=== PATIENT | female | born 1950 | race Caucasian/White ===

== ENCOUNTER → 2016-12-05 | Outpatient (CLI) | payer MEDICARE ==
--- NOTE | 2016-12-05 11:21 | USB ---
Reason for exam: clinical finding. History: Patient is postmenopausal, has history of breast cancer at age 63, and has history of other cancer at age 55. US breast aspiration single LT of the left breast, January 02, 2016. Benign US breast aspiration single LT of the left breast, December 13, 2015. Benign US biopsy breast VAD LT of the left breast, December 13, 2015. Malignant MG pre op needle loc LT of the left breast, October 03, 2014. Malignant US biopsy breast VAD LT of the left breast, May 04, 2014. Indicated problem(s): pain in the right breast. Physical Findings: Nurse Summary: breast edema in October for 3 weeks-seen by Dr. Burns-see previous ultrasound-no nipple discharge (nurse dw). US Breast LT Left breast ultrasound including all four quadrants, the retroareolar region and axilla demonstrates a 2.1 x 3.4 x 2.9cm irregular, mixed, hypoechoic lesion at scar area at 10 o'clock. These results were verbally communicated with the patient and result sheet given to the patient on 12/05/16. ASSESSMENT: Benign, BI-RAD 2 RECOMMENDATION: Follow-up diagnostic mammogram of both breasts in 6 months. Manage on a clinical basis with regard to pain. Back on schedule for May 2017.
== END | disposition home or self-care (01) ==
LOC: RADUSWWP 09:39
PROVIDERS: ATTEND Surgery
DX: N64.4 Mastodynia (principal)

== ENCOUNTER → 2017-04-19 | Outpatient (CLI) | payer MEDICARE ==
--- NOTE | 2017-04-20 13:18 | MR ---
EXAMINATION TYPE: MR knee RT wo con DATE OF EXAM: 04/19/2017 COMPARISON: NONE HISTORY: Rt Knee pain, Twisted Knee injury TECHNIQUE: Multiplanar, multisequence imaging of the right knee is performed without IV contrast. Exa m somewhat limited due to patient body habitus. FINDINGS: MEDIAL MENISCUS: There is increased signal within the substance of the posterior horn medial meniscus . Communication with an articular surface is not identified. Findings can be compatible with a type I internal derangement. Anterior horn medial meniscus is normal. LATERAL MENISCUS: Mild increased signals within the substance of the posterior horn lateral meniscus. Some increased signal is also within the anterior horn lateral meniscus. An anterior horn lateral me niscus tear may be present with extension to the inferior articular surface. Internal derangement of the posterior horn is likely present lateral meniscus. CRUCIATE LIGAMENTS: The anterior and posterior cruciate ligaments are intact and unremarkable. COLLATERAL LIGAMENTS: The medial collateral ligament and lateral collateral ligament complex are inta ct and unremarkable. EXTENSOR MECHANISM: Distal quadriceps tendon appears normal. There may be some mild increased signal of the proximal patellar tendon. Correlate for strain at this location. EFFUSION: Small to moderate joint effusion is present. This is predominantly within the suprapatella r joint space. POPLITEAL CYST: A 1.2 x 3.1 cm popliteal cyst is present. TRICOMPARTMENT SPACES: Mild narrowing of the joint spaces is present compatible with osteoarthritic d egenerative change. This is greater within the patellofemoral joint space. CARTILAGE: Mild diffuse thinning of the articular cartilage. This is more focal irregular along the p osterior patella. Correlate for chondromalacia. BONE MARROW SIGNAL: No focal abnormal marrow signal is appreciated. OTHER: Superficial soft tissue edema may be present. IMPRESSION: Degenerative changes of the posterior horn medial lateral menisci. 2. An oblique tear of the anterior horn lateral meniscus versus internal derangement. 3. Moderate joint effusion. 4. Possible proximal patellar tendon strain. 5. Osteoarthritic degenerative change. Some chondromalacia of the posterior patella is not excluded. 6. Mild diffuse superficial edema
== END | disposition home or self-care (01) ==
LOC: RADMRIMAIN 13:10
PROVIDERS: ATTEND Orthopaedic Surgery
DX: M25.861 Other specified joint disorders, right knee (principal); R60.0 Localized edema

== ENCOUNTER → 2017-06-03 | Outpatient (CLI) | payer MEDICARE ==
[2017-06-03 08:53] LABS: Calcium 8.9 mg/dL (8.4-10.2); Potassium 4.4 mmol/L (3.5-5.1); Total Bilirubin 0.4 mg/dL (0.2-1.3); Total Protein 6.2 g/dL (6.3-8.2)
== END | disposition home or self-care (01) ==
LOC: LABWHC1 07:46
PROVIDERS: ATTEND Internal Medicine
DX: E78.5 Hyperlipidemia, unspecified (principal); E03.9 Hypothyroidism, unspecified; C50.912 Malignant neoplasm of unspecified site of left female breast
CPT/HCPCS: 36415; 80053; 80061; 84439; 84443

== ENCOUNTER → 2017-06-13 | Outpatient (CLI) | payer MEDICARE ==
--- NOTE | 2017-06-13 10:30 | MM ---
Reason for exam: follow-up at short interval from prior study. Last mammogram was performed 1 year ago. History: Patient is postmenopausal, has history of breast cancer at age 63, and has history of other cancer at age 55. US breast aspiration single LT of the left breast, January 02, 2016. Benign US breast aspiration single LT of the left breast, December 13, 2015. Benign US biopsy breast VAD LT of the left breast, December 13, 2015. Malignant MG pre op needle loc LT of the left breast, October 03, 2014. Malignant US biopsy breast VAD LT of the left breast, May 04, 2014. Taking other hormone beginning at age 64. Physical Findings: Nurse did not find any significant physical abnormalities on exam. MG Diagnostic Mammo w CAD MISTY Bilateral CC and MLO view(s) were taken. XCCL view(s) were taken of the right breast. XCCM view(s) were taken of the left breast. Prior study comparison: June 12, 2016, bilateral MG 3d diag mammo w/cad MISTY. December 13, 2015, left breast MG diagnostic mammo LT wo CAD. The breast tissue is heterogeneously dense. This may lower the sensitivity of mammography. No suspicious abnormality. Post therapy change central inner left breast. No significant new findings when compared with previous films. These results were verbally communicated with the patient and result sheet given to the patient on 06/13/17. ASSESSMENT: Benign, BI-RAD 2 RECOMMENDATION: Follow-up diagnostic mammogram of both breasts in 1 year.
== END | disposition home or self-care (01) ==
LOC: RADMAMWWP 08:59
PROVIDERS: ATTEND Radiology Diagnostic Radiology
DX: C50.912 Malignant neoplasm of unspecified site of left female breast (principal)

== ENCOUNTER 2017-12-05 15:27 | Emergency (ER) | payer MEDICARE ==
[2017-12-05] MEDS ORDERED: SODIUM CHLORIDE 0.9% 1,000 ML IV STA ×2 (16:06)
--- NOTE | 2017-12-05 16:11 | ED ---
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 She also states she has some left-sided scapular area pain that was somewhat dull 3-4/10 severity now and 0-1/10 she has a fall any trauma cough or phlegm production. She does state that she has some bilateral facial numbness in the area of her cheeks. This has since improved. She reports no other complaints at this time. She was exposed to a 1-year-old grandchild that had vomiting 4 days ago. Patient also states she has an ecchymosis to the lateral aspect of her left eye she's not sure how it happened no trauma is reported - Related Data Home Medications: Home Medications Medication Instructions Recorded Confirmed Atenolol [Tenormin] 25 mg PO QAM 05/26/14 12/05/17 Levothyroxine Sodium [Synthroid] 25 mcg PO QAM 05/26/14 12/05/17 Anastrozole [Arimidex] 1 mg PO HS 12/21/15 12/05/17 Aspirin 81 mg PO HS 12/21/15 12/05/17 Calcium+D3 400mg/500iu 1 tab PO BID 12/05/17 12/05/17 Furosemide [Lasix] 20 mg PO QAM 12/05/17 12/05/17 Imatinib Mesylate [Gleevec] 400 mg PO QAM 12/05/17 12/05/17 Oxybutynin ER [Ditropan Xl] 10 mg PO HS 12/05/17 12/05/17 Previous Rx's Medication Instructions Recorded Azithromycin [Zithromax] 500 mg PO DAILY #7 tab 12/05/17 Allergies/Adverse Reactions: Allergies Allergy/AdvReac Type Severity Reaction Status Date / Time adhesive Allergy Unknown Verified 12/05/17 16:23 meperidine HCl [From Demerol] Allergy Rash/Hives Verified 12/05/17 16:23 Review of Systems ROS Statement: Those systems with pertinent positive or pertinent negative responses have been documented in the HPI. ROS Other: All systems not noted in ROS Statement are negative. General Exam - General Exam Comments Initial Comments: This is a well-developed well-nourished awake alert oriented 3 female Limitations: no limitations General appearance: alert, in no apparent distress Head exam: Present: atraumatic, normocephalic, normal inspection Eye exam: Present: PERRL, EOMI, other (Ecchymosis noted to the lateral aspect of the left orbit involving the upper or lower eyelid. No step-off or crepitation.). Absent: scleral icterus, conjunctival injection, periorbital swelling ENT exam: Present: mucous membranes dry Neck exam: Present: normal inspection. Absent: tenderness, meningismus, lymphadenopathy Respiratory exam: Present: normal lung sounds bilaterally. Absent: respiratory distress, wheezes, rales, rhonchi, stridor Cardiovascular Exam: Present: normal rhythm, bradycardia, normal heart sounds. Absent: systolic murmur, diastolic murmur, rubs, gallop, clicks GI/Abdominal exam: Present: soft, normal bowel sounds. Absent: distended, tenderness, guarding, rebound, rigid Extremities exam: Present: normal inspection, full ROM, normal capillary refill. Absent: tenderness, pedal edema, joint swelling, calf tenderness Back exam: Present: normal inspection, tenderness (Tenderness palpation over the left rhomboid muscles and upper left trapezius musculature. This does reproduce the patient's tenderness.). Absent: CVA tenderness (R), CVA tenderness (L), paraspinal tenderness, vertebral tenderness, rash noted Neurological exam: Present: alert, oriented X3, CN II-XII intact Psychiatric exam: Present: normal affect, normal mood Skin exam: Present: warm, dry, intact, normal color. Absent: rash Stroke MDM - Lab Data Result diagrams: 12/05/17 16:21 12/05/17 16:21 Lab Results 12/05/17 12/05/17 12/05/17 Range/Units 16:21 16:21 16:21 WBC 4.9 (3.8-10.6) k/uL RBC 3.98 (3.80-5.40) m/uL Hgb 12.7 (11.4-16.0) gm/dL Hct 40.5 (34.0-46.0) % MCV 101.8 H (80.0-100.0) fL MCH 31.9 (25.0-35.0) pg MCHC 31.4 (31.0-37.0) g/dL RDW 13.3 (11.5-15.5) % Plt Count 172 (150-450) k/uL Neutrophils % 58 % Lymphocytes % 31 % Monocytes % 4 % Eosinophils % 6 % Basophils % 0 % Neutrophils # 2.8 (1.3-7.7) k/uL Lymphocytes # 1.5 (1.0-4.8) k/uL Monocytes # 0.2 (0-1.0) k/uL Eosinophils # 0.3 (0-0.7) k/uL Basophils # 0.0 (0-0.2) k/uL Macrocytosis Slight PT (9.0-12.0) sec INR (<1.2) APTT (22.0-30.0) sec Sodium 143 (137-145) mmol/L Potassium 3.6 (3.5-5.1) mmol/L Chloride 106 (98-107) mmol/L Carbon Dioxide 26 (22-30) mmol/L Anion Gap 11 mmol/L BUN 13 (7-17) mg/dL Creatinine 1.14 H (0.52-1.04) mg/dL Est GFR (MDRD) Af Amer 58 (>60 ml/min/1.73 sqM) Est GFR (MDRD) Non-Af 48 (>60 ml/min/1.73 sqM) Glucose 102 H (74-99) mg/dL Calcium 9.3 (8.4-10.2) mg/dL Magnesium 1.8 (1.6-2.3) mg/dL Total Bilirubin 0.4 (0.2-1.3) mg/dL AST 41 H (14-36) U/L ALT 53 H (9-52) U/L Alkaline Phosphatase 68 (38-126) U/L Total Creatine Kinase 134 (30-135) U/L CK-MB (CK-2) 2.1 (0.0-2.4) ng/mL CK-MB (CK-2) Rel Index 1.6 Troponin I 0.016 (0.000-0.034) ng/mL Total Protein 6.3 (6.3-8.2) g/dL Albumin 3.8 (3.5-5.0) g/dL 12/05/17 Range/Units 16:21 WBC (3.8-10.6) k/uL RBC (3.80-5.40) m/uL Hgb (11.4-16.0) gm/dL Hct (34.0-46.0) % MCV (80.0-100.0) fL MCH (25.0-35.0) pg MCHC (31.0-37.0) g/dL RDW (11.5-15.5) % Plt Count (150-450) k/uL Neutrophils % % Lymphocytes % % Monocytes % % Eosinophils % % Basophils % % Neutrophils # (1.3-7.7) k/uL Lymphocytes # (1.0-4.8) k/uL Monocytes # (0-1.0) k/uL Eosinophils # (0-0.7) k/uL Basophils # (0-0.2) k/uL Macrocytosis PT 9.7 (9.0-12.0) sec INR 1.0 (<1.2) APTT 23.6 (22.0-30.0) sec Sodium (137-145) mmol/L Potassium (3.5-5.1) mmol/L Chloride (98-107) mmol/L Carbon Dioxide (22-30) mmol/L Anion Gap mmol/L BUN (7-17) mg/dL Creatinine (0.52-1.04) mg/dL Est GFR (MDRD) Af Amer (>60 ml/min/1.73 sqM) Est GFR (MDRD) Non-Af (>60 ml/min/1.73 sqM) Glucose (74-99) mg/dL Calcium (8.4-10.2) mg/dL Magnesium (1.6-2.3) mg/dL Total Bilirubin (0.2-1.3) mg/dL AST (14-36) U/L ALT (9-52) U/L Alkaline Phosphatase (38-126) U/L Total Creatine Kinase (30-135) U/L CK-MB (CK-2) (0.0-2.4) ng/mL CK-MB (CK-2) Rel Index Troponin I (0.000-0.034) ng/mL Total Protein (6.3-8.2) g/dL Albumin (3.5-5.0) g/dL - NIH Stroke Scale 1a. Level of Consciousness: (0) alert 1b. LOC Questions: (0) answers correctly 1c. LOC Commands: (0) performs tasks correctly 2. Best Gaze: (0) normal 3. Visual: (0) no visual loss 4. Facial Palsy: (0) normal symmetrical movement 5a. Motor Arm Left: (0) no drift 5b. Motor Arm Right: (0) no drift 6a. Motor Leg Left: (0) no drift 6b. Motor Leg Right: (0) no drift 7. Limb Ataxia: (0) absent 8. Sensory: (0) normal 9. Best Language: (0) no aphasia 10. Dysarthria: (0) normal 11. Extinction/Inattention: (0) no abnormality - Medical Decision Making I did discuss findings with the patient and her family hours. Patient does demonstrate evidence of a lingular infiltrate on her x-ray. She has had some upper respiratory symptoms but no overt phlegm. She states when the diarrhea started she had episodes of chills but none since The findings and her history she will be placed on antibiotics. She is also to increase her oral fluids at length the patient be discharged she will follow-up with her doctor and return when necessary - EKG Data -: EKG Interpreted by Me EKG shows normal: sinus rhythm (Sinus rhythm with frequent PVCs the patient has a ventricular rate 64 NC interval 158 QRS of 92 QT since QTC of 422/435 old inferior changes) Past Medical History Past Medical History: Cancer, Chest Pain / Angina, GERD/Reflux, Thyroid Disorder Additional Past Medical History / Comment(s): DX CML-2005 ON ORAL CHEMO, breast cancer, seroma drainage in [facility] 12/17/2015 History of Any Multi-Drug Resistant Organisms: None Reported Past Surgical History: Section, Hysterectomy Additional Past Surgical History / Comment(s): BSO, COLONOSCOPY, port placement Past Anesthesia/Blood Transfusion Reactions: Motion Sickness Additional Past Anesthesia/Blood Transfusion Reaction / Comment(s): DIFFICULTY WAKING Past Psychological History: No Psychological Hx Reported Smoking Status: Never smoker Past Alcohol Use History: Occasional Past Drug Use History: None Reported - Past Family History Mother Family Medical History: Cancer Additional Family Medical History / Comment(s): PANCREATIC Course Vital Signs 12/05/17 15:41 Temperature 98.2 F Pulse Rate 56 L Respiratory 16 Rate Blood Pressure 134/70 O2 Sat by Pulse 98 Oximetry Disposition Clinical Impression: Pneumonia, Chest wall pain Disposition: HOME SELF-CARE Condition: Good Instructions: Pneumonia (ED), Chest Wall Pain (ED) Prescriptions: Azithromycin [Zithromax] 500 mg PO DAILY #7 tab Referrals: Carlitos Schmid MD [Primary Care Provider] - 1-2 days
[2017-12-05 16:31] LABS: Basophils % (A) 0 %; Eosinophils # (A) 0.3 k/uL (0-0.7); Eosinophils % (A) 6 %; HCT 40.5 % (34.0-46.0); HGB 12.7 gm/dL (11.4-16.0); Lymphocytes # (A) 1.5 k/uL (1.0-4.8); Lymphocytes % (A) 31 %; MCH 31.9 pg (25.0-35.0); MCHC 31.4 g/dL (31.0-37.0); MCV 101.8 fL (80.0-100.0); Macrocytosis Slight; Mean Platelet Volume 7.4; Monocytes # (A) 0.2 k/uL (0-1.0); Monocytes % (A) 4 %; Neutrophils # (A) 2.8 k/uL (1.3-7.7); Neutrophils % (A) 58 %; Platelet Count 172 k/uL (150-450); RBC 3.98 m/uL (3.80-5.40); RDW 13.3 % (11.5-15.5); WBC 4.9 k/uL (3.8-10.6)
[2017-12-05 16:43] LABS: Albumin 3.8 g/dL (3.5-5.0); Calcium 9.3 mg/dL (8.4-10.2); Magnesium 1.8 mg/dL (1.6-2.3); Potassium 3.6 mmol/L (3.5-5.1); Total Bilirubin 0.4 mg/dL (0.2-1.3); Total Protein 6.3 g/dL (6.3-8.2)
[2017-12-05 16:48] LABS: Partial Thromboplastin Time 23.6 sec (22.0-30.0); Prothrombin Time 9.7 sec (9.0-12.0)
[2017-12-05 17:09] LABS: Creatine Kinase MB 2.1 ng/mL (0.0-2.4); Troponin I 0.016 ng/mL (0.000-0.034)
--- NOTE | 2017-12-05 17:12 | XR ---
EXAMINATION TYPE: XR chest 2V DATE OF EXAM: 12/05/2017 COMPARISON: 03/20/2016 HISTORY: Headache TECHNIQUE: Frontal and lateral views of the chest are obtained. FINDINGS: There is no heart failure. Heart appears enlarged. Costophrenic angles are clear. Left ca rdiac border is indistinct. There is possible infiltrate in the lingula left upper lobe. Bony thorax is intact. IMPRESSION: There is probably new infiltrate in the lingula left upper lobe compared to old exam. No heart failure.
[2017-12-05 18:19] VITALS: BP 136/63; PULSE 60; RESP 18; TEMP 98
== END 2017-12-05 18:17 | disposition home or self-care (01) ==
LOC: EC 15:27
DX: J18.9 Pneumonia, unspecified organism (principal); R23.3 Spontaneous ecchymoses; R20.0 Anesthesia of skin; R19.7 Diarrhea, unspecified; E07.9 Disorder of thyroid, unspecified; Z85.3 Personal history of malignant neoplasm of breast; Z85.6 Personal history of leukemia; Z91.048 Other nonmedicinal substance allergy status; Z88.5 Allergy status to narcotic agent; Z79.82 Long term (current) use of aspirin; Z79.899 Other long term (current) drug therapy
CPT/HCPCS: 36415; 71046; 80053; 82550; 82553; 83735; 84484; 85025; 85610; 85730; 93005; 96360; 99284

== ENCOUNTER → 2018-01-15 | Outpatient (CLI) | payer MEDICARE ==
--- NOTE | 2018-01-15 15:54 | SFUN ---
SLEEP STUDY FOLLOW UP NOTE DATE OF SERVICE: 01/15/2018 67-year-old lady has been followed in the Sleep Center for discussion of results of polysomnogram and following plan. I discussed results of polysomnogram with the patient in details. Sleep study showed moderate obstructive sleep apnea-hypopnea syndrome with apnea-hypopnea index 17.3 and oxygen desaturation to 79%. Severe abnormalities of respiration in REM sleep 67.3 events per hour. EMG did not show any significant periodic limb movements. Heart rate in the range between 48 and 85. [place] Sleepiness Scale today is 6. MEDICATIONS: Atenolol, Gleevec, Arimidex, Synthroid, Ditropan, Lasix, calcium and vitamin D supplement. PHYSICAL EXAM: GENERAL Patient in no distress. VITAL SIGNS BP 138/67, HR 48, RR 16, height 5 feet 4 inches, weight 273, BMI 46.8, oxygen saturation on room air 99%. HEENT PERRLA, EOMI, evaluation of oropharynx showed extremely low position of soft palate. NECK Supple, no JVD. Thyroid is not palpable. LUNGS Clear to percussion and to auscultation. Good air exchange. No wheezing or rhonchi. HEART S1, S2 regular. No murmurs, gallops, or rubs. ABDOMEN Obese. Soft and nontender. Bowel sounds are present. No organomegaly appreciated. EXTREMITIES No clubbing or cyanosis. PROCUREMENT ASSISTANT Awake, alert, and oriented X3. Cranial nerves 2 to 7 intact. There is no fasciculation or atrophy. noted. No focal deficits observed. IMPRESSION: 1. Apnea-hypopnea syndrome. 2. Obesity. 3. History of coronary artery disease with episodes of angina. 4. Chronic myeloid leukemia. PLAN: 1. CPAP titration for correction of respiratory abnormalities during sleep. 2. Losing weight. 3. Sleep hygiene with regular time in bed for at least 8 hours. 4. No driving if feeling sleepiness. Thank you very much for allowing me to participate in management of your patient. Sincerely, Javad Joshua MD, PhD, FAASM Diplomat of [employer] [employer] [employer] Grain Wafer Machine Operator of [facility] [place] MMODL / IJN: [id number] /
== END | disposition home or self-care (01) ==
LOC: SLEEP 14:18
PROVIDERS: ATTEND Internal Medicine
DX: G47.33 Obstructive sleep apnea (adult) (pediatric) (principal); E66.9 Obesity, unspecified; C92.10 Chronic myeloid leukemia, BCR/ABL-positive, not having achieved remission; Z79.811 Long term (current) use of aromatase inhibitors; Z79.899 Other long term (current) drug therapy; Z86.79 Personal history of other diseases of the circulatory system

== ENCOUNTER → 2018-04-20 | Outpatient (CLI) | payer MEDICARE ==
[2018-04-20 08:25] LABS: HCT 38.5 % (34.0-46.0); HGB 12.5 gm/dL (11.4-16.0); MCHC 32.5 g/dL (31.0-37.0); MCV 98.7 fL (80.0-100.0); Mean Platelet Volume 7.5; Platelet Count 203 k/uL (150-450); RBC 3.91 m/uL (3.80-5.40); RDW 13.3 % (11.5-15.5); WBC 6.5 k/uL (3.8-10.6)
== END | disposition home or self-care (01) ==
LOC: LABPAT 08:03
PROVIDERS: ATTEND Anesthesiology
DX: Z01.812 Encounter for preprocedural laboratory examination (principal)
CPT/HCPCS: 36415; 80051; 85027

== ENCOUNTER → 2018-06-15 | Outpatient (CLI) | payer MEDICARE ==
--- NOTE | 2018-06-15 10:57 | MM ---
Reason for exam: additional evaluation requested from prior study. Last mammogram was performed 1 year ago. History: Patient is postmenopausal, has history of breast cancer at age 63, and has history of other cancer at age 55. Family history of breast cancer in 2 paternal cousins. US breast aspiration single LT of the left breast, January 02, 2016. Benign US breast aspiration single LT of the left breast, December 13, 2015. Benign US biopsy breast VAD LT of the left breast, December 13, 2015. Malignant MG pre op needle loc LT of the left breast, October 03, 2014. Malignant US biopsy breast VAD LT of the left breast, May 04, 2014. Chemotherapy. Radiation therapy of the left breast. Taking antineoplastic for 5 years beginning at age 63. Taking other hormone. Physical Findings: Nurse did not find any significant physical abnormalities on exam. MG 3D Diag Mammo W/Cad MISTY Bilateral CC and MLO view(s) were taken. Prior study comparison: June 13, 2017, bilateral MG diagnostic mammo w CAD MISTY. June 12, 2016, bilateral MG 3d diag mammo w/cad MISTY. The breast tissue is heterogeneously dense. This may lower the sensitivity of mammography. Stable benign calcifications. Stable post operative changes left breast. No significant new findings when compared with previous films. These results were verbally communicated with the patient and result sheet given to the patient on 06/15/18. ASSESSMENT: Benign, BI-RAD 2 RECOMMENDATION: Follow-up diagnostic mammogram of both breasts in 1 year.
== END | disposition home or self-care (01) ==
LOC: RADMAMWWP 09:38
PROVIDERS: ATTEND Radiology Diagnostic Radiology
DX: Z08 Encounter for follow-up examination after completed treatment for malignant neoplasm (principal); Z85.3 Personal history of malignant neoplasm of breast
CPT/HCPCS: 77066; G0279; 77062

== ENCOUNTER → 2018-06-15 | Outpatient (CLI) | payer MEDICARE ==
--- NOTE | 2018-06-15 15:23 | BD ---
EXAMINATION TYPE: Axial Bone Density DATE OF EXAM: 06/15/2018 COMPARISON: 2016 CLINICAL HISTORY: left breast ca Height: 5'5 Weight: 290 FRAX RISK QUESTIONS: History of Fracture in Adulthood: y Secondary Osteoporosis: 3. Menopause before 45: y RISK FACTORS HISTORY OF: Active: n Postmenopausal woman: y MEDICATIONS: Thyroid Medications: Which medication: Synthroid How Lon years Osteoporosis Medications: Which medication: Prolia How Lon years Additional Medications: leukemia, Arimidex, heart Additional History: leukemia, left breast cancer EXAM MEASUREMENTS: Bone mineral densitometry was performed using the [employer]. Bone mineral density as measured about the Lumbar spine is: ----- L1-L4(G/cm2): 1.283 T Score Values are as follows: ----- L2: -0.3 ----- L3: 1.2 ----- L4: 1.9 ----- L1-L4: 0.9 Bone mineral density has: Increased 8.9% since study of: 06/12/2016 Bone mineral density about the R hip (g/cm2): 0.861 Bone mineral density about the L hip (g/cm2): 0.953 T Score values are as follows: -----R Neck: -1.3 -----L Neck:-0.6 -----R Total: -0.6 -----L Total: 0.4 Bone mineral density has: Increased 4.1% since study of: 06/12/2016 IMPRESSION: No evidence for osteoporosis or osteopenia. NOTE: T-SCORE=SD OF THE YOUNG ADULT MEAN.
== END | disposition home or self-care (01) ==
LOC: RADBDWWP 09:42
PROVIDERS: ATTEND Internal Medicine Hematology & Oncology
DX: C50.212 Malignant neoplasm of upper-inner quadrant of left female breast (principal); Z79.890 Hormone replacement therapy
CPT/HCPCS: 77080

== ENCOUNTER → 2018-06-18 | Outpatient (CLI) | payer MEDICARE ==
--- NOTE | 2018-06-18 11:01 | SFUN ---
SLEEP CENTER FOLLOW UP NOTE DATE OF SERVICE: 06/18/2018 A 68-year-old lady who has been followed in the Sleep Center for treatment of moderate obstructive sleep apnea-hypopnea syndrome. Patient is trying to use her equipment every night, but sometimes has problem related to her sinuses and to collection of the water into tube and in the mask. If she does less amount of heat in the humidifier, then, she has more problem with the sinuses. With the present humidity, no problems with the sinuses, but there is a problem related to the extra water. Level of the machine is about the same level as her head. I checked her CPAP unit, CPAP pressure is 9 cm of water. Usage is 28/30 nights for more than 4 hours, average is 5.4 hours which is great compliance. Leak is 10 L/minute which is normal range. Apnea-hypopnea index for the last month only 1.4, which is a perfect. [place] Sleepiness Scale today is 6. MEDICATIONS: Gleevec, furosemide, thyroxine, atenolol, oxybutynin, baby aspirin, calcium supplement, anastrozole. PHYSICAL EXAM: Patient in no distress. BP 152/64, HR 48, RR 16, weight 295, temp 99.7, oxygen saturation at room air 98%. Extremely low position of soft palate. ABDOMEN: Obese. Neck Supple, no JVD. Thyroid is not palpable. LUNGS Clear to percussion and to auscultation. Good air exchange. No wheezing or rhonchi. HEART S1, S2 regular. No murmurs, gallops, or rubs. EXTREMITIES No clubbing or cyanosis. BRASSWIND INSTRUMENT REPAIRER Awake, alert, and oriented X3. Cranial nerves 2 to 7 intact. There is no fasciculation or atrophy. noted. No focal deficits observed. IMPRESSION: 1. Obstructive sleep apnea-hypopnea syndrome. Patient demonstrated great compliance with treatment benefitting from treatment. 2. Obesity. 3. History of coronary artery disease with episodes of angina. 4. Chronic myeloid leukemia. 5. Hypothyroidism. 6. History of breast cancer, status post surgical treatment. After surgical treatment, radiation treatment and chemotherapy. PLAN: 1. Patient will continue treatment with CPAP every night for the whole night. 2. I will decrease pressure in the machine to 7 cm of water. 3. Patient put machine lower than you head at about 1 to 1-1/2 feet. 4. Losing weight. 5. Sleep hygiene with regular time bed for at least 8 hours. 6. No driving if feeling sleepiness. Thank you very much for allowing me to participate in the management of your patient. Sincerely, Javad Joshua MD, PhD, FAASM Diplomat of [employer] Alignment Specialist of [facility] [place] MMJOSE RAFAELL / RICHARDN: [id number] /
== END | disposition home or self-care (01) ==
LOC: SLEEP 09:54
PROVIDERS: ATTEND Internal Medicine
DX: G47.33 Obstructive sleep apnea (adult) (pediatric) (principal); E66.9 Obesity, unspecified; C92.10 Chronic myeloid leukemia, BCR/ABL-positive, not having achieved remission; E03.9 Hypothyroidism, unspecified; Z85.3 Personal history of malignant neoplasm of breast; Z86.79 Personal history of other diseases of the circulatory system; Z99.89 Dependence on other enabling machines and devices; Z79.82 Long term (current) use of aspirin; Z79.899 Other long term (current) drug therapy; Z98.890 Other specified postprocedural states

== ENCOUNTER → 2018-06-18 | Outpatient (CLI) | payer MEDICARE ==
[2018-06-18 08:56] LABS: Potassium 4.7 mmol/L (3.5-5.1)
[2018-06-18 08:57] LABS: Albumin 3.8 g/dL (3.5-5.0); Calcium 9.1 mg/dL (8.4-10.2); Total Bilirubin 0.4 mg/dL (0.2-1.3); Total Protein 6.3 g/dL (6.3-8.2)
[2018-06-18 16:31] LABS: Parathyroid Hormone Intact 162.7 pg/mL (14.0-72.0)
== END | disposition home or self-care (01) ==
LOC: LABWHC1 08:03
PROVIDERS: ATTEND Internal Medicine
DX: E03.9 Hypothyroidism, unspecified (principal); E78.5 Hyperlipidemia, unspecified; N18.3 Chronic kidney disease, stage 3 (moderate)
CPT/HCPCS: 36415; 80053; 80061; 82306; 83970; 84443

== ENCOUNTER 2018-07-20 16:38 | Emergency (ER) | payer MEDICARE ==
[2018-07-20] MEDS ORDERED: KETOROLAC 30 MG/ML 1 ML VIAL IVP STA (17:34)
[2018-07-20] MEDS ORDERED: METOCLOPRAMIDE 5 MG/ML 2 ML VIAL IVP STA (17:34)
[2018-07-20] MEDS ORDERED: SODIUM CHLORIDE 0.9% 1,000 ML IV STA (17:34)
[2018-07-20] MEDS ORDERED: FAMOTIDINE 20 MG/2 ML VIAL IV STA (17:35)
--- NOTE | 2018-07-20 17:38 | ED ---
General Adult HPI - General Chief complaint: Abdominal Pain Stated complaint: Abdominal pain Time Seen by Provider: 07/20/18 17:20 Source: patient, family, RN notes reviewed Mode of arrival: ambulatory Limitations: no limitations - History of Present Illness Initial comments: Patient is a pleasant 68-year-old female presenting to the emergency Department with abdominal discomfort. Discomfort is mostly in the epigastric region. Discomfort first occurred 3 days ago after eating pork. Patient has had intermittent discomfort associated with eating since that time. Patient has become nervous to eat. Worst episode was Friday after eating a large meal of fried food. Discomfort does radiate somewhat towards the back. Patient has had some mild nausea. No vomiting. Patient did have one normal bowel movement recently. Otherwise no constipation or diarrhea. No fevers. No history of similar symptoms previously. Patient is concerned symptoms may be related to her gallbladder. - Related Data Home Medications Medication Instructions Recorded Confirmed Atenolol [Tenormin] 25 mg PO QAM 05/26/14 07/20/18 Levothyroxine Sodium [Synthroid] 25 mcg PO QAM 05/26/14 07/20/18 Anastrozole [Arimidex] 1 mg PO HS 12/21/15 07/20/18 Aspirin 81 mg PO HS 12/21/15 07/20/18 Calcium+D3 400mg/500iu 1 tab PO BID 12/05/17 07/20/18 Furosemide [Lasix] 20 mg PO DAILY 12/05/17 07/20/18 Imatinib Mesylate [Gleevec] 400 mg PO DAILY 12/05/17 07/20/18 Oxybutynin ER [Ditropan Xl] 10 mg PO HS 12/05/17 07/20/18 Previous Rx's Medication Instructions Recorded Omeprazole [PriLOSEC] 40 mg PO DAILY #30 capsule. 07/20/18 Allergies Allergy/AdvReac Type Severity Reaction Status Date / Time adhesive AdvReac RED SKIN Verified 07/20/18 18:34 AND TAKES SKIN OFF meperidine HCl [From Demerol] AdvReac Rash/Hives, Verified 07/20/18 18:34 rapid heart rate morphine AdvReac Itching Verified 07/20/18 18:34 naproxen [From Aleve] Nicole Phelps told Verified 07/20/18 18:34 not to take tylenol AdvReac Told Uncoded 07/20/18 18:34 not to take Review of Systems ROS Statement: Those systems with pertinent positive or pertinent negative responses have been documented in the HPI. ROS Other: All systems not noted in ROS Statement are negative. Constitutional: Denies: fever Eyes: Denies: eye pain ENT: Denies: ear pain Respiratory: Denies: cough Cardiovascular: Denies: chest pain Endocrine: Denies: fatigue Gastrointestinal: Reports: abdominal pain. Denies: vomiting Genitourinary: Denies: dysuria Musculoskeletal: Denies: arthralgia Skin: Denies: rash Past Medical History Past Medical History: Atrial Fibrillation, Cancer, Chest Pain / Angina, Deep Vein Thrombosis (DVT), GERD/Reflux, Skin Disorder, Sleep Apnea/CPAP/BIPAP, Thyroid Disorder Additional Past Medical History / Comment(s): breast cancer, A-Fib after chemo in 2013, hx blood clot left arm, varicose veins, arthritis in knee and hip, psoriasis, chronic myeloid leukemia, "low kidney function", degenerative disk disease History of Any Multi-Drug Resistant Organisms: None Reported Past Surgical History: Breast Surgery, Section, Hernia Repair, Hysterectomy Additional Past Surgical History / Comment(s): COLONOSCOPY, port placement/ later removed, left breast lumpectomy, rhoda cataracts, heel spur-not sure which foot Past Anesthesia/Blood Transfusion Reactions: Previous Problems w/ Anesthesia, Motion Sickness, Postoperative Nausea & Vomiting (PONV) Additional Past Anesthesia/Blood Transfusion Reaction / Comment(s): DIFFICULTY WAKING Past Psychological History: No Psychological Hx Reported Smoking Status: Never smoker Past Alcohol Use History: Rare Past Drug Use History: None Reported - Past Family History Mother Family Medical History: Cancer Additional Family Medical History / Comment(s): PANCREATIC General Exam Limitations: no limitations General appearance: alert, in no apparent distress Head exam: Present: atraumatic Eye exam: Present: normal appearance Respiratory exam: Present: normal lung sounds bilaterally Cardiovascular Exam: Present: regular rate, normal rhythm Expanded Peripheral pulses: 2+: Posterior Tibialis (R), Posterior Tibialis (L) GI/Abdominal exam: Present: soft, tenderness (Moderate tenderness in the right upper quadrant and epigastric region.), guarding (Mild guarding the right upper quadrant and epigastric region), normal bowel sounds. Absent: distended, rebound, rigid, pulsatile mass Extremities exam: Present: normal inspection Back exam: Present: normal inspection. Absent: tenderness Neurological exam: Present: alert Psychiatric exam: Present: normal affect, normal mood Skin exam: Present: normal color Course Vital Signs 07/20/18 07/20/18 17:05 18:44 Temperature 99.2 F Pulse Rate 56 L 60 Respiratory 18 169 H Rate Blood Pressure 150/84 145/74 O2 Sat by Pulse 95 Oximetry Medical Decision Making - Medical Decision Making Patient reevaluated and resting comfortably in bed. Patient symptom-free at this time. Patient states she used to be on Prilosec however has not taken in a couple of years. Patient is updated on results. Patient is offered computed tomography scan however refuses. Patient states she'll follow-up with her doctor. Patient states she is previously seen Dr. galo and will follow-up with him. She is advised to consider HIDA scan and possible scope. - Lab Data Result diagrams: 07/20/18 18:08 07/20/18 18:08 Lab Results 07/20/18 07/20/18 07/20/18 Range/Units 17:40 18:08 18:08 WBC 8.8 (3.8-10.6) k/uL RBC 4.02 (3.80-5.40) m/uL Hgb 12.5 (11.4-16.0) gm/dL Hct 39.7 (34.0-46.0) % MCV 98.5 (80.0-100.0) fL MCH 31.1 (25.0-35.0) pg MCHC 31.6 (31.0-37.0) g/dL RDW 13.6 (11.5-15.5) % Plt Count 206 (150-450) k/uL Neutrophils % 69 % Lymphocytes % 21 % Monocytes % 5 % Eosinophils % 4 % Basophils % 0 % Neutrophils # 6.0 (1.3-7.7) k/uL Lymphocytes # 1.9 (1.0-4.8) k/uL Monocytes # 0.5 (0-1.0) k/uL Eosinophils # 0.3 (0-0.7) k/uL Basophils # 0.0 (0-0.2) k/uL PT (9.0-12.0) sec INR (<1.2) APTT (22.0-30.0) sec Sodium 141 (137-145) mmol/L Potassium 3.6 (3.5-5.1) mmol/L Chloride 103 (98-107) mmol/L Carbon Dioxide 31 H (22-30) mmol/L Anion Gap 7 mmol/L BUN 18 H (7-17) mg/dL Creatinine 1.17 H (0.52-1.04) mg/dL Est GFR (CKD-EPI)AfAm 56 (>60 ml/min/1.73 sqM) Est GFR (CKD-EPI)NonAf 48 (>60 ml/min/1.73 sqM) Glucose 97 (74-99) mg/dL Calcium 9.0 (8.4-10.2) mg/dL Total Bilirubin 0.5 (0.2-1.3) mg/dL AST 27 (14-36) U/L ALT 42 (9-52) U/L Alkaline Phosphatase 82 (38-126) U/L Total Protein 6.4 (6.3-8.2) g/dL Albumin 3.8 (3.5-5.0) g/dL Amylase 36 (30-110) U/L Lipase 124 (23-300) U/L Urine Color Yellow Urine Appearance Clear (Clear) Urine pH 7.0 (5.0-8.0) Ur Specific [place] 1.013 (1.001-1.035) Urine Protein Trace H (Negative) Urine Glucose (UA) Negative (Negative) Urine Ketones Negative (Negative) Urine Blood Negative (Negative) Urine Nitrite Negative (Negative) Urine Bilirubin Negative (Negative) Urine Urobilinogen <2.0 (<2.0) mg/dL Ur Leukocyte Esterase Small H (Negative) Urine RBC 1 (0-5) /hpf Urine WBC 10 H (0-5) /hpf Ur Squamous Epith Cells 1 (0-4) /hpf Hyaline Casts 1 (0-2) /lpf 07/20/18 Range/Units 18:08 WBC (3.8-10.6) k/uL RBC (3.80-5.40) m/uL Hgb (11.4-16.0) gm/dL Hct (34.0-46.0) % MCV (80.0-100.0) fL MCH (25.0-35.0) pg MCHC (31.0-37.0) g/dL RDW (11.5-15.5) % Plt Count (150-450) k/uL Neutrophils % % Lymphocytes % % Monocytes % % Eosinophils % % Basophils % % Neutrophils # (1.3-7.7) k/uL Lymphocytes # (1.0-4.8) k/uL Monocytes # (0-1.0) k/uL Eosinophils # (0-0.7) k/uL Basophils # (0-0.2) k/uL PT 9.5 (9.0-12.0) sec INR 1.0 (<1.2) APTT 22.6 (22.0-30.0) sec Sodium (137-145) mmol/L Potassium (3.5-5.1) mmol/L Chloride (98-107) mmol/L Carbon Dioxide (22-30) mmol/L Anion Gap mmol/L BUN (7-17) mg/dL Creatinine (0.52-1.04) mg/dL Est GFR (CKD-EPI)AfAm (>60 ml/min/1.73 sqM) Est GFR (CKD-EPI)NonAf (>60 ml/min/1.73 sqM) Glucose (74-99) mg/dL Calcium (8.4-10.2) mg/dL Total Bilirubin (0.2-1.3) mg/dL AST (14-36) U/L ALT (9-52) U/L Alkaline Phosphatase (38-126) U/L Total Protein (6.3-8.2) g/dL Albumin (3.5-5.0) g/dL Amylase (30-110) U/L Lipase (23-300) U/L Urine Color Urine Appearance (Clear) Urine pH (5.0-8.0) Ur Specific [place] (1.001-1.035) Urine Protein (Negative) Urine Glucose (UA) (Negative) Urine Ketones (Negative) Urine Blood (Negative) Urine Nitrite (Negative) Urine Bilirubin (Negative) Urine Urobilinogen (<2.0) mg/dL Ur Leukocyte Esterase (Negative) Urine RBC (0-5) /hpf Urine WBC (0-5) /hpf Ur Squamous Epith Cells (0-4) /hpf Hyaline Casts (0-2) /lpf - Radiology Data Radiology results: image reviewed (KUB shows no acute process. Ultrasound of the gallbladder is suboptimal. No gallstones or secondary evidence of cholecystitis is present. Ultrasound of the aorta is suboptimal. Proximal and mid aorta does not reveal acute abnormality. Distal and bifurcation is limited by gas.) Disposition Clinical Impression: Epigastric abdominal pain Disposition: HOME SELF-CARE Condition: Stable Instructions: Abdominal Pain (ED) Additional Instructions: Prilosec as prescribed. Please follow-up with her surgeon and primary care physician in the next couple days for recheck. Consider scope. Consider EGD. Return for increased pain, fevers, worsening or change in symptoms or other concerns. Prescriptions: Omeprazole [PriLOSEC] 40 mg PO DAILY #30 capsule.dr Is patient prescribed a controlled substance at d/c from ED?: No Referrals: Carlitos Schmid MD [Primary Care Provider] - 1-2 days Fernandez Galo DO [Doctor of Osteopathic Medicine] - 1-2 days Time of Disposition: 20:00
[2018-07-20 18:20] LABS: Albumin 3.8 g/dL (3.5-5.0); Basophils % (A) 0 %; Eosinophils # (A) 0.3 k/uL (0-0.7); Eosinophils % (A) 4 %; HCT 39.7 % (34.0-46.0); HGB 12.5 gm/dL (11.4-16.0); Lymphocytes # (A) 1.9 k/uL (1.0-4.8); Lymphocytes % (A) 21 %; MCH 31.1 pg (25.0-35.0); MCHC 31.6 g/dL (31.0-37.0); MCV 98.5 fL (80.0-100.0); Mean Platelet Volume 7.2; Monocytes # (A) 0.5 k/uL (0-1.0); Monocytes % (A) 5 %; Neutrophils % (A) 69 %; Platelet Count 206 k/uL (150-450); Potassium 3.6 mmol/L (3.5-5.1); RBC 4.02 m/uL (3.80-5.40); RDW 13.6 % (11.5-15.5); Total Bilirubin 0.5 mg/dL (0.2-1.3); Total Protein 6.4 g/dL (6.3-8.2); WBC 8.8 k/uL (3.8-10.6)
[2018-07-20 18:27] LABS: Partial Thromboplastin Time 22.6 sec (22.0-30.0); Prothrombin Time 9.5 sec (9.0-12.0)
[2018-07-20 18:27] LABS: Appearance,Urine Clear (Clear); Bilirubin,Urine Negative (Negative); Blood,Urine Negative (Negative); Color,Urine Yellow; Glucose,Urine (UA) Negative (Negative); Hyaline Casts,Urine 1 /lpf (0-2); Ketones,Urine Negative (Negative); Leukocyte Esterase,Urine Small (Negative); Nitrite,Urine Negative (Negative); Protein,Urine Trace (Negative); RBC,Urine 1 /hpf (0-5); Specific Gravity,Urine 1.013 (1.001-1.035); Squamous Epithelial Cell,Urine 1 /hpf (0-4); Urobilinogen,Urine <2.0 mg/dL (<2.0); WBC,Urine 10 /hpf (0-5)
--- NOTE | 2018-07-20 18:38 | US ---
EXAMINATION TYPE: US gallbladder DATE OF EXAM: 07/20/2018 COMPARISON: Prior limited abdominal ultrasound March 07, 2016 CLINICAL HISTORY: Pain. EXAM MEASUREMENTS: Liver Length: 17.7 cm Gallbladder Wall: 0.3 cm CBD: 0.3 cm Right Kidney: 9.8 x 4.1 x 4.3 cm Morbidly obese patient with extensive overlying bowel gas, technically difficult and very limited jay jay dy. Pancreas: Obscured by bowel gas Liver: Increased attenuation, decreased visualization of vessels suggestive of fatty infiltrate, upp er limites of normal in size Gallbladder: wnl as visualized, limited views Evidence for sonographic Gonzalez's sign: no CBD: wnl as visualized, limited views Right Kidney: very limited visualization, no hydro Suboptimal study per technologist due to patient's large body habitus and overlying bowel gas. Visual ized liver is heterogeneously hyperechoic. Favor diffuse fatty infiltration. Gallbladder is slightly distended margins. No mobile shadowing gallstones are present. IMPRESSION: Suboptimal study but no gallstones or secondary ultrasound evidence for acute cholecystit is is present.
--- NOTE | 2018-07-20 18:39 | US ---
EXAMINATION TYPE: US duplex aorta DATE OF EXAM: 07/20/2018 COMPARISON: NONE CLINICAL HISTORY: Pain. EXAM MEASUREMENTS: Abdominal Aorta: Proximal: 2.6cm by 2.3 cm transversely Mid: 2.1cm by 1.8 cm transversely. Distal: obscured by bowel gas Bifurcation: obscured by bowel gas Morbidly obese patient with extensive overlying bowel gas. Technically difficult and very limited jay jay dy. IMPRESSION: Suboptimal study with incomplete visualization of the entire abdominal aorta.
--- NOTE | 2018-07-20 19:22 | XR ---
EXAMINATION TYPE: XR KUB DATE OF EXAM: 07/20/2018 7:16 PM CLINICAL HISTORY: Upper abdominal pain into back. TECHNIQUE: Two Upright KUB images of the abdomen are obtained. COMPARISON: None. FINDINGS: Scattered gas is seen in non-distended stomach and small bowel loops. Gas and fecal materia l is seen in non-distended colon. Scattered pelvic phleboliths are present. Levoconvex scoliosis cent ered at L3 level is seen. Surgical clips overlie the left breast. No pneumoperitoneum is present. Kellie g bases are clear. IMPRESSION: Overall nonobstructive bowel gas pattern.
[2018-07-20 19:58] VITALS: RESP 18
[2018-07-20 20:10] VITALS: BP 117/55; PULSE 59; TEMP 98.1
== END 2018-07-20 20:10 | disposition home or self-care (01) ==
LOC: EC 16:38
DX: R10.13 Epigastric pain (principal); R11.0 Nausea; E07.9 Disorder of thyroid, unspecified; M16.10 Unilateral primary osteoarthritis, unspecified hip; M17.10 Unilateral primary osteoarthritis, unspecified knee; G47.30 Sleep apnea, unspecified; Z88.5 Allergy status to narcotic agent; Z88.6 Allergy status to analgesic agent; Z91.048 Other nonmedicinal substance allergy status; Z79.82 Long term (current) use of aspirin; Z79.899 Other long term (current) drug therapy; Z85.3 Personal history of malignant neoplasm of breast; Z92.21 Personal history of antineoplastic chemotherapy; Z85.6 Personal history of leukemia; Z98.890 Other specified postprocedural states; Z86.79 Personal history of other diseases of the circulatory system; Z99.89 Dependence on other enabling machines and devices; Z80.0 Family history of malignant neoplasm of digestive organs; Z53.8 Procedure and treatment not carried out for other reasons
CPT/HCPCS: 36415; 80053; 82150; 83690; 85025; 85610; 85730; 81001; 87086; 74018; 76705; 93979; 99284; 96374; 96375; 96361; J2765

== ENCOUNTER → 2018-08-18 | Outpatient (CLI) | payer MEDICARE ==
--- NOTE | 2018-08-20 08:57 | USB ---
Reason for exam: clinical finding. History: Patient is postmenopausal, has history of breast cancer at age 63, and has history of other cancer at age 55. Family history of breast cancer in 2 paternal cousins. US breast aspiration single LT of the left breast, January 02, 2016. Benign US breast aspiration single LT of the left breast, December 13, 2015. Benign US biopsy breast VAD LT of the left breast, December 13, 2015. Malignant MG pre op needle loc LT of the left breast, October 03, 2014. Malignant US biopsy breast VAD LT of the left breast, May 04, 2014. Chemotherapy. Radiation therapy of the left breast. Taking antineoplastic for 5 years beginning at age 63. Taking other hormone. Physical Findings: Nurse did not find any significant physical abnormalities on exam. US Breast LT Left complete breast ultrasound includes all four quadrants, the retroareolar region and axilla. Finding demonstrates a 8 x 6 x 4 mm Hypoechoic lesion at 3 o"clock that corresponds to an oil cyst. And a 17 x 14 x 30 mm Hypoechoic vascular lesion at 10 o'clock which is at the scar, the posterior edge is vascular, rebiopsy post margin is recommended. ASSESSMENT: Suspicious, BI-RAD 4 RECOMMENDATION: Ultrasound core biopsy of the left breast. Called with mammographic findings and has scheduled an appointment for the patient for 09/02/18at13[address] Jeffery. Patient is scheduled for Ultrasound core of her left breast on 08/28/18 at 10:00 am. PRELIMINARY REPORT CALLED AND FAXED TO DR. JEFFERY ON 08/20/18
== END | disposition home or self-care (01) ==
LOC: RADUSWWP 14:50
PROVIDERS: ATTEND Surgery
DX: Z08 Encounter for follow-up examination after completed treatment for malignant neoplasm (principal); Z85.3 Personal history of malignant neoplasm of breast

== ENCOUNTER → 2018-08-28 | Day surgery (SDC) | payer MEDICARE ==
[2018-08-28 09:32] VITALS: RESP 16; TEMP 98.5; BMI 47.6
[2018-08-28 10:54] VITALS: BP 116/73; PULSE 54
--- NOTE | 2018-08-31 17:55 | USB ---
EXAMINATION TYPE: US biopsy breast VAD LT DATE OF EXAM: 08/28/2018 CLINICAL HISTORY: R92.8 Abnormal Mammogram. TECHNIQUE: Ultrasound guided core biopsy of left breast. COMPARISON: Ultrasound 08/18/2018. FINDINGS: The procedure of ultrasound guided core biopsy was explained to the patient. Benefits, alt ernatives, and risks were discussed. An informed consent was then obtained. Timeout was performed. The patient was placed in supine positioning for imaging and for the procedure. The overlying skin w as prepped and draped in usual sterile fashion. Lidocaine buffered with bicarbonate was used as anes thetic into the skin and subcutaneous tissue up to area of concern in the left breast. A chuck was ma de with surgical scalpel. Under ultrasound guidance, a 12-gauge vacuum assisted biopsy gun device was used to obtain 6 core ivan ples. Following this, a biopsy ribbon clip was left at the location of the biopsy. Post procedure mammogram was performed for clip documentation. The patient tolerated the procedure well without any immediate complication. The patient was kept in the radiology department for short stay after the procedure and then discharged home in stable condi tion. IMPRESSION: 1. Successful ultrasound-guided vacuum-assisted core biopsy. Recommendations: 1. Recommendations are pending pathology results.
--- NOTE | 2018-09-01 10:30 | MM ---
Reason for exam: additional evaluation requested from abnormal screening. Last mammogram was performed 2 months ago. History: Patient is postmenopausal, has history of breast cancer at age 63, and has history of other cancer at age 55. Family history of breast cancer in 2 paternal cousins. US breast aspiration single LT of the left breast, January 02, 2016. Benign US breast aspiration single LT of the left breast, December 13, 2015. Benign US biopsy breast VAD LT of the left breast, December 13, 2015. Malignant MG pre op needle loc LT of the left breast, October 03, 2014. Malignant US biopsy breast VAD LT of the left breast, May 04, 2014. Chemotherapy. Radiation therapy of the left breast. Taking antineoplastic for 5 years beginning at age 63. Taking other hormone. MG Diagnostic Mammo LT Wo CAD CC and MLO view(s) were taken of the left breast. Prior study comparison: June 15, 2018, bilateral MG 3d diag mammo w/cad MISTY. June 13, 2017, bilateral MG diagnostic mammo w CAD MISTY. ASSESSMENT: Post procedure mammogram for marker placement RECOMMENDATION: Ultrasound of the left breast in 6 months. PENDING PATHOLOGY RESULTS.
== END ==
LOC: RADUSWWP 08:47
PROVIDERS: ATTEND Surgery
DX: N64.1 Fat necrosis of breast (principal); N60.32 Fibrosclerosis of left breast; Z88.6 Allergy status to analgesic agent; Z88.5 Allergy status to narcotic agent; Z91.048 Other nonmedicinal substance allergy status
CPT/HCPCS: 88305; 77065; 19083; A4648; J2001

== ENCOUNTER → 2018-11-26 | Outpatient (CLI) | payer MEDICARE ==
--- NOTE | 2018-11-26 11:48 | SFUN ---
SLEEP CENTER FOLLOW UP NOTE DATE OF SERVICE: 11/26/2018 A 68-year-old lady who has been followed in the Sleep Center for treatment of obstructive sleep apnea-hypopnea syndrome. Patient continued to use her CPAP equipment regularly after her mask was changed to Dream Wear under the nose mask. She sleeps better with this equipment, feels better. [place] Sleepiness Scale today is 5, which is normal. I checked her CPAP unit. CPAP pressure is 7 cm of water. Usage is normal 22/30 nights more than 4 hours with average usage of 4.8 hours. Leak is only 2 L/minute which is absolutely great. Apnea-hypopnea index only 0.6, which is absolutely normal. MEDICATIONS: Gleevec, furosemide, thyroxine, atenolol, oxybutynin, baby aspirin, calcium supplement, . PHYSICAL EXAM: Patient in no distress, BP 165/69, HR 56, RR 16, height 5 feet 4 inches, weight 303, body mass index 52, temperature 98.2, oxygen saturation at room air 98%. Oropharynx extremely low position of soft palate. ABDOMEN: Obese. Neck Supple, no JVD. Thyroid is not palpable. LUNGS Clear to percussion and to auscultation. Good air exchange. No wheezing or rhonchi. HEART S1, S2 regular. No murmurs, gallops, or rubs. EXTREMITIES No clubbing or cyanosis. POT ROOM SUPERVISOR Awake, alert, and oriented X3. Cranial nerves 2 to 7 intact. There is no fasciculation or atrophy. noted. No focal deficits observed. IMPRESSION: 1. Obstructive sleep apnea-hypopnea syndrome on great control with the CPAP. Patient demonstrated good compliance with treatment, benefitting from treatment. 2. Obesity. 3. Coronary artery disease. 4. History of chronic myeloid leukemia. 5. Hypothyroidism. 6. History of breast CA, status post surgical treatment, radiation therapy and chemotherapy. 7. Problem with the right knee. Patient is preparing for possible right knee meniscus surgery. PLAN: 1. Patient should continue to use CPAP equipment every night. 2. She should take the CPAP unit with her to the hospital if she will go for the surgery. 3. Losing weight. 4. Sleep hygiene with regular time in bed for at least 7.5 - 8 hours. 5. No driving if feeling sleepiness. 6. Will maintain all necessary prescription for CPAP supplies including mask, tube, filters. Thank you very much for allowing me to participate in the management of your patient. Sincerely, Javad Joshua MD, PhD, FAASM Diplomat of [place] [employer] [place] [employer] [facility] [place] DUSTY / BK: [id number] /
== END ==
LOC: SLEEP 10:29
PROVIDERS: ATTEND Internal Medicine
DX: G47.33 Obstructive sleep apnea (adult) (pediatric) (principal); E66.9 Obesity, unspecified; I25.10 Atherosclerotic heart disease of native coronary artery without angina pectoris; E03.9 Hypothyroidism, unspecified; Z99.89 Dependence on other enabling machines and devices; Z85.3 Personal history of malignant neoplasm of breast; Z92.3 Personal history of irradiation; Z92.21 Personal history of antineoplastic chemotherapy; Z85.6 Personal history of leukemia; R29.898 Other symptoms and signs involving the musculoskeletal system; Z79.899 Other long term (current) drug therapy; Z79.82 Long term (current) use of aspirin

== ENCOUNTER 2018-12-10 09:31 | Day surgery (SDC) | payer MEDICARE ==
[2018-12-09 08:29] VITALS: BMI 50.1
--- NOTE | 2018-12-09 20:29 | HP ---
HISTORY AND PHYSICAL DATE OF SURGERY: 12/10/2018 Keily Castellon is a 68-year-old patient seen with progressive right knee pain. Treatment options were discussed. She elected to proceed with arthroscopy. Consent was obtained. Clearance was provided by Dr. Schmid. PAST MEDICAL HISTORY: Hypertension, hypothyroidism. PAST SURGICAL HISTORY: 1. section. 2. Herniorrhaphy. 3. Hysterectomy. 4. Lumpectomy. DAILY MEDICATIONS: 1. Atenolol. 2. Furosemide. 3. Levothyroxine. ALLERGIES: 1. DEMEROL. 2. MORPHINE. 3. ADHESIVES. SOCIAL HISTORY: She denies tobacco use. PHYSICAL EVALUATION OF THE RIGHT KNEE: Range of motion 0 to 120 degrees. Mild effusion. Tenderness, medial joint line. Positive medial Betsy's. Ligaments stable. Hip rotation without significant pain. Distal neurovascular exam is intact. RADIOGRAPHS: Radiographs of the right knee reveal moderate osteoarthritis. IMPRESSION: 1. Internal derangement of right knee with medial meniscal tear. 2. Hypertension. 3. Hypothyroidism. PLAN: Right knee arthroscopy with partial meniscectomy and debridement. MMODL / IJN: [id number] /
[~2018-12-10 09:31] MED LIST: DEXAMETHASONE SOD PHOSPHATE 10 MG/ML 1 ML VIAL IV ONE; LACTATED RINGERS 1,000 ML IV SCH; MIDAZOLAM 2 MG/2 ML VIAL IV PRN; ONDANSETRON 4 MG/2 ML VIAL IVP ONE; ceFAZolin 3 GM in SODIUM CHLORIDE 0.9% 100 ML IVPB ONE
[2018-12-10 09:51] VITALS: TEMP 96.9
[2018-12-10] MEDS ORDERED: LIDOCAINE 1% 20 ML VIAL (10MG/ML) FOR IV START INTRADERMA ONE (10:05)
[2018-12-10] MEDS ORDERED: fentaNYL (PF) 50 MCG/ML 2 ML AMP ONE (11:45)
[2018-12-10] MEDS ORDERED: SUCCINYLCHOLINE CHLORIDE 100 MG/5 ML SYR IV ONE (11:45)
[2018-12-10] MEDS ORDERED: MIDAZOLAM 2 MG/2 ML VIAL ONE (11:45)
[2018-12-10] MEDS ORDERED: ESMOLOL 100 MG/10 ML VIAL ONE (11:45)
[2018-12-10] MEDS ORDERED: PROPOFOL 10 MG/ML 20 ML VIAL IV ONE (11:45)
[2018-12-10] MEDS ORDERED: BUPIVACAIN-EPI 0.25%-1:200,000 30 ML VIAL INTRAARTIC ONE (12:10)
--- NOTE | 2018-12-10 12:46 | P.OP ---
Date of Procedure: 12/10/18 Preoperative Diagnosis: Internal derangement right knee Postoperative Diagnosis: 1. Tear lateral meniscus right knee 2. Grade 4 chondromalacia medial femoral condyle right knee 3. Grade 4 chondromalacia patellofemoral joint right knee 4. Reactive synovitis medial, lateral and suprapatellar compartments right knee Procedure(s) Performed: 1. Arthroscopic partial lateral meniscectomy right knee 2. Arthroscopic chondroplasty medial femoral condyle right knee 3. Arthroscopic microfracture medial femoral condyle right knee 4. Arthroscopic chondroplasty patellofemoral joint right knee 5. Arthroscopic partial synovectomy medial, lateral and suprapatellar compartments right knee Anesthesia: GETA, local Surgeon: Hipolito Butler Estimated Blood Loss (ml): 5 Pathology: none sent Condition: stable Disposition: PACU Indications for Procedure: 68-year-old patient seen with progressive right knee pain. After having treatment options discussed, she elected to proceed with arthroscopy. Operative Findings: See description of procedure Description of Procedure: Patient was taken to the operative suite. Patient underwent a general anesthetic by the department of anesthesia. Patient was given preoperative antibiotics. The right lower extremity was placed in a well-padded arthroscopic leg blankenship. The right leg was prepped and draped in the normal sterile orthopedic fashion. A lateral parapatellar and suprapatellar incision was made. Trochars were inserted. Arthroscopy was initiated. Suprapatellar pouch revealed diffuse thick reactive synovitis. The patellofemoral joint appeared to articulate congruently. There was grade 4 chondromalacia of the femoral sulcus and patella with some osteochondral tears present on the femoral sulcus side peripherally. The scope was guided into the medial gutter. No loose bodies or plica were identified The scope was then guided into the medial compartment. A medial parapatellar incision was made. Trocar inserted followed by probe. There was some fraying of the posterior horn medial meniscus. Her were grade 4 chondromalacia changes of the medial femoral condyle along the medial weightbearing surface area. There was some osteochondral tears in that area as well. There was thick reactive synovitis anteriorly. I performed a chondroplasty of the medial femoral condyle. I debrided that frayed area of the posterior medial meniscus. I performed a partial synovectomy decompressing the thick reactive synovitis. I performed a microfracture to the area medial femoral condyle of exposed bone penetrating the bone with resultant bleeding at the microfracture site. The residual osteochondral surface appears stable. There was good decompression of the synovitis. Scope and probe were then guided into the intercondylar notch. Cruciates were identified, probed and found to be stable. The scope and probe were then guided into lateral compartment. Was a radial tear involving the posterior horn of lateral meniscus. There were grade 2 chondromalacia changes lateral compartment with no osteochondral tears present. There was thick reactive synovitis anteriorly. I performed a partial lateral meniscectomy down to stable tissue. I performed a partial synovectomy decompressing that reactive synovitis. The residual meniscus was stable. There was good decompression was synovitis. The scope was in guided back into the suprapatellar compartment. I introduced a motorized shaver into the super compartment. I performed a chondroplasty of the patellofemoral joint. I performed a partial synovectomy decompressing reactive synovitis. The shaver was removed. The residual osteochondral surface was stable. There was good decompression of synovitis. I took one more look on the entire knee, no residual debris. Instruments were now removed from the joint. The joint was infiltrated with .25% Marcaine. The portal sites were repaired with nylon suture. Sterile dressings were applied. The patient was placed into a ARRON hose. No tourniquet was utilized. The patient was awakened, transferred to a bed and taken to recovery stable satisfactory condition.
[2018-12-10 13:17] VITALS: RESP 16
[2018-12-10] MEDS: fentaNYL (PF) 50 MCG/ML 2 ML AMP IV PRN ×2 (13:26→13:32)
[2018-12-10] MEDS ORDERED: traMADol 50 MG TAB PO ONE (14:51)
[2018-12-10 15:21] VITALS: BP 122/76; PULSE 69
== END 2018-12-10 15:52 | disposition home or self-care (01) ==
LOC: OR 09:31
PROVIDERS: ATTEND Orthopaedic Surgery
DX: S83.281A Other tear of lateral meniscus, current injury, right knee, initial encounter (principal); X58.XXXA Exposure to other specified factors, initial encounter; M94.261 Chondromalacia, right knee; M65.861 Other synovitis and tenosynovitis, right lower leg; C92.10 Chronic myeloid leukemia, BCR/ABL-positive, not having achieved remission; I12.9 Hypertensive chronic kidney disease with stage 1 through stage 4 chronic kidney disease, or unspecified chronic kidney disease; N18.3 Chronic kidney disease, stage 3 (moderate); E03.9 Hypothyroidism, unspecified; K21.9 Gastro-esophageal reflux disease without esophagitis; Z85.3 Personal history of malignant neoplasm of breast; G62.2 Polyneuropathy due to other toxic agents; Z92.21 Personal history of antineoplastic chemotherapy; E66.9 Obesity, unspecified; Z68.30 Body mass index [BMI] 30.0-30.9, adult; I48.91 Unspecified atrial fibrillation; Z86.718 Personal history of other venous thrombosis and embolism; G47.33 Obstructive sleep apnea (adult) (pediatric); Z99.89 Dependence on other enabling machines and devices; Z90.710 Acquired absence of both cervix and uterus; Z79.890 Hormone replacement therapy; Z79.899 Other long term (current) drug therapy; Z79.82 Long term (current) use of aspirin; Z88.5 Allergy status to narcotic agent; Z91.09 Other allergy status, other than to drugs and biological substances
CPT/HCPCS: 29881; J2250; J1100; J0690; J2405; J3010; J0330; J2704

== ENCOUNTER → 2019-01-07 | Outpatient (CLI) | payer MEDICARE ==
--- NOTE | 2019-01-07 14:05 | XR ---
EXAMINATION TYPE: XR chest 2V DATE OF EXAM: 01/07/2019 COMPARISON: 12/05/2017 HISTORY: 68 year-old female breast cancer and back pain TECHNIQUE: Frontal and lateral views FINDINGS: Hazy density along the left heart margin is redemonstrated but not as pronounced as on 12/05/2017. Rec urrent lingular atelectasis or infiltrate is difficult to exclude. No pleural effusion. IMPRESSION: Difficult to exclude recurrent lingular atelectasis or infiltrate. Follow-up recommended. If the find ing persists, CT can be considered.
--- NOTE | 2019-01-07 15:41 | NM ---
EXAMINATION TYPE: NM bone scan whole body DATE OF EXAM: 01/07/2019 COMPARISON: NONE HISTORY: 68-year-old female with left rib pain for 2 months upon certain movement. Patient with histo ry of breast cancer in 2013 and myeloid leukemia in 2004. Patient reports arthritis in the right knee and right hip. Technique: Delayed whole-body scanning was performed following the injection of 25.8 mCi Tc 99m MDP. Images acquired 3 hours post injection. FINDINGS: Scattered degenerative tracer activity is present at both shoulders, sternoclavicular joints, posteri or elements of the mid thoracic spine, left sided lower lumbar facet joints, fairly extensive within the right knee, to lesser extent within the left knee, and in the bilateral mid to hindfoot regions. No abnormal focal tracer activity identified in the ribs. IMPRESSION: 1. No scintigraphic evidence for osseous metastatic disease. 2. Scattered degenerative tracer activity throughout as mentioned above, most extensive in the right knee and in the bilateral mid to hindfoot regions.
== END ==
LOC: RADNMMAIN 10:10
PROVIDERS: ATTEND Internal Medicine Hematology & Oncology
DX: R07.81 Pleurodynia (principal); M54.9 Dorsalgia, unspecified; C50.212 Malignant neoplasm of upper-inner quadrant of left female breast; Z17.0 Estrogen receptor positive status [ER+]; C92.11 Chronic myeloid leukemia, BCR/ABL-positive, in remission; N64.52 Nipple discharge
CPT/HCPCS: 71046; 78306; A9503

== ENCOUNTER → 2019-04-02 | Day surgery (SDC) | payer MEDICARE ==
[2019-03-29 15:59] VITALS: BMI 46.7
[~2019-04-02] MED LIST changes: +ALPRAZolam 0.25 MG TAB PO PRN; +ANASTROZOLE 1 MG TAB PO SCH; +ASPIRIN 325 MG TAB PO ONE; +ATENOLOL 25 MG TAB PO SCH; +CALCIUM PO SCH; +CHOLECALCIFEROL PO SCH; -DEXAMETHASONE SOD PHOSPHATE 10 MG/ML 1 ML VIAL IV ONE; +FUROSEMIDE 20 MG TAB PO SCH; +HEPARIN SODIUM 1,000 UN/ML (10ML VL) IV ONE; +IOPAMIDOL-370 125ML BTL INJ ONE; -LACTATED RINGERS 1,000 ML IV SCH; +LEVOTHYROXINE 25 MCG TAB PO SCH; +LIDOCAINE 1% INJ 10MG/ML (20 ML MDV) ONE; +LIDOCAINE 1% INJ 10MG/ML (20 ML MDV) SQ ONE; -MIDAZOLAM 2 MG/2 ML VIAL IV PRN; +NON-FORMULARY DRUG (Imatinib Mesylate [Gleevec] 400 MG) PO SCH; -ONDANSETRON 4 MG/2 ML VIAL IVP ONE; +OXYBUTYNIN 10 MG TAB.ER.24 PO SCH; +PRIMROSE PO SCH; +RX INFO: IV CONTRAST WAS GIVEN 1 EACH MISC MISCELLANE PRN; +SODIUM CHLORIDE 0.9% 1,000 ML IV SCH; +SODIUM CHLORIDE 0.9% 1,000 ML in EMPTY BAG 1 BAG IV ONE; +VERAPAMIL 2.5 MG/ML 2 ML AMP ONE; +VERAPAMIL SYRINGE (5 MG/10 ML) INTRAARTER ONE; -ceFAZolin 3 GM in SODIUM CHLORIDE 0.9% 100 ML IVPB ONE; +fentaNYL (PF) 50 MCG/ML 2 ML AMP IVP ONE; +fentaNYL (PF) 50 MCG/ML 2 ML AMP ONE
[2019-04-02 07:11] VITALS: TEMP 98.6
--- NOTE | 2019-04-02 10:14 | CC ---
CARDIAC CATHETERIZATION REPORT CARDIAC CATHETERIZATION PROCEDURE NOTE: Mrs. Castellon is a 68-year-old female with history of paroxysmal atrial fibrillation, who recently underwent a myocardial perfusion imaging that revealed partial reversible anterior wall defect. In view of her recurrent arrhythmia and her results for the stress test, recommendation made regarding cardiac catheterization. The procedure, risks and complication were discussed with the patient who is in full understanding and agreement. PROCEDURE: Patient was brought to the chemistry laboratory technician in a fasting semi-sedated state after receiving fentanyl and Benadryl and achieving moderate conscious sedated state. Using Xylocaine anesthesia and Seldinger technique, a 6-Bahamian sheath was introduced in the right radial artery. Selective right and left coronary angiography was performed using 5- [place]amian 3.5 bend right and left Juan Jose catheter. Multiple views of the coronary artery including hemiaxial views were obtained. Following that, a 5-Bahamian tight pigtail catheter was introduced in the left ventricle and a 30 degree V[place]AS[place]Z view of the left ventricle was obtained. Following that, catheter and sheaths were removed. Hemostasis was obtained with deployment of a TR band. There was no immediate complication. The patient was returned to her room in stable condition. Of note, patient received 5000 units of intravenous heparin as well as intra-arterial verapamil. FINDINGS: LEFT MAIN: This is a large-sized vessel bifurcating into left circumflex, left anterior descending artery. Left main coronary artery has no evidence of high-grade stenosis. LEFT ANTERIOR DESCENDING ARTERY: This is a nondominant vessel, reaching toward the apex with a wraparound apex segment giving rise to a large diagonal branch. The left anterior descending artery as well as branches have no evidence of obstructive coronary artery disease. LEFT CIRCUMFLEX: This is a nondominant vessel, giving rise to a moderately sized obtuse marginal branch. The left circumflex as well as branches have no evidence of obstructive coronary artery disease. RIGHT CORONARY ARTERY: This is a large dominant vessel, bifurcating distally into PDA and posterolateral segment and branches. The right coronary artery as well as branches have no evidence of obstructive coronary artery disease. LEFT VENTRICULOGRAM: Left ventriculogram is performed in 30 degree [place]Z view and revealed normal left ventricular size and systolic function. Ejection fraction 60%. There was no significant mitral regurgitation. HEMODYNAMICS: There was no gradient across the aortic valve. The left ventricular end- diastolic pressure was 20 mmHg. CONCLUSION: 1. Normal coronary arteries. 2. Normal left ventricular size and systolic function. RECOMMENDATION: I have recommended to continue medical therapy with aggressive coronary risk modifications being initiated. Patient was being evaluated to possibility of the addition of antiarrhythmic drugs. DURATION OF PROCEDURE: 20 minutes. DUSTY / BK: [id number] /
[2019-04-02 10:35] VITALS: BP 143/66; PULSE 45; RESP 16
== END | disposition home or self-care (01) ==
LOC: CATHCVL 06:24
PROVIDERS: ATTEND Internal Medicine Interventional Cardiology
DX: R94.39 Abnormal result of other cardiovascular function study (principal); R06.09 Other forms of dyspnea; I48.0 Paroxysmal atrial fibrillation; Z82.49 Family history of ischemic heart disease and other diseases of the circulatory system; Z79.01 Long term (current) use of anticoagulants; Z79.811 Long term (current) use of aromatase inhibitors; Z79.890 Hormone replacement therapy; Z79.899 Other long term (current) drug therapy; Z88.5 Allergy status to narcotic agent
CPT/HCPCS: 93458; C1894; C1769 ×2; J2001; J3010; J1644; Q9967

== ENCOUNTER 2019-04-29 09:38 | Inpatient (IN) | payer MEDICARE ==
[2019-04-29] MEDS ORDERED: SODIUM CHLORIDE 0.9% 1,000 ML IV STA (10:29)
[2019-04-29 10:39] LABS: Basophils % (A) 0 %; Eosinophils # (A) 0.2 k/uL (0-0.7); Eosinophils % (A) 2 %; HCT 41.2 % (34.0-46.0); HGB 13.7 gm/dL (11.4-16.0); Lymphocytes # (A) 1.5 k/uL (1.0-4.8); Lymphocytes % (A) 18 %; MCH 31.7 pg (25.0-35.0); MCHC 33.2 g/dL (31.0-37.0); MCV 95.6 fL (80.0-100.0); Monocytes # (A) 0.3 k/uL (0-1.0); Monocytes % (A) 3 %; Neutrophils # (A) 6.4 k/uL (1.3-7.7); Neutrophils % (A) 76 %; Platelet Count 238 k/uL (150-450); RBC 4.31 m/uL (3.80-5.40); RDW 14.3 % (11.5-15.5); WBC 8.5 k/uL (3.8-10.6)
[2019-04-29 10:49] LABS: Albumin 4.5 g/dL (3.5-5.0); Calcium 9.9 mg/dL (8.4-10.2); Magnesium 1.9 mg/dL (1.6-2.3); Potassium 3.9 mmol/L (3.5-5.1); Total Bilirubin 0.5 mg/dL (0.2-1.3); Total Protein 7.2 g/dL (6.3-8.2)
[2019-04-29 10:51] LABS: Appearance,Urine Clear (Clear); Bilirubin,Urine Negative (Negative); Blood,Urine Negative (Negative); Color,Urine Colorless; Glucose,Urine (UA) Negative (Negative); Ketones,Urine Negative (Negative); Leukocyte Esterase,Urine Negative (Negative); Nitrite,Urine Negative (Negative); PH, Urine 6.5 (5.0-8.0); Protein,Urine Negative (Negative); Specific Gravity,Urine 1.004 (1.001-1.035); Urobilinogen,Urine <2.0 mg/dL (<2.0)
[2019-04-29 10:52] LABS: INR 0.9 (<1.2); Prothrombin Time 9.9 sec (9.0-12.0)
--- NOTE | 2019-04-29 11:22 | CT ---
EXAMINATION TYPE: CT brain wo con DATE OF EXAM: 04/29/2019 COMPARISON: None HISTORY: Dizziness for 2 days; History of Afib CT DLP: 1129.4 mGycm Automated exposure control for dose reduction was used. FINDINGS: Ventricular system is midline. Artifact within the posterior fossa limits its assessment. Grossly no acute intracranial hemorrhage or mass effect. Calvarium intact. Faint low-attenuation the white matte r is nonspecific. Hyperostosis of the frontal bone noted. Intracranial atherosclerotic changes seen. IMPRESSION: NONSPECIFIC WHITE MATTER CHANGES MOST TYPICAL REMOTE MICROVASCULAR ISCHEMIA. IF THERE IS CONCERN FOR ACUTE ISCHEMIA CORRELATE WITH MRI CLINICALLY WARRANTED.
[2019-04-29] MEDS ORDERED: NALOXONE 0.4 MG/ML 1 ML VIAL IV PRN (11:44)
--- NOTE | 2019-04-29 11:44 | ED ---
Dizziness HPI - General Chief Complaint: Dizziness Stated Complaint: DIZZY Time Seen by Provider: 04/29/19 10:08 Source: patient Mode of arrival: wheelchair Limitations: no limitations - History of Present Illness Initial Comments: This is a 68-year-old female who was sent over for evaluation after sustaining episodes of dizziness today. She's been having episodes of dizziness she does have a history of A. fib that has been intermittent over the years in having dizzy spells since she had a Holter monitor put on 2 days ago. Per reports she did have as many as 5 second pauses. She has any fevers chills sweats. She states that 2 days ago she felt weak yesterday she felt fine today again she had recurrent symptoms. She denies any chest pain she complains some headache. Patient does states she had a history of breast cancer in the past with l umpectomy. No other modifying factors MD Complaint: dizziness, lightheadedness, other - Related Data Home Medications Medication Instructions Recorded Confirmed Atenolol [Tenormin] 25 mg PO QAM 05/26/14 04/29/19 Levothyroxine Sodium [Synthroid] 25 mcg PO QAM 05/26/14 04/29/19 Anastrozole [Arimidex] 1 mg PO HS 12/21/15 04/29/19 Calcium+D3 400mg/500iu 1 tab PO BID 12/05/17 04/29/19 Furosemide [Lasix] 20 mg PO DAILY 12/05/17 04/29/19 Imatinib Mesylate [Gleevec] 400 mg PO DAILY 12/05/17 04/29/19 Oxybutynin ER [Ditropan Xl] 10 mg PO HS 12/05/17 04/29/19 [place] 1 tab PO DAILY 12/09/18 04/29/19 Apixaban [Eliquis] 5 mg PO BID 04/02/19 04/29/19 Flecainide [Tambocor] 50 mg PO Q12HR 04/29/19 04/29/19 Allergies Allergy/AdvReac Type Severity Reaction Status Date / Time adhesive AdvReac RED SKIN Verified 04/29/19 10:06 AND TAKES SKIN OFF-paper tape is ok meperidine HCl [From Demerol] AdvReac Rash/Hives, Verified 04/29/19 10:06 rapid heart rate morphine AdvReac Itching Verified 04/29/19 10:06 naproxen [From Aleve] AdvReac Dr told Verified 04/29/19 10:06 not to take Review of Systems ROS Statement: Those systems with pertinent positive or pertinent negative responses have been documented in the HPI. ROS Other: All systems not noted in ROS Statement are negative. Past Medical History Past Medical History: Atrial Fibrillation Additional Past Medical History / Comment(s): left breast cancer 2013, A-Fib after chemo in 2013, hx blood clot left arm, varicose veins, arthritis in knee and hip, psoriasis, chronic myeloid leukemia, "low kidney function", degenerative disk disease History of Any Multi-Drug Resistant Organisms: None Reported Past Surgical History: Breast Surgery, Section, Heart Catheterization, Hernia Repair, Hysterectomy Additional Past Surgical History / Comment(s): COLONOSCOPY, port placement/later removed, left breast lumpectomy, rhoda cataracts, heel spur-not sure which foot, ovaries removed Past Anesthesia/Blood Transfusion Reactions: Previous Problems w/ Anesthesia, Motion Sickness, Postoperative Nausea & Vomiting (PONV) Additional Past Anesthesia/Blood Transfusion Reaction / Comment(s): DIFFICULTY WAKING Past Psychological History: No Psychological Hx Reported Smoking Status: Never smoker Past Alcohol Use History: None Reported Past Drug Use History: None Reported - Past Family History Mother Family Medical History: Cancer Additional Family Medical History / Comment(s): PANCREATIC General Exam - General Exam Comments Initial Comments: This is a well-developed well-nourished awake alert oriented 3 female Limitations: no limitations General appearance: alert, in no apparent distress Head exam: Present: atraumatic, normocephalic, normal inspection Eye exam: Present: normal appearance, PERRL, EOMI. Absent: scleral icterus, conjunctival injection, periorbital swelling ENT exam: Present: normal exam, mucous membranes moist Neck exam: Present: normal inspection. Absent: tenderness, meningismus, lymphadenopathy Respiratory exam: Present: normal lung sounds bilaterally. Absent: respiratory distress, wheezes, rales, rhonchi, stridor Cardiovascular Exam: Present: irregular rhythm. Absent: systolic murmur, diastolic murmur, rubs, gallop, clicks GI/Abdominal exam: Present: soft, normal bowel sounds. Absent: distended, tenderness, guarding, rebound, rigid Extremities exam: Present: normal inspection, full ROM, normal capillary refill. Absent: tenderness, pedal edema, joint swelling, calf tenderness Back exam: Present: normal inspection Neurological exam: Present: alert, oriented X3, CN II-XII intact Psychiatric exam: Present: normal affect, normal mood Skin exam: Present: warm, dry, intact, normal color. Absent: rash Course Vital Signs 04/29/19 04/29/19 04/29/19 09:42 10:16 11:40 Temperature 98.1 F Pulse Rate 73 73 95 Respiratory 18 18 18 Rate Blood Pressure 120/75 146/81 133/90 O2 Sat by Pulse 98 96 100 Oximetry EKG Findings - EKG Results: EKG: interpreted by ERMD (Atrial fibrillation with a rate of 87 QRS 84 QT since QTC 374/450 nonspecific inferior changes) Medical Decision Making - Medical Decision Making I did discuss the findings with Dr. Hayes and with Dr. Todd from cardiology. Patient will be admitted - Lab Data Result diagrams: 04/29/19 10:06 04/29/19 10:06 Lab Results 04/29/19 04/29/19 04/29/19 Range/Units 10:06 10:06 10:06 WBC 8.5 (3.8-10.6) k/uL RBC 4.31 (3.80-5.40) m/uL Hgb 13.7 (11.4-16.0) gm/dL Hct 41.2 (34.0-46.0) % MCV 95.6 (80.0-100.0) fL MCH 31.7 (25.0-35.0) pg MCHC 33.2 (31.0-37.0) g/dL RDW 14.3 (11.5-15.5) % Plt Count 238 (150-450) k/uL Neutrophils % 76 % Lymphocytes % 18 % Monocytes % 3 % Eosinophils % 2 % Basophils % 0 % Neutrophils # 6.4 (1.3-7.7) k/uL Lymphocytes # 1.5 (1.0-4.8) k/uL Monocytes # 0.3 (0-1.0) k/uL Eosinophils # 0.2 (0-0.7) k/uL Basophils # 0.0 (0-0.2) k/uL PT 9.9 (9.0-12.0) sec INR 0.9 (<1.2) Sodium 143 (137-145) mmol/L Potassium 3.9 (3.5-5.1) mmol/L Chloride 102 (98-107) mmol/L Carbon Dioxide 29 (22-30) mmol/L Anion Gap 12 mmol/L BUN 25 H (7-17) mg/dL Creatinine 1.21 H (0.52-1.04) mg/dL Est GFR (CKD-EPI)AfAm 54 (>60 ml/min/1.73 sqM) Est GFR (CKD-EPI)NonAf 47 (>60 ml/min/1.73 sqM) Glucose 102 H (74-99) mg/dL Calcium 9.9 (8.4-10.2) mg/dL Magnesium 1.9 (1.6-2.3) mg/dL Total Bilirubin 0.5 (0.2-1.3) mg/dL AST 23 (14-36) U/L ALT 32 (9-52) U/L Alkaline Phosphatase 72 (38-126) U/L Troponin I (0.000-0.034) ng/mL Total Protein 7.2 (6.3-8.2) g/dL Albumin 4.5 (3.5-5.0) g/dL TSH 2.990 (0.465-4.680) mIU/L Urine Color Urine Appearance (Clear) Urine pH (5.0-8.0) Ur Specific [place] (1.001-1.035) Urine Protein (Negative) Urine Glucose (UA) (Negative) Urine Ketones (Negative) Urine Blood (Negative) Urine Nitrite (Negative) Urine Bilirubin (Negative) Urine Urobilinogen (<2.0) mg/dL Ur Leukocyte Esterase (Negative) 04/29/19 04/29/19 Range/Units 10:06 10:15 WBC (3.8-10.6) k/uL RBC (3.80-5.40) m/uL Hgb (11.4-16.0) gm/dL Hct (34.0-46.0) % MCV (80.0-100.0) fL MCH (25.0-35.0) pg MCHC (31.0-37.0) g/dL RDW (11.5-15.5) % Plt Count (150-450) k/uL Neutrophils % % Lymphocytes % % Monocytes % % Eosinophils % % Basophils % % Neutrophils # (1.3-7.7) k/uL Lymphocytes # (1.0-4.8) k/uL Monocytes # (0-1.0) k/uL Eosinophils # (0-0.7) k/uL Basophils # (0-0.2) k/uL PT (9.0-12.0) sec INR (<1.2) Sodium (137-145) mmol/L Potassium (3.5-5.1) mmol/L Chloride (98-107) mmol/L Carbon Dioxide (22-30) mmol/L Anion Gap mmol/L BUN (7-17) mg/dL Creatinine (0.52-1.04) mg/dL Est GFR (CKD-EPI)AfAm (>60 ml/min/1.73 sqM) Est GFR (CKD-EPI)NonAf (>60 ml/min/1.73 sqM) Glucose (74-99) mg/dL Calcium (8.4-10.2) mg/dL Magnesium (1.6-2.3) mg/dL Total Bilirubin (0.2-1.3) mg/dL AST (14-36) U/L ALT (9-52) U/L Alkaline Phosphatase (38-126) U/L Troponin I <0.012 (0.000-0.034) ng/mL Total Protein (6.3-8.2) g/dL Albumin (3.5-5.0) g/dL TSH (0.465-4.680) mIU/L Urine Color Colorless Urine Appearance Clear (Clear) Urine pH 6.5 (5.0-8.0) Ur Specific [place] 1.004 (1.001-1.035) Urine Protein Negative (Negative) Urine Glucose (UA) Negative (Negative) Urine Ketones Negative (Negative) Urine Blood Negative (Negative) Urine Nitrite Negative (Negative) Urine Bilirubin Negative (Negative) Urine Urobilinogen <2.0 (<2.0) mg/dL Ur Leukocyte Esterase Negative (Negative) - Radiology Data Radiology results: report reviewed (I did review the imaging and report no acute findings.), image reviewed Disposition Clinical Impression: Atrial fibrillation with slow ventricular response, Dizziness, Sinus arrhythmia, History of breast cancer Disposition: ADMITTED IP TO THIS [facility] Condition: Fair Referrals: Carlitos Schmid MD [Primary Care Provider] - 1-2 days
[2019-04-29] MEDS ORDERED: SODIUM CHLORIDE 0.9% 1,000 ML IV SCH (11:45)
--- NOTE | 2019-04-29 13:49 | P.HPIM ---
History of Present Illness H&P Date: 04/29/19 Chief Complaint: dizziness The patient is a 68-year-old obese female with a past medical history of paroxysmal A. fib on anticoagulation with Eliquis, essential hypertension, CKD stage III, CML in remission who presents to the ER via private vehicle with chief complaint of dizziness. Apparently the patient has been having episodes of lightheadedness and dizziness and feeling like her heart was "fluttering" since this past Friday. The patient denies any syncopal episode or fall or chest pain or shortness of breath. She reports that her episodes of lighthea dedness are not necessarily related to exertion. She reports some weakness and headaches recurrence of her symptoms today. She reports she was recently started on flecainide at the beginning of the month for her cardiac arrhythmia and was doing fine until this past Friday. She reports recently having a Holter monitor done 2 days ago that apparently showed prolonged to 5 second pauses. The patient reports having a recent heart catheterization 04/07 that showed normal coronary arteries and normal left ventricular size and systolic function In the ER the patient had a comprehensive workup. CT of the head showed nonspecific white matter changes indicative of microvascular ischemia, EKG showe d atrial fibrillation with a rate of 87, urinalysis was normal. Review of Systems Pertinent positives per HPI all other review of systems was negative Past Medical History Past Medical History: Atrial Fibrillation, Cancer, Deep Vein Thrombosis (DVT), Osteoarthritis (OA), Renal Disease, Skin Disorder, Thyroid Disorder, Vascular D isorder Additional Past Medical History / Comment(s): 2005 diagnosed with CML, 2013 L breast cancer with surgery/chemo/radiation, paroxysmal Afib, decreased renal function, L arm DVT, bilateral leg varicosities, arthritis in bilateral knees and hips, R hip bursitis, DDD, hypothyroid, psoriasis, cellulitis back of R leg in the past, sinus problems, hemorrhoids, urinary stress incontinence. History of Any Multi-Drug Resistant Organisms: None Reported Past Surgical History: Breast Surgery, Section, Heart Catheterization, Hernia Repair, Hysterectomy, Orthopedic Surgery Additional Past Surgical History / Comment(s): 04/02/19 normal cardiac cath, L breast lumpectomy/2 lymph node removals, multiple bone marrow biopsies, port inserted/since removed, abdominal hernia repair, total hysterectomy, R heel spur removed, L knee arthroscopic surgery, EGD, colonoscopies, bilateral cataract removals/lens implants Past Anesthesia/Blood Transfusion Reactions: Previous Problems w/ Anesthesia, Motion Sickness, Postoperative Nausea & Vomiting (PONV) Additional Past Anesthesia/Blood Transfusion Reaction / Comment(s): DIFFICULTY WAKING Smoking Status: Never smoker - Past Family History Mother Family Medical History: Cancer Additional Family Medical History / Comment(s): PANCREATIC Father Family Medical History: Coronary Artery Disease (CAD), Myocardial Infarction (AZ) Additional Family Medical History / Comment(s): Father had a [place] at the age of 50 yrs. He had CABG and mitral valve surgery. Medications and Allergies Home Medications Medication Instructions Recorded Confirmed Type Atenolol [Tenormin] 25 mg PO QAM 05/26/14 04/29/19 History Levothyroxine Sodium [Synthroid] 25 mcg PO QAM 05/26/14 04/29/19 History Anastrozole [Arimidex] 1 mg PO HS 12/21/15 04/29/19 History Calcium+D3 400mg/500iu 1 tab PO BID 12/05/17 04/29/19 History Furosemide [Lasix] 20 mg PO DAILY 12/05/17 04/29/19 History Imatinib Mesylate [Gleevec] 400 mg PO DAILY 12/05/17 04/29/19 History Oxybutynin ER [Ditropan Xl] 10 mg PO HS 12/05/17 04/29/19 History [place] 1 tab PO DAILY 12/09/18 04/29/19 History Apixaban [Eliquis] 5 mg PO BID 04/02/19 04/29/19 History Flecainide [Tambocor] 50 mg PO Q12HR 04/29/19 04/29/19 History Allergies Allergy/AdvReac Type Severity Reaction Status Date / Time adhesive AdvReac RED SKIN Verified 04/29/19 10:06 AND TAKES SKIN OFF-paper tape is ok meperidine HCl [From Demerol] AdvReac Rash/Hives, Verified 04/29/19 10:06 rapid heart rate morphine AdvReac Itching Verified 04/29/19 10:06 naproxen [From Aleve] AdvReac Dr told Verified 04/29/19 10:06 not to take Physical Exam Vitals: Vital Signs Temp Pulse Resp BP Pulse Ox 04/29/19 12:20 98 18 123/90 98 04/29/19 11:40 95 18 133/90 100 04/29/19 10:16 73 18 146/81 96 04/29/19 09:42 98.1 F 73 18 120/75 98 Intake and Output 04/28/19 04/29/19 04/29/19 22:59 06:59 14:59 Other: Weight 130.635 kg Constitutional: No acute distress, conversant, pleasant Eyes: Anicteric sclerae, moist conjunctiva, no lid-lag, PERRLA ENMT: NC/AT,Oropharynx clear, no erythema, exudates Neck:Supple, FROM, no masses, or JVD, No carotid bruits; No thyromegaly Lungs: Clear to auscultation, Clear to percussion, Normal respiratory effort, no accessory muscle use Cardiovascular: Irregularly irregular, No murmurs, gallops, or rubs no peripheral edema Abdominal: Soft Nontender, nom distended, no guarding, no rebound or rigidity, Normoactive bowel sounds No hepatomegaly, No splenomegaly, No palpable mass No abdominal wall hernia noted Skin: Normal temperature, tone, texture, turgor, No induration No subcutaneous nodules, No rash, lesions, No ulcers Extremities:No digital cyanosis No clubbing, Pedal pulses intact and symmetrical Radial pulses intact and symmetrical Normal gait and station, No calf tenderness Psychiatric: Alert and oriented to person, place and time, Appropriate affect Intact judgement Neuro: Muscles Strength 5/5 in all 4 extremities, Sensation to light touch grossly present throughout, Cranial nerves II-XII grossly intact. No focal sensory deficits Results CBC & Chem 7: 04/29/19 10:06 04/29/19 10:06 Labs: Abnormal Lab Results - Last 24 Hours (Table) 04/29/19 Range/Units 10:06 BUN 25 H (7-17) mg/dL Creatinine 1.21 H (0.52-1.04) mg/dL Glucose 102 H (74-99) mg/dL Thrombosis Risk Factor Assmnt - Choose All That Apply Any of the Below Risk Factors Present?: Yes Each Factor Represents 1 point: Obesity (BMI >25) Other Risk Factors: Yes Each Risk Factor Represents 2 Points: Age 61-74 years, Malignancy Each Risk Factor Represents 3 Points: History of DVT/PE Other congenital or acquired thrombophilia - If yes, enter type in comment: No Thrombosis Risk Factor Assessment Total Risk Factor Score: 8 Thrombosis Risk Factor Assessment Level: High Risk Assessment and Plan (1) Sick sinus syndrome Current Visit: Yes Status: Acute Code(s): I49.5 - SICK SINUS SYNDROME SNOMED Code(s): 69517984 (2) Dizziness Current Visit: Yes Status: Acute Code(s): R42 - DIZZINESS AND GIDDINESS SNOMED Code(s): 612308176 (3) Atrial fibrillation with controlled ventricular rate Current Visit: Yes Status: Acute Code(s): I48.91 - UNSPECIFIED ATRIAL FIBRILLATION SNOMED Code(s): 13765896 (4) Essential hypertension Current Visit: Yes Status: Acute Code(s): I10 - ESSENTIAL (PRIMARY) HYPERTENSION SNOMED Code(s): 08443417 (5) CML (chronic myelocytic leukemia) Current Visit: No Status: Chronic Priority: Medium Code(s): C92.10 - CHRONIC MYELOID LEUK, BCR/ABL-POSITIVE, NOT ACHIEVE REMIS SNOMED Code(s): 76241848 Plan: The patient is admitted anticipated greater than 2 midnight stay with concerns for sick sinus syndrome presenting with lightheadedness. Patient apparently had a Holter monitor that showed prolonged pauses. The patient is currently in A. fib with controlled ventricular rate, will order echocardiogram. Cardiology is been consulted likely take the patient for pacemaker placement. The patient is resumed on all of her home medications. We'll continue to follow her clinical course CODE STATUS: Full code Discussed plan of care with; patient and her Anticipated discharge: 1-2 days Prophylaxis: on DOAC
--- NOTE | 2019-04-29 14:11 | P.CRDCN ---
<Arlene Todd E - Last Filed: 04/29/19 13:49> History of Present Illness Consult date: 04/29/19 Requesting physician: Arturo Hayes Reason for Consult (text): Tachycardia bradycardia syndrome Chief complaint: Near syncope History of present illness: This is a 68-year-old female who follows regularly with Dr. Rodriguez in the office. She has a known history of paroxysmal atrial fibrillation, on Eliquis for anticoagulation. Patient also underwent a cardiac catheterization in March of this year which did not reveal any evidence of obstructive coronary artery disease. No hypertension, no diabetes, no hyperlipidemia, history of hypothyroidism, history of breast cancer. Patient was noted through the emerge ncy room, she has been experiencing symptoms of sustained episodes of dizziness with near-syncope. She did not actually pass out. Patient did have a Holter monitor placed 2 days ago, this was brought to the office and the report was reviewed in the office and by Dr. Rogel, revealed significant conversion pauses. It also showed was in atrial fibrillation her heart rate was up in the 140 range. CAT scan of the brain was performed on arrival here which showed nonspecific white matter changes. EKG on arrival here showed atrial fibrillation with a controlled ventricular response. Blood pressure 122/90 with a heart rate in the 90s, 90% on room air. Blood cell count 8.5, hemoglobin 13.7, platelet count 238. Sodium 143, potassium 3.9, BUN 25 and creatinine 1.2, magnesium 1.9. TSH 2.9. 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 History of Any Multi-Drug Resistant Organisms: None Reported Past Surgical History: Breast Surgery, Section, Heart Catheterization, Hernia Repair, Hysterectomy, Orthopedic Surgery Additional Past Surgical History / Comment(s): 04/02/19 normal cardiac cath, L breast lumpectomy/2 lymph node removals, multiple bone marrow biopsies, port inserted/since removed, abdominal hernia repair, total hysterectomy, R heel spur removed, L knee arthroscopic surgery, EGD, colonoscopies, bilateral cataract removals/lens implants Past Anesthesia/Blood Transfusion Reactions: Previous Problems w/ Anesthesia, Motion Sickness, Postoperative Nausea & Vomiting (PONV) Additional Past Anesthesia/Blood Transfusion Reaction / Comment(s): DIFFICULTY W AKING Smoking Status: Never smoker - Past Family History Mother Family Medical History: Cancer Additional Family Medical History / Comment(s): PANCREATIC Father Family Medical History: Coronary Artery Disease (CAD), Myocardial Infarction (UT) Additional Family Medical History / Comment(s): Father had a UT at the age of 50 yrs. He had CABG and mitral valve surgery. Medications and Allergies Home Medications Medication Instructions Recorded Confirmed Type Atenolol [Tenormin] 25 mg PO QAM 05/26/14 04/29/19 History Levothyroxine Sodium [Synthroid] 25 mcg PO QAM 05/26/14 04/29/19 History Anastrozole [Arimidex] 1 mg PO HS 12/21/15 04/29/19 History Calcium+D3 400mg/500iu 1 tab PO BID 12/05/17 04/29/19 History Furosemide [Lasix] 20 mg PO DAILY 12/05/17 04/29/19 History Imatinib Mesylate [Gleevec] 400 mg PO DAILY 12/05/17 04/29/19 History Oxybutynin ER [Ditropan Xl] 10 mg PO HS 12/05/17 04/29/19 History [place] 1 tab PO DAILY 12/09/18 04/29/19 History Apixaban [Eliquis] 5 mg PO BID 04/02/19 04/29/19 History Flecainide [Tambocor] 50 mg PO Q12HR 04/29/19 04/29/19 History Allergies Allergy/AdvReac Type Severity Reaction Status Date / Time adhesive AdvReac RED SKIN Verified 04/29/19 10:06 AND TAKES SKIN OFF-paper tape is ok meperidine HCl [From Demerol] AdvReac Rash/Hives, Verified 04/29/19 10:06 rapid heart rate morphine AdvReac Itching Verified 04/29/19 10:06 naproxen [From Aleve] AdvReac Dr told Verified 04/29/19 10:06 not to take Physical Exam Vitals: Vital Signs Temp Pulse Resp BP Pulse Ox 04/29/19 12:20 98 18 123/90 98 04/29/19 11:40 95 18 133/90 100 04/29/19 10:16 73 18 146/81 96 04/29/19 09:42 98.1 F 73 18 120/75 98 Intake and Output 04/28/19 04/29/19 04/29/19 22:59 06:59 14:59 Other: Weight 130.635 kg PHYSICAL EXAMINATION: GENERAL: 68-year-old female in no acute distress at the time of my examination HEENT: Head is atraumatic, normocephalic. Pupils equal, round. Sclera anicteric. Conjunctiva are clear. Mucous membranes of the mouth are moist. Neck is supple. There is no elevated jugular venous pressure No carotid bruit is heard. HEART EXAMINATION: R S1 and S2 irregularly irregular a systolic ejection murmur was heard. CHEST EXAMINATION: Lungs are clear to auscultation and precussion. No chest wall tenderness is noted on palpation or with deep breathing. ABDOMEN: Soft, nontender. Bowel sounds are heard. No organomegaly noted. EXTREMITIES: 2+ peripheral pulses with no evidence of peripheral edema and no calf tenderness noted. NEUROLOGIC patient is awake, alert and oriented X3. . Results 04/29/19 10:06 04/29/19 10:06 Cardiac Enzymes 04/29/19 04/29/19 Range/Units 10:06 10:06 AST 23 (14-36) U/L Troponin I <0.012 (0.000-0.034) ng/mL Coagulation 04/29/19 Range/Units 10:06 PT 9.9 (9.0-12.0) sec CBC 04/29/19 Range/Units 10:06 WBC 8.5 (3.8-10.6) k/uL RBC 4.31 (3.80-5.40) m/uL Hgb 13.7 (11.4-16.0) gm/dL Hct 41.2 (34.0-46.0) % Plt Count 238 (150-450) k/uL Comprehensive Metabolic Panel 04/29/19 Range/Units 10:06 Sodium 143 (137-145) mmol/L Potassium 3.9 (3.5-5.1) mmol/L Chloride 102 (98-107) mmol/L Carbon Dioxide 29 (22-30) mmol/L BUN 25 H (7-17) mg/dL Creatinine 1.21 H (0.52-1.04) mg/dL Glucose 102 H (74-99) mg/dL Calcium 9.9 (8.4-10.2) mg/dL AST 23 (14-36) U/L ALT 32 (9-52) U/L Alkaline Phosphatase 72 (38-126) U/L Total Protein 7.2 (6.3-8.2) g/dL Albumin 4.5 (3.5-5.0) g/dL Current Medications Generic Name Dose Route Start Last Admin Trade Name Freq PRN Reason Stop Dose Admin Anastrozole 1 mg 04/29/19 21:00 Arimidex PO HS ZULEIMA Apixaban 5 mg 04/29/19 21:00 Eliquis PO BID ZULEIMA Atenolol 25 mg 04/30/19 09:00 Tenormin PO QAM ZULEIMA Calcium Carbonate 1 each 04/29/19 21:00 Oscal 500+D PO BID ZULEIMA Furosemide 20 mg 04/30/19 09:00 Lasix PO DAILY ZULEIMA Sodium Chloride 1,000 mls @ 75 mls/hr 04/29/19 10:29 04/29/19 11:02 Saline 0.9% IV 04/29/19 23:48 75 mls/hr .[id number] STA Administration Sodium Chloride 1,000 mls @ 20 mls/hr 04/29/19 11:45 04/29/19 11:58 Saline 0.9% IV 20 mls/hr .Q24H ZULEIMA Administration Levothyroxine Sodium 25 mcg 04/30/19 06:30 Synthroid PO DAILY@0630 ZULEIMA Naloxone HCl 0.2 mg 04/29/19 11:44 Narcan IV Q2M PRN Opioid Reversal Imatinib Mesylate [ 400 mg 04/30/19 09:00 Gleevec] 400 Mg PO DAILY ZULEIMA Oxybutynin Chloride 10 mg 04/29/19 21:00 Ditropan Xl PO HS ZULEIMA Intake and Output 04/28/19 04/29/19 04/29/19 22:59 06:59 14:59 Other: Weight 130.635 kg Patient Weight 04/30/19 06:59 Weight 130.635 kg 04/29/19 10:06 04/29/19 10:06 EKG Interpretations (text) EKG shows atrial fibrillation with a controlled ventricular response. Assessment and Plan Plan: Assessment and plan #1 Paroxysmal atrial fibrillation with evidence of 45 seconds postconversion pauses. Evidence also of tachycardia bradycardia syndrome. #2 hypothyroidism #3 cardiac catheterization performed in March of this year negative for any obstructive coronary artery disease #4 history of breast cancer Plan We will obtain an echocardiogram with Doppler study. We will also discontinue the flecainide and continue beta heather. Obtain TSH level. Patient has been recommended to undergo implantation of permanent pacemaker which may be performed today by Dr. Rogel. The risks and the benefits were explained to the patient in detail and she is willing to proceed. Further recommendations to follow. DNP note has been reviewed, I agree with a documented findings and plan of care. Patient was seen and examined. <Abdi Rogel - Last Filed: 04/29/19 19:43> History of Present Illness History of present illness: Patient interviewed and examined in the ER Recurrent presyncopal spells and dizzy spells This morning she had a near syncopal spell and came to the ER Confirmed to monitor her showed paroxysms of atrial fibrillation with RVR with long postconversion pauses and secondary bradycardia during sinus rhythm Suggest dual-chamber pacemaker implantation for tachybradycardia syndrome followed by reinstitution of beta blockers for management of A. fib with RVR Continue anticoagulation This was discussed in detail with the patient and her Physical Exam Vitals: Vital Signs Temp Pulse Resp BP Pulse Ox 04/29/19 12:20 98 18 123/90 98 04/29/19 11:40 95 18 133/90 100 04/29/19 10:16 73 18 146/81 96 04/29/19 09:42 98.1 F 73 18 120/75 98 Intake and Output 04/29/19 04/29/19 04/29/19 06:59 14:59 22:59 Other: # Voids 1 Weight 130.635 kg Results 04/29/19 10:06 04/29/19 10:06 Cardiac Enzymes 04/29/19 04/29/19 Range/Units 10:06 10:06 AST 23 (14-36) U/L Troponin I <0.012 (0.000-0.034) ng/mL Coagulation 04/29/19 Range/Units 10:06 PT 9.9 (9.0-12.0) sec CBC 04/29/19 Range/Units 10:06 WBC 8.5 (3.8-10.6) k/uL RBC 4.31 (3.80-5.40) m/uL Hgb 13.7 (11.4-16.0) gm/dL Hct 41.2 (34.0-46.0) % Plt Count 238 (150-450) k/uL Comprehensive Metabolic Panel 04/29/19 Range/Units 10:06 Sodium 143 (137-145) mmol/L Potassium 3.9 (3.5-5.1) mmol/L Chloride 102 (98-107) mmol/L Carbon Dioxide 29 (22-30) mmol/L BUN 25 H (7-17) mg/dL Creatinine 1.21 H (0.52-1.04) mg/dL Glucose 102 H (74-99) mg/dL Calcium 9.9 (8.4-10.2) mg/dL AST 23 (14-36) U/L ALT 32 (9-52) U/L Alkaline Phosphatase 72 (38-126) U/L Total Protein 7.2 (6.3-8.2) g/dL Albumin 4.5 (3.5-5.0) g/dL Current Medications Generic Name Dose Route Start Last Admin Trade Name Freq PRN Reason Stop Dose Admin Anastrozole 1 mg 04/29/19 21:00 Arimidex PO HS ZULEIMA Apixaban 5 mg 04/29/19 21:00 Eliquis PO BID ZULEIMA Atenolol 25 mg 04/30/19 09:00 Tenormin PO QAM ZULEIMA Calcium Carbonate 1 each 04/29/19 21:00 Oscal 500+D PO BID ZULEIMA Furosemide 20 mg 04/30/19 09:00 Lasix PO DAILY ZULEIMA Sodium Chloride 1,000 mls @ 75 mls/hr 04/29/19 10:29 04/29/19 11:02 Saline 0.9% IV 04/29/19 23:48 75 mls/hr .[id number] STA Administration Sodium Chloride 1,000 mls @ 20 mls/hr 04/29/19 11:45 04/29/19 11:58 Saline 0.9% IV 20 mls/hr .Q24H ZULEIMA Administration Levothyroxine Sodium 25 mcg 04/30/19 06:30 Synthroid PO DAILY@0630 ZULEIMA Naloxone HCl 0.2 mg 04/29/19 11:44 Narcan IV Q2M PRN Opioid Reversal Imatinib Mesylate [ 400 mg 04/30/19 09:00 Gleevec] 400 Mg PO DAILY ZULEIMA Oxybutynin Chloride 10 mg 04/29/19 21:00 Ditropan Xl PO HS ZULEIMA Intake and Output 04/29/19 04/29/19 04/29/19 06:59 14:59 22:59 Other: # Voids 1 Weight 130.635 kg Patient Weight 04/30/19 06:59 Weight 130.635 kg 04/29/19 10:06 04/29/19 10:06
[2019-04-29] MEDS ORDERED: ceFAZolin 1,000 MG in SODIUM CHLORIDE 0.9% IRRIGATIO 250 ML IRRIGATION ONE (15:10)
[2019-04-29] MEDS ORDERED: ceFAZolin IN SWFI 2 GM/20 ML SYRINGE IVP ONE (15:10)
[2019-04-29] MEDS ORDERED: fentaNYL (PF) 50 MCG/ML 2 ML AMP ONE (17:07)
[2019-04-29] MEDS ORDERED: PROPOFOL 10 MG/ML 20 ML VIAL IV ONE (17:07)
[2019-04-29] MEDS ORDERED: MIDAZOLAM 2 MG/2 ML VIAL ONE (17:07)
[2019-04-29] MEDS ORDERED: ONDANSETRON 4 MG/2 ML VIAL ONE (17:07)
[2019-04-29] MEDS ORDERED: LIDOCAINE 1% INJ 10MG/ML (20 ML MDV) ONE ×2 (17:15→18:18)
[2019-04-29] MEDS ORDERED: IV FLUID CONTINUATION 1,000 ML IV ONE (17:32)
[2019-04-29] MEDS ORDERED: IOPAMIDOL-250 50ML BTL IV ONE (17:47)
[2019-04-29] MEDS: LIDOCAINE 1% INJ 10MG/ML (20 ML MDV) SQ ONE ×2 (18:16→18:23)
[2019-04-29] MEDS ORDERED: HYDROcodone/APAP 5-325MG 1 EACH TAB PO PRN (19:44)
[2019-04-29] MEDS ORDERED: ACETAMINOPHEN IV (For NPO) 1,000 MG in EMPTY BAG 1 BAG IVPB ONE (19:44)
[2019-04-29] MEDS ORDERED: ACETAMINOPHEN TAB 325 MG TAB PO PRN (19:44)
[2019-04-29] MEDS ORDERED: ATENOLOL 25 MG TAB PO STA (19:52)
[2019-04-29] MEDS: APIXABAN 5 MG TAB PO SCH (20:40)
[2019-04-29] MEDS: CALCIUM CARB-VIT D 500MG-200UN 1 EACH TAB PO SCH (20:40)
[2019-04-29] MEDS ORDERED: ANASTROZOLE 1 MG TAB PO SCH (21:00)
[2019-04-29] MEDS ORDERED: OXYBUTYNIN 10 MG TAB.ER.24 PO SCH (21:00)
[2019-04-29] MEDS ORDERED: FLECAINIDE 50 MG TAB PO SCH (21:00)
[2019-04-30] MEDS: ceFAZolin IN SWFI 2 GM/20 ML SYRINGE IVP SCH ×4 (00:48→16:57)
[2019-04-30 06:24] VITALS: PULSE 60
[2019-04-30] MEDS ORDERED: LEVOTHYROXINE 25 MCG TAB PO SCH (06:30)
--- NOTE | 2019-04-30 07:36 | XR ---
EXAMINATION TYPE: XR chest 2V DATE OF EXAM: 04/30/2019 COMPARISON: 01/07/2019 INDICATION: Lead placement check TECHNIQUE: Frontal and lateral views of the chest are obtained. FINDINGS: The heart size is enlarged. The pulmonary vasculature is normal. The lungs are clear. Pacemaker is placed over the left chest. 2 leads are present. No pneumothorax is evident. IMPRESSION: 1. No pneumothorax post pacemaker placement.
[2019-04-30] MEDS: CALCIUM CARB-VIT D 500MG-200UN 1 EACH TAB PO SCH (08:27)
[2019-04-30] MEDS: APIXABAN 5 MG TAB PO SCH (08:28)
--- NOTE | 2019-04-30 08:32 | LTR ---
April 29, 2019 Re: Keily Castellon Dear Carlitos: I had the pleasure of seeing Keily Castellon in electrophysiology consultation. She has presented with syncopal and presyncopal spells associated with long post-conversion pauses. She also has atrial fibrillation with RVR. She underwent a dual-chamber pacemaker implantation successfully and now I will assume her beta heather dose once again. I will resume her beta blockers at atenolol 50 mg p.o. daily. She will continue anticoagulation. Thank you for entrusting me in the care of your patient. With warm regards. Sincerely, MD DUSTY Velazquez / BK: [id number] /
--- NOTE | 2019-04-30 08:32 | CE ---
CARDIAC ELECTROPHYSIOLOGY REPORT Keily Castellon is a 68-year-old female who has tachy-paulino syndrome with long post- conversion pauses associated with presyncope and syncope. She has A. fib with RVR also. She was brought in for dual-chamber pacemaker implantation. The procedure was performed with RHIT assistance. The patient was brought to the EP lab in a fasting state. Written informed consent was obtained prior to the procedure. The left shoulder area was prepped and draped as per protocol and 1% lidocaine was used for local anesthesia. A 4 cm incision was made parallel to deltopectoral groove about 1.5 cm medial to the incision was carried down to the level of the pectoralis muscle. A subfascial pocket was made. Hemostasis was assured. The left axillary vein was accessed at 2 separate points under fluoroscopy and via appropriately-sized introducer sheaths 2 leads were positioned in the right heart. The atrial lead was a Medtronic lead, Medtronic model #4574, 53 cm in length and serial number [id number]. The P waves 4.2 mV, pacing impedance 648 ohms, pacing threshold 0.5 V at 0.5 milliseconds. Ten volt test negative. This was a screw-in lead. The RV lead was a tined lead, model #4074, 58 cm in length and serial number [id number]. This was positioned in the RV apical area. R wave 7.9 mV, pacing impedance 1288 ohms and pacing threshold 0.6 V at 0.5 milliseconds. Ten volt test was negative. Both leads were secured to the underlying pectoralis fascia using 2 nonabsorbable sutures. Pocket was irrigated with antibiotic solution. Leads were connected to the generator (Medtronic model number dual-chamber pacemaker Bhargavi S DR MRI model number W3DR01, serial number [id number]). The leads and the generator were then placed in the subfacial pocket and the wound was closed in 3 layers and dressed per protocol. Hemostasis was assured using the Aquamantys system. The patient tolerated the procedure well without any complications. RESULT: Successful dual chamber pacemaker implantation for management of tachy-paulino syndrome with presyncope and syncope associated with post-conversion pauses. The patient has atrial fibrillation with rapid ventricular response. SUGGEST: Resume beta blockers now. Dual-chamber pacing at 60 to 130 ppm at DDDR to avoid RV pacing. MMODL / IJN: [id number] /
[2019-04-30] MEDS ORDERED: ATENOLOL 25 MG TAB PO SCH (09:00)
[2019-04-30] MEDS ORDERED: FUROSEMIDE 20 MG TAB PO SCH (09:00)
[2019-04-30] MEDS ORDERED: Imatinib Mesylate [Gleevec] 400 MG PO SCH (09:00)
[2019-04-30] MEDS ORDERED: ATENOLOL 50 MG TAB PO SCH (09:00)
[2019-04-30 09:21] VITALS: RESP 20
--- NOTE | 2019-04-30 13:16 | P.PN ---
Subjective This is Elaine Seals PA-C dictating a progress note on this patient The patient was interviewed and examined by me IMPRESSION / ASSESSMENT: Tachycardia bradycardia syndrome,postconversion pauses with near syncope, status post dual-chamber permanent pacemaker implantation Paroxysmal atrial fibrillation with RVR, on eliquis History of breast cancer and CML PLAN: Continue eliquis for stroke prevention Increase atenolol to 50 mg daily for rate control hold flecainide for now Encouraged patient to use her left hand to prevent venous stasis, patient can move her hand as long as she does not raise her arm up behind her head or behind her back HPI/interval history Patient is a 68-year-old female with a past medical history of paroxysmal atrial fibrillation on eliquis who presented with complaints of dizziness and presyncope. A Holter monitor revealed paroxsysmal atrial fibrillation with significant postconversion pauses so she went underwent placement of a dual- chamber pacemaker. Today she is doing well. Complains of mild soreness, denies any chest pain, shortness of breath, dizziness, or syncope. EXAMINATION She is afebrile, heart rate 60, respirations 20, blood pressure 120/70, oxygen saturation 97% on room air On exam patient is resting comfortably in her chair Dressing over her pacemaker is clean dry and intact Heart is regular, with S1 and S2, no murmurs rubs or gallops appreciated Lungs clear to auscultation bilaterally REVIEW OF LABS, ECG WBC 8.5, hemoglobin 13.7, potassium 3.9, BUN 25, creatinine 1.21 Pacemaker interrogation revealed normal pacemaker function Chest x-ray reveals no pneumothorax Objective - Vital Signs Vital signs: Vital Signs Temp 98.2 F 04/30/19 11:51 Pulse 60 04/30/19 11:51 Resp 20 04/30/19 11:51 BP 120/72 04/30/19 11:51 Pulse Ox 97 04/30/19 11:51 Intake & Output 04/29/19 04/30/19 04/30/19 18:59 06:59 18:59 Intake Total 450 720 Output Total 800 Balance 450 -80 Weight 130.635 kg 126.2 kg Intake: IV 450 Oral 720 Output: Urine 800 Other: Voiding Method Toilet # Voids 1 - Labs CBC & Chem 7: 04/29/19 10:06 04/29/19 10:06
--- NOTE | 2019-04-30 13:59 | P.DS ---
Providers Date of admission: 04/29/19 11:44 Expected date of discharge: 04/30/19 Attending physician: Arturo Hayes MD Consults: 04/29/19 11:46 Consult Physician Urgent Consulting Provider: Vicente Rodriguez Consult Reason/Comments: A. fib, dizziness, sinus pause Do you want consulting provider notified?: Already Contacted Primary care physician: Carlitos Schmid - Discharge Diagnosis(es) (1) Sick sinus syndrome Current Visit: Yes Status: Acute (2) Dizziness Current Visit: Yes Status: Acute (3) Atrial fibrillation with controlled ventricular rate Current Visit: Yes Status: Acute (4) Essential hypertension Current Visit: Yes Status: Acute (5) CML (chronic myelocytic leukemia) Current Visit: No Status: Chronic Priority: Medium Hospital Course: The patient is a 68-year-old obese female with a past medical history of paroxysmal A. fib on anticoagulation with Eliquis, essential hypertension, CKD stage III, CML in remission who presents to the ER via private vehicle with chief complaint of dizziness. Apparently the patient has been having episodes of lightheadedness and dizziness and feeling like her heart was "fluttering" since this past Friday, the patient had failed treatment with flecainide. She was noted to have sick sinus syndrome due to prolonged pauses on her halter monitoring. Cardiology was consulted and patient had dual-chamber pacemaker placement performed by Dr. Rogel. She had post pacemaker placement testing with great results. Her beta heather was increased and flecainide was discontinued and she was subsequently discharged home in stable condition. The patient is instructed to follow-up with and her PCP Dr. Schmid in 3 -5 days. This discharge process took approximately 35 minutes Focused exam Cardiovascular: Regular rate and rhythm, no murmurs rubs or gallops Patient Condition at Discharge: Good Plan - Discharge Summary Discharge Rx Participant: No New Discharge Prescriptions: New Atenolol [Tenormin] 50 mg PO QAM #30 tab Continue Levothyroxine Sodium [Synthroid] 25 mcg PO QAM Anastrozole [Arimidex] 1 mg PO HS Oxybutynin ER [Ditropan Xl] 10 mg PO HS Furosemide [Lasix] 20 mg PO DAILY Imatinib Mesylate [Gleevec] 400 mg PO DAILY Calcium+D3 400mg/500iu 1 tab PO BID [place] 1 tab PO DAILY Apixaban [Eliquis] 5 mg PO BID Discontinued Atenolol [Tenormin] 25 mg PO QAM Flecainide [Tambocor] 50 mg PO Q12HR Discharge Medication List Levothyroxine Sodium [Synthroid] 25 mcg PO QAM 05/26/14 [History] Anastrozole [Arimidex] 1 mg PO HS 12/21/15 [History] Calcium+D3 400mg/500iu 1 tab PO BID 12/05/17 [History] Furosemide [Lasix] 20 mg PO DAILY 12/05/17 [History] Imatinib Mesylate [Gleevec] 400 mg PO DAILY 12/05/17 [History] Oxybutynin ER [Ditropan Xl] 10 mg PO HS 12/05/17 [History] [place] 1 tab PO DAILY 12/09/18 [History] Apixaban [Eliquis] 5 mg PO BID 04/02/19 [History] Atenolol [Tenormin] 50 mg PO QAM #30 tab 04/30/19 [Rx] Follow up Appointment(s)/Referral(s): Carlitos Schmid MD [Primary Care Provider] - 1-2 days
[2019-04-30 15:36] VITALS: BP 134/68; TEMP 97.8
--- NOTE | 2019-05-03 09:23 | ECHOF ---
Referral Reason:tachy paulino MEASUREMENTS -------- HEIGHT: 167.6 cm WEIGHT: 130.6 kg BP: IVSd: 1.2 cm (0.6 - 1.1) LVIDd: 4.5 cm (3.9 - 5.3) LVPWd: 1.2 cm (0.6 - 1.1) IVSs: 1.3 cm LVIDs: 2.8 cm LVPWs: 1.8 cm LAESV Index (A-L): 17.30 ml/m Ao Diam: 3.1 cm (2.0 - 3.7) AV Cusp: 2.4 cm (1.5 - 2.6) LA Diam: 3.9 cm (2.7 - 3.8) RAP: 5.00 mmHg RVSP: 10.33 mmHg FINDINGS -------- Atrial fibrillation. This was a technically good study. This was a technically difficult study with suboptimal views. The left ventricular size is normal. There is borderline concentric left ventricular hypertrophy. Overall left ventricular systolic function is normal with, an EF between 55 - 60 %. The right ventricle is normal in size. The left atrial size is normal. The right atrial size is normal. Lumason used The aortic valve is trileaflet and appears structurally normal. The mitral valve is normal. Mild mitral regurgitation is present. The tricuspid valve appears structurally normal. Mild tricuspid regurgitation present. Right vent ricular systolic pressure is normal at < 35 mmHg. There is no pulmonic regurgitation present. The aortic root size is normal. IVC Not well visulized. There is no pericardial effusion. CONCLUSIONS -------- 1. Atrial fibrillation. 2. This was a technically good study. 3. This was a technically difficult study with suboptimal views. 4. The left ventricular size is normal. 5. There is borderline concentric left ventricular hypertrophy. 6. Overall left ventricular systolic function is normal with, an EF between 55 - 60 %. 7. The right ventricle is normal in size. 8. The left atrial size is normal. 9. The right atrial size is normal. 10. Lumason used 11. The aortic valve is trileaflet and appears structurally normal. 12. The mitral valve is normal. 13. Mild mitral regurgitation is present. 14. The tricuspid valve appears structurally normal. 15. Mild tricuspid regurgitation present. 16. Right ventricular systolic pressure is normal at < 35 mmHg. 17. There is no pulmonic regurgitation present. 18. The aortic root size is normal. 19. IVC Not well visulized. 20. There is no pericardial effusion. MEDICAL RECRUITER: Lauren Cordon RDCS
== END 2019-04-30 17:20 | disposition home or self-care (01) | DRG 243 ==
LOC: EC 09:38 → 3SCARD 11:44
PROVIDERS: ADMIT Internal Medicine; ATTEND Internal Medicine
PROC: 02HK3JZ Insertion of Pacemaker Lead into Right Ventricle, Percutaneous Approach (ICD-10-PCS; 2019-04-29)
PROC: 02H63JZ Insertion of Pacemaker Lead into Right Atrium, Percutaneous Approach (ICD-10-PCS; 2019-04-29)
PROC: 0JH606Z Insertion of Pacemaker, Dual Chamber into Chest Subcutaneous Tissue and Fascia, Open Approach (ICD-10-PCS; principal; 2019-04-29 17:07)
DX: I49.5 Sick sinus syndrome (principal); C92.11 Chronic myeloid leukemia, BCR/ABL-positive, in remission; Z68.41 Body mass index [BMI] 40.0-44.9, adult; I48.0 Paroxysmal atrial fibrillation; N18.3 Chronic kidney disease, stage 3 (moderate); E66.9 Obesity, unspecified; I12.9 Hypertensive chronic kidney disease with stage 1 through stage 4 chronic kidney disease, or unspecified chronic kidney disease; M17.0 Bilateral primary osteoarthritis of knee; E03.9 Hypothyroidism, unspecified; N39.3 Stress incontinence (female) (male); K64.9 Unspecified hemorrhoids; I83.90 Asymptomatic varicose veins of unspecified lower extremity; L40.9 Psoriasis, unspecified; M16.0 Bilateral primary osteoarthritis of hip; Z79.01 Long term (current) use of anticoagulants; Z79.811 Long term (current) use of aromatase inhibitors; Z79.890 Hormone replacement therapy; Z79.899 Other long term (current) drug therapy; Z85.3 Personal history of malignant neoplasm of breast; Z86.718 Personal history of other venous thrombosis and embolism; Z92.21 Personal history of antineoplastic chemotherapy; Z98.891 History of uterine scar from previous surgery; Z90.710 Acquired absence of both cervix and uterus; Z90.722 Acquired absence of ovaries, bilateral; Z98.890 Other specified postprocedural states; Z98.42 Cataract extraction status, left eye; Z98.41 Cataract extraction status, right eye; Z96.1 Presence of intraocular lens; Z88.5 Allergy status to narcotic agent; Z88.8 Allergy status to other drugs, medicaments and biological substances; Z91.048 Other nonmedicinal substance allergy status; Z80.0 Family history of malignant neoplasm of digestive organs; Z82.49 Family history of ischemic heart disease and other diseases of the circulatory system
CPT/HCPCS: 33208; 36415; 70450; 71046; 80053; 81003; 83735; 84443; 84484; 85025; 85610; 93005; 93306; 96360; 99285

== ENCOUNTER → 2019-06-16 | Outpatient (CLI) | payer MEDICARE ==
--- NOTE | 2019-06-16 13:22 | MM ---
Reason for exam: follow-up at short interval from prior study. Last mammogram was performed 10 months ago. History: Patient is postmenopausal, has history of breast cancer at age 63, and has history of other cancer at age 55. Family history of breast cancer in 2 paternal cousins. Benign US biopsy breast VAD LT of the left breast, August 28, 2018. US breast aspiration single LT of the left breast, January 02, 2016. Benign US breast aspiration single LT of the left breast, December 13, 2015. Benign US biopsy breast VAD LT of the left breast, December 13, 2015. Malignant MG pre op needle loc LT of the left breast, October 03, 2014. Malignant US biopsy breast VAD LT of the left breast, May 04, 2014. Lumpectomy of the left breast, 2013. Chemotherapy, 2013. Radiation therapy of the left breast, 2013. Chemotherapy. Radiation therapy of the left breast. Taking antineoplastic for 5 years beginning at age 63. Taking other hormone. Physical Findings: Nurse did not find any significant physical abnormalities on exam. MG Diagnostic Mammo w CAD MISTY Bilateral CC and MLO view(s) were taken. Prior study comparison: August 28, 2018, left breast MG diagnostic mammo LT wo CAD. June 15, 2018, bilateral MG 3d diag mammo w/cad MISTY. Asymmetric breast tissue greater in the left breast. Post surgical changes in the left breast. No significant new findings when compared with previous films. These results were verbally communicated with the patient and result sheet given to the patient on 06/16/19. ASSESSMENT: Benign, BI-RAD 2 RECOMMENDATION: Follow-up diagnostic mammogram of both breasts in 1 year.
--- NOTE | 2019-06-16 13:27 | USB ---
Reason for exam: follow-up at short interval from prior study. History: Patient is postmenopausal, has history of breast cancer at age 63, and has history of other cancer at age 55. Family history of breast cancer in 2 paternal cousins. Benign US biopsy breast VAD LT of the left breast, August 28, 2018. US breast aspiration single LT of the left breast, January 02, 2016. Benign US breast aspiration single LT of the left breast, December 13, 2015. Benign US biopsy breast VAD LT of the left breast, December 13, 2015. Malignant MG pre op needle loc LT of the left breast, October 03, 2014. Malignant US biopsy breast VAD LT of the left breast, May 04, 2014. Lumpectomy of the left breast, 2013. Chemotherapy, 2013. Radiation therapy of the left breast, 2013. Chemotherapy. Radiation therapy of the left breast. Taking antineoplastic for 5 years beginning at age 63. Taking other hormone. US Breast Limited LT Left limited breast ultrasound including focal area of concern, retroareolar and axilla demonstrates a 0.6 x 0.9 x 0.4cm mixed, elongated, questionable duct at 3 o'clock, possible shadowing, biopsy recommended, a 0.3 x 0.4 x 0.2cm oval, mixed lesion at 3 o'clock, duct at 4 o'clock, ducts at 5 o'clock, a 2.3 x 2.8 x 2.3cm irregular, lesion at 10 o'clock lumpectomy site, a 0.4 x 0.3 x 0.3cm oval, questionable oil cyst at 11 o'clock, and a 0.6 x 0.6 x 1.0cm questionable oil cyst at 3 o'clock. These results were verbally communicated with the patient and result sheet given to the patient on 06/16/19. ASSESSMENT: Suspicious, BI-RAD 4 RECOMMENDATION: Ultrasound core biopsy of the left breast. (3 o'clock) Called Dr. Macias with mammographic findings and has scheduled an appointment for the patient for 06/23/19 at 10:[address] Jeffery. PRELIMINARY REPORT CALLED AND FAXED TO DR. JEFFERY ON 06/16/19.
== END | disposition home or self-care (01) ==
LOC: RADMAMWWP 08:08
PROVIDERS: ATTEND Radiology Diagnostic Radiology
DX: Z08 Encounter for follow-up examination after completed treatment for malignant neoplasm (principal); Z85.3 Personal history of malignant neoplasm of breast
CPT/HCPCS: 77066

== ENCOUNTER → 2019-07-07 | Day surgery (SDC) | payer MEDICARE ==
[2019-07-07 13:30] VITALS: RESP 16; BMI 46.0
[2019-07-07 14:54] VITALS: BP 125/83; PULSE 59; TEMP 97.9
--- NOTE | 2019-07-07 15:13 | USB ---
EXAMINATION TYPE: US biopsy breast VAD LT DATE OF EXAM: 07/07/2019 CLINICAL HISTORY: R92.8 Abnormal mammogram. TECHNIQUE: Ultrasound guided vaccuum assisted core biopsy of left breast. COMPARISON: Ultrasound 06/16/2019 FINDINGS: The ultrasound guided core biopsy procedure was explained to the patient. The risks, benefits, alternatives were discussed. An informed consent was then obtained. Timeout was performed. The patient was placed in supine positioning for imaging and for the procedure. The overlying skin was prepped with betadine and sterilely draped in usual sterile fashion. Lidocaine 1% was used as anesthetic into the skin and deeper breast tissue up to area of concern in the breast. A small skin chuck was made with surgical scalpel. Under ultrasound guidance, a 12-gauge vacuum assisted biopsy device was used to obtain 4 core samples. A biopsy clip was left in lesion. Wing clip was placed. Good hemostasis was obtained with direct pressure. Discharge instructions were discussed with the patient. The patient will follow up with the referring physician for results. Postprocedure mammogram: The patient was transferred to mammography for physician ordered post procedure mammogram for clip placement verification. The clip is in the expected region of the biopsy. The patient tolerated the procedure well without any immediate complication. The patient was discharged to home in stable condition. IMPRESSION: 1. Successful ultrasound guided biopsy left breast. Pathology Results: Benign LEFT BREAST, TWO O'CLOCK, ULTRASOUND GUIDED CORE BIOPSY: Fibrocystic changes including fibroadenomatoid hyperplasia, fibrosis, cysts, apocrine metaplasia, adenosis, and rare microcalcifications. Recommendation Follow up mammogram of the left breast in 6 months. JB
--- NOTE | 2019-07-07 15:15 | MM ---
Postprocedure mammogram was obtained. 2 views are obtained Wing Clip is in the biopsy site 5:00 posit ion.
== END ==
LOC: RADUSWWP 12:38
PROVIDERS: ATTEND Surgery
DX: N60.12 Diffuse cystic mastopathy of left breast (principal); N60.82 Other benign mammary dysplasias of left breast; N60.22 Fibroadenosis of left breast; R92.0 Mammographic microcalcification found on diagnostic imaging of breast; Z91.09 Other allergy status, other than to drugs and biological substances; Z88.5 Allergy status to narcotic agent; Z88.8 Allergy status to other drugs, medicaments and biological substances
CPT/HCPCS: 88305; 77065; 19083; A4648; J2001

== ENCOUNTER → 2019-10-21 | Outpatient (CLI) | payer MEDICARE ==
[2019-10-21 12:36] LABS: Basophils % (A) 0 %; Eosinophils # (A) 0.3 k/uL (0-0.7); Eosinophils % (A) 3 %; HCT 41.6 % (34.0-46.0); HGB 13.2 gm/dL (11.4-16.0); Lymphocytes # (A) 1.5 k/uL (1.0-4.8); Lymphocytes % (A) 21 %; MCH 31.4 pg (25.0-35.0); MCHC 31.7 g/dL (31.0-37.0); MCV 98.8 fL (80.0-100.0); Mean Platelet Volume 7.5; Monocytes # (A) 0.3 k/uL (0-1.0); Monocytes % (A) 4 %; Neutrophils # (A) 5.2 k/uL (1.3-7.7); Neutrophils % (A) 71 %; Platelet Count 261 k/uL (150-450); RBC 4.21 m/uL (3.80-5.40); RDW 13.3 % (11.5-15.5); WBC 7.4 k/uL (3.8-10.6)
[2019-10-21 12:39] LABS: INR 0.9 (<1.2); Partial Thromboplastin Time 24.9 sec (22.0-30.0); Prothrombin Time 9.9 sec (9.0-12.0)
[2019-10-21 12:48] LABS: Albumin 3.9 g/dL (3.5-5.0); Calcium 9.2 mg/dL (8.4-10.2); Potassium 3.5 mmol/L (3.5-5.1); Total Bilirubin 0.5 mg/dL (0.2-1.3); Total Protein 6.6 g/dL (6.3-8.2)
[2019-10-21 13:29] LABS: Appearance,Urine Clear (Clear); Bacteria,Urine Rare /hpf; Bilirubin,Urine Negative (Negative); Blood,Urine Trace (Negative); Color,Urine Yellow; Glucose,Urine (UA) Negative (Negative); Ketones,Urine Negative (Negative); Leukocyte Esterase,Urine Negative (Negative); Nitrite,Urine Negative (Negative); PH, Urine 6.5 (5.0-8.0); Protein,Urine Negative (Negative); RBC,Urine 2 /hpf (0-5); Specific Gravity,Urine 1.014 (1.001-1.035); Squamous Epithelial Cell,Urine 1 /hpf (0-4); Urobilinogen,Urine <2.0 mg/dL (<2.0); WBC,Urine 5 /hpf (0-5)
== END | disposition home or self-care (01) ==
LOC: LABPAT 11:09
PROVIDERS: ATTEND Orthopaedic Surgery
DX: Z01.818 Encounter for other preprocedural examination (principal); Z01.812 Encounter for preprocedural laboratory examination; Z51.81 Encounter for therapeutic drug level monitoring; M16.11 Unilateral primary osteoarthritis, right hip
CPT/HCPCS: 36415; 80053; 81001; 85025; 85610; 85730; 86850; 86900; 86901; 87070; 93005

== ENCOUNTER → 2019-11-01 | Day surgery (SDC) | payer MEDICARE ==
[~2019-11-01] MED LIST changes: +ACETAMINOPHEN TAB 500 MG TAB PO ONE; -ALPRAZolam 0.25 MG TAB PO PRN; -ANASTROZOLE 1 MG TAB PO SCH; -ASPIRIN 325 MG TAB PO ONE; -ATENOLOL 25 MG TAB PO SCH; -CALCIUM PO SCH; -CHOLECALCIFEROL PO SCH; -FUROSEMIDE 20 MG TAB PO SCH; +GABAPENTIN 300 MG CAP PO ONE; -HEPARIN SODIUM 1,000 UN/ML (10ML VL) IV ONE; -IOPAMIDOL-370 125ML BTL INJ ONE; -LEVOTHYROXINE 25 MCG TAB PO SCH; -LIDOCAINE 1% INJ 10MG/ML (20 ML MDV) ONE; -LIDOCAINE 1% INJ 10MG/ML (20 ML MDV) SQ ONE; +MELOXICAM 7.5 MG TAB PO ONE; -NON-FORMULARY DRUG (Imatinib Mesylate [Gleevec] 400 MG) PO SCH; -OXYBUTYNIN 10 MG TAB.ER.24 PO SCH; -PRIMROSE PO SCH; +ROPIVACAINE 246.25 MG, EPINEPHrine 0.5 MG, KETOROLAC 30 MG, cloNIDine HCL/PF 80 MCG, WA... MISCELLANE ONE; -RX INFO: IV CONTRAST WAS GIVEN 1 EACH MISC MISCELLANE PRN; -SODIUM CHLORIDE 0.9% 1,000 ML IV SCH; -SODIUM CHLORIDE 0.9% 1,000 ML in EMPTY BAG 1 BAG IV ONE; +TRANEXAMIC ACID 1,000 MG in SODIUM CHLORIDE 0.9% 100 ML IVPB ONE; -VERAPAMIL 2.5 MG/ML 2 ML AMP ONE; -VERAPAMIL SYRINGE (5 MG/10 ML) INTRAARTER ONE; +ceFAZolin 3 GM in SODIUM CHLORIDE 0.9% 100 ML IVPB ONE; -fentaNYL (PF) 50 MCG/ML 2 ML AMP IVP ONE; -fentaNYL (PF) 50 MCG/ML 2 ML AMP ONE
[2019-11-01 14:37] VITALS: BP 136/63; PULSE 63; RESP 16; TEMP 97.7
== END ==
LOC: EDSTATUS 07:00 → OR 13:36
PROVIDERS: ATTEND Orthopaedic Surgery
DX: M16.11 Unilateral primary osteoarthritis, right hip (principal); Z53.09 Procedure and treatment not carried out because of other contraindication; S70.211A Abrasion, right hip, initial encounter; M17.11 Unilateral primary osteoarthritis, right knee; M21.061 Valgus deformity, not elsewhere classified, right knee; I10 Essential (primary) hypertension; I48.0 Paroxysmal atrial fibrillation; I49.5 Sick sinus syndrome; E03.9 Hypothyroidism, unspecified; K21.9 Gastro-esophageal reflux disease without esophagitis; C95.90 Leukemia, unspecified not having achieved remission; G62.9 Polyneuropathy, unspecified; E66.9 Obesity, unspecified; G47.33 Obstructive sleep apnea (adult) (pediatric); N28.9 Disorder of kidney and ureter, unspecified; Z95.0 Presence of cardiac pacemaker; Z88.5 Allergy status to narcotic agent; Z90.710 Acquired absence of both cervix and uterus; Z98.890 Other specified postprocedural states; Z85.3 Personal history of malignant neoplasm of breast; Z79.890 Hormone replacement therapy; Z79.899 Other long term (current) drug therapy; Z79.01 Long term (current) use of anticoagulants; Z97.3 Presence of spectacles and contact lenses; Z68.42 Body mass index [BMI] 45.0-49.9, adult; Z88.6 Allergy status to analgesic agent; Z86.718 Personal history of other venous thrombosis and embolism; X58.XXXA Exposure to other specified factors, initial encounter; Z82.49 Family history of ischemic heart disease and other diseases of the circulatory system; Z83.3 Family history of diabetes mellitus
CPT/HCPCS: 36415; 86850; 86900; 86901

== ENCOUNTER → 2019-11-04 | Outpatient (CLI) | payer MEDICARE ==
--- NOTE | 2019-11-04 13:32 | US ---
EXAMINATION TYPE: US venous doppler duplex UE LT DATE OF EXAM: 11/04/2019 COMPARISON: NONE CLINICAL HISTORY: I89 lymphedema, M79.632,Pain in left forearm R60Ed. SIDE PERFORMED: Left Left Arm: Negative for DVT Grayscale, color doppler, spectral doppler imaging performed of the deep veins of the upper extremiti es. There is normal flow, compressibility and vascular waveforms. IMPRESSION: No sonographic evidence of deep venous thrombosis of the left upper extremity.
== END | disposition home or self-care (01) ==
LOC: RADUSWWP 12:23
PROVIDERS: ATTEND Internal Medicine
DX: I89.0 Lymphedema, not elsewhere classified (principal); M79.632 Pain in left forearm; R60.0 Localized edema

== ENCOUNTER → 2019-11-17 | Outpatient (CLI) | payer MEDICARE ==
[2019-11-17 14:49] LABS: Basophils % (A) 1 %; Eosinophils # (A) 0.2 k/uL (0-0.7); Eosinophils % (A) 3 %; HCT 39.5 % (34.0-46.0); HGB 12.3 gm/dL (11.4-16.0); Lymphocytes # (A) 1.5 k/uL (1.0-4.8); Lymphocytes % (A) 20 %; MCH 31.2 pg (25.0-35.0); MCHC 31.2 g/dL (31.0-37.0); MCV 99.9 fL (80.0-100.0); Mean Platelet Volume 7.6; Monocytes # (A) 0.3 k/uL (0-1.0); Monocytes % (A) 4 %; Neutrophils # (A) 5.2 k/uL (1.3-7.7); Neutrophils % (A) 71 %; Platelet Count 232 k/uL (150-450); RBC 3.95 m/uL (3.80-5.40); RDW 13.6 % (11.5-15.5); WBC 7.3 k/uL (3.8-10.6)
== END | disposition home or self-care (01) ==
LOC: LABPAT 13:53
PROVIDERS: ATTEND Orthopaedic Surgery
DX: Z01.812 Encounter for preprocedural laboratory examination (principal)
CPT/HCPCS: 36415; 85025; 86850; 86900; 86901

== ENCOUNTER 2019-11-23 10:13 | Inpatient (IN) | payer MEDICARE ==
[2019-11-16 14:54] VITALS: BMI 46.0
[~2019-11-23 10:13] MED LIST changes: +DEXAMETHASONE SOD PHOSPHATE 10 MG/ML 1 ML VIAL IV ONE; +MIDAZOLAM 2 MG/2 ML VIAL IV PRN; +ONDANSETRON 4 MG/2 ML VIAL IVP ONE; -ceFAZolin 3 GM in SODIUM CHLORIDE 0.9% 100 ML IVPB ONE; +fentaNYL (PF) 50 MCG/ML 2 ML AMP IV PRN
[2019-11-23] MEDS ORDERED: LIDOCAINE 1% 20 ML VIAL (10MG/ML) FOR IV START INTRADERMA ONE (11:02)
[2019-11-23] MEDS: LACTATED RINGERS 1,000 ML IV SCH ×2 (11:22→15:20)
[2019-11-23] MEDS ORDERED: SODIUM CHLORIDE 0.9% IRRIG 1,000 ML BTL IRRIGATION ONE (11:54)
[2019-11-23] MEDS ORDERED: SODIUM CHLORIDE 0.9% 100 ML BAG ONE (11:54)
[2019-11-23] MEDS ORDERED: fentaNYL (PF) 50 MCG/ML 2 ML AMP ONE (11:54)
[2019-11-23] MEDS ORDERED: PHENYLEPHRINE-0.9% NACL SYG 1 MG/10 ML SYRINGE ONE (11:54)
[2019-11-23] MEDS ORDERED: TRANEXAMIC ACID 1,000 MG/10 ML VIAL ONE (11:54)
[2019-11-23] MEDS ORDERED: MIDAZOLAM 2 MG/2 ML VIAL ONE (11:54)
[2019-11-23] MEDS ORDERED: HEPARIN SODIUM,PORCINE 10,000 UNIT/ML 1 ML VIAL ONE (11:54)
[2019-11-23] MEDS ORDERED: PROPOFOL 10 MG/ML 20 ML VIAL IV ONE (11:54)
[2019-11-23] MEDS ORDERED: ceFAZolin 3,000 MG in SODIUM CHLORIDE 0.9% IRRIGATIO 3,000 ML IRRIGATION ONE (12:00)
--- NOTE | 2019-11-23 13:39 | P.OP ---
Date of Procedure: 11/23/19 Preoperative Diagnosis: Severe osteoarthritis right hip Postoperative Diagnosis: Severe osteoarthritis right hip Procedure(s) Performed: Right total hip arthroplasty with a direct anterior approach Implants: Jamison and nephew Polarstem size 3 standard [employer]ison [employer] Nephew R3, 3 hole acetabular shell, 52 mm [employer]hew reflection 6.5 mm cancellus screw, 20 mm 2 [employer]hew R3, XLPE 20 acetabular liner [employer]hew Oxinium femoral head 36 m, +4 All components were press-fit. The articulation is Oxinium on polyethylene. Anesthesia: spinal Surgeon: Chris Pham Harpooner #1: Tanya Bo Estimated Blood Loss (ml): 400 (117 mL returned with Cell Saver) Pathology: other (Femoral head) Condition: stable Disposition: PACU Indications for Procedure: After failure of conservative treatment we discussed the surgical and nonsurgical treatment options at length. Patient wishes to proceed with a total hip arthroplasty with a direct anterior approach. Complications specific to this procedure were discussed at length, including but not limited to infection, leg length discrepancy, dislocation, and nerve injury. Patient is aware of all these complications and informed consent was obtained Operative Findings: The operative findings are consistent with severe osteoarthritis of the right hip Description of Procedure: Patient was seen and evaluated in the preoperative area, consent was reviewed, and the surgical site was marked with a skin marker. Patient was then brought to the operating room and given prophylactic antibiotics intravenously. 1 g of Tranexamic acid was also given. A spinal anesthetic was administered by the anesthesia department. The patient was then placed on the [place] table with the bony prominences well-padded. The hip area was then prepped and draped in usual sterile fashion. A universal timeout was then performed, which confirmed the patient's name, surgical site, ALLERGIES, and procedure being performed. Next the incision site was located at 1 cm distal and 1 cm lateral to the anterior superior iliac spine. The skin and subcutaneous tissues were sharply incised. Incision was carefully dissected down to the fascia overlying the tensor fascia lewis muscle. This fascia was then incised in line with the incision. Next, using blunt finger dissection, the tensor fascia lewis muscle was dissected off its investing fascia. The muscle was then carefully retracted laterally with a cobra retractor over the lateral neck of the femur. Next, the circumflex vessels were identified and cauterized using the AquaMantis device. The anterior hip capsule was then exposed. The capsule was then opened and an inverted T fashion. Cobra retractors were then placed intracapsularly. The proximal femur was then visualized. The femoral neck was then osteotomized appropriate level above the lesser trochanter. Small amount of traction was placed with the [place] table. A small wedge of bone was then removed from the remaining femoral head. Next, using a corkscrew femoral head was easily removed from the acetabulum. On gross visual inspection, the femoral head had complete loss of articular cartilage in m ultiple periarticular osteophytes. Attention was then turned to the acetabulum. the acetabulum was exposed and any remaining labrum was excised. Sequential reaming of the acetabulum was performed using fluoroscopic guidance. When the appropriate size was reached, a trial was then placed. The position and fit of the trial was checked with fluoroscopy. The trial was then removed. Then, using fluoroscopic guidance, the final implant was impacted at 20 of anteversion and 40 of abduction, and fully seated in the acetabulum. 2 screws were then placed in the acetabulum. Again fluoroscopy was used to check position of the screws. Next, the liner was then impacted, with a 20 elevated liner located in the anterior superior quadrant. Component locking was confirmed. Attention was then directed to the femur. With the aid of the [place] table, the femur was externally rotated to approximately 130, extended, and abducted under the opposite leg. A side hook was then placed under the proximal femur, and the side hook elevator was used to elevate the proximal femur. Retractors were then placed. A capsular release was performed, as well as a release of the conjoined tendon, which afforded excellent visualization of the proximal femur. Next, a box osteotome was used to lateralize the proximal femur. A chandelier maker was then used to locate the femoral canal. Sequential broaching was then performed with appropriate size which afforded excellent fixation in the proximal femur. A trial was then placed with appropriate head and neck, and the hip was gently reduced with the aid of the [place] table. Fluoroscopy was then used to check position of the components, as well as to ensure equal leg lengths. The hip was then gently dislocated and the trials were then removed. Final implants were then impacted and the hip was again reduced. Final fluoroscopic x-rays confirmed that the components were in anatomic position, as well as equal leg lengths. The hip was also taken through range of motion, and found to be stable. The hip was then copiously irrigated with antibiotic solution with pulsatile lavage. The hip was then irrigated with Irrisept solution. The soft tissues were then injected with a ropivacaine solution, which consisted of 246.25 mg of ropivacaine, 0.5 mg of epinephrine, 30 mg of Toradol, 80 g of clonidine, and 48.45 mL of sterile water, for a total of 100 mL of fluid injected. A second dose of 1 g of Tranexamic acid was also given. the fascia was then closed with 2-0 strata fix suture. The subcutaneous tissue was closed with 3-0 Vicryl. The subcuticular tissue was closed with 3-0 strata fix suture. The skin was then closed with Dermabond glue and a sterile silver dressing. The patient was then transferred to the recovery room in stable c ondition. The certified physician assistant Tanya Bo NP was required due to the complexity of surgery, and the need for skilled surgical appliances salesperson for positioning, draping, exposure, retraction, and closure of the wound.
[2019-11-23] MEDS ORDERED: LACTATED RINGERS 1,000 ML IV ONE (13:45)
[2019-11-23] MEDS ORDERED: ONDANSETRON 4 MG/2 ML VIAL IVP PRN (14:12)
[2019-11-23] MEDS ORDERED: TEMAZEPAM 15 MG CAP PO PRN (14:12)
[2019-11-23] MEDS ORDERED: HYDROmorphone 0.5 MG/0.5 ML SYRINGE IVP PRN ×3 (14:12)
[2019-11-23] MEDS ORDERED: NALOXONE 0.4 MG/ML 1 ML VIAL IV PRN (14:12)
[2019-11-23] MEDS ORDERED: HYDROmorphone 1 MG/ML 1 ML SYRINGE IVP ONE ×2 (14:12→14:15)
[2019-11-23] MEDS ORDERED: HYDROcodone/APAP 5-325MG 1 EACH TAB PO PRN (14:12)
[2019-11-23] MEDS ORDERED: diphenhydrAMINE 50 MG/ML 1 ML VIAL IVP ONE (14:21)
--- NOTE | 2019-11-23 15:13 | XR ---
EXAMINATION TYPE: XR Hip Limited RT DATE OF EXAM: 11/23/2019 Comparison: None Clinical History: 69-year-old female Status post hip surgery, assess surgical alignment Findings: Image shows right hip total arthroplasty. Both acetabular cup and femoral stem components of the pros thesis are well seated without periprosthetic fracture. Scattered soft tissue air related to recent o peration. Alignment grossly anatomic. Impression: Uncomplicated postoperative appearance right total hip arthroplasty.
--- NOTE | 2019-11-23 15:46 | XR ---
Fluoroscopy HISTORY: Anterior hip replacement 40 seconds fluoroscopy time supplied to the referring clinician. 2 intraoperative C-arm images docum ent the procedure. See dictated report from orthopedic surgery.
--- NOTE | 2019-11-23 17:51 | P.CONS ---
History of Present Illness - Reason for Consult Consult date: 11/23/19 atrial fib Requesting physician: Chris Pham - Chief Complaint right hip pain - History of Present Illness Patient is a 69-year-old female with A. fib status post pacemaker implantation, chronic kidney disease, CML on Gleevec therapy, and multiple other comorbid conditions as listed below who presented for elective right total hip arthroplasty. Patient tolerated the procedure well without any post operative pain. Patient seen and examined at bedside. She states that her pain is currently 2 out of 10 in her right hip. She denies any nausea, vomiting, shortness of breath, or chest pain. She is feeling rather lightheaded and dizzy. She states that she had been having right knee pain and started therapy for her right knee and then her right hip pain became worse. She reports that she has been using a walker and has a chair lift. Review of Systems Pertinent positives and negatives as discussed in HPI, a complete review of systems was performed and all other systems are negative. 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 History of Any Multi-Drug Resistant Organisms: None Reported Past Surgical History: Breast Surgery, Section, Heart Catheterization, Hernia Repair, Hysterectomy, Orthopedic Surgery, Pacemaker Additional Past Surgical History / Comment(s): 04/02/19 normal cardiac cath, L breast lumpectomy/2 lymph node removals, multiple bone marrow biopsies, port inserted/since removed, abdominal hernia repair, total hysterectomy, R heel spur removed, L knee arthroscopic surgery, EGD, colonoscopies, bilateral cataract removals/lens implants Past Anesthesia/Blood Transfusion Reactions: Previous Problems w/ Anesthesia, Motion Sickness, Postoperative Nausea & Vomiting (PONV) Additional Past Anesthesia/Blood Transfusion Reaction / Comm: DIFFICULTY WAKING Type of Cardiac Device: Permanent Pacemaker Device Placement Date:: 04/29/19 Past Psychological History: No Psychological Hx Reported Additional Psychological History / Comment(s): Pt resides with her spouse. She uses a cane to ambulate. She drives. Smoking Status: Never smoker Past Alcohol Use History: Rare Past Drug Use History: None Reported - Past Family History Mother Family Medical History: Cancer Additional Family Medical History / Comment(s): PANCREATIC Father Family Medical History: Coronary Artery Disease (CAD), Myocardial Infarction (IL) Additional Family Medical History / Comment(s): Father had a IL at the age of 50 yrs. He had CABG and mitral valve surgery. Medications and Allergies Home Medications Medication Instructions Recorded Confirmed Type Levothyroxine Sodium [Synthroid] 25 mcg PO QAM 05/26/14 11/23/19 History Anastrozole [Arimidex] 1 mg PO HS 12/21/15 11/23/19 History Furosemide [Lasix] 40 mg PO QAM 12/05/17 11/23/19 History Imatinib Mesylate [Gleevec] 400 mg PO AC-SUPPER 12/05/17 11/23/19 History Oxybutynin ER [Ditropan Xl] 10 mg PO HS 12/05/17 11/23/19 History Apixaban [Eliquis] 5 mg PO BID 04/02/19 11/23/19 History Atenolol [Tenormin] 50 mg PO QAM #30 tab 04/30/19 11/23/19 Rx Flecainide [Tambocor] 100 mg PO BID 06/28/19 11/23/19 History Docusate [Colace] 100 mg PO BID #60 capsule 11/23/19 Rx Allergies Allergy/AdvReac Type Severity Reaction Status Date / Time adhesive AdvReac RED SKIN Verified 11/23/19 10:58 AND TAKES SKIN OFF-paper tape is ok meperidine HCl [From Demerol] AdvReac Rash/Hives, Verified 11/23/19 10:58 rapid heart rate morphine AdvReac Itching Verified 11/23/19 10:58 naproxen [From Aleve] AdvReac told Verified 11/23/19 10:58 not to take Physical Exam Osteopathic Statement: *. No significant issues noted on an osteopathic structural exam other than those noted in the History and Physical/Consult. Vitals: Vital Signs Temp Pulse Resp BP Pulse Ox 11/23/19 16:15 60 150/86 11/23/19 16:00 60 150/83 11/23/19 15:45 60 151/89 11/23/19 15:30 59 L 14 163/93 11/23/19 15:15 98.1 F 58 L 16 158/87 99 11/23/19 14:45 59 L 14 142/65 99 11/23/19 14:30 59 L 14 132/67 100 11/23/19 14:15 59 L 16 131/67 99 11/23/19 14:06 97.4 F L 62 18 131/67 99 11/23/19 10:32 97.2 F L 72 16 159/70 97 Intake and Output 11/23/19 11/23/19 11/23/19 06:59 14:59 22:59 Intake Total 1051 Output Total 400 Balance 651 Intake: IV 1051 Output: Estimated Blood Loss 400 Other: Weight 132.6 kg General: non toxic, no distress, appears at stated age, normal weight Derm: no unusual rashes/lesions no unusual ecchymoses, warm, dry Head: atraumatic, normocephalic, symmetric Eyes: EOMI, no lid lag, anicteric sclera, pupils equal round reactive to light ENT: Nose and ears atraumatic, no thrush, no pharyngeal erythema Neck: No thyromegaly, no cervical lymphadenopathy, trachea midline, supple Mouth: no lip lesion, mucus membranes moist Cardiovascular: S1S2 reg, no murmur, positive posterior tibial pulse bilateral, no edema, capillary refill less than 2 seconds Lungs: Decreased bs bilateral, no rhonchi, no rales , no accessory muscle use Abdominal: soft, nontender to palpation, no guarding, no appreciable organomegaly, normal bowel sounds Ext: no gross muscle atrophy, muscle strength 5 out of 5 in upper extremities grossly, no contractures, Neuro: CN II-XI grossly intact, light touch intact all 4 extremities, finger to nose within normal limits, Psych: Alert, oriented, appropriate affect Assessment and Plan Assessment: 61 yo CF here with right HALEY. A fib - flecanide - resume eliquis when okay with ortho CKD stage III - stable baseline Cr 1.2-1.4 - repat BMP in AM - Avoid additional nephrotoxic agents CML - resume Gleevec - outpatient follow-up History of DVT related to cancer treatment -I was unable -SCDs Hypothyroidism -Synthroid Morbid Obesity BMI 47.2 -Outpatient structured weight loss Patient is likely to require rehab therapy secondary to her morbid obesity, poorly controlled atrial fibrillation, and requirement of a walker at home prior to surgery. High risk for falls and injury of hip replacement. Patient would like to attempt to work with physical therapy to she could go home with home health before deciding on need for possible rehab placement.
[2019-11-23] MEDS: ceFAZolin 3 GM in SODIUM CHLORIDE 0.9% 100 ML IVPB SCH (19:59)
[2019-11-23] MEDS: OXYBUTYNIN 10 MG TAB.ER.24 PO SCH (20:00)
[2019-11-23] MEDS: HYDROcodone/APAP 5-325MG 1 EACH TAB PO PRN (20:00)
[2019-11-23] MEDS: SENNOSIDES-DOCUSATE SODIUM 1 EACH TAB PO SCH (20:01)
[2019-11-23] MEDS: APIXABAN 5 MG TAB PO SCH (20:01)
[2019-11-23] MEDS: FLECAINIDE 50 MG TAB PO SCH (20:01)
[2019-11-23] MEDS: ANASTROZOLE 1 MG TAB PO SCH (20:01)
[2019-11-24] MEDS: LACTATED RINGERS 1,000 ML IV SCH ×6 (00:02→23:33)
[2019-11-24] MEDS: HYDROcodone/APAP 5-325MG 1 EACH TAB PO PRN ×4 (01:36→21:00)
[2019-11-24] MEDS: hydrOXYzine PAMOATE 25 MG CAP PO PRN ×2 (01:36→21:00)
[2019-11-24] MEDS: LEVOTHYROXINE 25 MCG TAB PO SCH (04:54)
[2019-11-24] MEDS: ceFAZolin 3 GM in SODIUM CHLORIDE 0.9% 100 ML IVPB SCH (04:54)
[2019-11-24 07:43] LABS: Basophils % (A) 0 %; Eosinophils % (A) 0 %; HCT 32.6 % (34.0-46.0); HGB 10.5 gm/dL (11.4-16.0); Lymphocytes # (A) 0.7 k/uL (1.0-4.8); Lymphocytes % (A) 6 %; MCHC 32.4 g/dL (31.0-37.0); MCV 98.9 fL (80.0-100.0); Mean Platelet Volume 7.8; Monocytes # (A) 0.5 k/uL (0-1.0); Monocytes % (A) 4 %; Neutrophils % (A) 89 %; Platelet Count 190 k/uL (150-450); RBC 3.29 m/uL (3.80-5.40); RDW 13.5 % (11.5-15.5); WBC 11.2 k/uL (3.8-10.6)
[2019-11-24 07:48] LABS: Calcium 8.2 mg/dL (8.4-10.2); Potassium 4.7 mmol/L (3.5-5.1)
[2019-11-24] MEDS: ATENOLOL 50 MG TAB PO SCH (07:57)
[2019-11-24] MEDS: FLECAINIDE 50 MG TAB PO SCH ×2 (07:57→21:00)
[2019-11-24] MEDS: FUROSEMIDE 40 MG TAB PO SCH (07:58)
[2019-11-24] MEDS: APIXABAN 5 MG TAB PO SCH ×2 (07:58→21:01)
--- NOTE | 2019-11-24 08:35 | P.PN ---
Subjective Progress Note Date: 11/24/19 Principal diagnosis: Primary osteoarthritis right hip. Status post total hip arthroplasty with direct anterior approach. This is a 69-year-old female who is status post total right hip arthroplasty with direct anterior approach. She has complaint of her right heel. She has history of plantar fasciitis. She has no new complaints or concerns today. Vital signs are stable. She is awaiting transfer to rehab. Objective - Vital Signs Vital signs: Vital Signs Temp 97.6 F 11/24/19 07:00 Pulse 63 11/24/19 07:00 Resp 16 11/24/19 07:00 BP 131/76 11/24/19 07:00 Pulse Ox 100 11/24/19 07:00 Intake & Output 11/23/19 11/24/19 11/24/19 18:59 06:59 18:59 Intake Total 1347 1520 296 Output Total 400 1250 Balance 947 270 296 Weight 132.6 kg Intake: IV 1051 Intake, IV Titration 1400 Amount Lactated Ringers 1,000 ml 1200 @ 100 mls/hr IV .Q10H ZULEIMA Rx#:[id number] ceFAZolin 3 gm In Sodium 200 Chloride 0.9% 100 ml @ 200 mls/hr IVPB Q8H ZULEIMA Rx#:[id number] Oral 296 120 296 Output: Urine 1250 Estimated Blood Loss 400 - Exam This is a pleasant 61-year-old female in no acute distress. She is alert and oriented 3. Exam of the right lower extremity reveals her dressing is clean, dry and intact. She has full foot and ankle motion without difficulty or pain. Neurovascular status to the right lower extremity is intact. - Labs CBC & Chem 7: 11/24/19 06:47 11/24/19 06:47 Labs: Abnormal Lab Results - Last 24 Hours (Table) 11/24/19 11/24/19 Range/Units 06:47 06:47 WBC 11.2 H (3.8-10.6) k/uL RBC 3.29 L (3.80-5.40) m/uL Hgb 10.5 L (11.4-16.0) gm/dL Hct 32.6 L (34.0-46.0) % Neutrophils # 10.0 H (1.3-7.7) k/uL Lymphocytes # 0.7 L (1.0-4.8) k/uL BUN 20 H (7-17) mg/dL Glucose 109 H (74-99) mg/dL Calcium 8.2 L (8.4-10.2) mg/dL Assessment and Plan (1) Osteoarthritis of right hip Current Visit: Yes Status: Acute Code(s): M16.11 - UNILATERAL PRIMARY OSTEOARTHRITIS, RIGHT HIP SNOMED Code(s): 680879362830888 (2) Status post total hip replacement, right Current Visit: Yes Status: Acute Code(s): Z96.641 - PRESENCE OF RIGHT ARTIFICIAL HIP JOINT SNOMED Code(s): 822340322521 (3) Atrial fibrillation Current Visit: No Status: Acute Code(s): I48.91 - UNSPECIFIED ATRIAL FIBRILLATION SNOMED Code(s): 40798727 (4) Essential hypertension Current Visit: No Status: Acute Code(s): I10 - ESSENTIAL (PRIMARY) HYPERTENSION SNOMED Code(s): 32895397 Plan: The clinical findings are discussed with the patient. We are planning transfer to inpatient rehab on Friday if cleared medically. I have ordered Voltaren gel for her right heel.
[2019-11-24] MEDS: NYSTATIN 100,000 UNIT/GM POWD 15 GM TOPICAL SCH ×2 (10:31→21:01)
[2019-11-24] MEDS: DICLOFENAC SODIUM GEL 100 GM TUBE TOPICAL SCH ×4 (10:31→22:03)
--- NOTE | 2019-11-24 10:43 | P.PN ---
Subjective Progress Note Date: 11/24/19 (darío charting seen at 0825) Principal diagnosis: hip pain Patient is a 69-year-old female with A. fib status post pacemaker implantation, chronic kidney disease, CML on Gleevec therapy, and multiple other comorbid conditions as listed below who presented for elective right total hip arthroplasty. Patient tolerated the procedure well without any post operative pain. She was not able to get out of bed the night after surgery due to dizziness. Patient seen and examined at bedside. No chest pain, SOB, or nausea. Pain well controlled with dilaudid, but causes some dizziness. She also reports that her heal is hurting on the right due to her achillies injury, asking if compression stocking can be removed. Objective - Vital Signs Vital signs: Vital Signs Temp 97.6 F 11/24/19 07:00 Pulse 63 11/24/19 07:00 Resp 16 11/24/19 07:00 BP 131/76 11/24/19 07:00 Pulse Ox 100 11/24/19 07:00 Intake & Output 11/23/19 11/24/19 11/24/19 18:59 06:59 18:59 Intake Total 1347 1520 296 Output Total 400 1250 Balance 947 270 296 Weight 132.6 kg Intake: IV 1051 Intake, IV Titration 1400 Amount Lactated Ringers 1,000 ml 1200 @ 100 mls/hr IV .Q10H ZULEIMA Rx#:[id number] ceFAZolin 3 gm In Sodium 200 Chloride 0.9% 100 ml @ 200 mls/hr IVPB Q8H ZULEIMA Rx#:[id number] Oral 296 120 296 Output: Urine 1250 Estimated Blood Loss 400 - Exam General: non toxic, no distress, appears older than stated age Derm: warm, dry Head: atraumatic, normocephalic, symmetric Eyes: EOMI, no lid lag, anicteric sclera Mouth: no lip lesion, mucus membranes moist Cardiovascular: S1S2 reg, no murmur, positive posterior tibial pulse bilateral, Lungs: decreased bs bilateral, no rhonchi, no rales , no accessory muscle use Abdominal: soft, nontender to palpation, no guarding, no appreciable organomegaly Ext: no gross muscle atrophy, 1+ edema, no contractures Neuro: CN II-XI grossly intact, no focal neuro deficits Psych: Alert, oriented, appropriate affect - Labs CBC & Chem 7: 11/24/19 06:47 11/24/19 06:47 Labs: Abnormal Lab Results - Last 24 Hours (Table) 11/24/19 11/24/19 Range/Units 06:47 06:47 WBC 11.2 H (3.8-10.6) k/uL RBC 3.29 L (3.80-5.40) m/uL Hgb 10.5 L (11.4-16.0) gm/dL Hct 32.6 L (34.0-46.0) % Neutrophils # 10.0 H (1.3-7.7) k/uL Lymphocytes # 0.7 L (1.0-4.8) k/uL BUN 20 H (7-17) mg/dL Glucose 109 H (74-99) mg/dL Calcium 8.2 L (8.4-10.2) mg/dL Assessment and Plan Assessment: 61 yo CF here with right HALEY. - was not able to mobilize the evening after surgery due to pain Anemia, due to acute blood loss, epected outcome of surgery - follow CBC - if HgB close to 9 on recheck then start Fe A fib - flecanide - Eliquis CKD stage III - stable baseline Cr 1.2-1.4 - currently Cr better than baseline - Avoid additional nephrotoxic agents CML - Gleevec - outpatient follow-up History of DVT related to cancer treatment -Eliquis -SCDs Hypothyroidism -Synthroid Morbid Obesity BMI 47.2 -Outpatient structured weight loss Patient is likely to require rehab therapy secondary to her morbid obesity wiht BMI 47.2 , poorly controlled atrial fibrillation, and requirement of a walker at home prior to surgery. High risk for falls and injury of hip replacement. Patient would like to attempt to work with physical therapy to she could go home with home health before deciding on need for possible rehab placement.
[2019-11-24] MEDS: ANASTROZOLE 1 MG TAB PO SCH (21:00)
[2019-11-24] MEDS: SENNOSIDES-DOCUSATE SODIUM 1 EACH TAB PO SCH (21:00)
[2019-11-24] MEDS: OXYBUTYNIN 10 MG TAB.ER.24 PO SCH (21:01)
[2019-11-24] MEDS: MAGNESIUM HYDROXIDE 2,400 MG/10 ML CUP PO PRN (21:06)
[2019-11-25 01:21] VITALS: RESP 16
[2019-11-25] MEDS: hydrOXYzine PAMOATE 25 MG CAP PO PRN (03:54)
[2019-11-25] MEDS: HYDROcodone/APAP 5-325MG 1 EACH TAB PO PRN ×2 (03:55→11:23)
[2019-11-25] MEDS: LEVOTHYROXINE 25 MCG TAB PO SCH (05:41)
[2019-11-25] MEDS: MAGNESIUM HYDROXIDE 2,400 MG/10 ML CUP PO PRN (05:41)
[2019-11-25 07:31] VITALS: BP 118/57; PULSE 60; TEMP 99
[2019-11-25] MEDS: APIXABAN 5 MG TAB PO SCH (07:43)
[2019-11-25] MEDS: FUROSEMIDE 40 MG TAB PO SCH (07:43)
[2019-11-25] MEDS: DICLOFENAC SODIUM GEL 100 GM TUBE TOPICAL SCH ×2 (07:43→12:25)
[2019-11-25] MEDS: FLECAINIDE 50 MG TAB PO SCH (07:43)
[2019-11-25] MEDS: ATENOLOL 50 MG TAB PO SCH (07:43)
[2019-11-25] MEDS: NYSTATIN 100,000 UNIT/GM POWD 15 GM TOPICAL SCH (07:43)
--- NOTE | 2019-11-25 09:14 | P.DS ---
Providers Date of admission: 11/24/19 08:33 Expected date of discharge: 11/25/19 Attending physician: Chris Pham Consults: 11/23/19 14:12 Consult Physician Routine Consulting Provider: Uzma Orellana Consult Reason/Comments: medical management Do you want consulting provider notified?: Yes Primary care physician: Carlitos Schmid - Discharge Diagnosis(es) (1) Osteoarthritis of right hip Current Visit: Yes Status: Acute (2) Status post total hip replacement, right Current Visit: Yes Status: Acute (3) Atrial fibrillation Current Visit: No Status: Acute (4) Essential hypertension Current Visit: No Status: Acute Hospital Course: This is a 69-year-old female with known history of degenerative arthritis of the right hip. The patient presents for evaluation. After discussion and consideration patient elects to proceed with total right hip arthroplasty, direct anterior approach. The patient is seen preoperatively by her primary care physician and cleared for surgery. Patient is admitted to [facility] on 11/23/2019 for total hip arthroplasty, direct anterior approach. The procedures performed without complication or sequelae. The patient is doing well postoperatively. Labs and vital signs are stable on day of discharge. On day of discharge patient's hip incision is healing well. There is minimal erythema. There is no drainage noted at this time. There is minimal soft tissue swelling to the hip and thigh. Patient has full foot and ankle motion without difficulty or pain. Neurovascular status to the right lower extremity is intact. Patient is discharged to home in good condition. Please see med rec for accurate list of home medications. Patient Condition at Discharge: Good Plan - Discharge Summary Discharge Rx Participant: No New Discharge Prescriptions: New Docusate [Colace] 100 mg PO BID #60 capsule HYDROcodone/APAP 7.5-325MG [[place] 7.5-325] 1 - 2 tab PO Q4-6H PRN #50 tab PRN Reason: Pain Nystatin 100,000 Unit/gm Powd [Mycostatin Powder] 1 applic TOPICAL BID applic Diclofenac Sodium Gel [Voltaren Gel] 2 gm TOPICAL QID PRN tube PRN Reason: Pain Continue Levothyroxine Sodium [Synthroid] 25 mcg PO QAM Anastrozole [Arimidex] 1 mg PO HS Oxybutynin ER [Ditropan Xl] 10 mg PO HS Furosemide [Lasix] 40 mg PO QAM Imatinib Mesylate [Gleevec] 400 mg PO AC-SUPPER Apixaban [Eliquis] 5 mg PO BID Atenolol [Tenormin] 50 mg PO QAM #30 tab Flecainide [Tambocor] 100 mg PO BID Discharge Medication List Levothyroxine Sodium [Synthroid] 25 mcg PO QAM 05/26/14 [History] Anastrozole [Arimidex] 1 mg PO HS 12/21/15 [History] Furosemide [Lasix] 40 mg PO QAM 12/05/17 [History] Imatinib Mesylate [Gleevec] 400 mg PO AC-SUPPER 12/05/17 [History] Oxybutynin ER [Ditropan Xl] 10 mg PO HS 12/05/17 [History] Apixaban [Eliquis] 5 mg PO BID 04/02/19 [History] Atenolol [Tenormin] 50 mg PO QAM #30 tab 04/30/19 [Rx] Flecainide [Tambocor] 100 mg PO BID 06/28/19 [History] Docusate [Colace] 100 mg PO BID #60 capsule 11/23/19 [Rx] Diclofenac Sodium Gel [Voltaren Gel] 2 gm TOPICAL QID PRN tube 11/24/19 [Rx] HYDROcodone/APAP 7.5-325MG [[place] 7.5-325] 1 - 2 tab PO Q4-6H PRN #50 tab 11/24/19 [Rx] Nystatin 100,000 Unit/gm Powd [Mycostatin Powder] 1 applic TOPICAL BID applic 11/24/19 [Rx] Follow up Appointment(s)/Referral(s): Chris Pham DO [Doctor of Osteopathic Medicine] - 12/06/19 2:20 pm Activity/Diet/Wound Care/Special Instructions: Activity: Weightbearing as tolerated with walker Diet: regular Wound Care: Keep dressing in place for 10 days unless saturated Special Instructions: CBC in 2 days DX: anemia Resume Eliquis 5 mg twice daily May shower over dressing Follow up with Dr. Chris Pham in 2 weeks. Call [facility] with questions or concerns, . Discharge Disposition: TRANSFER TO SNF/ECF
[2019-11-25] MEDS ORDERED: LACTULOSE 20 GM/30 ML CUP PO PRN (09:28)
--- NOTE | 2019-11-25 09:36 | P.PN ---
Subjective Progress Note Date: 11/25/19 Principal diagnosis: hip pain Patient is a 69-year-old female with A. fib status post pacemaker implantation, chronic kidney disease, CML on Gleevec therapy, and multiple other comorbid conditions as listed below who presented for elective right total hip arthroplasty. Patient tolerated the procedure well without any post operative pain. She was not able to get out of bed the night after surgery due to dizziness. Willing to come off Gleevac for her duration of rehab. Has come of gleevac for 2 months during breast cancer therapy. Patient seen and examined at bedside. Feeling okay. No chest pain or shortness of breath. She does report constipation despite MOM and miralax just took some prune juice. Objective - Vital Signs Vital signs: Vital Signs Temp 99.0 F 11/25/19 07:00 Pulse 60 11/25/19 07:00 Resp 16 11/25/19 07:00 BP 118/57 11/25/19 07:00 Pulse Ox 96 11/25/19 07:00 Intake & Output 11/24/19 11/25/19 11/25/19 18:59 06:59 18:59 Intake Total 2047 120 Balance 2047 120 Intake: Oral 2047 120 Other: Voiding Method Toilet # Voids 2 1 - Exam General: non toxic, no distress, appears older than stated age Derm: warm, dry Head: atraumatic, normocephalic, symmetric Eyes: EOMI, no lid lag, anicteric sclera Mouth: no lip lesion, mucus membranes moist Cardiovascular: S1S2 reg, no murmur, positive posterior tibial pulse bilateral, Lungs: decreased bs bilateral, no rhonchi, no rales , no accessory muscle use Abdominal: soft, nontender to palpation, no guarding, no appreciable organomegaly Ext: no gross muscle atrophy, trace edema, no contractures Neuro: CN II-XI grossly intact, no focal neuro deficits Psych: Alert, oriented, appropriate affect - Labs CBC & Chem 7: 11/24/19 06:47 11/24/19 06:47 Assessment and Plan Assessment: 61 yo CF here with right HALEY. - was not able to mobilize the evening after surgery due to pain Anemia, due to acute blood loss, expected outcome of surgery - follow CBC in 2 days - if HgB close to 9 on recheck then start Fe Constipation - tried MOM, miralax, and prune juice - ad lactulose A fib - flecanide - Eliquis CKD stage III - stable baseline Cr 1.2-1.4 - currently Cr better than baseline - Avoid additional nephrotoxic agents CML - Gleevec on hold during rehab and then resume once discharged from SNF - outpatient follow-up History of DVT related to cancer treatment -Eliquis -SCDs Hypothyroidism -Synthroid Morbid Obesity BMI 47.2 -Outpatient structured weight loss Patient is will require rehab therapy secondary to her morbid obesity with BMI 47.2 , poorly controlled atrial fibrillation, and requirement of a walker at home prior to surgery. High risk for falls and injury of hip replacement. Very unbalanced with therapy and would benefit from SNF. Medically optimized for discharge.
== END 2019-11-25 16:10 | DRG 470 ==
LOC: OR 10:13 → 4SSUR 14:00 → OR 11-24 08:33
PROVIDERS: ADMIT Orthopaedic Surgery; ATTEND Orthopaedic Surgery
PROC: 0SR906A Replacement of Right Hip Joint with Oxidized Zirconium on Polyethylene Synthetic Substitute, Uncemented, Open Approach (ICD-10-PCS; principal; 2019-11-23 11:35)
DX: M16.11 Unilateral primary osteoarthritis, right hip (principal); Z68.42 Body mass index [BMI] 45.0-49.9, adult; D62 Acute posthemorrhagic anemia; C92.10 Chronic myeloid leukemia, BCR/ABL-positive, not having achieved remission; M17.0 Bilateral primary osteoarthritis of knee; K59.00 Constipation, unspecified; N18.3 Chronic kidney disease, stage 3 (moderate); I48.0 Paroxysmal atrial fibrillation; I12.9 Hypertensive chronic kidney disease with stage 1 through stage 4 chronic kidney disease, or unspecified chronic kidney disease; E66.01 Morbid (severe) obesity due to excess calories; E03.9 Hypothyroidism, unspecified; Z96.1 Presence of intraocular lens; Z91.81 History of falling; Z90.710 Acquired absence of both cervix and uterus; Z86.718 Personal history of other venous thrombosis and embolism; Z79.890 Hormone replacement therapy; Z79.01 Long term (current) use of anticoagulants; Z79.899 Other long term (current) drug therapy; Z82.49 Family history of ischemic heart disease and other diseases of the circulatory system; Z85.3 Personal history of malignant neoplasm of breast; Z95.0 Presence of cardiac pacemaker; Z98.42 Cataract extraction status, left eye; Z98.41 Cataract extraction status, right eye
CPT/HCPCS: 73501; 80048; 85025; 86850; 86891; 86900; 86901; 88305; 88311

== ENCOUNTER → 2020-01-19 | Outpatient (CLI) | payer MEDICARE ==
--- NOTE | 2020-01-19 09:42 | US ---
EXAMINATION TYPE: US axilla RT DATE OF EXAM: 01/19/2020 COMPARISON: NONE CLINICAL HISTORY: 69-year-old female R22.31 Localized swelling, mass and lump, right up. TECHNIQUE: Targeted ultrasound evaluation of the right axilla. FINDINGS: No axillary lymphadenopathy or discrete solid or cystic lesion identified in the right axilla. IMPRESSION: No discrete sonographic abnormality identified upon scanning of the right axilla. Further clinical co rrelation recommended.
== END | disposition home or self-care (01) ==
LOC: RADUSWWP 08:49
PROVIDERS: ATTEND Internal Medicine Hematology & Oncology
DX: R22.31 Localized swelling, mass and lump, right upper limb (principal); Z88.5 Allergy status to narcotic agent

== ENCOUNTER → 2020-05-04 | Outpatient (CLI) | payer MEDICARE ==
--- NOTE | 2020-05-04 18:44 | SFUN ---
SLEEP CENTER FOLLOW UP NOTE DATE OF SERVICE: 05/04/2020 This patient is a 69-year-old lady who has been followed in Sleep Center for treatment of obstructive sleep apnea-hypopnea syndrome. The patient continues to use her CPAP equipment every night. She sleeps well with the machine. [place] Sleepiness Scale today is 7, which is within normal range. I checked her CPAP unit. CPAP pressure is 7 cm of water. Usage is 21/30 nights, with average usage 4.7 hours per night. Leak is 19 L/minute, which is borderline. Apnea- hypopnea index is 1.9, which is normal. MEDICATIONS: Gleevec, levothyroxine, atenolol, furosemide, anastrozole, oxybutynin, Eliquis, flecainide, calcium with D3 supplement PHYSICAL EXAMINATION: GENERAL: A pleasant patient in no distress. VITAL SIGNS: BP 130/79, HR 68, RR 16, height 5 feet 4 inches, weight 291 pounds. Patient lost around 12 pounds since last visit. BMI 49.9, temperature 98.4, oxygen saturation at room air 97%. HEENT: PERRLA, EOMI. Evaluation of oropharynx showed tongue protrudes midline. Extremely low position of soft palate. Mallampati IV. NECK: Supple. No JVD. Thyroid is not palpable. LUNGS: Clear to percussion and to auscultation. Good air exchange. No wheezing or rhonchi. HEART: S1, S2 regular. No murmurs, gallops or rubs. ABDOMEN: Obese. EXTREMITIES: No clubbing or cyanosis. EXTRACORPOREAL TECHNICIAN: Awake, alert, and oriented X3. Cranial nerves 2 to 7 intact. There is no fasciculation or atrophy. noted. No focal deficits observed. IMPRESSION: 1. Obstructive sleep apnea-hypopnea syndrome. The patient demonstrated good compliance with treatment, benefitting from treatment. 2. Coronary artery disease. 3. History of chronic myeloid leukemia. 4. Obesity. 5. History of breast carcinoma, status post surgical treatment, radiation therapy and chemotherapy. 6. History of right knee problems. PLAN: 1. Patient will continue to use PAP equipment every night for the whole night. 2. Sleep hygiene with regular time in bed for at least 7-1/2 to 8 hours. 3. Precautions related to driving. No driving if feeling sleepiness. 4. I will maintain all necessary prescription for PAP supplies including mask, tube, filters. 5. Watching weight. 6. No driving if feeling sleepiness. 7. Follow-up visit in 6 months or earlier if patient has any problems. Thank you very much for allowing me to participate in the management of your patient. Sincerely, Javad Joshua MD, PhD, FAASM Diplomat of [employer] [facility] [place] MMODL / RICHARDN: [id number] /
== END | disposition home or self-care (01) ==
LOC: SLEEP 11:31
PROVIDERS: ATTEND Internal Medicine
DX: G47.33 Obstructive sleep apnea (adult) (pediatric) (principal); I25.10 Atherosclerotic heart disease of native coronary artery without angina pectoris; E66.9 Obesity, unspecified; Z85.3 Personal history of malignant neoplasm of breast; Z92.3 Personal history of irradiation; Z92.21 Personal history of antineoplastic chemotherapy; Z85.6 Personal history of leukemia; Z87.39 Personal history of other diseases of the musculoskeletal system and connective tissue; Z99.89 Dependence on other enabling machines and devices; Z68.42 Body mass index [BMI] 45.0-49.9, adult; Z79.01 Long term (current) use of anticoagulants; Z79.899 Other long term (current) drug therapy

== ENCOUNTER → 2020-06-06 | Outpatient (CLI) | payer MEDICARE ==
--- NOTE | 2020-06-06 09:17 | BD ---
EXAMINATION TYPE: Axial Bone Density DATE OF EXAM: 06/06/2020 COMPARISON: 06/15/2018 DEXA bone scan. CLINICAL HISTORY: Left sided breast cancer and postmenopausal female. Height: 64 IN Weight: 295 LBS FRAX RISK QUESTIONS: Secondary Osteoporosis: 3. Menopause before 45: YES TOTAL HYST AGE 36 RISK FACTORS HISTORY OF: Surgery to Hip(right): 2019 Active: LIMITED Postmenopausal woman: TOTAL HYST AGE 36 MEDICATIONS: Thyroid Medications: YES Which medication: Synthroid How Lon+ YEARS ADditional Medications: CALCIUM, VIT D, ARIMIDEX, SYNTHROID,ATENOLOL, ARRYTHMIA MEDS, WATER PILL, GL EEVEC, Additional History: BREAST CANCER WITH CHEMO AND RADIATION; EXAM MEASUREMENTS: Bone mineral densitometry was performed using the [employer]ula System. Bone mineral density as measured about the Lumbar spine is: ----- L1-L4(G/cm2): 1.329 T Score Values are as follows: ----- L2: 0.4 ----- L3: 0.9 ----- L4: 2.4 ----- L1-L4: 1.2 Bone mineral density has: Increased 3.4% since study of: 06/15/2018 Bone mineral density about the L hip (g/cm2): 0.925 T Score values are as follows: -----L Neck: -0.8 -----L Total: 0.4 Bone mineral density has: Decreased -0.4% since study of: 06/15/2018 IMPRESSION: Normal (Values between +1 and -1 indicate normal bone mass). Consider repeating this study in 5 year s or sooner if there is some new clinical indication. NOTE: T-SCORE=SD OF THE YOUNG ADULT MEAN.
== END | disposition home or self-care (01) ==
LOC: RADBDWWP 08:31
PROVIDERS: ATTEND Internal Medicine Hematology & Oncology
DX: M85.9 Disorder of bone density and structure, unspecified (principal); C50.212 Malignant neoplasm of upper-inner quadrant of left female breast; Z79.890 Hormone replacement therapy; Z88.5 Allergy status to narcotic agent
CPT/HCPCS: 77080

== ENCOUNTER → 2020-10-02 | Outpatient (CLI) | payer MEDICARE | END | disposition home or self-care (01) | LOC: RADMRIMAIN 07:14 | PROVIDERS: ATTEND Orthopaedic Surgery | DX: Z53.9 Procedure and treatment not carried out, unspecified reason (principal) ==

== ENCOUNTER → 2020-11-10 | Outpatient (CLI) | payer MEDICARE ==
[2020-11-10 12:18] LABS: Appearance,Urine Clear (Clear); Bilirubin,Urine Negative (Negative); Blood,Urine Negative (Negative); Color,Urine Yellow; Glucose,Urine (UA) Negative (Negative); Ketones,Urine Negative (Negative); Leukocyte Esterase,Urine Negative (Negative); Nitrite,Urine Negative (Negative); PH, Urine 6.5 (5.0-8.0); Protein,Urine Negative (Negative); Urobilinogen,Urine <2.0 mg/dL (<2.0)
== END | disposition home or self-care (01) ==
LOC: LABPAT 11:38
PROVIDERS: ATTEND Orthopaedic Surgery
DX: Z01.818 Encounter for other preprocedural examination (principal)
CPT/HCPCS: 81003

== ENCOUNTER 2020-11-14 12:18 | Day surgery (SDC) | payer MEDICARE ==
[2020-11-09 13:12] VITALS: BMI 47.7
[~2020-11-14 12:18] MED LIST changes: -ACETAMINOPHEN TAB 500 MG TAB PO ONE; -DEXAMETHASONE SOD PHOSPHATE 10 MG/ML 1 ML VIAL IV ONE; +DEXAMETHASONE SOD PHOSPHATE 4 MG/ML 1 ML VIAL IV ONE; -GABAPENTIN 300 MG CAP PO ONE; +LACTATED RINGERS 1,000 ML IV SCH; +LIDOCAINE 1% (10MG/ML) FOR IV START INTRADERMA PRN; -MELOXICAM 7.5 MG TAB PO ONE; +Pre Op ABX Message 1 EACH MISC MISCELLANE ONE; -ROPIVACAINE 246.25 MG, EPINEPHrine 0.5 MG, KETOROLAC 30 MG, cloNIDine HCL/PF 80 MCG, WA... MISCELLANE ONE; -TRANEXAMIC ACID 1,000 MG in SODIUM CHLORIDE 0.9% 100 ML IVPB ONE; -fentaNYL (PF) 50 MCG/ML 2 ML AMP IV PRN
[2020-11-14] MEDS ORDERED: ONDANSETRON 4 MG/2 ML VIAL ONE (13:02)
[2020-11-14] MEDS ORDERED: MIDAZOLAM 2 MG/2 ML VIAL ONE (13:10)
[2020-11-14] MEDS ORDERED: fentaNYL (PF) 50 MCG/ML 2 ML AMP ONE (13:10)
[2020-11-14] MEDS ORDERED: LIDOCAINE 1% INJ 10MG/ML (20 ML MDV) ONE (13:10)
[2020-11-14] MEDS ORDERED: BUPIVACAINE (PF) 0.5% 30 ML VIAL INTRAARTIC ONE (13:10)
[2020-11-14] MEDS ORDERED: PROPOFOL 10 MG/ML 20 ML VIAL IV ONE (13:10)
[2020-11-14] MEDS ORDERED: ceFAZolin 1,000 MG VIAL IVPB ONE (13:24)
[2020-11-14 13:58] VITALS: RESP 16; TEMP 96.9
--- NOTE | 2020-11-14 14:01 | P.OP ---
Date of Procedure: 11/14/20 Preoperative Diagnosis: Torn medial meniscus left knee Postoperative Diagnosis: 1. Torn medial meniscus left knee 2. Torn lateral meniscus 3. Grade 3 chondromalacia medial femoral compartment, patellofemoral compartment, and lateral femoral compartment 4. Synovitis Procedure(s) Performed: 1. Arthroscopy of the left knee with partial medial meniscectomy (25% of the meniscus excised) 2. Partial lateral meniscectomy ( 20% of the meniscus excised) 3. Chondroplasties of the medial femoral, lateral femoral, and patellofemoral compartments 4. Partial synovectomy of the medial femoral, lateral femoral, patellofemoral compartments Anesthesia: GETA Surgeon: Chris Pham Estimated Blood Loss (ml): 5 Pathology: none sent Condition: stable Disposition: PACU Indications for Procedure: This is a 70-year-old female that was seen by me in the office for pain in her left knee. She's had a prior torn medial meniscus and the right knee and feels that her pain is the same in her left knee, consistent with a torn medial meniscus. After discussing the surgical nonsurgical treatment options with her at length, she wishes to proceed with arthroscopy of her left knee with partial medial meniscectomy and debridement. Informed consent was obtained. Operative Findings: The operative findings are consistent with a torn medial meniscus and lateral meniscus of the left knee, grade 3 chondromalacia of the medial femoral, lateral femoral, patellofemoral compartments. And also synovitis. Description of Procedure: Patient was seen and evaluated in the preoperative area, the operative site was marked with a skin marker. The patient was then brought to the operating room and given 2 g of Ancef intravenously. A general anesthetic was administered by the anesthesia department. Tourniquet was placed on the left upper thigh and the left lower extremity was then prepped and draped in usual sterile fashion. A universal timeout was then performed confirming the patient's name, surgical site, ALLERGIES, and consent. The limb was then exsanguinated and tourniquet insufflated to 300 mmHg. Standard inferior medial and inferior lateral portals were established in the knee. The trochar was inserted in the inferolateral portal. Examination began at the patellofemoral joint. There is noted to be grade 3 chondral malacia the patellofemoral compartment and a moderate amount of synovitis. Next the medial compartment was visualized. There was a tear of the posterior horn of the medial meniscus. There was grade 3 chondral malacia the mediofemoral compartment and synovitis. The notch area was then visualized and the ACL was intact. The Lateral compartment was then visualized and the lateral meniscus was a tear of the posterior horn. There was grade 3 chondromalacia, and a mild amount of synovitis. Next, using an arthroscopic shaver and a biter, partial medial meniscectomy was performed stable margins. Approximately 25% of medial meniscus was excised. A partial lateral meniscectomy was also performed approximately 20% lateral meniscus excised. A partial synovectomy is performed the medial femoral, lateral femoral, patellofemoral compartments. Chondroplasties were also performed of the medial femoral, and the femoral and patellofemoral compartments of the knee. Knee was then copiously irrigated, instruments removed, incisions were closed with 4-0 nylon. 30 mL of quarter percent plain Marcaine were injected sterilely into the surgical area. A sterile dressing was then applied, and the tourniquet was released. Patient was then transferred to recovery room in stable condition.
[2020-11-14] MEDS: HYDROmorphone 0.5 MG/0.5 ML SYRINGE IVP PRN ×2 (14:15→14:37)
[2020-11-14 15:11] VITALS: PULSE 60
[2020-11-14 15:43] VITALS: BP 139/81
== END 2020-11-14 16:36 | disposition home or self-care (01) ==
LOC: OR 12:18
PROVIDERS: ATTEND Orthopaedic Surgery
DX: M23.204 Derangement of unspecified medial meniscus due to old tear or injury, left knee (principal); M23.201 Derangement of unspecified lateral meniscus due to old tear or injury, left knee; M22.42 Chondromalacia patellae, left knee; M65.862 Other synovitis and tenosynovitis, left lower leg; M17.0 Bilateral primary osteoarthritis of knee; C50.919 Malignant neoplasm of unspecified site of unspecified female breast; C95.90 Leukemia, unspecified not having achieved remission; I10 Essential (primary) hypertension; E03.9 Hypothyroidism, unspecified; I48.0 Paroxysmal atrial fibrillation; K21.9 Gastro-esophageal reflux disease without esophagitis; Z86.79 Personal history of other diseases of the circulatory system; R26.81 Unsteadiness on feet; Z97.3 Presence of spectacles and contact lenses; Z95.0 Presence of cardiac pacemaker; G62.9 Polyneuropathy, unspecified; Z98.891 History of uterine scar from previous surgery; Z90.710 Acquired absence of both cervix and uterus; Z96.641 Presence of right artificial hip joint; Z98.890 Other specified postprocedural states; Z82.49 Family history of ischemic heart disease and other diseases of the circulatory system; Z79.01 Long term (current) use of anticoagulants; Z79.890 Hormone replacement therapy; Z79.899 Other long term (current) drug therapy; Z88.5 Allergy status to narcotic agent; Z91.09 Other allergy status, other than to drugs and biological substances
CPT/HCPCS: 29880; J2250; J1100; J2405; J0690; J2001; J3010; J2704; J1170

== ENCOUNTER → 2021-01-24 | Outpatient (CLI) | payer MEDICARE ==
[2021-01-25 10:56] VITALS: BMI 50.5
== END ==
LOC: DBWHC3 14:53
PROVIDERS: ATTEND Internal Medicine
DX: N18.30 Chronic kidney disease, stage 3 unspecified (principal); E66.9 Obesity, unspecified
CPT/HCPCS: 97802

== ENCOUNTER → 2021-05-03 | Outpatient (CLI) | payer MEDICARE ==
--- NOTE | 2021-05-03 22:45 | SFUN ---
SLEEP CENTER FOLLOW UP NOTE DATE OF SERVICE: 05/03/2021. 70-year-old lady has been followed in Sleep Center for treatment of obstructive sleep apnea-hypopnea syndrome. Patient continued to use her CPAP equipment, but recently because of allergy problems she did not use it every night. She was started on usage nasal spray Flonase and she feels better with that. [place] Sleepiness Scale today is borderline 10. I checked the CPAP unit pressure 7 cm of water. Usage is 13/30 nights for more than 4 hours, average 5 hours per night. Leak is 22 L/minute. Apnea-hypopnea index is 3.3, which is normal. MEDICATION: Gleevec, Synthroid, Lasix, atenolol, Flecainide, Arimidex, Eliquis, . PHYSICAL EXAMINATION: GENERAL: Patient in no distress. BP 129/86, HR 82, RR 15, height 5 feet 5 inches, weight 288.8, about the same as during the last visit. Temp is 96.7, oxygen saturation at room air 95%. Extremely low position of soft palate, Mallampati IV. NECK: Supple, no JVD. Thyroid is not palpable. LUNGS: Clear to percussion and to auscultation. Good air exchange. No wheezing or rhonchi. HEART: S1, S2 regular. No murmurs, gallops, or rubs. ABDOMEN: Obese. Soft and nontender. Bowel sounds are present. No organomegaly appreciated. EXTREMITIES: No clubbing or cyanosis. COLOR CONTROL SUPERVISOR: Awake, alert, and oriented X3. Cranial nerves 2 to 7 intact. There is no fasciculation or atrophy. noted. No focal deficits observed. IMPRESSION: 1. Obstructive sleep apnea-hypopnea syndrome. Normal aspiration on CPAP. 2. Allergy, recent problems with the nasal breathing during sleep. The patient was not able to use equipment every night. 3. Coronary artery disease. 4. History of chronic myeloid leukemia. 5. Obesity. 6. History of breast carcinoma, status post surgical treatment, radiation therapy and chemotherapy. 7. History of right knee problems. PLAN: 1. Patient may use additionally nasal strips to improve her breathing through nose. 2. Patient will continue to use PAP equipment every night for the whole night. 3. Sleep hygiene with regular time in bed for at least 7-1/2 to 8 hours. 4. Precautions related to driving. No driving if feeling sleepiness. 5. I will maintain all necessary prescription for PAP supplies including mask, tube, filters. 6. Watching weight. 7. Follow-up visit in 6 months or earlier if patient has any problems. Thank you very much for allowing me to participate in management of your patient. Sincerely, Javad Joshua MD, PhD, FAASM Diplomat of [employer] Sleep Medicine Board of [employer] [facility] [place] MMODL / IJN: [id number] /
== END ==
LOC: SLEEP 10:02
PROVIDERS: ATTEND Internal Medicine
DX: G47.33 Obstructive sleep apnea (adult) (pediatric) (principal); I25.10 Atherosclerotic heart disease of native coronary artery without angina pectoris; E66.9 Obesity, unspecified; Z85.3 Personal history of malignant neoplasm of breast; Z92.21 Personal history of antineoplastic chemotherapy; Z92.3 Personal history of irradiation; Z87.39 Personal history of other diseases of the musculoskeletal system and connective tissue; Z85.6 Personal history of leukemia; Z91.048 Other nonmedicinal substance allergy status; Z88.5 Allergy status to narcotic agent; Z88.6 Allergy status to analgesic agent

== ENCOUNTER → 2021-06-29 | Outpatient (CLI) | payer MEDICARE ==
[2021-06-29 10:02] LABS: Albumin 3.8 g/dL (3.5-5.0); Calcium 9.6 mg/dL (8.4-10.2); Total Bilirubin 0.7 mg/dL (0.2-1.3); Total Protein 6.5 g/dL (6.3-8.2)
[2021-06-29 10:05] LABS: Potassium 3.9 mmol/L (3.5-5.1)
[2021-06-29 10:25] LABS: HCT 42.8 % (34.0-46.0); HGB 14.6 gm/dL (11.4-16.0); MCH 34.5 pg (25.0-35.0); MCHC 34.1 g/dL (31.0-37.0); MCV 101.1 fL (80.0-100.0); Mean Platelet Volume 7.9; Platelet Count 226 k/uL (150-450); RBC 4.23 m/uL (3.80-5.40); WBC 6.9 k/uL (3.8-10.6)
== END | disposition home or self-care (01) ==
LOC: LABPAT 08:51
PROVIDERS: ATTEND Podiatrist Foot & Ankle Surgery
DX: Z01.812 Encounter for preprocedural laboratory examination (principal)
CPT/HCPCS: 80053; 85027

== ENCOUNTER 2021-07-04 11:20 | Day surgery (SDC) | payer MEDICARE ==
[2021-06-29 16:26] VITALS: BMI 46.7
[~2021-07-04 11:20] MED LIST changes: -DEXAMETHASONE SOD PHOSPHATE 4 MG/ML 1 ML VIAL IV ONE; +HYDROmorphone 0.5 MG/0.5 ML SYRINGE IVP PRN; -MIDAZOLAM 2 MG/2 ML VIAL IV PRN; -Pre Op ABX Message 1 EACH MISC MISCELLANE ONE; +ceFAZolin 3 GM in SODIUM CHLORIDE 0.9% 100 ML IVPB PRN
[2021-07-04 12:22] VITALS: TEMP 97.8
[2021-07-04] MEDS ORDERED: DEXAMETHASONE SOD PHOSPHATE 4 MG/ML 1 ML VIAL IV ONE (12:43)
[2021-07-04] MEDS ORDERED: fentaNYL (PF) 50 MCG/ML 2 ML AMP ONE (13:17)
[2021-07-04] MEDS ORDERED: PROPOFOL 10 MG/ML 20 ML VIAL IV ONE (13:17)
[2021-07-04] MEDS ORDERED: MIDAZOLAM 2 MG/2 ML VIAL ONE (13:17)
[2021-07-04] MEDS ORDERED: BUPIVACAINE (PF) 0.25% 30 ML VIAL INTRAARTIC ONE (13:30)
--- NOTE | 2021-07-04 14:06 | P.OP ---
Date of Procedure: 07/04/21 Preoperative Diagnosis: Hammer digit deformity second toe left foot Postoperative Diagnosis: Same Procedure(s) Performed: Tenodesis procedure with pin fixation second toe left foot Surgeon: Rupert King Operative Findings: Unremarkable Description of Procedure: On the date of surgery the patient was taken the operating room in good condition placed on the operating table supine position where an IV was started and adequate IV anesthetic agents were utilized anesthesia was then further supplemented with proximally 7 mL of 0.25% plain Marcaine given in a digital block to the second toe the patient's left foot. The patient's left foot then prepped and draped the usual aseptic manner patient's left foot and ankle were then elevated and exsanguinated of blood utilizing Esmarch bandage. Roll had been applied to just above the malleoli of the patient's left ankle ankle tourniquet was then inflated to approximately 250 mmHg At this time attention was directed dorsal aspect second digit left foot where an approximately 2.5 cm dorsal linear incision was made the incision was deepened via sharp dissection down through the level of the subcutaneous tissue layers all neurovascular structures encountered were identified isolated and were retracted and any bleeding vessels were clamped electrocauterized. Throughout the surgical procedure copious amounts sterile saline solution was used to irrigate the surgical site. Dissection was carried deep down to level extensor digitorum longus tendon to the second toe was identified at the level of the proximal interphalangeal joint in severed transversely the collateral ligaments on either side of the proximal interphalangeal joint were then incised the head of the capital fragment of the proximal phalanx was then developed through the incision utilizing oscillating bone saw it was resected it a 90 angle to the shaft and removed in total from the surgical site. Oscillating bone saw was then used to remove the cartilage from the base of the middle phalanx. A 0.045 K wire was then driven distally through the middle and distal phalanx and retrograded back into the proximal phalanx. Haning the second toe in a rectus position. Utilizing a #11 blade small stab incision was made just proximal to the metatarsal phalangeal joint and extensor digitorum longus tendon was tenotomized. Denser digitorum longus tendons were then shortened by approximately 2-3 mm and the ends were coaptated and maintained utilizing 3-0 Dexon simple interrupted suture the skin was coaptated and maintained utilizing 4-0 nylon simple interrupted suture Adaptic Kerlix fluffs four-inch conformer 4 inch Coban was used to form a compression dressing and the ankle tourniquet to the ankle was deflated adequate hemostatic return was seen in all digits left foot specifically the second toe. The patient tolerated tolerated the surgery and anesthesia well was taken recovery room in good postoperative condition
[2021-07-04 14:08] VITALS: PULSE 60; RESP 16
[2021-07-04 14:27] VITALS: BP 117/78
== END 2021-07-04 15:20 | disposition home or self-care (01) ==
LOC: OR 11:20
PROVIDERS: ATTEND Podiatrist Foot & Ankle Surgery
DX: M20.42 Other hammer toe(s) (acquired), left foot (principal); I48.0 Paroxysmal atrial fibrillation; N18.9 Chronic kidney disease, unspecified; M19.90 Unspecified osteoarthritis, unspecified site; E07.9 Disorder of thyroid, unspecified; Z95.0 Presence of cardiac pacemaker; Z79.01 Long term (current) use of anticoagulants; Z86.718 Personal history of other venous thrombosis and embolism; Z79.890 Hormone replacement therapy; Z79.899 Other long term (current) drug therapy; Z85.3 Personal history of malignant neoplasm of breast
CPT/HCPCS: 28285; 88304; 88311; J2250; J1100; J0690; J2405; J3010; J2704

== ENCOUNTER → 2021-08-27 | Outpatient (CLI) | payer MEDICARE ==
--- NOTE | 2021-08-27 15:16 | US ---
EXAMINATION TYPE: US kidneys/renal and bladder DATE OF EXAM: 08/27/2021 COMPARISON: NONE CLINICAL HISTORY: N18.3 Chronic Kidney Disease Stage III. EXAM MEASUREMENTS: Right Kidney: 10.1x5.0x5.7 cm Left Kidney: 9.7x5.4x4.9 cm Difficult due to body habitus. Right Kidney: No hydronephrosis or masses seen Left Kidney: No hydronephrosis or masses seen Bladder: wnl Bilateral Jets seen: No Cortical thinning bilaterally. IMPRESSION: No hydronephrosis or nephrolithiasis. Cortical thinning correlate for chronic medical renal disease.
== END | disposition home or self-care (01) ==
LOC: RADUSWWP 14:29
PROVIDERS: ATTEND Internal Medicine
DX: N18.30 Chronic kidney disease, stage 3 unspecified (principal)
CPT/HCPCS: 76770

== ENCOUNTER → 2021-09-18 | Outpatient (CLI) | payer MEDICARE ==
[2021-09-18 14:27] LABS: Basophils # (A) 0.03 X 10*3/uL (0.00-0.10); Basophils % (A) 0.4 %; Eosinophils # (A) 0.15 X 10*3/uL (0.04-0.35); Eosinophils % (A) 2.1 %; HCT 38.4 % (37.2-46.3); HGB 12.4 g/dL (12.0-15.0); Lymphocytes # (A) 1.74 X 10*3/uL (0.90-5.00); Lymphocytes % (A) 24.6 %; MCH 32.5 pg (27.0-32.0); MCHC 32.3 g/dL (32.0-37.0); MCV 100.8 fL (80.0-97.0); Mean Platelet Volume 10.4 fL (9.5-12.2); Monocytes # (A) 0.43 X 10*3/uL (0.20-1.00); Monocytes % (A) 6.1 %; Neutrophils # (A) 4.68 X 10*3/uL (1.80-7.70); Neutrophils % (A) 66.4 %; Platelet Count 216 X 10*3/uL (140-440); RBC 3.81 X 10*6/uL (4.10-5.20); RDW 14.1 % (11.5-14.5); WBC 7.06 X 10*3/uL (4.50-10.00)
[2021-09-18 16:06] LABS: ALT 32 U/L (8-44); AST 28 U/L (13-35); African American GFR (CKD) 57.6 (60.0-200.0); Albumin 4.1 g/dL (3.8-4.9); Albumin/Globulin Ratio 1.92 (1.60-3.17); Alkaline Phosphatase 82 U/L (41-126); BUN/Creat Ratio 14.55 Ratio (12.00-20.00); Blood Urea Nitrogen 16.3 mg/dL (9.0-27.0); Calcium 9.1 mg/dL (8.7-10.3); Carbon Dioxide 26.2 mmol/L (20.0-27.5); Chloride 103 mmol/L (96-109); Chol/HDL Ratio 3.35 Ratio; Globulin 2.2 g/dL (1.6-3.3); Glucose 91 mg/dL (70-110); LDL Cholesterol,Calculated 97.5 mg/dL (0.0-131.0); Non-African American GFR(CKD) 49.7 (60.0-200.0); Potassium 3.7 mmol/L (3.5-5.5); Sodium 142 mmol/L (135-145); Total Protein 6.3 g/dL (6.2-8.2)
== END | disposition home or self-care (01) ==
LOC: LABWHC1 09:51
PROVIDERS: ATTEND Internal Medicine
DX: C92.20 Atypical chronic myeloid leukemia, BCR/ABL-negative, not having achieved remission (principal); E78.2 Mixed hyperlipidemia; E03.9 Hypothyroidism, unspecified
CPT/HCPCS: 36415; 80053; 80061; 84443; 85025

== ENCOUNTER 2021-09-19 06:03 | Emergency (ER) | payer MEDICARE ==
[2021-09-19 06:13] VITALS: BP 136/96; PULSE 76; RESP 20; TEMP 98.7
--- NOTE | 2021-09-19 06:55 | ED ---
General Adult HPI - General Chief complaint: Recheck/Abnormal Lab/Rx Stated complaint: Facial swelling Time Seen by Provider: 09/19/21 06:14 Source: patient, RN notes reviewed Mode of arrival: ambulatory Limitations: no limitations - History of Present Illness Initial comments: This is a 71-year-old female presents emergency Department with chief complaint of right-sided facial bruising, swelling and discomfort. Patient states started a few days ago was seen by ophthalmology, dentist with no clear reason for this. She denies any trauma she has no pain with ocular movement no headache no blurred vision. She states it's only bruising of her cheek, lip, periorbital region. Patient does know that she does take Eliquis for atrial fibrillation she was recently placed on Valtrex for cold sore and PCP was concerned about her platelets had labs drawn yesterday which were within normal limits. Patient states the bruising, swelling is moving, worsening some areas. - Related Data Home Medications Medication Instructions Recorded Confirmed Levothyroxine Sodium [Synthroid] 25 mcg PO QAM 05/26/14 07/04/21 Anastrozole [Arimidex] 1 mg PO HS 12/21/15 07/04/21 Furosemide [Lasix] 40 mg PO QAM 12/05/17 07/04/21 Oxybutynin ER [Ditropan Xl] 10 mg PO HS 12/05/17 07/04/21 Apixaban [Eliquis] 5 mg PO BID 04/02/19 07/04/21 Flecainide [Tambocor] 100 mg PO BID 06/28/19 07/04/21 Docusate [Colace] 100 mg PO BID PRN 11/09/20 07/04/21 Imatinib Mesylate [Gleevec] 400 mg PO HS 11/09/20 07/04/21 Calcium Carbonate/Vitamin D3 1 each PO DAILY 06/29/21 07/04/21 [Calcium 500 mg-Vit D3 5 mcg (200 Unit)] Potassium Chloride [Potassium 8 meq PO DAILY 06/29/21 07/04/21 Chloride ER] Previous Rx's Medication Instructions Recorded atenoloL [Tenormin] 50 mg PO QAM #30 tab 04/30/19 Allergies Allergy/AdvReac Type Severity Reaction Status Date / Time adhesive AdvReac RED SKIN Verified 09/19/21 06:13 AND TAKES SKIN OFF-paper tape is ok meperidine HCl [From Demerol] AdvReac Rash/Hives, Verified 09/19/21 06:13 rapid heart rate morphine AdvReac Itching Verified 09/19/21 06:13 naproxen [From Aleve] AdvReac Dr told Verified 09/19/21 06:13 not to take Review of Systems ROS Statement: Those systems with pertinent positive or pertinent negative responses have been documented in the HPI. ROS Other: All systems not noted in ROS Statement are negative. 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 History of Any Multi-Drug Resistant Organisms: None Reported Past Surgical History: Breast Surgery, Section, Hernia Repair, Hysterectomy, Pacemaker Additional Past Surgical History / Comment(s): 04/02/19 normal cardiac cath, L breast lumpectomy/2 lymph node removals, multiple bone marrow biopsies, port inserted/since removed, abdominal hernia repair, total hysterectomy, R heel spur removed, L knee arthroscopic surgery, EGD, colonoscopies, bilateral cataract removals/lens implants, RT HALEY, BIOSY OF LT BREAST Past Anesthesia/Blood Transfusion Reactions: Previous Problems w/ Anesthesia, Motion Sickness, Postoperative Nausea & Vomiting (PONV) Additional Past Anesthesia/Blood Transfusion Reaction / Comment(s): DIFFICULTY WAKING Type of Cardiac Device: Permanent Pacemaker Device Placement Date:: 04/29/19 Past Psychological History: No Psychological Hx Reported Smoking Status: Never smoker Past Alcohol Use History: None Reported Past Drug Use History: None Reported - Past Family History Mother Family Medical History: Cancer Additional Family Medical History / Comment(s): PANCREATIC Father Family Medical History: Coronary Artery Disease (CAD), Myocardial Infarction ([place]) Additional Family Medical History / Comment(s): Father had a [place] at the age of 50 yrs. He had CABG and mitral valve surgery. General Exam Limitations: no limitations General appearance: alert, in no apparent distress Head exam: Present: atraumatic, normocephalic, normal inspection Eye exam: Present: normal appearance, PERRL, EOMI, periorbital swelling (Left with inferior ecchymotic area), periorbital tenderness. Absent: scleral icterus, conjunctival injection ENT exam: Present: mucous membranes moist. Absent: normal exam, normal oropharynx (Ecchymosis of the lip, oral region, left cheek noted) Neck exam: Present: normal inspection, full ROM. Absent: tenderness, meningismus, lymphadenopathy Respiratory exam: Present: normal lung sounds bilaterally. Absent: respiratory distress, wheezes, rales, rhonchi, stridor Cardiovascular Exam: Present: regular rate, normal rhythm, normal heart sounds. Absent: systolic murmur, diastolic murmur, rubs, gallop, clicks Neurological exam: Present: alert, oriented X3, CN II-XII intact Skin exam: Present: warm, dry, intact, normal color. Absent: rash Course Vital Signs 09/19/21 06:08 Temperature 98.7 F Pulse Rate 76 Respiratory 20 Rate Blood Pressure 136/96 O2 Sat by Pulse 97 Oximetry Medical Decision Making - Medical Decision Making CT shows some mild inflammatory changes, no bony structure no abscess. Patient clinically has hematoma most likely from unknown rubbing or injury of her face. Patient had lab work yesterday which is unremarkable normal platelets, normal hemoglobin. This has been present for several days. She has seen multiple providers and I do not see any concerning symptoms. Disposition Clinical Impression: Facial bruising Disposition: HOME SELF-CARE Condition: Stable Instructions (If sedation given, give patient instructions): Ecchymosis (ED) Additional Instructions: Please return to the Emergency Department if symptoms worsen or any other concerns. Is patient prescribed a controlled substance at d/c from ED?: No Referrals: Vicente Bautista MD [Primary Care Provider] - 1-2 days Time of Disposition: 07:16
--- NOTE | 2021-09-19 07:06 | CT ---
EXAMINATION TYPE: CT facial bones wo con DATE OF EXAM: 09/19/2021 COMPARISON: NONE HISTORY: Pain, swelling, discoloration to Lt side of face. No known injury CT DLP: 802.3 mGycm. Automated Exposure Control for Dose Reduction was Utilized. TECHNIQUE: CT scan of the facial bones is performed without contrast, axial images are obtained, monique nal reformatted images are also reviewed. FINDINGS: Patchy fat stranding over the inferior central maxilla. No well-formed fluid collection or abscess. No suspicious bony destruction. No acute displaced facial bone fracture. Orbital floors and morales are intact. Globes are intact bilat erally. Intraconal fat is preserved. Paranasal sinuses are grossly clear. Small degree of cerumen in the deep right external auditory canal. Visualized mastoid air cells are clear. Visualized portion of brain parenchyma is within normal limits for patient's age IMPRESSION: Small degree of inflammatory process anterior inferior left maxillary subcutaneous tissue . No well-formed fluid collection or abscess noted.
== END 2021-09-19 07:22 | disposition home or self-care (01) ==
LOC: EC 06:03
DX: S00.83XA Contusion of other part of head, initial encounter (principal); I48.91 Unspecified atrial fibrillation; Z86.718 Personal history of other venous thrombosis and embolism; M19.90 Unspecified osteoarthritis, unspecified site; E03.9 Hypothyroidism, unspecified; Z79.01 Long term (current) use of anticoagulants
CPT/HCPCS: 70486; 99283

== ENCOUNTER → 2021-12-26 | Outpatient (CLI) | payer MEDICARE ==
[2021-12-26 07:58] LABS: HCT 41.5 % (34.0-46.0); HGB 13.3 gm/dL (11.4-16.0); MCH 33.8 pg (25.0-35.0); MCV 105.4 fL (80.0-100.0); Macrocytosis Moderate; Mean Platelet Volume 7.5; Platelet Count 217 k/uL (150-450); RBC 3.93 m/uL (3.80-5.40); RDW 13.7 % (11.5-15.5); WBC 6.1 k/uL (3.8-10.6)
[2021-12-26 08:15] LABS: Potassium 3.9 mmol/L (3.5-5.1)
== END | disposition home or self-care (01) ==
LOC: LABPAT 07:04
PROVIDERS: ATTEND Internal Medicine Clinical Cardiac Electrophysiology
DX: Z01.812 Encounter for preprocedural laboratory examination (principal); Z20.822 Contact with and (suspected) exposure to COVID-19; Z95.0 Presence of cardiac pacemaker
CPT/HCPCS: 80051; 82565; 84520; 85027; 87635

== ENCOUNTER 2021-12-27 09:19 | Day surgery (SDC) | payer MEDICARE ==
[2021-12-26 12:45] VITALS: BMI 46.7
[~2021-12-27 09:19] MED LIST changes: -HYDROmorphone 0.5 MG/0.5 ML SYRINGE IVP PRN; -LACTATED RINGERS 1,000 ML IV SCH; -LIDOCAINE 1% (10MG/ML) FOR IV START INTRADERMA PRN; -ONDANSETRON 4 MG/2 ML VIAL IVP ONE; +SODIUM CHLORIDE 0.9% 1,000 ML IV SCH; -ceFAZolin 3 GM in SODIUM CHLORIDE 0.9% 100 ML IVPB PRN
[2021-12-27 09:56] VITALS: BP 159/77; PULSE 80; RESP 16; TEMP 98.3
[2021-12-27] MEDS ORDERED: IOPAMIDOL-370 100ML BTL INJ ONE (11:49)
--- NOTE | 2021-12-27 16:54 | P.EPPROC ---
- EP Procedure Note Electrophysiology Procedure Note: Diagnosis Dual-chamber pacemaker implant Recent onset of increasing RV thresholds and impedances since July 2021 Original device implanted in 2019 Patient does not remember taking any falls Cinefluoroscopy of the leads Cinefluoroscopy of the leads was performed No obvious fractures or breaks were noted Left upper extremity venogram was performed Stenosis of the subclavian junction was noted There was a trickle of dye crossing into the innominate vein Prominent collaterals are noted Device interrogation was performed Longevity of the devices rhythm 10 years Atrial lead impedance 532 ohms Atrial pacing threshold 0.8 V at 0.4 ms and P waves of 1 mV RV lead impedance 2394 ohms Threshold was high R waves 8.5 mV Pacing threshold 4.25 V at 0.8 ms Plan Provide adequate RV pacing safety margin She has minimal RV pacing She is mostly a paced She is not dependent At this time I would hold off on revising the RV lead Others clear evidence of non-capture then a new lead will be implanted If in the future the RV lead thresholds
== END 2021-12-27 12:33 | disposition home or self-care (01) ==
LOC: CATHEP 09:19
PROVIDERS: ATTEND Internal Medicine Clinical Cardiac Electrophysiology
DX: I77.1 Stricture of artery (principal)
CPT/HCPCS: 33208; 36005; 75820; Q9967

== ENCOUNTER → 2022-04-18 | Outpatient (CLI) | payer MEDICARE ==
[2022-04-18 10:30] LABS: INR 0.9 (<1.2); Partial Thromboplastin Time 26.7 sec (22.0-30.0); Prothrombin Time 10.4 sec (9.0-12.0)
[2022-04-18 15:19] LABS: HGB 12.5 g/dL (12.0-15.0); MCH 32.5 pg (27.0-32.0); MCHC 32.1 g/dL (32.0-37.0); MCV 101.3 fL (80.0-97.0); Mean Platelet Volume 10.3 fL (9.5-12.2); NRBC Per 100 WBC 0 /100 WBCS (0.0-0.0); Platelet Count 233 X 10*3/uL (140-440); RBC 3.85 X 10*6/uL (4.10-5.20); RDW 13.4 % (11.5-14.5); WBC 7.06 X 10*3/uL (4.50-10.00)
[2022-04-18 15:40] LABS: Appearance,Urine Cloudy (Clear); Bilirubin,Urine Negative (Negative); Blood,Urine Negative (Negative); Color,Urine Yellow (Yellow); Ketones,Urine Negative (Negative); Nitrite,Urine Negative (Negative); PH, Urine 7.5 (5.0-8.0); Specific Gravity,Urine 1.011 (1.001-1.030); Urobilinogen,Urine 0.2 (0.2,1.0)
[2022-04-18 16:20] LABS: African American GFR (CKD) 52.5 (60.0-200.0); Albumin 4.1 g/dL (3.8-4.9); Albumin/Globulin Ratio 1.85 (1.60-3.17); Anion Gap 11.2 mmol/L (10.00-18.00); BUN/Creat Ratio 13.39 Ratio (12.00-20.00); Blood Urea Nitrogen 16.2 mg/dL (9.0-27.0); Calcium 8.8 mg/dL (8.7-10.3); Carbon Dioxide 25.7 mmol/L (20.0-27.5); Globulin 2.2 g/dL (1.6-3.3); Non-African American GFR(CKD) 45.3 (60.0-200.0); Potassium 4.2 mmol/L (3.5-5.5); Total Bilirubin 0.3 mg/dL (0.30-1.20); Total Protein 6.3 g/dL (6.2-8.2)
[2022-04-18 17:00] LABS: Bacteria,Urine 1+ /HPF (None Seen); UA Starch Present /LPF (None Seen); Yeast (UA) Present /LPF (None Seen)
== END | disposition home or self-care (01) ==
LOC: LABPAT 09:03
PROVIDERS: ATTEND Orthopaedic Surgery
DX: Z01.812 Encounter for preprocedural laboratory examination (principal)
CPT/HCPCS: 36415; 80053; 81001; 85027; 85610; 85730; 87070

== ENCOUNTER 2022-04-23 07:37 | Day surgery (SDC) | payer MEDICARE ==
[2022-04-17 13:10] VITALS: BMI 47.5
[~2022-04-23 07:37] MED LIST changes: +ACETAMINOPHEN TAB 500 MG TAB PO PRN; +DEXAMETHASONE SOD PHOSPHATE 4 MG/ML 1 ML VIAL IV ONE; +GABAPENTIN 300 MG CAP PO PRN; +LIDOCAINE 1% (10MG/ML) FOR IV START INTRADERMA PRN; +MELOXICAM 7.5 MG TAB PO PRN; +MIDAZOLAM 2 MG/2 ML VIAL IV PRN; +ONDANSETRON 4 MG/2 ML VIAL IVP ONE; -SODIUM CHLORIDE 0.9% 1,000 ML IV SCH; +TRANEXAMIC ACID IN NACL,ISO-OS 1,000 MG in SALINE 1 100ML.BAG IVPB PRN; +ceFAZolin 3 GM in SODIUM CHLORIDE 0.9% 100 ML IVPB PRN
[2022-04-23] MEDS: LACTATED RINGERS 1,000 ML IV SCH (08:02)
[2022-04-23] MEDS ORDERED: LIDOCAINE 2% INJ 20 MG/ML (2 ML VIAL) ONE (09:10)
[2022-04-23] MEDS ORDERED: PROPOFOL 10 MG/ML 20 ML VIAL IV ONE (09:10)
[2022-04-23] MEDS ORDERED: diphenhydrAMINE 50 MG/ML 1 ML VIAL ONE (09:10)
[2022-04-23] MEDS ORDERED: TRANEXAMIC ACID IN NACL,ISO-OS 1,000 MG/100 ML BAG ONE (09:10)
[2022-04-23] MEDS ORDERED: ePHEDrine 50 MG/ML 1 ML VIAL ONE (09:10)
[2022-04-23] MEDS ORDERED: fentaNYL (PF) 50 MCG/ML 2 ML AMP ONE (09:10)
[2022-04-23] MEDS ORDERED: MIDAZOLAM 2 MG/2 ML VIAL ONE (09:10)
[2022-04-23] MEDS ORDERED: ROPIVACAINE 5 MG/ML 30 ML VIAL MISCELLANE ONE ×2 (09:47→10:40)
[2022-04-23] MEDS ORDERED: ceFAZolin 1,000 MG in SODIUM CHLORIDE 0.9% 1,000 ML IRRIGATION ONE (09:48)
--- NOTE | 2022-04-23 10:44 | P.OP ---
Date of Procedure: 04/23/22 Preoperative Diagnosis: Severe osteoarthritis left hip Postoperative Diagnosis: Severe osteoarthritis left hip Procedure(s) Performed: Left total hip arthroplasty with a direct anterior approach Implants: [employer] Polarstem standard size 4 [employer] R3, 3 hole hemispherical acetabular shell, 52 mm [employer] Reflection 6.5 mm cancellus screw, 20 mm, 25 mm [employer] R3, XLPE 20 acetabular liner [employer] Oxinium femoral head 36 m, -3 All components were press-fit. The articulation is Oxinium on polyethylene. Anesthesia: spinal Surgeon: Chris Pham Family Worker #1: Tanya Bo Estimated Blood Loss (ml): 500 Pathology: other (Femoral head) Condition: stable Disposition: PACU Indications for Procedure: After failure of conservative treatment we discussed the surgical and nonsurgi diann treatment options at length. Patient wishes to proceed with a total hip arthroplasty with a direct anterior approach. Complications specific to this procedure were discussed at length, including but not limited to infection, leg length discrepancy, dislocation, nerve injury, and fracture. Covid-19 was also discussed at length with the patient, and they are aware of the current policies and procedures. The patient was given the option of delaying surgery, but they elect to proceed knowing these risks. Patient is aware of all these complications and informed consent was obtained Operative Findings: The operative findings are consistent with severe osteoarthritis of the left hip Description of Procedure: Patient was seen and evaluated in the preoperative area and the consent was reviewed. The operative site was marked with a skin marker. The patient was then brought to the operating room and given preoperative antibiotics intravenously. 1 g of Tranexamic acid was also given intravenously. A spinal anesthetic was administered by the anesthesia department. The patient was then placed on the [place] table with the bony prominences well-padded. The hip area was then prepped with a ChloraPrep solution and draped in the usual sterile fashion. A universal timeout was then performed, which confirmed the patient's name, surgical site, ALLERGIES, and procedure being performed on the consent. Next the incision site was located at 1 cm distal and 2 cm lateral to the anterior superior iliac spine. The skin and subcutaneous tissues were sharply incised. Incision was carefully dissected down to the fascia overlying the tensor fascia lewis muscle. This fascia was then incised in line with the incision. Care was taken to stay laterally in order to avoid injuring the lateral femoral cutaneous nerve. Next, using blunt finger dissection, the tensor fascia lewis muscle was dissected off its investing fascia. The muscle was then carefully retracted laterally with a cobra retractor over the lateral neck of the femur. Next, the circumflex vessels were identified and cauterized using the AquaMantis device. The anterior hip capsule was then exposed. The capsule was then opened and an inverted T fashion. Cobra retractors were then placed intracapsularly. The retractors were maintained intracapsular throughout the procedure. The proximal femur was then visualized. Fluoroscopic x-rays were then taken in order to evaluate the preoperative leg lengths. A small amount of traction was placed on the leg. The femoral neck was then osteotomized at the appropriate level above the lesser trochanter. A small wedge of bone was then removed from the remaining femoral head. Next, using a corkscrew the femoral head was removed from the acetabulum. On gross visual inspection, the femoral head had complete loss of articular cartilage and multiple periarticular osteophytes. The femoral head was then measured. Attention was then turned to the acetabulum. The acetabulum was exposed and any remaining labrum was excised. Sequential reaming of the acetabulum was performed using fluoroscopic guidance until there was a good bed of bleeding cancellus bone. When the appropriate size was reached, a trial was then placed. The position and fit of the trial was checked with fluoroscopy. The trial was then removed. Then, using fluoroscopic guidance, the final implant was impacted at 20 of anteversion and 40 of abduction, and fully seated in the acetabulum. 2 screws were then placed in the acetabulum. Again fluoroscopy was used to check position of the screws. Next, the liner was then impacted, with a 20 elevated liner located in the anterior superior quadrant. Component locking was confirmed. Attention was then directed to the femur. With the aid of the [place] table, the femur was externally rotated to approximately 130, extended, and adducted under the opposite leg. A side hook was then placed under the proximal femur, and the side hook elevator was used to elevate the proximal femur while releasing the capsule. Retractors were then placed. A capsular release was performed, as well as a release of the conjoined tendon, which afforded excellent visualization of the proximal femur. Next, a box osteotome was used to lateralize the proximal femur. A sales and merchandising associate was then used to locate the femoral canal. Sequential broaching was then performed with appropriate size which afforded excellent fixation in the proximal femur. A trial was then placed with appropriate head and neck, and the hip was gently reduced with the aid of the [place] table. Fluoroscopy was then used to check position of the components, as well as to ensure equal leg lengths. The hip was then gently di slocated and the trials were then removed. Final implants were then impacted and the hip was again reduced. Final fluoroscopic x-rays confirmed that the components were in anatomic position, as well as equal leg lengths. The hip was also taken through range of motion, and found to be stable. The hip was then copiously irrigated with antibiotic solution with pulsatile lavage. The hip was then irrigated with Irrisept solution. The soft tissues were then injected with a ropivacaine solution. A second dose of 1 g of Tranexamic acid was also given intravenously. The fascia was then closed with 2-0 strata fix suture. The subcutaneous tissue was closed with 3-0 Vicryl. The subcuticular tissue was closed with 3-0 strata fix suture. The skin was then closed with Exofin skin glue. After the glue and dried, and Optifoam silver impregnated dressing was applied. The patient was then transferred to the recovery room in stable condition. The commercial lines account assistant Tanya Bo NP was required due to the complexity of surgery, and the need for skilled surgical tech for positioning, draping, exposure, retraction, and closure of the wound.
[2022-04-23] MEDS ORDERED: HYDROmorphone 0.5 MG/0.5 ML SYRINGE IVP PRN ×2 (11:24)
[2022-04-23] MEDS ORDERED: diazePAM 5 MG TAB PO PRN (11:24)
[2022-04-23] MEDS ORDERED: TEMAZEPAM 15 MG CAP PO PRN (11:24)
[2022-04-23] MEDS ORDERED: hydrOXYzine pamoate 25 MG CAP PO PRN (11:24)
[2022-04-23] MEDS ORDERED: ONDANSETRON 4 MG/2 ML VIAL IVP PRN (11:24)
[2022-04-23] MEDS ORDERED: HYDROmorphone 1 MG/ML 1 ML SYRINGE IVP PRN (11:24)
[2022-04-23] MEDS ORDERED: NALOXONE 0.4 MG/ML 1 ML VIAL IV PRN (11:24)
[2022-04-23] MEDS ORDERED: MAGNESIUM HYDROXIDE 2,400 MG/10 ML CUP PO PRN (11:24)
[2022-04-23] MEDS ORDERED: HYDROcodone/APAP 7.5-325MG 1 EACH TAB PO PRN (11:29)
[2022-04-23] MEDS: HYDROmorphone 0.5 MG/0.5 ML SYRINGE IVP PRN ×2 (11:39→12:16)
--- NOTE | 2022-04-23 11:59 | FL ---
EXAMINATION TYPE: FL guidance operating room, XR Hip Limited LT DATE OF EXAM: 04/23/2022 COMPARISON: NONE HISTORY: 71-year-old female total left anterior hip with placement FINDINGS: Intraoperative fluoroscopy during left hip total arthroplasty. FLUOROSCOPY Fluoroscopy time of 55 seconds was used during left hip total arthroplasty. 3 image/s document/s the procedure. IMPRESSION: Intraoperative fluoroscopy as above.
[2022-04-23] MEDS ORDERED: LACTATED RINGERS 1,000 ML IV ONE (12:41)
[2022-04-23] MEDS: HYDROcodone/APAP 7.5-325MG 1 EACH TAB PO PRN ×2 (13:56→21:12)
--- NOTE | 2022-04-23 14:57 | P.CONS ---
History of Present Illness - Reason for Consult Consult date: 04/23/22 CKD III Requesting physician: Chris Pham - Chief Complaint hip pain - History of Present Illness Patient is a 71-year-old female with history of atrial fibrillation, hyper tension, chronic kidney disease stage III, CML in remission, and prior DVT left arm who presented for elective left total hip arthroplasty. Patient seen and examined at bedside. She has some lightheadedness, no nausea, chest pain, shortness of breath. She states she was having some hip pain up until 2 months ago when it acutely got worse and she was no longer able to do her ADLs or have pain-free days that is when she decided to look into hip replacement. Pertinent positives and negatives as discussed in HPI, a complete review of systems was performed and all other systems are negative. Vital signs reviewed General: nontoxic, no distress, appears at stated age Derm: warm, dry Head: atraumatic, normocephalic, symmetric Eyes: EOMI, no lid lag, anicteric sclera, ENT: Nose and ears atraumatic, Neck: No thyromegaly, no cervical lymphadenopathy, trachea midline, supple Mouth: no lip lesion, mucus membranes moist Cardiovascular: S1S2 reg, no murmur, positive posterior tibial pulse bilateral, no edema, capillary refill less than 2 seconds Lungs: clear to auscultation bilateral, no rhonchi, no rales, no wheeze, no accessory muscle use Abdominal: soft, nontender to palpation, no guarding, no appreciable organomegaly, normal bowel sounds Ext: no gross muscle atrophy, moving all 4 extremities independently no contractures Neuro: CN II-XII grossly intact, finger to nose within normal limits, Psych: Alert, oriented, appropriate affect Assessment/Plan: 71 yp CF s/p L HALEY A fib anticoagulated with eliquis - resume eliquis - flecanide - tele CKD III - check BMP in AM HTN - controlled - atenolol, lasix - follow BP Hypothyroidism - synthroid CML - Gleevec Hx Breast Ca - anastrazole Morbid obesity with BMI 47.9 - structured outpatient weight loss. HX unprovoked DVT in the past Thank you for allowing us to participate in the care of this pleasant patient. Do not hesitate to contact us with questions. Someone can be reached from the [facility] hospitalist group all hours of the day at [phone] or via [email or web address]. 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 History of Any Multi-Drug Resistant Organisms: None Reported Past Surgical History: Breast Surgery, Section, Hernia Repair, Hysterectomy, Joint Replacement, Orthopedic Surgery, Pacemaker Additional Past Surgical History / Comment(s): Left breat biopsy, left breast lumpectomy/2 lymph nodes removed, multiple bone marrow biopsies, port inserted/since removed, abdominal hernia repair, total hysterectomy, right heel spur removed, lef knee arthroscopy, EGD, colonoscopies, bilateral cataract rem ovals/lens implants, right total hip replacement. Past Anesthesia/Blood Transfusion Reactions: Previous Problems w/ Anesthesia, Motion Sickness, Postoperative Nausea & Vomiting (PONV) Additional Past Anesthesia/Blood Transfusion Reaction / Comm: DIFFICULTY WAKING. Type of Cardiac Device: Permanent Pacemaker Device Placement Date:: 04/29/19 Past Psychological History: No Psychological Hx Reported Smoking Status: Never smoker Past Alcohol Use History: None Reported Past Drug Use History: None Reported - Past Family History Mother Family Medical History: Cancer Additional Family Medical History / Comment(s): PANCREATIC CANCER. Father Family Medical History: Coronary Artery Disease (CAD), Myocardial Infarction ([place]) Additional Family Medical History / Comment(s): Father had a [place] at the age of 50 yrs. He had CABG and mitral valve surgery. Medications and Allergies Home Medications Medication Instructions Recorded Confirmed Type Levothyroxine Sodium [Synthroid] 25 mcg PO QAM 05/26/14 04/17/22 History Anastrozole [Arimidex] 1 mg PO HS 12/21/15 04/23/22 History Furosemide [Lasix] 40 mg PO QAM 12/05/17 04/17/22 History Oxybutynin ER [Ditropan Xl] 10 mg PO HS 12/05/17 04/17/22 History Apixaban [Eliquis] 5 mg PO BID 04/02/19 04/23/22 History atenoloL [Tenormin] 50 mg PO QAM #30 tab 04/30/19 04/17/22 Rx Flecainide [Tambocor] 100 mg PO BID 06/28/19 04/17/22 History Imatinib Mesylate [Gleevec] 400 mg PO W/SUPPER 11/09/20 04/17/22 History Calcium Carbonate/Vitamin D3 1 each PO BID 06/29/21 04/17/22 History [Calcium 500 mg-Vit D3 5 mcg (200 Unit)] Potassium Chloride [Potassium 8 meq PO BID 06/29/21 04/17/22 History Chloride ER] Cholecalciferol [Vitamin D3 (25 1 cap PO MO 12/27/21 04/17/22 History Mcg = 1000 Iu)] Magnesium 200 mg PO DAILY 12/27/21 04/17/22 History calcitrioL [Calcitriol] 1 cap PO MOTH 12/27/21 04/17/22 History HYDROcodone/APAP 7.5-325MG [[place] 1 - 2 tab PO Q6HR PRN #32 tab 04/23/22 Rx 7.5-325] Ondansetron Odt [Zofran Odt] 4 mg PO Q8HR PRN #10 tab 04/23/22 Rx Sennosides-Docusate Sodium 2 tab PO HS #60 tablet 04/23/22 Rx [Senokot-S] Allergies Allergy/AdvReac Type Severity Reaction Status Date / Time NSAIDS (Non-Steroidal Allergy Dr told Verified 04/23/22 07:54 Anti-Inflamma not to take adhesive AdvReac RED SKIN Verified 04/23/22 07:54 AND TAKES SKIN OFF-paper tape is ok meperidine HCl [From Demerol] AdvReac Rash/Hives, Verified 04/23/22 07:54 rapid heart rate morphine AdvReac Itching Verified 04/23/22 07:54 naproxen [From Aleve] AdvReac Dr told Verified 04/23/22 07:54 not to take Physical Exam Osteopathic Statement: *. No significant issues noted on an osteopathic st ructural exam other than those noted in the History and Physical/Consult. Vitals: Vital Signs Temp Pulse Pulse Resp BP BP Pulse Ox 04/23/22 14:00 96.8 F L 61 16 130/81 97 04/23/22 13:00 62 16 132/60 99 04/23/22 12:30 60 16 126/60 99 04/23/22 12:00 66 18 125/58 98 04/23/22 11:45 59 L 16 121/60 96 04/23/22 11:30 59 L 16 123/58 100 04/23/22 11:17 96.8 F L 62 16 117/54 99 04/23/22 08:04 97.0 F L 65 18 147/69 96 Intake and Output 04/22/22 04/23/22 04/23/22 22:59 06:59 14:59 Intake Total 1126 Output Total 500 Balance 626 Intake: IV 1126 Output: Estimated Blood Loss 500 Other: Weight 130.6 kg
[2022-04-23] MEDS ORDERED: NON FORMULARY DRUG (Imatinib Mesylate [Gleevec] 400 MG Tablet) PO SCH (17:30)
[2022-04-23] MEDS: ceFAZolin 3 GM in SODIUM CHLORIDE 0.9% 100 ML IVPB SCH (17:49)
[2022-04-23] MEDS ORDERED: OXYBUTYNIN 10 MG TAB.ER.24 PO SCH (21:00)
[2022-04-23] MEDS ORDERED: SENNOSIDES-DOCUSATE SODIUM 1 EACH TAB PO SCH (21:00)
[2022-04-23] MEDS: CALCIUM CARB-VIT D 500 MG-5 MCG TAB PO SCH (21:12)
[2022-04-23] MEDS: FLECAINIDE 50 MG TAB PO SCH (21:12)
[2022-04-24] MEDS: ceFAZolin 3 GM in SODIUM CHLORIDE 0.9% 100 ML IVPB SCH (02:17)
[2022-04-24] MEDS: HYDROcodone/APAP 7.5-325MG 1 EACH TAB PO PRN ×2 (03:10→09:36)
[2022-04-24] MEDS ORDERED: LEVOTHYROXINE 25 MCG TAB PO SCH (06:30)
[2022-04-24 07:06] LABS: African American GFR (CKD) 78 (>60 ml/min/1.73 sqM); Anion Gap 10 mmol/L; Blood Urea Nitrogen 18 mg/dL (7-17); Calcium 7.9 mg/dL (8.4-10.2); Carbon Dioxide 23 mmol/L (22-30); Chloride 102 mmol/L (98-107); Glucose 136 mg/dL (74-99); Non-African American GFR(CKD) 67 (>60 ml/min/1.73 sqM); Potassium 4.5 mmol/L (3.5-5.1); Sodium 135 mmol/L (137-145)
[2022-04-24 07:08] LABS: Basophils % (A) 0 %; Eosinophils % (A) 0 %; HCT 27.9 % (34.0-46.0); HGB 9.4 gm/dL (11.4-16.0); Lymphocytes # (A) 0.9 k/uL (1.0-4.8); Lymphocytes % (A) 8 %; MCH 34.7 pg (25.0-35.0); MCHC 33.7 g/dL (31.0-37.0); Macrocytosis Slight; Mean Platelet Volume 7.6; Monocytes # (A) 0.4 k/uL (0-1.0); Monocytes % (A) 4 %; Neutrophils # (A) 9.4 k/uL (1.3-7.7); Neutrophils % (A) 87 %; Platelet Count 194 k/uL (150-450); RBC 2.71 m/uL (3.80-5.40); RDW 13.2 % (11.5-15.5); WBC 10.8 k/uL (3.8-10.6)
[2022-04-24] MEDS: LACTATED RINGERS 1,000 ML IV SCH (07:11)
[2022-04-24 07:45] VITALS: RESP 18
[2022-04-24] MEDS ORDERED: atenoloL 50 MG TAB PO SCH (09:00)
[2022-04-24] MEDS ORDERED: FUROSEMIDE 40 MG TAB PO SCH (09:00)
[2022-04-24] MEDS ORDERED: APIXABAN 5 MG TAB PO SCH (09:00)
[2022-04-24] MEDS ORDERED: POTASSIUM CHLORIDE ER 10 MEQ TAB.ER.PRT PO SCH (09:00)
[2022-04-24] MEDS ORDERED: MAGNESIUM OXIDE 400 MG TAB PO SCH (09:00)
[2022-04-24] MEDS: CALCIUM CARB-VIT D 500 MG-5 MCG TAB PO SCH (09:14)
[2022-04-24] MEDS: FLECAINIDE 50 MG TAB PO SCH (09:16)
--- NOTE | 2022-04-24 09:48 | P.PN ---
Subjective Progress Note Date: 04/24/22 Patient is a 71-year-old female with history of atrial fibrillation, hypertension, chronic kidney disease stage III, CML in remission, and prior DVT left arm who presented for elective left total hip arthroplasty. Patient seen and examined at bedside. She has gotten up several times at night and her pain has been moderately well controlled. Denies any chest pain, shortness breath, lightheadedness, dizziness. She did have a hemoglobin dropped to 9.4. We discussed the importance of taking iron for the next 30 days and she is in agreement with plan. We also discussed monitoring closely due to her being on a blood thinner for her A. fib. General: nontoxic, no distress, appears at stated age Derm: warm, dry, dressing left hip clean/dry/intact Head: atraumatic, normocephalic, symmetric Eyes: EOMI, no lid lag, anicteric sclera Mouth: no lip lesion, mucus membranes moist Cardiovascular: S1S2 reg, no murmur, positive posterior tibial pulse bilateral, Lungs: CTA bilateral, no rhonchi, no rales , no accessory muscle use Abdominal: soft, nontender to palpation, no guarding, no appreciable organomegaly Ext: no gross muscle atrophy, no edema, no contractures Neuro: CN II-XI grossly intact, no focal neuro deficits Psych: Alert, oriented, appropriate affect Assessment/Plan: 71 yp CF s/p L HALEY Acute blood loss anemia - follow CBC, repeat next week at appointment with Dr. Bautista. - Iron X 30 days A fib anticoagulated with eliquis - Continue eliquis - flecanide - tele HTN - controlled - atenolol, lasix - follow BP Hypothyroidism - synthroid CML - Gleevec Hx Breast Ca - anastrazole Morbid obesity with BMI 47.9 - structured outpatient weight loss. HX unprovoked DVT in the past CKD III Medically optimized for discharged at the discretion of ortho. Objective - Vital Signs Vital signs: Vital Signs Temp 97.9 F 04/24/22 07:45 Pulse 62 04/24/22 07:45 Resp 18 04/24/22 07:45 BP 104/57 04/24/22 07:45 Pulse Ox 97 04/24/22 07:45 FiO2 Intake & Output 04/23/22 04/24/22 04/24/22 18:59 06:59 18:59 Intake Total 1366 296 Output Total 500 Balance 866 296 Weight 130.6 kg Intake: IV 1126 Oral 240 296 Output: Estimated Blood Loss 500 Other: Voiding Method Toilet Toilet # Voids 1 1 1 - Labs CBC & Chem 7: 04/24/22 06:27 07 06:27 Labs: Abnormal Lab Results - Last 24 Hours (Table) 04/24/22 04/24/22 Range/Units 06:27 06:27 WBC 10.8 H (3.8-10.6) k/uL RBC 2.71 L (3.80-5.40) m/uL Hgb 9.4 L (11.4-16.0) gm/dL Hct 27.9 L (34.0-46.0) % MCV 103.0 H (80.0-100.0) fL Neutrophils # 9.4 H (1.3-7.7) k/uL Lymphocytes # 0.9 L (1.0-4.8) k/uL Sodium 135 L (137-145) mmol/L BUN 18 H (7-17) mg/dL Glucose 136 H (74-99) mg/dL Calcium 7.9 L (8.4-10.2) mg/dL
--- NOTE | 2022-04-24 12:47 | P.DS ---
Providers Expected date of discharge: 04/24/22 Attending physician: Chris Pham Consults: 04/23/22 11:24 Consult Physician Routine Consulting Provider: Uzma Orellana Consult Reason/Comments: medical management Do you want consulting provider notified?: Yes Primary care physician: Vicente Bautista MD - Discharge Diagnosis(es) (1) Primary osteoarthritis of left hip Current Visit: Yes Status: Acute (2) Status post left hip replacement Current Visit: Yes Status: Acute Hospital Course: This is a 71 -year-old female with a known history of degenerative arthritis of the left hip. The patient presented to the orthopedic office for evaluation and treatment. After discussion and consideration the patient elects to proceed with a total hip arthroplasty. The patient was seen preoperatively by her primary care physician and cleared for surgery. The patient was admitted to [facility] on 04/23/2022 for a left total hip arthroplasty. The procedure was performed without complication or sequelae. The patient is doing well postoperatively. Labs and vital signs are stable the day of discharge. On the day of discharge the patient's hip incision is healing well. There is minimal erythema. There is no drainage noted at this time. There is minimal soft tissue swelling to the hip and thigh. The patient has full foot and ankle motion without difficulty or pain. Neurovascular status to the left lower extremity is intact. Patient will need a hospital bed to manage pain due to left total hip arthroplasty, which can not be managed with a regular bed. The patient will be discharged home today in good condition. Pertinent Studies: Laboratory Tests 04/24/22 06:27 WBC 10.8 H RBC 2.71 L Hgb 9.4 L Hct 27.9 L MCV 103.0 H Patient Condition at Discharge: Stable Plan - Discharge Summary Discharge Rx Participant: Yes New Discharge Prescriptions: New Sennosides-Docusate Sodium [Senokot-S] 2 tab PO HS #60 tablet Magnesium Hydroxide [Milk of Magnesia Concentrate] 2,400 mg PO DAILY PRN ml PRN Reason: Constipation Ferrous Sulfate [Slow Release Iron] 250 mg PO DAILY #30 tab HYDROcodone/APAP 7.5-325MG [Bath 7.5-325] 1 - 2 tab PO Q6HR PRN #32 tab PRN Reason: Pain Ondansetron Odt [Zofran Odt] 4 mg PO Q8HR PRN #10 tab PRN Reason: Nausea Continue Levothyroxine Sodium [Synthroid] 25 mcg PO QAM Anastrozole [Arimidex] 1 mg PO HS Oxybutynin ER [Ditropan Xl] 10 mg PO HS Furosemide [Lasix] 40 mg PO QAM Apixaban [Eliquis] 5 mg PO BID atenoloL [Tenormin] 50 mg PO QAM #30 tab Flecainide [Tambocor] 100 mg PO BID Imatinib Mesylate [Gleevec] 400 mg PO W/SUPPER Potassium Chloride [Potassium Chloride ER] 8 meq PO BID Magnesium 200 mg PO DAILY Cholecalciferol [Vitamin D3 (25 Mcg = 1000 Iu)] 1 cap PO MO Calcium Carbonate/Vitamin D3 [Calcium 500 mg-Vit D3 5 mcg (200 Unit)] 1 each PO BID calcitrioL [Calcitriol] 1 cap PO MOTH Discharge Medication List Levothyroxine Sodium [Synthroid] 25 mcg PO QAM 05/26/14 [History] Anastrozole [Arimidex] 1 mg PO HS 12/21/15 [History] Furosemide [Lasix] 40 mg PO QAM 12/05/17 [History] Oxybutynin ER [Ditropan Xl] 10 mg PO HS 12/05/17 [History] Apixaban [Eliquis] 5 mg PO BID 04/02/19 [History] atenoloL [Tenormin] 50 mg PO QAM #30 tab 04/30/19 [Rx] Flecainide [Tambocor] 100 mg PO BID 06/28/19 [History] Imatinib Mesylate [Gleevec] 400 mg PO W/SUPPER 11/09/20 [History] Calcium Carbonate/Vitamin D3 [Calcium 500 mg-Vit D3 5 mcg (200 Unit)] 1 each PO BID 06/29/21 [History] Potassium Chloride [Potassium Chloride ER] 8 meq PO BID 06/29/21 [History] Cholecalciferol [Vitamin D3 (25 Mcg = 1000 Iu)] 1 cap PO MO 12/27/21 [History] Magnesium 200 mg PO DAILY 12/27/21 [History] calcitrioL [Calcitriol] 1 cap PO MOTH 12/27/21 [History] HYDROcodone/APAP 7.5-325MG [Bath 7.5-325] 1 - 2 tab PO Q6HR PRN #32 tab 04/23/22 [Rx] Ondansetron Odt [Zofran Odt] 4 mg PO Q8HR PRN #10 tab 04/23/22 [Rx] Sennosides-Docusate Sodium [Senokot-S] 2 tab PO HS #60 tablet 04/23/22 [Rx] Ferrous Sulfate [Slow Release Iron] 250 mg PO DAILY #30 tab 04/24/22 [Rx] Magnesium Hydroxide [Milk of Magnesia Concentrate] 2,400 mg PO DAILY PRN ml 04/24/22 [Rx] Follow up Appointment(s)/Referral(s): Vicente Bautista MD [Primary Care Provider] - 04/30/22 8:30 am [facility], [NON-STAFF] - As Needed Chris Pham DO [Doctor of Osteopathic Medicine] - 05/08/22 2:15 pm Ambulatory/Diagnostic Orders: Complete Blood Count w/diff [LAB.AMB] Time Frame: 1 Week, Location: None Selected Patient Instructions/Handouts: Anterior Hip Replacement (DC) Activity/Diet/Wound Care/Special Instructions: Weightbearing as tolerated with walker Keep dressing in place for 10 days unless saturated Resume Eliquis. May shower over dressing Follow up with Dr. Chris Pham in 2 weeks. Call [facility] with questions or concerns, Discharge Disposition: HOME WITH HOME HEALTH SERVICES
[2022-04-24 13:47] VITALS: BP 109/65; PULSE 73; TEMP 98.3
[2022-04-29] MEDS ORDERED: CHOLECALCIFEROL 25 MCG (1000 IU) TABLET PO SCH (09:00)
== END 2022-04-24 14:48 | disposition home health service (06) ==
LOC: OR 07:37 → 4SSUR 11:17 → OR 04-24 14:48
PROVIDERS: ATTEND Orthopaedic Surgery
DX: M16.12 Unilateral primary osteoarthritis, left hip (principal); I48.91 Unspecified atrial fibrillation; E03.9 Hypothyroidism, unspecified; K21.9 Gastro-esophageal reflux disease without esophagitis; G62.9 Polyneuropathy, unspecified; Z95.0 Presence of cardiac pacemaker; I12.9 Hypertensive chronic kidney disease with stage 1 through stage 4 chronic kidney disease, or unspecified chronic kidney disease; N18.30 Chronic kidney disease, stage 3 unspecified; Z86.718 Personal history of other venous thrombosis and embolism; Z79.899 Other long term (current) drug therapy; Z79.01 Long term (current) use of anticoagulants; Z79.890 Hormone replacement therapy; Z96.641 Presence of right artificial hip joint; Z96.653 Presence of artificial knee joint, bilateral; Z96.698 Presence of other orthopedic joint implants; Z83.3 Family history of diabetes mellitus; Z82.49 Family history of ischemic heart disease and other diseases of the circulatory system; C50.919 Malignant neoplasm of unspecified site of unspecified female breast; E78.5 Hyperlipidemia, unspecified; C50.511 Malignant neoplasm of lower-outer quadrant of right female breast; Z17.1 Estrogen receptor negative status [ER-]; Z82.0 Family history of epilepsy and other diseases of the nervous system; Z80.0 Family history of malignant neoplasm of digestive organs; Z88.5 Allergy status to narcotic agent; F32.A Depression, unspecified; C92.20 Atypical chronic myeloid leukemia, BCR/ABL-negative, not having achieved remission; E66.9 Obesity, unspecified; Z68.42 Body mass index [BMI] 45.0-49.9, adult
CPT/HCPCS: 97161; 97165; 86900; 86901; 88305; 80048; 85025; 86850; 88311; 73501; 27130; C1776; J1100; J0690 ×3; J2405; J2795; J1170

== ENCOUNTER 2022-05-30 15:56 | Emergency (ER) | payer MEDICARE ==
[2022-05-30 18:12] VITALS: PULSE 61
[2022-05-30 18:14] LABS: Basophils % (A) 0 %; Eosinophils # (A) 0.3 k/uL (0-0.7); Eosinophils % (A) 3 %; HCT 35.4 % (34.0-46.0); HGB 11.2 gm/dL (11.4-16.0); Hypochromasia Slight; Lymphocytes # (A) 1.7 k/uL (1.0-4.8); Lymphocytes % (A) 18 %; MCH 32.5 pg (25.0-35.0); MCHC 31.8 g/dL (31.0-37.0); MCV 102.3 fL (80.0-100.0); Macrocytosis Slight; Mean Platelet Volume 7.8; Monocytes # (A) 0.4 k/uL (0-1.0); Monocytes % (A) 4 %; Neutrophils # (A) 7.2 k/uL (1.3-7.7); Neutrophils % (A) 75 %; Platelet Count 234 k/uL (150-450); RBC 3.45 m/uL (3.80-5.40); RDW 13.5 % (11.5-15.5); WBC 9.7 k/uL (3.8-10.6)
[2022-05-30 18:23] LABS: INR 0.9 (<1.2); Partial Thromboplastin Time 24.7 sec (22.0-30.0); Prothrombin Time 10.1 sec (9.0-12.0)
[2022-05-30 18:24] LABS: Albumin 4.1 g/dL (3.5-5.0); Magnesium 1.9 mg/dL (1.6-2.3); Potassium 3.7 mmol/L (3.5-5.1); Total Bilirubin 0.3 mg/dL (0.2-1.3); Total Protein 6.6 g/dL (6.3-8.2)
--- NOTE | 2022-05-30 18:34 | XR ---
EXAMINATION TYPE: XR chest 2V DATE OF EXAM: 05/30/2022 COMPARISON: NONE HISTORY: Chest pain TECHNIQUE: Frontal and lateral views of the chest are obtained. FINDINGS: There is mild interstitial edema with superimposed hazy opacity. No pleural effusion, or p neumothorax seen. Cardiomegaly and pacemaker seen. The osseous structures are intact. IMPRESSION: Interstitial edema/atelectasis.
--- NOTE | 2022-05-30 19:15 | ED ---
General Adult HPI - General Chief complaint: Dizziness Stated complaint: dizziness Time Seen by Provider: 05/30/22 16:40 Source: patient, RN notes reviewed, old records reviewed Mode of arrival: ambulatory Limitations: no limitations - History of Present Illness Initial comments: This is a 72-year-old female presents emergency Department telling me that she was dizzy at home and thought she might fall to the ground. Patient states she had TO SOMETHING THAT HER HELPED HER. PATIENT STATES ONE TIME IN THE PAST WHEN SHE WAS DIZZY SHE HAD COME THE EMERGENCY DEPARTMENT A PACEMAKER SO SHE WAS CONCERNED SO SHE DECIDED COME TO THE EMERGENCY DEPARTMENT THIS TIME. Patient denies any recent fever chills or cough. Patient denies any chest pain or palpitations. Patient denies shortness of breath or difficulty breathing. Patient denies any abdominal pain patient denies nausea vomiting diarrhea. Patient states currently she is without symptoms. - Related Data Home Medications Medication Instructions Recorded Confirmed Levothyroxine Sodium [Synthroid] 25 mcg PO QAM 05/26/14 04/17/22 Anastrozole [Arimidex] 1 mg PO HS 12/21/15 04/23/22 Furosemide [Lasix] 40 mg PO QAM 12/05/17 04/17/22 Oxybutynin ER [Ditropan Xl] 10 mg PO HS 12/05/17 04/17/22 Apixaban [Eliquis] 5 mg PO BID 04/02/19 04/23/22 Flecainide [Tambocor] 100 mg PO BID 06/28/19 04/17/22 Imatinib Mesylate [Gleevec] 400 mg PO W/SUPPER 11/09/20 04/17/22 Calcium Carbonate/Vitamin D3 1 each PO BID 06/29/21 04/17/22 [Calcium 500 mg-Vit D3 5 mcg (200 Unit)] Potassium Chloride [Potassium 8 meq PO BID 06/29/21 04/17/22 Chloride ER] Cholecalciferol [Vitamin D3 (25 1 cap PO MO 12/27/21 04/17/22 Mcg = 1000 Iu)] Magnesium 200 mg PO DAILY 12/27/21 04/17/22 calcitrioL [Calcitriol] 1 cap PO MOTH 12/27/21 04/17/22 Previous Rx's Medication Instructions Recorded atenoloL [Tenormin] 50 mg PO QAM #30 tab 04/30/19 HYDROcodone/APAP 7.5-325MG [Preemption 1 - 2 tab PO Q6HR PRN #32 tab 04/23/22 7.5-325] Ondansetron Odt [Zofran Odt] 4 mg PO Q8HR PRN #10 tab 04/23/22 Sennosides-Docusate Sodium 2 tab PO HS #60 tablet 04/23/22 [Senokot-S] Ferrous Sulfate [Slow Release Iron] 250 mg PO DAILY #30 tab 04/24/22 Magnesium Hydroxide [Milk of 2,400 mg PO DAILY PRN ml 04/24/22 Magnesia Concentrate] Allergies Allergy/AdvReac Type Severity Reaction Status Date / Time NSAIDS (Non-Steroidal Allergy Dr told Verified 05/30/22 16:34 Anti-Inflamma not to take adhesive AdvReac RED SKIN Verified 05/30/22 16:34 AND TAKES SKIN OFF-paper tape is ok meperidine HCl [From Demerol] AdvReac Rash/Hives, Verified 05/30/22 16:34 rapid heart rate morphine AdvReac Itching Verified 05/30/22 16:34 naproxen [From Aleve] AdvReac Dr told Verified 05/30/22 16:34 not to take Review of Systems ROS Statement: Those systems with pertinent positive or pertinent negative responses have been documented in the HPI. ROS Other: All systems not noted in ROS Statement are negative. 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 History of Any Multi-Drug Resistant Organisms: None Reported Past Surgical History: Breast Surgery, Section, Hernia Repair, Hysterectomy, Joint Replacement, Orthopedic Surgery, Pacemaker Additional Past Surgical History / Comment(s): Left breat biopsy, left breast lumpectomy/2 lymph nodes removed, multiple bone marrow biopsies, port inserted/since removed, abdominal hernia repair, total hysterectomy, right heel spur removed, lef knee arthroscopy, EGD, colonoscopies, bilateral cataract removals/lens implants, right total hip replacement. Past Anesthesia/Blood Transfusion Reactions: Previous Problems w/ Anesthesia, Motion Sickness, Postoperative Nausea & Vomiting (PONV) Additional Past Anesthesia/Blood Transfusion Reaction / Comment(s): DIFFICULTY WAKING. Type of Cardiac Device: Permanent Pacemaker Device Placement Date:: 04/29/19 Past Psychological History: No Psychological Hx Reported Smoking Status: Never smoker Past Alcohol Use History: None Reported Past Drug Use History: None Reported - Past Family History Mother Family Medical History: Cancer Additional Family Medical History / Comment(s): PANCREATIC CANCER. Father Family Medical History: Coronary Artery Disease (CAD), Myocardial Infarction (ME) Additional Family Medical History / Comment(s): Father had a ME at the age of 50 yrs. He had CABG and mitral valve surgery. General Exam - General Exam Comments Initial Comments: GENERAL: Patient is well-developed and well-nourished. Patient is nontoxic and well- hydrated and is in no acute distress. ENT: Neck is soft and supple. No significant lymphadenopathy is noted. Oropharynx is clear. Moist mucous membranes. Neck has full range of motion without collin citing any pain. EYES: The sclera were anicteric and conjunctiva were pink and moist. Extraocular movements were intact and pupils were equal round and reactive to light. Eyelids were unremarkable. PULMONARY: Unlabored respirations. Good breath sounds bilaterally. No audible rales rhonchi or wheezing was noted. CARDIOVASCULAR: There is a regular rate and rhythm without any murmurs gallops or rubs. ABDOMEN: Soft and nontender with normal bowel sounds. SKIN: Skin is clear with no lesions or rashes and otherwise unremarkable. NEUROLOGIC: Patient is alert and oriented x3. Cranial nerves II through XII are grossly intact. Motor and sensory are also intact. Normal speech, volume and content. Symmetrical smile. MUSCULOSKELETAL: Normal extremities with adequate strength and full range of motion. No lower extremity swelling or edema. No calf tenderness. LYMPHATICS: No significant lymphadenopathy is noted PSYCHIATRIC: Normal psychiatric evaluation. Limitations: no limitations Course Vital Signs 05/30/22 05/30/22 16:31 18:07 Temperature 98.1 F Pulse Rate 63 Pulse Rate [ 72 Right Standing Pulse Oximetery ] Pulse Rate [ 62 Sitting Pulse Oximetery] Pulse Rate [ 61 Supine Pulse Oximetery] Respiratory 18 Rate Blood Pressure 132/64 Blood Pressure 143/76 [Right Arm Sitting] Blood Pressure 146/82 [Right Arm Standing] Blood Pressure 132/69 [Right Arm Supine] O2 Sat by Pulse 99 Oximetry Medical Decision Making - Medical Decision Making EKG shows paced rhythm at 65 bpm VA interval is 253 QRSs 116 QT interval 344 QTC is 356. Patient's EKG shows no ST segment elevation or depression. Chest x-ray shows no acute abnormality. I will back into reevaluate the patient she had no symptoms and was no longer dizzy. 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 - Lab Data Result diagrams: 05/30/22 18:03 05/30/22 18:03 Lab Results 05/30/22 05/30/22 05/30/22 Range/Units 18:03 18:03 18:03 WBC 9.7 (3.8-10.6) k/uL RBC 3.45 L (3.80-5.40) m/uL Hgb 11.2 L (11.4-16.0) gm/dL Hct 35.4 (34.0-46.0) % MCV 102.3 H (80.0-100.0) fL MCH 32.5 (25.0-35.0) pg MCHC 31.8 (31.0-37.0) g/dL RDW 13.5 (11.5-15.5) % Plt Count 234 (150-450) k/uL MPV 7.8 Neutrophils % 75 % Lymphocytes % 18 % Monocytes % 4 % Eosinophils % 3 % Basophils % 0 % Neutrophils # 7.2 (1.3-7.7) k/uL Lymphocytes # 1.7 (1.0-4.8) k/uL Monocytes # 0.4 (0-1.0) k/uL Eosinophils # 0.3 (0-0.7) k/uL Basophils # 0.0 (0-0.2) k/uL Hypochromasia Slight Macrocytosis Slight PT 10.1 (9.0-12.0) sec INR 0.9 (<1.2) APTT 24.7 (22.0-30.0) sec Sodium 139 (137-145) mmol/L Potassium 3.7 (3.5-5.1) mmol/L Chloride 100 (98-107) mmol/L Carbon Dioxide 27 (22-30) mmol/L Anion Gap 12 mmol/L BUN 20 H (7-17) mg/dL Creatinine 1.22 H (0.52-1.04) mg/dL Est GFR (CKD-EPI)AfAm 52 (>60 ml/min/1.73 sqM) Est GFR (CKD-EPI)NonAf 45 (>60 ml/min/1.73 sqM) Glucose 99 (74-99) mg/dL Calcium 9.0 (8.4-10.2) mg/dL Magnesium 1.9 (1.6-2.3) mg/dL Total Bilirubin 0.3 (0.2-1.3) mg/dL AST 26 (14-36) U/L ALT 20 (4-34) U/L Alkaline Phosphatase 113 (38-126) U/L Troponin I (0.000-0.034) ng/mL Total Protein 6.6 (6.3-8.2) g/dL Albumin 4.1 (3.5-5.0) g/dL 05/30/22 Range/Units 18:03 WBC (3.8-10.6) k/uL RBC (3.80-5.40) m/uL Hgb (11.4-16.0) gm/dL Hct (34.0-46.0) % MCV (80.0-100.0) fL MCH (25.0-35.0) pg MCHC (31.0-37.0) g/dL RDW (11.5-15.5) % Plt Count (150-450) k/uL MPV Neutrophils % % Lymphocytes % % Monocytes % % Eosinophils % % Basophils % % Neutrophils # (1.3-7.7) k/uL Lymphocytes # (1.0-4.8) k/uL Monocytes # (0-1.0) k/uL Eosinophils # (0-0.7) k/uL Basophils # (0-0.2) k/uL Hypochromasia Macrocytosis PT (9.0-12.0) sec INR (<1.2) APTT (22.0-30.0) sec Sodium (137-145) mmol/L Potassium (3.5-5.1) mmol/L Chloride (98-107) mmol/L Carbon Dioxide (22-30) mmol/L Anion Gap mmol/L BUN (7-17) mg/dL Creatinine (0.52-1.04) mg/dL Est GFR (CKD-EPI)AfAm (>60 ml/min/1.73 sqM) Est GFR (CKD-EPI)NonAf (>60 ml/min/1.73 sqM) Glucose (74-99) mg/dL Calcium (8.4-10.2) mg/dL Magnesium (1.6-2.3) mg/dL Total Bilirubin (0.2-1.3) mg/dL AST (14-36) U/L ALT (4-34) U/L Alkaline Phosphatase (38-126) U/L Troponin I <0.012 (0.000-0.034) ng/mL Total Protein (6.3-8.2) g/dL Albumin (3.5-5.0) g/dL Disposition Clinical Impression: Dizziness Disposition: HOME SELF-CARE Condition: Good Instructions (If sedation given, give patient instructions): Dizziness (ED) Additional Instructions: Patient follow up with cardiology Is patient prescribed a controlled substance at d/c from ED?: No Referrals: Vicente Bautista MD [Primary Care Provider] - 1-2 days Time of Disposition: 19:14
[2022-05-30 19:47] VITALS: BP 131/77; RESP 16; TEMP 98.3
== END 2022-05-30 19:47 | disposition home or self-care (01) ==
LOC: EC 15:56
DX: R42 Dizziness and giddiness (principal); M19.90 Unspecified osteoarthritis, unspecified site; E03.9 Hypothyroidism, unspecified; Z86.79 Personal history of other diseases of the circulatory system; Z86.718 Personal history of other venous thrombosis and embolism; Z79.890 Hormone replacement therapy; Z79.01 Long term (current) use of anticoagulants; Z88.6 Allergy status to analgesic agent; Z91.048 Other nonmedicinal substance allergy status
CPT/HCPCS: 36415; 71046; 80053; 83735; 84484; 85025; 85610; 85730; 93005; 99284

== ENCOUNTER → 2022-06-26 | Outpatient (CLI) | payer MEDICARE ==
--- NOTE | 2022-06-27 21:29 | US ---
EXAMINATION TYPE: US kidneys/renal and bladder DATE OF EXAM: 06/26/2022 COMPARISON: 08/27/2021 CLINICAL HISTORY: N18.31 STAGE 3 CKD. Abnormal labs. EXAM MEASUREMENTS: Right Kidney: 10.6 x 4.9 x 4.5 cm Left Kidney: 10.7 x 4.0 x 5.2 cm Right Kidney: Medial anechoic lesion at hilum= 2.0 x 1.2 cm. This is nonspecific but may be a extrare nal pelvis. Left Kidney: Inferior pole obscured by bowel gas Bladder: Anechoic Bilateral Jets not seen Urinary bladder is sonolucent. Posterior wall appears normal. IMPRESSION: 1. Hypoechoic right renal pelvis. Overt hydronephrosis is not identified. If additional evaluation wo uld be of benefit, consider noncontrast CT abdomen.
== END | disposition home or self-care (01) ==
LOC: RADUSWWP 15:26
PROVIDERS: ATTEND Internal Medicine
DX: N18.31 Chronic kidney disease, stage 3a (principal)
CPT/HCPCS: 76770

== ENCOUNTER 2022-08-13 09:30 | Emergency (ER) | payer MEDICARE ==
[2022-08-13 09:33] VITALS: TEMP 98
--- NOTE | 2022-08-13 10:05 | XR ---
EXAMINATION TYPE: XR chest 2V DATE OF EXAM: 08/13/2022 10:00 AM COMPARISON: Chest radiographs from 05/30/2022. TECHNIQUE: XR chest 2V Frontal and lateral views of the chest. CLINICAL INDICATION:Female, 72 years old with history of cough; FINDINGS: Lungs/Pleura: There is no evidence of pleural effusion, focal consolidation, or pneumothorax. Pulmonary vascularity: Unremarkable. Heart/mediastinum: Cardiomediastinal silhouette is stable and mildly prominent. Two lead cardiac cond uction device overlying the left hemithorax with lead tips projecting over the right ventricle and ri ght atrium. Musculoskeletal: No acute osseous pathology. IMPRESSION: No acute cardiopulmonary disease/process.
--- NOTE | 2022-08-13 10:59 | ED ---
URI HPI - General Chief Complaint: Upper Respiratory Infection Stated Complaint: bronchitis Time Seen by Provider: 08/13/22 10:30 Source: patient Mode of arrival: ambulatory Limitations: no limitations - History of Present Illness Initial Comments: Patient is a pleasant 72-year-old female presenting to the emergency room with complaints of approximately 2 weeks of cough and congestion. She reports that she has been seen by 2 separate urgent cares and treated with both antibiotics (Augmentin) and steroids (Prednisone) along with inhaler (albuterol) without any significant improvement in symptoms. She was advised that she had bronchitis at her last urgent care visit. She was tested for Covid throughout her workup with urgent care and tested negative. She had no other testing or evaluation completed. She reports that she contacted her primary care provider in regards to her continuation of symptoms and that she is not able to be seen b y her PCP. She has a significant past medical history including atrial fibrillation, CML, breast cancer, DVT, hypothyroid, osteoarthritis, chronic kidney disease, obstructive sleep apnea not currently utilizing CPAP and varicose veins. - Related Data Home Medications Medication Instructions Recorded Confirmed Levothyroxine Sodium [Synthroid] 25 mcg PO QAM 05/26/14 04/17/22 Anastrozole [Arimidex] 1 mg PO HS 12/21/15 04/23/22 Furosemide [Lasix] 40 mg PO QAM 12/05/17 04/17/22 Oxybutynin ER [Ditropan Xl] 10 mg PO HS 12/05/17 04/17/22 Apixaban [Eliquis] 5 mg PO BID 04/02/19 04/23/22 Flecainide [Tambocor] 100 mg PO BID 06/28/19 04/17/22 Imatinib Mesylate [Gleevec] 400 mg PO W/SUPPER 11/09/20 04/17/22 Calcium Carbonate/Vitamin D3 1 each PO BID 06/29/21 04/17/22 [Calcium 500 mg-Vit D3 5 mcg (200 Unit)] Potassium Chloride [Potassium 8 meq PO BID 06/29/21 04/17/22 Chloride ER] Cholecalciferol [Vitamin D3 (25 1 cap PO MO 12/27/21 04/17/22 Mcg = 1000 Iu)] Magnesium 200 mg PO DAILY 12/27/21 04/17/22 calcitrioL [Calcitriol] 1 cap PO MOTH 12/27/21 04/17/22 Previous Rx's Medication Instructions Recorded atenoloL [Tenormin] 50 mg PO QAM #30 tab 04/30/19 HYDROcodone/APAP 7.5-325MG [[place] 1 - 2 tab PO Q6HR PRN #32 tab 04/23/22 7.5-325] Ondansetron Odt [Zofran Odt] 4 mg PO Q8HR PRN #10 tab 04/23/22 Sennosides-Docusate Sodium 2 tab PO HS #60 tablet 04/23/22 [Senokot-S] Ferrous Sulfate [Slow Release Iron] 250 mg PO DAILY #30 tab 04/24/22 Magnesium Hydroxide [Milk of 2,400 mg PO DAILY PRN ml 04/24/22 Magnesia Concentrate] Azelastine HCl [Astepro] 137 mcg NASAL BID 30 Days #1 ml 08/13/22 Cefdinir 300 mg PO Q12HR 10 Days #20 cap 08/13/22 Loratadine [Claritin] 10 mg PO DAILY 30 Days #30 tab 08/13/22 Allergies Allergy/AdvReac Type Severity Reaction Status Date / Time NSAIDS (Non-Steroidal Allergy Dr told Verified 08/13/22 09:33 Anti-Inflamma not to take adhesive AdvReac RED SKIN Verified 08/13/22 09:33 AND TAKES SKIN OFF-paper tape is ok meperidine HCl [From Demerol] AdvReac Rash/Hives, Verified 08/13/22 09:33 rapid heart rate morphine AdvReac Itching Verified 08/13/22 09:33 naproxen [From Aleve] AdvReac Dr told Verified 08/13/22 09:33 not to take Review of Systems ROS Statement: Those systems with pertinent positive or pertinent negative responses have been documented in the HPI. ROS Other: All systems not noted in ROS Statement are negative. 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 History of Any Multi-Drug Resistant Organisms: None Reported Past Surgical History: Breast Surgery, Section, Hernia Repair, Hysterectomy, Joint Replacement, Orthopedic Surgery, Pacemaker Additional Past Surgical History / Comment(s): Left breat biopsy, left breast lumpectomy/2 lymph nodes removed, multiple bone marrow biopsies, port inserted/since removed, abdominal hernia repair, total hysterectomy, right heel spur removed, lef knee arthroscopy, EGD, colonoscopies, bilateral cataract removals/lens implants, right total hip replacement. Past Anesthesia/Blood Transfusion Reactions: Previous Problems w/ Anesthesia, Motion Sickness, Postoperative Nausea & Vomiting (PONV) Additional Past Anesthesia/Blood Transfusion Reaction / Comment(s): DIFFICULTY WAKING. Type of Cardiac Device: Permanent Pacemaker Device Placement Date:: 04/29/19 Past Psychological History: No Psychological Hx Reported Smoking Status: Never smoker Past Alcohol Use History: None Reported Past Drug Use History: None Reported - Past Family History Mother Family Medical History: Cancer Additional Family Medical History / Comment(s): PANCREATIC CANCER. Father Family Medical History: Coronary Artery Disease (CAD), Myocardial Infarction (MS) Additional Family Medical History / Comment(s): Father had a MS at the age of 50 yrs. He had CABG and mitral valve surgery. General Exam Limitations: no limitations General appearance: alert, in no apparent distress Head exam: Present: atraumatic, normocephalic, normal inspection Eye exam: Present: normal appearance, PERRL, EOMI. Absent: scleral icterus, conjunctival injection, periorbital swelling ENT exam: Present: mucous membranes moist, other (Bilateral nares with edema and erythema but patent) Expanded Ear exam: Present: normal external inspection TM/Canal exam: Bulging: Right TM, Left TM (without perforation) Mouth exam: Present: normal external inspection Throat exam: normal inspection Neck exam: Present: full ROM, lymphadenopathy. Absent: tenderness Respiratory exam: Present: normal lung sounds bilaterally. Absent: respiratory distress, wheezes, rales, rhonchi, stridor Cardiovascular Exam: Present: regular rate, irregular rhythm, normal heart sounds. Absent: systolic murmur, diastolic murmur, rubs, gallop, clicks GI/Abdominal exam: Present: soft, normal bowel sounds. Absent: distended, tenderness, guarding, rebound, rigid Rectal exam: Present: deferred Extremities exam: Present: normal inspection, full ROM, normal capillary refill. Absent: tenderness, pedal edema, joint swelling, calf tenderness Back exam: Present: normal inspection Neurological exam: Present: alert, oriented X3, CN II-XII intact, other (Gait steady with walker) Psychiatric exam: Present: normal affect, normal mood Skin exam: Present: warm, dry, intact, normal color. Absent: rash Course Vital Signs 08/13/22 09:30 Temperature 98 F Pulse Rate 83 Respiratory 22 Rate Blood Pressure 153/90 O2 Sat by Pulse 96 Oximetry Medical Decision Making - Medical Decision Making 72-year-old female presenting to the emergency room with cough and congestion ongoing for approximately 2 weeks with failed previous treatment of antibiotics and steroids. Chest x-ray obtained by triage. No indication for further diagnostic imaging or laboratory studies. Symptoms and medications/treatment reviewed at length. Exam reveals sinusitis. Treatment for sinusitis reviewed. Will start on alternative antibiotic therapy of subcentimeter add nasal spray and antihistamine. encouraged adherence to treatment and follow-up with primary care provider as scheduled. return parameters to the emergency room reviewed. Case discussed with Dr. Moore Disposition Clinical Impression: Sinusitis Disposition: HOME SELF-CARE Condition: Stable Instructions (If sedation given, give patient instructions): Sinusitis (ED) Additional Instructions: Please complete course of antibiotics as prescribed. Please utilize nasal spray and antihistamine throughout the course of antibiotic regimen. Avoid respiratory irritants when possible. Please follow-up with your primary care provider. Please return to the Emergency Department if symptoms worsen or any other concerns. Prescriptions: Azelastine HCl [Astepro] 137 mcg NASAL BID 30 Days #1 ml Cefdinir 300 mg PO Q12HR 10 Days #20 cap Loratadine [Claritin] 10 mg PO DAILY 30 Days #30 tab Is patient prescribed a controlled substance at d/c from ED?: No Referrals: Waldemar Garcia MD [Primary Care Provider] - 1-2 days Time of Disposition: 10:45
[2022-08-13 11:16] VITALS: BP 133/74; PULSE 63; RESP 18
== END 2022-08-13 11:21 | disposition home or self-care (01) ==
LOC: EC 09:30
DX: J32.9 Chronic sinusitis, unspecified (principal); I48.91 Unspecified atrial fibrillation; I82.409 Acute embolism and thrombosis of unspecified deep veins of unspecified lower extremity; G47.30 Sleep apnea, unspecified; E03.9 Hypothyroidism, unspecified; M19.90 Unspecified osteoarthritis, unspecified site; Z79.890 Hormone replacement therapy; Z79.899 Other long term (current) drug therapy; Z88.8 Allergy status to other drugs, medicaments and biological substances; Z88.5 Allergy status to narcotic agent
CPT/HCPCS: 71046; 99283

== ENCOUNTER → 2022-10-09 | Outpatient (CLI) | payer MEDICARE ==
[2022-10-09 11:33] LABS: Appearance,Urine Clear (Clear); Bilirubin,Urine Negative (Negative); Blood,Urine Negative (Negative); Color,Urine Light Yellow; Glucose,Urine (UA) Negative (Negative); Ketones,Urine Negative (Negative); Leukocyte Esterase,Urine Negative (Negative); Nitrite,Urine Negative (Negative); Protein,Urine Negative (Negative); Specific Gravity,Urine 1.009 (1.001-1.035); Urobilinogen,Urine <2.0 mg/dL (<2.0)
[2022-10-09 15:15] LABS: Basophils # (A) 0.03 X 10*3/uL (0.00-0.10); Basophils % (A) 0.4 %; Eosinophils # (A) 0.25 X 10*3/uL (0.04-0.35); Eosinophils % (A) 3.7 %; HCT 37.5 % (37.2-46.3); HGB 11.7 g/dL (12.0-15.0); Immature Grans, Automated 0.3 %; Lymphocytes # (A) 1.57 X 10*3/uL (0.90-5.00); Lymphocytes % (A) 23.5 %; MCH 31.5 pg (27.0-32.0); MCHC 31.2 g/dL (32.0-37.0); MCV 100.8 fL (80.0-97.0); Mean Platelet Volume 10.2 fL (9.5-12.2); Monocytes # (A) 0.36 X 10*3/uL (0.20-1.00); Monocytes % (A) 5.4 %; NRBC Per 100 WBC 0 /100 WBCS (0.0-0.0); Neutrophils # (A) 4.45 X 10*3/uL (1.80-7.70); Neutrophils % (A) 66.7 %; Platelet Count 226 X 10*3/uL (140-440); RBC 3.72 X 10*6/uL (4.10-5.20); RDW 15.2 % (11.5-14.5); WBC 6.68 X 10*3/uL (4.50-10.00)
[2022-10-09 16:24] LABS: % Iron Saturation 16.79 (12.00-45.00); African American GFR (CKD) 48.7 (60.0-200.0); Albumin 4.2 g/dL (3.8-4.9); Albumin/Globulin Ratio 2.07 (1.60-3.17); Anion Gap 14.2 mmol/L (10.00-18.00); BUN/Creat Ratio 12.58 Ratio (12.00-20.00); Blood Urea Nitrogen 16.1 mg/dL (9.0-27.0); Calcium 8.9 mg/dL (8.7-10.3); Carbon Dioxide 24.3 mmol/L (20.0-27.5); Ferritin 83.6 ng/mL (10.0-291.0); Magnesium 1.9 mg/dL (1.5-2.4); Phosphorus 3.1 mg/dL (2.4-5.1); Potassium 3.9 mmol/L (3.5-5.5); Total Bilirubin 0.4 mg/dL (0.30-1.20); Total Protein 6.2 g/dL (6.2-8.2)
[2022-10-09 20:08] LABS: Urine Creatinine 43.3 mg/dL (28.0-217.0)
[2022-10-10 12:12] LABS: Microalbumin Creatinine Ratio <30 mg/g Creat (0-30)
== END | disposition home or self-care (01) ==
LOC: LABWHC1 10:23
PROVIDERS: ATTEND Internal Medicine
DX: N25.81 Secondary hyperparathyroidism of renal origin (principal); N18.31 Chronic kidney disease, stage 3a; D63.1 Anemia in chronic kidney disease; N39.0 Urinary tract infection, site not specified; E55.9 Vitamin D deficiency, unspecified; M10.9 Gout, unspecified
CPT/HCPCS: 36415; 80053; 81003; 82043; 82306; 82570; 82728; 83540; 83550; 83735; 83970; 84100; 85025

== ENCOUNTER → 2022-11-16 | Outpatient (CLI) | payer MEDICARE ==
--- NOTE | 2022-11-16 07:38 | CT ---
EXAMINATION TYPE: CT abdomen pelvis wo con CT DLP: 1621.1 mGycm, Automated exposure control for dose reduction was used. DATE OF EXAM: 11/16/2022 7:18 AM COMPARISON: CT abdomen pelvis most recent from renal ultrasound 06/26/2022 CLINICAL INDICATION:Female, 72 years old with history of KSP- N13.30 UNSPECIFIED HYDRONEPHROSIS; Unsp ecified hydronephrosis, hx of kidney disease. TECHNIQUE: Axial CT of the abdomen and pelvis. Sagittal and coronal reformats were created on a [employer] workstation. Contrast used: None Oral contrast used: without Oral Contrast FINDINGS: LOWER CHEST: Partially visualized cardiac conduction leads. Mild enlargement of the heart. ABDOMEN LIVER: Unremarkable GALLBLADDER AND BILE DUCTS: Unremarkable. PANCREAS: Unremarkable. SPLEEN: Unremarkable. ADRENAL GLANDS: Unremarkable. KIDNEYS AND URETERS: No evidence of hydronephrosis or renal calculus. The ureters are unremarkable. PELVIS Streak artifact limits evaluation. BLADDER: Unremarkable REPRODUCTIVE: Unremarkable. ABDOMEN & PELVIS STOMACH AND BOWEL: No evidence of bowel obstruction. Scattered clonic diverticula. PERITONEUM/RETROPERITONEUM: No evidence of pneumoperitoneum or free fluid. . VASCULATURE: No evidence of aortic aneurysm. MUSCULOSKELETAL: No acute osseous abnormalities, multilevel disc degeneration changes of the spine. B ilateral hip arthroplasties with streak artifact which limits evaluation the pelvis. Mild scoliosis c hanges to the spine. LYMPH NODES: No gross evidence for lymphadenopathy. SOFT TISSUE/ABDOMINAL WALL: 2 postsurgical changes to the anterior abdominal wall. IMPRESSION: 1. No evidence for obstructive uropathy or urolithiasis. 2. No acute intra-abdominal process. 3. Colonic diverticulosis.
== END | disposition home or self-care (01) ==
LOC: RADCTMAIN 07:03
PROVIDERS: ATTEND Urology
DX: K57.30 Diverticulosis of large intestine without perforation or abscess without bleeding (principal); N13.30 Unspecified hydronephrosis
CPT/HCPCS: 74176

== ENCOUNTER 2023-03-12 13:16 | Emergency (ER) | payer MEDICARE ==
[2023-03-12 13:45] VITALS: RESP 18
[2023-03-12 14:22] VITALS: TEMP 98.1
[2023-03-12] MEDS ORDERED: AMOXIC-POT CLAV 875-125MG 1 EACH TAB PO STA (14:48)
[2023-03-12] MEDS ORDERED: predniSONE 50 MG TAB PO STA (14:48)
--- NOTE | 2023-03-12 14:52 | ED ---
General Adult HPI - General Chief complaint: Allergic Reaction Stated complaint: allergic reaction to insect bite Time Seen by Provider: 03/12/23 14:33 Source: patient, RN notes reviewed Mode of arrival: ambulatory Limitations: no limitations - History of Present Illness Initial comments: 72-year-old female presents emergency Department chief complaint of redness, swelling right side of her face, posterior scalp. Patient states that she wishes bit by something. Patient had increasing redness, warmth the area. Patient denies any fevers or chills. Patient offers no other associated symptoms. She did state that she's had some like this in the past which improved with steroids. - Related Data Home Medications Medication Instructions Recorded Confirmed Levothyroxine Sodium [Synthroid] 25 mcg PO QAM 05/26/14 04/17/22 Anastrozole [Arimidex] 1 mg PO HS 12/21/15 04/23/22 Furosemide [Lasix] 40 mg PO QAM 12/05/17 04/17/22 Oxybutynin ER [Ditropan XL] 10 mg PO HS 12/05/17 04/17/22 Apixaban [Eliquis] 5 mg PO BID 04/02/19 04/23/22 Flecainide [Tambocor] 100 mg PO BID 06/28/19 04/17/22 Imatinib Mesylate [Gleevec] 400 mg PO W/SUPPER 11/09/20 04/17/22 Calcium Carbonate/Vitamin D3 1 each PO BID 06/29/21 04/17/22 [Calcium 500 mg-Vit D3 5 mcg (200 Unit)] Potassium Chloride [Potassium 8 meq PO BID 06/29/21 04/17/22 Chloride ER] Cholecalciferol [Vitamin D3 (25 1 cap PO MO 12/27/21 04/17/22 Mcg = 1000 Iu)] Magnesium 200 mg PO DAILY 12/27/21 04/17/22 calcitrioL [Calcitriol] 1 cap PO MOTH 12/27/21 04/17/22 Previous Rx's Medication Instructions Recorded atenoloL [Tenormin] 50 mg PO QAM #30 tab 04/30/19 HYDROcodone/APAP 7.5-325MG [[place] 1 - 2 tab PO Q6HR PRN #32 tab 04/23/22 7.5-325] Ondansetron Odt [Zofran Odt] 4 mg PO Q8HR PRN #10 tab 04/23/22 Sennosides-Docusate Sodium 2 tab PO HS #60 tablet 04/23/22 [Senokot-S] Ferrous Sulfate [Slow Release Iron] 250 mg PO DAILY #30 tab 04/24/22 Magnesium Hydroxide [Milk of 2,400 mg PO DAILY PRN ml 04/24/22 Magnesia Concentrate] Azelastine HCl [Astepro] 137 mcg NASAL BID 30 Days #1 ml 08/13/22 Cefdinir 300 mg PO Q12HR 10 Days #20 cap 08/13/22 Loratadine [Claritin] 10 mg PO DAILY 30 Days #30 tab 08/13/22 Amoxic-Pot Clav 875-125Mg 1 tab PO Q12HR #20 tab 03/12/23 [Augmentin 875-125] predniSONE 50 mg PO DAILY #4 tab 03/12/23 Allergies Allergy/AdvReac Type Severity Reaction Status Date / Time NSAIDS (Non-Steroidal Allergy Dr told Verified 03/12/23 13:45 Anti-Inflamma not to take adhesive AdvReac RED SKIN Verified 03/12/23 13:45 AND TAKES SKIN OFF-paper tape is ok meperidine HCl [From Demerol] AdvReac Rash/Hives, Verified 03/12/23 13:45 rapid heart rate morphine AdvReac Itching Verified 03/12/23 13:45 naproxen [From Aleve] AdvReac Dr told Verified 03/12/23 13:45 not to take Review of Systems ROS Statement: Those systems with pertinent positive or pertinent negative responses have been documented in the HPI. ROS Other: All systems not noted in ROS Statement are negative. 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 History of Any Multi-Drug Resistant Organisms: None Reported Past Surgical History: Breast Surgery, Section, Hernia Repair, Hysterectomy, Joint Replacement, Orthopedic Surgery, Pacemaker Additional Past Surgical History / Comment(s): Left breat biopsy, left breast lumpectomy/2 lymph nodes removed, multiple bone marrow biopsies, port inserted/since removed, abdominal hernia repair, total hysterectomy, right heel spur removed, lef knee arthroscopy, EGD, colonoscopies, bilateral cataract removals/lens implants, right total hip replacement. Past Anesthesia/Blood Transfusion Reactions: Previous Problems w/ Anesthesia, Motion Sickness, Postoperative Nausea & Vomiting (PONV) Additional Past Anesthesia/Blood Transfusion Reaction / Comment(s): DIFFICULTY WAKING. Type of Cardiac Device: Permanent Pacemaker Device Placement Date:: 04/29/19 Past Psychological History: No Psychological Hx Reported Smoking Status: Never smoker Past Alcohol Use History: None Reported Past Drug Use History: None Reported - Past Family History Mother Family Medical History: Cancer Additional Family Medical History / Comment(s): PANCREATIC CANCER. Father Family Medical History: Coronary Artery Disease (CAD), Myocardial Infarction (MO) Additional Family Medical History / Comment(s): Father had a MO at the age of 50 yrs. He had CABG and mitral valve surgery. General Exam Limitations: no limitations General appearance: alert, in no apparent distress Head exam: Present: atraumatic, normocephalic. Absent: normal inspection (Posterior scalp there is small raised erythematous bump) Eye exam: Present: normal appearance, PERRL, EOMI. Absent: scleral icterus, conjunctival injection, periorbital swelling ENT exam: Present: normal oropharynx, mucous membranes moist, TM's normal bilaterally, normal external ear exam. Absent: normal exam (Inferior to the right ear there is erythema, mild swelling, nontender there is no centralized brennen or fluctuant area) Neck exam: Present: normal inspection, full ROM. Absent: tenderness, meningismus, lymphadenopathy Respiratory exam: Present: normal lung sounds bilaterally. Absent: respiratory distress, wheezes, rales, rhonchi, stridor Cardiovascular Exam: Present: regular rate, normal rhythm, normal heart sounds. Absent: systolic murmur, diastolic murmur, rubs, gallop, clicks Course Vital Signs 03/12/23 03/12/23 03/12/23 13:41 14:17 14:59 Temperature 98.4 F 98.1 F Pulse Rate 69 79 56 L Respiratory 18 18 18 Rate Blood Pressure 142/68 122/72 124/77 O2 Sat by Pulse 96 97 97 Oximetry Medical Decision Making - Medical Decision Making Was pt. sent in by a medical professional or institution (JADA Zazueta, SEISMOGRAPH CHIEF, urgent care, hospital, or fci...) When possible be specific @ -No Did you speak to anyone other than the patient for history (EMS, parent, family, police, friend...)? What history was obtained from this source @ -No Did you review nursing and triage notes (agree or disagree)? Why? @ -I reviewed and agree with nursing and triage notes Were old charts reviewed (outside hosp., previous admission, EMS record, old EKG, old radiological studies, urgent care reports/EKG's, fci records)? Report findings @ -No old charts were reviewed Differential Diagnosis (chest pain, altered mental status, abdominal pain women, abdominal pain men, vaginal bleeding, weakness, fever, dyspnea, syncope, headache, dizziness, GI bleed, back pain, seizure, CVA, palpatations, mental health, musculoskeletal)? @ -ALLERGIC reaction, insect bite, cellulitis EKG interpreted by me (3pts min.). @ -None X-rays interpreted by me (1pt min.). @ -None done CT interpreted by me (1pt min.). @ -None done U/S interpreted by me (1pt. min.). @ -None done What testing was considered but not performed or refused? (CT, X-rays, U/S, labs)? Why? @ -None What meds were considered but not given or refused? Why? @ -None Did you discuss the management of the patient with other professionals (professionals i.e. JADA Zazueta, SEISMOGRAPH CHIEF, lab, RT, psych nurse, school social worker, music box mechanic, teacher, medical officer psychiatry, piano case maker)? Give summary @ -No Was smoking cessation discussed for >3mins.? @ -No Was critical care preformed (if so, how long)? @ -No Were there social determinants of health that impacted care today? How? (Homelessness, low income, unemployed, alcoholism, drug addiction, transportation, low edu. Level, literacy, decrease access to med. care, senior living, rehab)? @ -No Was there de-escalation of care discussed even if they declined (Discuss DNR or withdrawal of care, Hospice)? DNR status @ -No What co-morbidities impacted this encounter? (DM, HTN, Smoking, COPD, CAD, Cancer, CVA, ARF, Chemo, Hep., AIDS, mental health diagnosis, sleep apnea, morbid obesity)? @ -None Was patient admitted / discharged? Hospital course, mention meds given and route, prescriptions, significant lab abnormalities, going to OR and other pertinent info. @ -Discharge patient has erythematous skin changes concerning for cellulitis this may be related to infection question possibility of ALLERGIC symptoms. Patient was given prednisone will continue antihistamines and placed on oral antibiotics patient will have recheck in 24 hours. Undiagnosed new problem with uncertain prognosis? @ -No Drug Therapy requiring intensive monitoring for toxicity (Heparin, Nitro, Insulin, Cardizem)? @ -No Were any procedures done? @ -No Diagnosis/symptom? @ -Cellulitis, Acute, or Chronic, or Acute on Chronic? @ -Acute Uncomplicated (without systemic symptoms) or Complicated (systemic symptoms)? @ -[Uncomplicated Side effects of treatment? @ -No Exacerbation, Progression, or Severe Exacerbation? @ -No Poses a threat to life or bodily function? How? (Chest pain, USA, MO, pneumonia, PE, COPD, DKA, ARF, appy, cholecystitis, CVA, Diverticulitis, Homicidal, Suicidal, threat to staff... and all critical care pts) @ -No Disposition Clinical Impression: Cellulitis, Insect bite Disposition: HOME SELF-CARE Condition: Stable Instructions (If sedation given, give patient instructions): Cellulitis (ED) Additional Instructions: Please return to the Emergency Department if symptoms worsen or any other concerns. Prescriptions: Amoxic-Pot Clav 875-125Mg [Augmentin 875-125] 1 tab PO Q12HR #20 tab predniSONE 50 mg PO DAILY #4 tab Is patient prescribed a controlled substance at d/c from ED?: No Referrals: Waldemar Garcia MD [Primary Care Provider] - 1-2 days Time of Disposition: 14:51
[2023-03-12 14:59] VITALS: BP 124/77; PULSE 56
== END 2023-03-12 15:02 | disposition home or self-care (01) ==
LOC: EC 13:16
DX: L03.211 Cellulitis of face (principal); I48.91 Unspecified atrial fibrillation; E03.9 Hypothyroidism, unspecified; M19.90 Unspecified osteoarthritis, unspecified site; G47.30 Sleep apnea, unspecified; Z79.1 Long term (current) use of non-steroidal anti-inflammatories (NSAID); Z79.890 Hormone replacement therapy; Z79.01 Long term (current) use of anticoagulants; Z79.899 Other long term (current) drug therapy; Z91.09 Other allergy status, other than to drugs and biological substances; Z88.5 Allergy status to narcotic agent; Z88.6 Allergy status to analgesic agent; Z88.8 Allergy status to other drugs, medicaments and biological substances; W57.XXXA Bitten or stung by nonvenomous insect and other nonvenomous arthropods, initial encounter
CPT/HCPCS: 99283; J7512

== ENCOUNTER → 2023-06-30 | Outpatient (CLI) | payer MEDICARE ==
--- NOTE | 2023-06-30 14:36 | MM ---
Reason for Exam: Hx of breast cancer, conservation therapy. Last screening mammogram was performed 12 month(s) ago. Patient History: Menarche at age 17. First Full-Term at age 27. Left ovary removed at age 49. Right ovary removed at age 37. Hysterectomy at age 37. Postmenopausal. Other cancer, age 55. Breast cancer, left, age 63. 2013, Lumpectomy on the Left side. 07/07/2019, Benign Core Biopsy on the left side. 08/28/2018, Benign Core Biopsy on the left side. 01/02/2016, Cyst Aspiration on the Left side. 12/13/2015, Benign Cyst Aspiration on the left side. 12/13/2015, Benign Core Biopsy on the left side. 10/03/2014, Malignant Core Biopsy on the left side. 05/04/2014, Malignant Core Biopsy on the left side. Chemotherapy. Radiation Therapy, left. 2013, Chemotherapy. 2013, Radiation Therapy on the left side. Paternal cousin had breast cancer. Paternal cousin had breast cancer. Prior Study Comparison: 06/15/2018 Bilateral Diagnostic Mammogram, [facility]. 08/18/2018 Left Diagnostic Ultrasound, [facility]. 08/28/2018 Left Diagnostic Mammogram, [facility]. 06/16/2019 Bilateral Diagnostic Mammogram, [facility]. 06/16/2019 Left Diagnostic Ultrasound, [facility]. 07/07/2019 Left Diagnostic Mammogram, [facility]. 04/15/2022 Right Diagnostic Mammogram, [facility]. 06/27/2022 Bilateral Diagnostic Mammogram, [facility]. Tissue Density: The breast tissue is heterogeneously dense. This may lower the sensitivity of mammography. Findings: Analyzed By CAD. Operative changes of left-sided lumpectomy and radiation therapy for breast distortion seen. Overall no change noted. No recurrent mass. Dystrophic calcifications seen the surgical site on the left. Otherwise benign calcifications seen bilaterally. Overall Assessment: Benign, BI-RAD 2 Management: Diagnostic Mammogram of both breasts in 1 year. . Results were given to the patient verbally at the time of exam. Patient should continue monthly self-breast exams. A clinical breast exam by your physician is recommended on an annual basis. This exam should not preclude additional follow-up of suspicious palpable abnormalities. Note on Reina scores and lifetime risk: 1. A Reina score greater than 3% is considered moderate risk. If this is the case, consider specialist referral to assess eligibility for a risk reducing agent. 2. If overall lifetime risk for the development of breast cancer is 20% or higher, the patient may qualify for future screening with alternating mammogram and breast MRI. Electronically signed and approved by: Joe Kent M.D. Radiologis
== END | disposition home or self-care (01) ==
LOC: RADMAMWWP 13:28
PROVIDERS: ATTEND Internal Medicine Hematology & Oncology
DX: R92.8 Other abnormal and inconclusive findings on diagnostic imaging of breast (principal); Z78.0 Asymptomatic menopausal state; Z85.3 Personal history of malignant neoplasm of breast; Z80.3 Family history of malignant neoplasm of breast
CPT/HCPCS: 77066; G0279; 77062

== ENCOUNTER 2023-12-28 16:46 | Emergency (ER) | payer MEDICARE ==
[2023-12-28] MEDS: FLUORESCEIN STRIPS 1 MG STRIP BOTH EYES ONE (17:16)
[2023-12-28] MEDS: PROPARACAINE 0.5% OPHTH DROPS 15 ML BTL BOTH EYES STA (17:16)
--- NOTE | 2023-12-28 17:29 | ED ---
General Adult HPI - General Chief complaint: Eye Problems Stated complaint: Eye Pain Time Seen by Provider: 12/28/23 16:49 Source: patient Mode of arrival: ambulatory Limitations: no limitations - History of Present Illness Initial comments: Dictation was produced using edenes dictation software. please excuse any grammatical, word or spelling errors. Chief Complaint: 73-year-old female presents to the emergency department with ocular pain History of Present Illness: Patient 73-year-old female presents to the emergency department with left-sided ocular pain she feels like the pain is in her left orbit at the upper temporal region. She states that it does feel like it radiates to her orbit. She does have some mild changes in her vision. States that there has been some drainage and foreign body sensation in the lower part of her eye. She has been seeing ophthalmology for weak eyelids and also has had cataract surgery. She complains of some mild blurriness to the left eye compared to the right. Patient denies any symptom changes with light or dark The ROS documented in this emergency department record has been reviewed and confirmed by me. Those systems with pertinent positive or negative responses have been documented in the HPI. All other systems are other negative and/or noncontributory. - Related Data Home Medications Medication Instructions Recorded Confirmed Levothyroxine Sodium [Synthroid] 25 mcg PO QAM 05/26/14 04/17/22 Anastrozole [Arimidex] 1 mg PO HS 12/21/15 04/23/22 Furosemide [Lasix] 40 mg PO QAM 12/05/17 04/17/22 Oxybutynin ER [Ditropan XL] 10 mg PO HS 12/05/17 04/17/22 Apixaban [Eliquis] 5 mg PO BID 04/02/19 04/23/22 Flecainide [Tambocor] 100 mg PO BID 06/28/19 04/17/22 Imatinib Mesylate [Gleevec] 400 mg PO W/SUPPER 11/09/20 04/17/22 Calcium Carbonate/Vitamin D3 1 each PO BID 06/29/21 04/17/22 [Calcium 500 mg-Vit D3 5 mcg (200 Unit)] Potassium Chloride [Potassium 8 meq PO BID 06/29/21 04/17/22 Chloride ER] Cholecalciferol [Vitamin D3 (25 1 cap PO MO 12/27/21 04/17/22 Mcg = 1000 Iu)] Magnesium 200 mg PO DAILY 12/27/21 04/17/22 calcitrioL 1 cap PO MOTH 12/27/21 04/17/22 Previous Rx's Medication Instructions Recorded atenoloL [Tenormin] 50 mg PO QAM #30 tab 04/30/19 HYDROcodone/APAP 7.5-325MG [[place] 1 - 2 tab PO Q6HR PRN #32 tab 04/23/22 7.5-325] Ondansetron Odt [Zofran Odt] 4 mg PO Q8HR PRN #10 tab 04/23/22 Sennosides-Docusate Sodium 2 tab PO HS #60 tablet 04/23/22 [Senokot-S] Ferrous Sulfate [Slow Release Iron] 250 mg PO DAILY #30 tab 04/24/22 Magnesium Hydroxide [Milk of 2,400 mg PO DAILY PRN ml 04/24/22 Magnesia Concentrate] Azelastine HCl [Astepro] 137 mcg NASAL BID 30 Days #1 ml 08/13/22 Cefdinir 300 mg PO Q12HR 10 Days #20 cap 08/13/22 Loratadine [Claritin] 10 mg PO DAILY 30 Days #30 tab 08/13/22 Amoxic-Pot Clav 875-125Mg 1 tab PO Q12HR #20 tab 03/12/23 [Augmentin 875-125] predniSONE 50 mg PO DAILY #4 tab 03/12/23 Tobra-Dexamet 0.3-0.1% Eye Sapna 1 drops LEFT EYE Q8H #15 ml 12/28/23 [Tobradex Ophth Susp] Allergies Allergy/AdvReac Type Severity Reaction Status Date / Time NSAIDS (Non-Steroidal Allergy Dr told Verified 12/28/23 16:51 Anti-Inflamma not to take adhesive AdvReac RED SKIN Verified 12/28/23 16:51 AND TAKES SKIN OFF-paper tape is ok meperidine HCl [From Demerol] AdvReac Rash/Hives, Verified 12/28/23 16:51 rapid heart rate morphine AdvReac Itching Verified 12/28/23 16:51 naproxen [From Aleve] AdvReac Dr told Verified 12/28/23 16:51 not to take Review of Systems ROS Statement: Those systems with pertinent positive or pertinent negative responses have been documented in the HPI. ROS Other: All systems not noted in ROS Statement are negative. 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 History of Any Multi-Drug Resistant Organisms: None Reported Past Surgical History: Breast Surgery, Section, Hernia Repair, Hysterectomy, Joint Replacement, Orthopedic Surgery, Pacemaker Additional Past Surgical History / Comment(s): Left breat biopsy, left breast lumpectomy/2 lymph nodes removed, multiple bone marrow biopsies, port inserted/since removed, abdominal hernia repair, total hysterectomy, right heel spur removed, lef knee arthroscopy, EGD, colonoscopies, bilateral cataract removals/lens implants, right total hip replacement. Past Anesthesia/Blood Transfusion Reactions: Previous Problems w/ Anesthesia, Motion Sickness, Postoperative Nausea & Vomiting (PONV) Additional Past Anesthesia/Blood Transfusion Reaction / Comment(s): DIFFICULTY WAKING. Type of Cardiac Device: Permanent Pacemaker Device Placement Date:: 04/29/19 Past Psychological History: No Psychological Hx Reported Smoking Status: Never smoker Past Alcohol Use History: None Reported Past Drug Use History: None Reported - Past Family History Mother Family Medical History: Cancer Additional Family Medical History / Comment(s): PANCREATIC CANCER. Father Family Medical History: Coronary Artery Disease (CAD), Myocardial Infarction ([place]) Additional Family Medical History / Comment(s): Father had a [place] at the age of 50 yrs. He had CABG and mitral valve surgery. General Exam - General Exam Comments Initial Comments: General: Well-appearing, nontoxic, no acute distress. Head: Normocephalic, atraumatic Eyes: PERRLA, EOMI, no left eye proptosis ENT: Airway patent Chest: Nonlabored breathing Skin: No visual rash, normal skin tone Neuro: Alert and oriented 3 Musculoskeletal: No gross abnormalities Visual acuity: Right eye 20/50, left eye 20/70 Fluorescein stain testing is negative. IOP on the left is 19 Limitations: no limitations Course Vital Signs 12/28/23 16:49 Temperature 98.4 F Pulse Rate 77 Respiratory 20 Rate Blood Pressure 163/77 O2 Sat by Pulse 97 Oximetry Medical Decision Making - Medical Decision Making Was pt. sent in by a medical professional or institution (JADA Zazueta, SAMPLE TAKER OPERATOR, urgent care, hospital, or detention...) When possible be specific @ -No Did you speak to anyone other than the patient for history (EMS, parent, family, police, friend...)? What history was obtained from this source @ -No Did you review nursing and triage notes (agree or disagree)? Why? @ -I reviewed and agree with nursing and triage notes Were old charts reviewed (outside hosp., previous admission, EMS record, old EKG, old radiological studies, urgent care reports/EKG's, detention records)? Report findings @ -No old charts were reviewed Differential Diagnosis (chest pain, altered mental status, abdominal pain women, abdominal pain men, vaginal bleeding, musculoskeletal, weakness, fever, dyspnea, syncope, headache, dizziness, GI bleed, back pain, seizure, CVA, palpatations, mental health)? @ -Not applicable EKG interpreted by me (3pts min.). @ -None done X-rays interpreted by me (1pt min.). @ -None done CT interpreted by me (1pt min.). @ -None done U/S interpreted by me (1pt. min.). @ -None done What testing was considered but not performed or refused? (CT, X-rays, U/S, labs)? Why? @ -None What meds were considered but not given or refused? Why? @ -None Did you discuss the management of the patient with other professionals (professionals i.e. JADA Zazueta, SAMPLE TAKER OPERATOR, lab, RT, psych nurse, manager social work, snuff drier, teacher, immigration officer, rifle case repairer)? Give summary @ -Case discussed with Dr. Parikh including visual acuity exam, fluorescein stain results and IOP's. There is no concern for temporal arteritis given she is not having any temporal pain, pain with mastication or temporal headache. Recommends patient be started on TobraDex ophthalmic eyedrops 3 times daily to follow-up in the office Was smoking cessation discussed for >3mins.? @ -No Was critical care preformed (if so, how long)? @ -No Were there social determinants of health that impacted care today? How? (Homelessness, low income, unemployed, alcoholism, drug addiction, transportat ion, low edu. Level, literacy, decrease access to med. care, intermediate, rehab)? @ -No Was there de-escalation of care discussed even if they declined (Discuss DNR or withdrawal of care, Hospice)? DNR status @ -No What co-morbidities impacted this encounter? (DM, HTN, Smoking, COPD, CAD, Cancer, CVA, ARF, Chemo, Hep., AIDS, mental health diagnosis, sleep apnea, morbid obesity)? @ -None Was patient admitted / discharged? Hospital course, mention meds given and route, prescriptions, significant lab abnormalities, going to OR and other pertinent info. @ -73-year-old female with chief complaint of left thigh pain. Vital signs stable. Patient no acute distress. Patient does have some mild conjunctival injection along with tearing. IOP is mildly elevated in the left. Fluorescein staining is negative. Visual acuity slightly diminished on the left. Case discussed with ophthalmology recommended starting patient on TobraDex ophthalmic eyedrops 3 times daily and follow-up in the office. Patient agreeable to plan. Patient be discharged. Undiagnosed new problem with uncertain prognosis? @ -No Drug Therapy requiring intensive monitoring for toxicity (Heparin, Nitro, Insulin, Cardizem)? @ -No Were any procedures done? @ -No Diagnosis/symptom? Acute, or Chronic, or Acute on Chronic? Uncomplicated (without systemic symptoms) or Complicated (systemic symptoms)? @ -Ocular pain Side effects of treatment? @ -No Exacerbation, Progression, or Severe Exacerbation? @ -No Poses a threat to life or bodily function? How? (Chest pain, [place], [place], pneumonia, PE, COPD, DKA, ARF, appy, cholecystitis, CVA, Diverticulitis, Homicidal, Suicidal, threat to staff... and all critical care pts) @ -yes Disposition Clinical Impression: Conjunctivitis Disposition: HOME SELF-CARE Instructions (If sedation given, give patient instructions): Conjunctivitis (ED) Prescriptions: Tobra-Dexamet 0.3-0.1% Eye Sapna [Tobradex Ophth Susp] 1 drops LEFT EYE Q8H #15 ml Is patient prescribed a controlled substance at d/c from ED?: No Referrals: Kalpana Parikh MD [STAFF PHYSICIAN] - 1-2 days Time of Disposition: 17:52
[2023-12-28 18:05] VITALS: BP 130/83; PULSE 68; RESP 18; TEMP 98.2
== END 2023-12-28 18:06 | disposition home or self-care (01) ==
LOC: EC 16:46
DX: H10.9 Unspecified conjunctivitis (principal); E03.9 Hypothyroidism, unspecified; I48.91 Unspecified atrial fibrillation; G47.30 Sleep apnea, unspecified; Z79.01 Long term (current) use of anticoagulants; Z79.890 Hormone replacement therapy; Z88.5 Allergy status to narcotic agent; Z88.8 Allergy status to other drugs, medicaments and biological substances
CPT/HCPCS: 99283

== ENCOUNTER 2024-02-28 10:53 | Emergency (ER) | payer MEDICARE ==
--- NOTE | 2024-02-28 11:08 | ED ---
General Adult HPI - General Chief complaint: Fall Stated complaint: Fell head and shoulder pain Time Seen by Provider: 02/28/24 11:00 Source: patient, RN notes reviewed, old records reviewed Mode of arrival: ambulatory Limitations: no limitations - History of Present Illness Initial comments: This is a 73-year-old female who presents to the emergency department after she had had a fall. Patient is on Eliquis. Patient states she fell forward hit the wall and she has a slight headache. Patient also complains of left-sided neck pain and left shoulder pain. Patient states she also has a little bit of right hip and right knee pain. Patient states she fell onto her knees after her head hit the wall. Patient denies any numbness or weakness. Patient Nuys any chest pain or back pain. Patient has any abdominal pain. Patient states she tripped on a mat. - Related Data Home Medications Medication Instructions Recorded Confirmed Levothyroxine Sodium [Synthroid] 25 mcg PO QAM 05/26/14 04/17/22 Anastrozole [Arimidex] 1 mg PO HS 12/21/15 04/23/22 Furosemide [Lasix] 40 mg PO QAM 12/05/17 04/17/22 Oxybutynin ER [Ditropan XL] 10 mg PO HS 12/05/17 04/17/22 Apixaban [Eliquis] 5 mg PO BID 04/02/19 04/23/22 Flecainide [Tambocor] 100 mg PO BID 06/28/19 04/17/22 Imatinib Mesylate [Gleevec] 400 mg PO W/SUPPER 11/09/20 04/17/22 Calcium Carbonate/Vitamin D3 1 each PO BID 06/29/21 04/17/22 [Calcium 500 mg-Vit D3 5 mcg (200 Unit)] Potassium Chloride [Potassium 8 meq PO BID 06/29/21 04/17/22 Chloride ER] Cholecalciferol [Vitamin D3 (25 1 cap PO MO 12/27/21 04/17/22 Mcg = 1000 Iu)] Magnesium 200 mg PO DAILY 12/27/21 04/17/22 calcitrioL 1 cap PO MOTH 12/27/21 04/17/22 Previous Rx's Medication Instructions Recorded atenoloL [Tenormin] 50 mg PO QAM #30 tab 04/30/19 HYDROcodone/APAP 7.5-325MG [[place] 1 - 2 tab PO Q6HR PRN #32 tab 04/23/22 7.5-325] Ondansetron Odt [Zofran Odt] 4 mg PO Q8HR PRN #10 tab 04/23/22 Sennosides-Docusate Sodium 2 tab PO HS #60 tablet 04/23/22 [Senokot-S] Ferrous Sulfate [Slow Release Iron] 250 mg PO DAILY #30 tab 04/24/22 Magnesium Hydroxide [Milk of 2,400 mg PO DAILY PRN ml 04/24/22 Magnesia Concentrate] Azelastine HCl [Astepro] 137 mcg NASAL BID 30 Days #1 ml 08/13/22 Cefdinir 300 mg PO Q12HR 10 Days #20 cap 08/13/22 Loratadine [Claritin] 10 mg PO DAILY 30 Days #30 tab 08/13/22 Amoxic-Pot Clav 875-125Mg 1 tab PO Q12HR #20 tab 03/12/23 [Augmentin 875-125] predniSONE 50 mg PO DAILY #4 tab 03/12/23 Tobra-Dexamet 0.3-0.1% Eye Sapna 1 drops LEFT EYE Q8H #15 ml 12/28/23 [Tobradex Ophth Susp] Allergies Allergy/AdvReac Type Severity Reaction Status Date / Time NSAIDS (Non-Steroidal Allergy Dr told Verified 02/28/24 10:58 Anti-Inflamma not to take adhesive AdvReac RED SKIN Verified 02/28/24 10:58 AND TAKES SKIN OFF-paper tape is ok meperidine HCl [From Demerol] AdvReac Rash/Hives, Verified 02/28/24 10:58 rapid heart rate morphine AdvReac Itching Verified 02/28/24 10:58 naproxen [From Aleve] AdvReac Dr told Verified 02/28/24 10:58 not to take Review of Systems ROS Statement: Those systems with pertinent positive or pertinent negative responses have been documented in the HPI. ROS Other: All systems not noted in ROS Statement are negative. 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 History of Any Multi-Drug Resistant Organisms: None Reported Past Surgical History: Breast Surgery, Section, Hernia Repair, Hysterectomy, Joint Replacement, Orthopedic Surgery, Pacemaker Additional Past Surgical History / Comment(s): Left breat biopsy, left breast lumpectomy/2 lymph nodes removed, multiple bone marrow biopsies, port inserted/since removed, abdominal hernia repair, total hysterectomy, right heel spur removed, lef knee arthroscopy, EGD, colonoscopies, bilateral cataract r emovals/lens implants, right total hip replacement. Past Anesthesia/Blood Transfusion Reactions: Previous Problems w/ Anesthesia, Motion Sickness, Postoperative Nausea & Vomiting (PONV) Additional Past Anesthesia/Blood Transfusion Reaction / Comment(s): DIFFICULTY WAKING. Type of Cardiac Device: Permanent Pacemaker Device Placement Date:: 04/29/19 Past Psychological History: No Psychological Hx Reported Smoking Status: Never smoker Past Alcohol Use History: None Reported Past Drug Use History: None Reported - Past Family History Mother Family Medical History: Cancer Additional Family Medical History / Comment(s): PANCREATIC CANCER. Father Family Medical History: Coronary Artery Disease (CAD), Myocardial Infarction ([place]) Additional Family Medical History / Comment(s): Father had a [place] at the age of 50 yrs. He had CABG and mitral valve surgery. General Exam - General Exam Comments Initial Comments: GENERAL: Patient is well-developed and well-nourished. Patient is nontoxic and well-h ydrated and is in mild distress. ENT: Neck is soft and supple. No significant lymphadenopathy is noted. Oropharynx is clear. Moist mucous membranes. Neck has full range of motion without eliciting any pain. EYES: The sclera were anicteric and conjunctiva were pink and moist. Extraocular movements were intact and pupils were equal round and reactive to light. Eyelids were unremarkable. PULMONARY: Unlabored respirations. Good breath sounds bilaterally. No audible rales rhonchi or wheezing was noted. CARDIOVASCULAR: There is a regular rate and rhythm without any murmurs gallops or rubs. ABDOMEN: Soft and nontender with normal bowel sounds. SKIN: Skin is clear with no lesions or rashes and otherwise unremarkable. NEUROLOGIC: Patient is alert and oriented x3. Cranial nerves II through XII are grossly intact. Motor and sensory are also intact. Normal speech, volume and content. Symmetrical smile. Cerebellar exam grossly intact. MUSCULOSKELETAL: Normal extremities with adequate strength and full range of motion. Patient has some lateral tenderness of the right hip. Patient has some anterior tenderness and some ecchymosis to the right knee. Patient has left trapezius muscle tenderness. LYMPHATICS: No significant lymphadenopathy is noted PSYCHIATRIC: Normal psychiatric evaluation. Limitations: no limitations Course Vital Signs 02/28/24 10:56 Temperature 98 F Pulse Rate 73 Respiratory 18 Rate Blood Pressure 151/91 O2 Sat by Pulse 99 Oximetry Medical Decision Making - Medical Decision Making Was pt. sent in by a medical professional or institution (, PA, FOUR SLIDE OPERATOR, urgent care, hospital, or skilled nursing...) When possible be specific @ -No Did you speak to anyone other than the patient for history (EMS, parent, family, police, friend...)? What history was obtained from this source @ -No Did you review nursing and triage notes (agree or disagree)? Why? @ -I reviewed and agree with nursing and triage notes Were old charts reviewed (outside hosp., previous admission, EMS record, old EKG, old radiological studies, urgent care reports/EKG's, skilled nursing records)? Report findings @ -No old charts were reviewed Differential Diagnosis (chest pain, altered mental status, abdominal pain women, abdominal pain men, vaginal bleeding, weakness, fever, dyspnea, syncope, headache, dizziness, GI bleed, back pain, seizure, CVA, palpatations, mental health, musculoskeletal)? @ -Differential Musculoskeletal Muscular strain, contusion, ligament sprain, fracture, arthritis, septic arthritis, bursitis, cellulitis, muscle spasm, nerve compression, DVT, arterial occlusion, herpes zoster, electrolyte abnormality, tumor.... This is not meant to be in all inclusive list EKG interpreted by me (3pts min.). @ -As above X-rays interpreted by me (1pt min.). @ -X-ray of the shoulder showed no acute abnormality. X-ray of the hip and pelvis showed no acute abnormality. X-ray of the knee showed effusion but no bony abnormality. CT interpreted by me (1pt min.). @ -CT of the C-spine and brain showed no acute abnormality U/S interpreted by me (1pt. min.). @ -None done What testing was considered but not performed or refused? (CT, X-rays, U/S, labs)? Why? @ -None What meds were considered but not given or refused? Why? @ -None Did you discuss the management of the patient with other professionals (professionals i.e. DrLevon, PA, FOUR SLIDE OPERATOR, lab, RT, psych nurse, aids social worker, art glass setter, teacher, fisheries enforcement officer, nurse outreach case manager)? Give summary @ -No Was smoking cessation discussed for >3mins.? @ -No Was critical care preformed (if so, how long)? @ -No Were there social determinants of health that impacted care today? How? ( Homelessness, low income, unemployed, alcoholism, drug addiction, transportation, low edu. Level, literacy, decrease access to med. care, residential, rehab)? @ -No Was there de-escalation of care discussed even if they declined (Discuss DNR or withdrawal of care, Hospice)? DNR status @ -No What co-morbidities impacted this encounter? (DM, HTN, Smoking, COPD, CAD, Cancer, CVA, ARF, Chemo, Hep., AIDS, mental health diagnosis, sleep apnea, morbid obesity)? @ -None Was patient admitted / discharged? Hospital course, mention meds given and route, prescriptions, significant lab abnormalities, going to OR and other pertinent info. @ -Patient received Toradol and Dilaudid in the emergency department and was feeling better. Undiagnosed new problem with uncertain prognosis? @ -No Drug Therapy requiring intensive monitoring for toxicity (Heparin, Nitro, Insulin, Cardizem)? @ -No Were any procedures done? @ -No Diagnosis/symptom? @ -Knee effusion Acute, or Chronic, or Acute on Chronic? @ -Acute Uncomplicated (without systemic symptoms) or Complicated (systemic symptoms)? @ -Uncomplicated Side effects of treatment? @ -No Exacerbation, Progression, or Severe Exacerbation? @ -No Poses a threat to life or bodily function? How? (Chest pain, [place], [place], pneumonia, PE, COPD, DKA, ARF, appy, cholecystitis, CVA, Diverticulitis, Homicidal, Suicidal, threat to staff... and all critical care pts) @ -No Diagnosis/symptom? @ -Head injury Acute, or Chronic, or Acute on Chronic? @ -Acute Uncomplicated (without systemic symptoms) or Complicated (systemic symptoms)? @ -Complicated Side effects of treatment? @ -None Exacerbation, Progression, or Severe Exacerbation] @ -No Poses a threat to life or bodily function? @ -No Diagnosis/symptom? @ -Trapezius muscle strain Acute, or Chronic, or Acute on Chronic? @ -Acute Uncomplicated (without systemic symptoms) or Complicated (systemic symptoms)? @ -Uncomplicated Side effects of treatment? @ -None Exacerbation, Progression, or Severe Exacerbation] @ -No Poses a threat to life or bodily function? @ -No Disposition Clinical Impression: Trapezius muscle strain, Head injury, Knee effusion Disposition: HOME SELF-CARE Condition: Good Instructions (If sedation given, give patient instructions): Fall Prevention (ED), Head Injury (ED), Swollen Knee Joint (ED) Additional Instructions: Patient can take Motrin and Tylenol as needed Patient can take Tylenol with codeine for pain Is patient prescribed a controlled substance at d/c from ED?: No Referrals: Waldemar Garcia MD [Primary Care Provider] - 1-2 days Time of Disposition: 13:05
[2024-02-28 11:14] VITALS: BP 151/91; PULSE 73; RESP 18; TEMP 98
--- NOTE | 2024-02-28 12:20 | CT ---
EXAMINATION TYPE: CT brain robbin wo con DATE OF EXAM: 02/28/2024 COMPARISON: 04/29/2019 HISTORY: 73-year-old female pain after Fall, hit head CT DLP: 1725.3 mGycm Automated exposure control for dose reduction was used. Technique: Examination of the head was done in axial plane without intravenous contrast. Coronal and sagittal reconstructions performed. CT of the cervical spine was obtained in axial plane without intravenous injection of contrast mater ial. Coronal and sagittal reformatted images were obtained from the axial views for evaluation of f ractures, spinal alignment and canal. FINDINGS: Head: There is no evidence of acute intracranial hemorrhage, acute ischemic changes, mass, mass-effect, or extra-axial fluid collection. There is no effacement of cerebral sulci or basal subarachnoid cister ns. There is no hydrocephalus. There is no midline shift. Barr-white matter distinction is preserv ed. Rightward nasal septal deviation. Trace mucosal thickening ethmoid air cells. Mastoid air cells well pneumatized. Orbits and globes are intact. Benign hyperostosis frontalis interna. Cervical spine: Left anterior chest wall pacer generator. No cranial cervical junction abnormality, predental space widening, or prevertebral soft tissue swell ing. There is moderate disc/endplate degenerative change at the mid and lower cervical spine along with hy pertrophic facet and uncovertebral joint arthropathy, greater towards the left. Degenerative trace grade 1 retrolisthesis C3-C4 and C5-C6. Trace grade 1 anterolisthesis C4-C5 and C7 -T1. No acute fracture seen of the cervical spine. Disc osteophyte complex formation may contribute to moderate spinal canal stenosis at C5-C6. There is variable moderate neural foraminal stenoses throughout, greatest on the left at C5-C6. Sagittal and coronal reformatted images confirm above findings. COMBINED IMPRESSION: 1. No acute intracranial abnormality seen. 2. Moderate spondylotic change mid to lower cervical spine. Degenerative grade 1 spondylolisthesis C3 -C4, C4-C5, C5-C6, and C7-T1. No acute fracture of the cervical spine.
--- NOTE | 2024-02-28 12:45 | XR ---
EXAMINATION TYPE: XR shoulder complete 3 views LT, XR Hip 2 views RT and AP Pelvis, XR knee complete 3 views RT DATE OF EXAM: 02/28/2024 Comparison: None Clinical History: 73-year-old female pain after falling, Trauma Findings: Left shoulder: AC joint appears congruent and intact. Subacromial space is preserved. Mild degenerative spurring at the glenohumeral joint. No acute fracture, subluxation, dislocation. Left-sided pacemaker generator n oted. Pelvis and right hip: Facet arthropathy in the lower lumbar spine. Patient is status post bilateral total hip arthroplastie s. Heterotopic ossification superior to the left hip arthroplasty measuring 4.5 x 1.2 cm. The femoral stem component of the left joint replacement is incompletely visualized. On the right, the acetabula r cup and femoral stem components appear well seated without care prosthetic fracture. Pelvic fluid w as. Pubic symphysis appears intact. Right knee: There is a moderate knee joint effusion. Tricompartmental degenerative change. Prominent rim osteophy abby at the lateral tibial plateau. Extensor mechanism appears intact. No acute fracture, subluxation, dislocation seen. Impression: 1. Left shoulder: Mild degenerative change at the glenohumeral joint. No acute osseous abnormality se en. 2. Pelvis and right hip: Femoral stem component of the left hip joint replacement incompletely visual ized. No evident complication of the visualized portions of either hip arthroplasty. 3. Right knee: Tricompartmental osteoarthrosis. A moderate knee joint effusion is nonspecific. No acu te osseous abnormality seen. If concern for internal derangement or occult osseous injury, MRI can be considered.
[2024-02-28] MEDS: KETOROLAC 15 MG/ML 1 ML VIAL IVP STA (13:26)
[2024-02-28] MEDS: ACET/COD 300 MG/30 MG STARTER PACK 6 TAB BTL PO STA (13:27)
[2024-02-28] MEDS: HYDROmorphone 0.5 MG/0.5 ML SYRINGE IVP STA (13:28)
== END 2024-02-28 13:43 | disposition home or self-care (01) ==
LOC: EC 10:53
DX: S46.912A Strain of unspecified muscle, fascia and tendon at shoulder and upper arm level, left arm, initial encounter (principal); S09.90XA Unspecified injury of head, initial encounter; M25.462 Effusion, left knee; Z88.5 Allergy status to narcotic agent; Z88.8 Allergy status to other drugs, medicaments and biological substances; W18.09XA Striking against other object with subsequent fall, initial encounter
CPT/HCPCS: 73030; 73502; 73562; 72125; 70450; 99284; 96374; 96375; J1885; J1170

== ENCOUNTER 2024-06-17 14:55 | Emergency (ER) | payer MEDICARE ==
[2024-06-17 15:09] VITALS: TEMP 98
--- NOTE | 2024-06-17 15:30 | ED ---
Chest Pain HPI - General Source: patient, family, RN notes reviewed Mode of arrival: ambulatory Limitations: no limitations <Chris Rey - Last Filed: 06/17/24 15:29> <Jeronimo Gutierrez - Last Filed: 06/17/24 21:05> - General Chief Complaint: Chest Pain Stated Complaint: swelling both legs Time Seen by Provider: 06/17/24 15:09 - History of Present Illness Initial Comments: Quick [id number] female presents emergency department chief complaint of chest pain, leg swelling. Patient states she has not felt well the last couple days she initially took some Pepcid and seemed to help but states that she still has worsening leg swelling and left-sided chest discomfort she had a prior pacemaker that was performed by a local underwriter solicitation director. Patient denies any cardiac stents denies history of CHF (Chris Rey) Dictation was produced using [employer] dictation software. please excuse any grammatical, word or spelling errors. Chief Complaint: 74-year-old female chronic history of leg swelling presents to the ER for lower extremity edema History of Present Illness: Patient 74-year-old female has past medical history of CML, A-fib pacemaker. States that over the last couple days she has had lower extremity edema. Patient for the last several months has been dealing with lower extremity edema. Patient takes Lasix daily. States that she ate some foods that she was exposed to eating which is why she may have developed lower extremity edema. Denies any history of CHF. No shortness of breath. She does have some mild substernal lower chest pain. Nonradiating not associate diaphoresis or nausea. Patient has no history of coronary artery disease. She follows closely with cardiology. The ROS documented in this emergency department record has been reviewed and confirmed by me. Those systems with pertinent positive or negative responses have been documented in the HPI. All other systems are other negative and/or noncontributory. (Jeronimo Gutierrez) - Related Data Home Medications Medication Instructions Recorded Confirmed Levothyroxine Sodium [Synthroid] 25 mcg PO QAM 05/26/14 04/17/22 Anastrozole [Arimidex] 1 mg PO HS 12/21/15 04/23/22 Furosemide [Lasix] 40 mg PO QAM 12/05/17 04/17/22 Oxybutynin ER [Ditropan XL] 10 mg PO HS 12/05/17 04/17/22 Apixaban [Eliquis] 5 mg PO BID 04/02/19 04/23/22 Flecainide [Tambocor] 100 mg PO BID 06/28/19 04/17/22 Imatinib Mesylate [Gleevec] 400 mg PO W/SUPPER 11/09/20 04/17/22 Calcium Carbonate/Vitamin D3 1 each PO BID 06/29/21 04/17/22 [Calcium 500 mg-Vit D3 5 mcg (200 Unit)] Potassium Chloride [Potassium 8 meq PO BID 06/29/21 04/17/22 Chloride ER] Cholecalciferol [Vitamin D3 (25 1 cap PO MO 12/27/21 04/17/22 Mcg = 1000 Iu)] Magnesium 200 mg PO DAILY 12/27/21 04/17/22 calcitrioL 1 cap PO MOTH 12/27/21 04/17/22 Previous Rx's Medication Instructions Recorded atenoloL [Tenormin] 50 mg PO QAM #30 tab 04/30/19 HYDROcodone/APAP 7.5-325MG [Glade 1 - 2 tab PO Q6HR PRN #32 tab 04/23/22 7.5-325] Ondansetron Odt [Zofran Odt] 4 mg PO Q8HR PRN #10 tab 04/23/22 Sennosides-Docusate Sodium 2 tab PO HS #60 tablet 04/23/22 [Senokot-S] Ferrous Sulfate [Slow Release Iron] 250 mg PO DAILY #30 tab 04/24/22 Magnesium Hydroxide [Milk of 2,400 mg PO DAILY PRN ml 04/24/22 Magnesia Concentrate] Azelastine HCl [Astepro] 137 mcg NASAL BID 30 Days #1 ml 08/13/22 Cefdinir 300 mg PO Q12HR 10 Days #20 cap 08/13/22 Loratadine [Claritin] 10 mg PO DAILY 30 Days #30 tab 08/13/22 Amoxic-Pot Clav 875-125Mg 1 tab PO Q12HR #20 tab 03/12/23 [Augmentin 875-125] predniSONE 50 mg PO DAILY #4 tab 03/12/23 Tobra-Dexamet 0.3-0.1% Eye Sapna 1 drops LEFT EYE Q8H #15 ml 12/28/23 [Tobradex Ophth Susp] Allergies Allergy/AdvReac Type Severity Reaction Status Date / Time NSAIDS (Non-Steroidal Allergy Dr told Verified 06/17/24 15:09 Anti-Inflamma not to take adhesive AdvReac RED SKIN Verified 06/17/24 15:09 AND TAKES SKIN OFF-paper tape is ok meperidine HCl [From Demerol] AdvReac Rash/Hives, Verified 06/17/24 15:09 rapid heart rate morphine AdvReac Itching Verified 06/17/24 15:09 naproxen [From Aleve] AdvReac Dr told Verified 06/17/24 15:09 not to take Review of Systems ROS Other: All systems not noted in ROS Statement are negative. <Chris Rey - Last Filed: 06/17/24 15:29> ROS Other: All systems not noted in ROS Statement are negative. <Jeronimo Gutierrez - Last Filed: 06/17/24 21:05> ROS Statement: Those systems with pertinent positive or pertinent negative responses have been documented in the HPI. 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 History of Any Multi-Drug Resistant Organisms: None Reported Past Surgical History: Breast Surgery, Section, Hernia Repair, Hysterectomy, Joint Replacement, Orthopedic Surgery, Pacemaker Additional Past Surgical History / Comment(s): Left breat biopsy, left breast lumpectomy/2 lymph nodes removed, multiple bone marrow biopsies, port inserted/since removed, abdominal hernia repair, total hysterectomy, right heel spur removed, lef knee arthroscopy, EGD, colonoscopies, bilateral cataract removals/lens implants, right total hip replacement. Past Anesthesia/Blood Transfusion Reactions: Previous Problems w/ Anesthesia, Motion Sickness, Postoperative Nausea & Vomiting (PONV) Additional Past Anesthesia/Blood Transfusion Reaction / Comment(s): DIFFICULTY WAKING. Type of Cardiac Device: Permanent Pacemaker Device Placement Date:: 04/29/19 Past Psychological History: No Psychological Hx Reported Smoking Status: Never smoker Past Alcohol Use History: None Reported Past Drug Use History: None Reported - Past Family History Mother Family Medical History: Cancer Additional Family Medical History / Comment(s): PANCREATIC CANCER. Father Family Medical History: Coronary Artery Disease (CAD), Myocardial Infarction (FL) Additional Family Medical History / Comment(s): Father had a FL at the age of 50 yrs. He had CABG and mitral valve surgery. <Chris Rey M - Last Filed: 06/17/24 15:29> General Exam Limitations: no limitations General appearance: alert, in no apparent distress Head exam: Present: atraumatic, normocephalic, normal inspection Eye exam: Present: normal appearance, PERRL, EOMI. Absent: scleral icterus, conjunctival injection, periorbital swelling ENT exam: Present: normal exam, mucous membranes moist Neck exam: Present: normal inspection. Absent: tenderness, meningismus, lymphadenopathy Respiratory exam: Present: normal lung sounds bilaterally. Absent: respiratory distress, wheezes, rales, rhonchi, stridor Cardiovascular Exam: Present: regular rate, normal rhythm, normal heart sounds. Absent: systolic murmur, diastolic murmur, rubs, gallop, clicks GI/Abdominal exam: Present: soft, normal bowel sounds. Absent: distended, tenderness, guarding, rebound, rigid Extremities exam: Present: normal inspection, full ROM, normal capillary refill. Absent: tenderness, pedal edema, joint swelling, calf tenderness Back exam: Present: normal inspection Neurological exam: Present: alert, oriented X3, CN II-XII intact Psychiatric exam: Present: normal affect, normal mood Skin exam: Present: warm, dry, intact, normal color. Absent: rash <Chris Rey - Last Filed: 06/17/24 15:29> <Jeronimo uGtierrez - Last Filed: 06/17/24 21:05> - General Exam Comments Initial Comments: Visual Physical Exam Vital signs reviewed General: Well-appearing, nontoxic, no acute distress. Head: Normocephalic, atraumatic Eyes: PERRLA, EOMI ENT: Airway patent Chest: Nonlabored breathing Skin: No visual rash, normal skin tone Neuro: Alert and oriented 3 Musculoskeletal: No gross abnormalities (Chris Rey) PHYSICAL EXAM: General Impression: Alert and oriented x3, not in acute distress HEENT: Normocephalic atraumatic, extra-ocular movements intact, pupils equal and reactive to light bilaterally, mucous membranes moist. Cardiovascular: Heart regular rate and rhythm Chest: Able to complete full sentences, no retractions, no tachypnea Abdomen: abdomen soft, non-tender, non-distended, no organomegaly Musculoskeletal: Pulses present and equal in all extremities, 2+ pitting edema to lower extremities Motor: no focal deficits noted Neurological: CN II-XII grossly intact, no focal motor or sensory deficits noted Skin: Intact with no visualized rashes Psych: Normal affect and mood (Jeronimo Gutierrez) Course Vital Signs 06/17/24 06/17/24 15:06 18:21 Temperature 98 F Pulse Rate 76 61 Respiratory 18 18 Rate Blood Pressure 119/70 133/87 O2 Sat by Pulse 98 98 Oximetry Chest Pain MDM <Chris Rey - Last Filed: 06/17/24 15:29> <Jeronimo Gutierrez - Last Filed: 06/17/24 21:05> - MDM I completed the quick note portion of this chart signed Chris Rey PA-C (Chris Rey) My EKG interpretation: Ventricular rate 62, atrial pacemaker, TN interval 240, QRS 122, QTc 408. No TN prolongation, no QTC prolongation, no ST or T-wave changes noted. Overall, this EKG is unremarkable Was pt. sent in by a medical professional or institution (JADA Zazueta, HEATER OPERATOR HELPER, urgent care, hospital, or senior care...) When possible be specific @ -No Did you speak to anyone other than the patient for history (EMS, parent, family, police, friend...)? What history was obtained from this source @ -No Did you review nursing and triage notes (agree or disagree)? Why? @ -I reviewed and agree with nursing and triage notes Were old charts reviewed (outside hosp., previous admission, EMS record, old EKG, old radiological studies, urgent care reports/EKG's, senior care records)? Report findings @ -No old charts were reviewed Differential Diagnosis (chest pain, altered mental status, abdominal pain women, abdominal pain men, vaginal bleeding, musculoskeletal, weakness, fever, dyspnea, syncope, headache, dizziness, GI bleed, back pain, seizure, CVA, palpatations, mental health)? @ -Cellulitis, heart failure, dependent edema EKG interpreted by me (3pts min.). @ -See above X-rays interpreted by me (1pt min.). @ -X-ray shows no acute processes CT interpreted by me (1pt min.). @ -None done U/S interpreted by me (1pt. min.). @ -None done What testing was considered but not performed or refused? (CT, X-rays, U/S, labs)? Why? @ -None What meds were considered but not given or refused? Why? @ -None Was smoking cessation discussed for >3mins.? @ -No Were there social determinants of health that impacted care today? How? (Homelessness, low income, unemployed, alcoholism, drug addiction, transportation, low edu. Level, literacy, decrease access to med. care, [facility], rehab)? @ -No Was there de-escalation of care discussed even if they declined (Discuss DNR or withdrawal of care, Hospice)? DNR status @ -No What co-morbidities impacted this encounter? (DM, HTN, Smoking, COPD, CAD, Cancer, CVA, ARF, Chemo, Hep., AIDS, mental health diagnosis, sleep apnea, morbid obesity)? @ -None Was patient admitted / discharged? Hospital course, mention meds given and rou te, prescriptions, significant lab abnormalities, going to OR and other pertinent info. @ -74-year-old female presents to the emergency department with chief complaint of lower extremity edema. Patient has chronic bilateral lower extremity edema. Patient denies any shortness of breath. Vital signs are stable. Patient denies any history of heart failure. Laboratory evaluation is unremarkable. Patient offered IV Lasix however refused states that she will just double up on her oral Lasix tomorrow. 2 troponins negative. She did have secondary complaint of atypical chest pain with typical features. Patient would like to be discharged. Advised follow-up with underwriter solicitation director and primary care doctor. Did you discuss the management of the patient with other professionals (professionals i.e. , PA, HEATER OPERATOR HELPER, lab, RT, psych nurse, director of social media marketing, reservations clerk, teacher, gifts officer, casework supervisor)? Give summary @ -No Was critical care preformed (if so, how long)? @ -No Undiagnosed new problem with uncertain prognosis? @ -No Drug Therapy requiring intensive monitoring for toxicity (Heparin, Nitro, Insulin, Cardizem)? @ -No Were any procedures done? @ -No Diagnosis/symptom? Acute, or Chronic, or Acute on Chronic? Uncomplicated (without systemic symptoms) or Complicated (systemic symptoms)? @ -Lower extremity edema, no high risk features Side effects of treatment? @ -No Exacerbation, Progression, or Severe Exacerbation? @ -No Poses a threat to life or bodily function? How? (Chest pain, [place], [place], pneumonia, PE, COPD, DKA, ARF, appy, cholecystitis, CVA, Diverticulitis, Homicidal, Escobar icidal, threat to staff... and all critical care pts) @ -No (Jeronimo Gutierrez) Disposition <Chris Rey - Last Filed: 06/17/24 15:29> Is patient prescribed a controlled substance at d/c from ED?: No Time of Disposition: 21:05 <Jeronimo Gutierrez - Last Filed: 06/17/24 21:05> Clinical Impression: Lower extremity edema Disposition: HOME SELF-CARE Condition: Good Instructions (If sedation given, give patient instructions): Edema (ED) Referrals: Juan Jose Bennett MD [Primary Care Provider] - 1-2 days
--- NOTE | 2024-06-17 16:20 | XR ---
EXAMINATION TYPE: XR chest 2V DATE OF EXAM: 06/17/2024 COMPARISON: 08/13/2022 HISTORY: 74-year-old female with chest pain TECHNIQUE: PA and lateral views FINDINGS: Heart upper limits of normal in size. Moderate interstitial prominence is unchanged. Left anterior ch est wall pacemaker generator with right atrial and right ventricular leads. No toñito consolidation or pleural effusion. Surgical clips left upper quadrant. IMPRESSION: Chronic changes. No acute process seen.
[2024-06-17 16:28] LABS: Basophils % (A) 0 %; Eosinophils # (A) 0.1 k/uL (0-0.7); Eosinophils % (A) 2 %; HCT 36.8 % (34.0-46.0); Lymphocytes # (A) 1.3 k/uL (1.0-4.8); Lymphocytes % (A) 18 %; MCH 32.8 pg (25.0-35.0); MCHC 32.6 g/dL (31.0-37.0); MCV 100.8 fL (80.0-100.0); Macrocytosis Slight; Mean Platelet Volume 7.6; Monocytes # (A) 0.3 k/uL (0-1.0); Monocytes % (A) 4 %; Neutrophils # (A) 5.2 k/uL (1.3-7.7); Neutrophils % (A) 75 %; Platelet Count 269 k/uL (150-450); RBC 3.65 m/uL (3.80-5.40); RDW 13.8 % (11.5-15.5)
[2024-06-17 16:38] LABS: ALT 24 U/L (4-34); African American GFR (CKD) 44 (>60 ml/min/1.73 sqM); Albumin 3.7 g/dL (3.5-5.0); Anion Gap 4 mmol/L; Blood Urea Nitrogen 21 mg/dL (7-17); Calcium 9.7 mg/dL (8.4-10.2); Carbon Dioxide 29 mmol/L (22-30); Chloride 106 mmol/L (98-107); Glucose 101 mg/dL (74-99); Non-African American GFR(CKD) 38 (>60 ml/min/1.73 sqM); Sodium 139 mmol/L (137-145); Total Bilirubin 0.6 mg/dL (0.2-1.3); Total Protein 5.9 g/dL (6.3-8.2)
[2024-06-17 16:41] LABS: INR 0.9 (<1.2); Partial Thromboplastin Time 25.4 sec (22.0-30.0); Prothrombin Time 10.2 sec (10.0-12.5)
[2024-06-17 16:46] LABS: NT-Pro-B-Type Natriuretic Pept 786 pg/mL
[2024-06-17 16:58] LABS: AST 38 U/L (14-36); Alkaline Phosphatase 48 U/L (38-126); Magnesium 1.9 mg/dL (1.6-2.3); Potassium 4.1 mmol/L (3.5-5.1)
[2024-06-17 18:22] VITALS: PULSE 61
[2024-06-17] MEDS: FUROSEMIDE 10 MG/ML 4 ML VIAL IV STA (21:08)
[2024-06-17 21:25] VITALS: BP 133/64; RESP 16
== END 2024-06-17 21:25 | disposition home or self-care (01) ==
LOC: EC 14:55
CPT/HCPCS: 36415; 71046; 80053; 83735; 83880; 84484; 85025; 85610; 85730; 93005; 99285

== ENCOUNTER → 2024-07-01 | Outpatient (CLI) | payer MEDICARE ==
--- NOTE | 2024-07-01 13:39 | MM ---
Reason for Exam: Hx of breast cancer, conservation therapy. Last screening mammogram was performed 12 month(s) ago. Patient History: Menarche at age 17. First Full-Term at age 27. Left ovary removed at age 49. Right ovary removed at age 37. Hysterectomy at age 37. Postmenopausal. Other cancer, age 55. Breast cancer, left, age 63. 2013, Lumpectomy on the Left side. 07/07/2019, Benign Core Biopsy on the left side. 08/28/2018, Benign Core Biopsy on the left side. 01/02/2016, Cyst Aspiration on the Left side. 12/13/2015, Benign Cyst Aspiration on the left side. 12/13/2015, Benign Core Biopsy on the left side. 10/03/2014, Malignant Core Biopsy on the left side. 05/04/2014, Malignant Core Biopsy on the left side. Chemotherapy. Radiation Therapy, left. 2013, Chemotherapy. 2013, Radiation Therapy on the left side. Paternal cousin had breast cancer. Paternal cousin had breast cancer. Prior Study Comparison: 06/15/2018 Bilateral Diagnostic Mammogram, [facility]. 06/16/2019 Bilateral Diagnostic Mammogram, [facility]. 04/15/2022 Right Diagnostic Mammogram, [facility]. 06/27/2022 Bilateral Diagnostic Mammogram, [facility]. Tissue Density: The breasts are heterogeneously dense, which may obscure small masses. Findings: Analyzed By CAD. Postoperative lumpectomy changes left breast. No evidence for new mass or distortion. No suspicious microcalcifications. Overall Assessment: Benign, BI-RAD 2 Management: Diagnostic Mammogram of both breasts in 1 year. . Results were given to the patient verbally at the time of exam. Patient should continue monthly self-breast exams. A clinical breast exam by your physician is recommended on an annual basis. This exam should not preclude additional follow-up of suspicious palpable abnormalities. Note on Reina scores and lifetime risk: 1. A Reina score greater than 3% is considered moderate risk. If this is the case, consider specialist referral to assess eligibility for a risk reducing agent. 2. If overall lifetime risk for the development of breast cancer is 20% or higher, the patient may qualify for future screening with alternating mammogram and breast MRI. Electronically signed and approved by: Joe Kent M.D. Radiologis
--- NOTE | 2024-07-01 14:59 | BD ---
EXAMINATION TYPE: Axial Bone Density DATE OF EXAM: 07/01/2024 CLINICAL HISTORY: 74 years old Female. ICD-10 CODE: C50.212 Breast ca Height: 65.5" Weight: 253lbs FRAX RISK QUESTIONS: Alcohol (3 or more units per day): No Family History (Parent hip fracture): No Glucocorticoids (More than 3mos): No (Ex: prednisone, prednisolone, methylprednisolone, dexamethasone, and hydrocortisone). History of Fracture in Adulthood: Secondary Osteoporosis: No 1. Type 1 Diabetes: No 2. Hyperthyroidism: No 3. Menopause before 45: No 4. Malnutrition: No 5. Chronic liver disease: No Rheumatoid Arthritis: No Current Tobacco Use: No RISK FACTORS HISTORY OF: Hip Fracture (Right/Left): No Spine Fracture: No History of Wrist Fracture: No Surgery to Spine/Hip(right/left)/Wrist (right/left): Bilateral hip replacement When: 2018 & 2021 MEDICATIONS: Thyroid Medications: Yes Which medication: Synthroid How Lon years Osteoporosis Medications: Prolia, and Calcium Vit D Which medication: Prolia How Long: Approx 5 years EXAM MEASUREMENTS: Bone mineral densitometry was performed using the [employer] System. Bone mineral density as measured about the Lumbar spine is: ----- L1-L4(G/cm2): 1.417 T Score Values are as follows: ----- L1: 1.1 ----- L2: 1.0 ----- L3: 2.6 ----- L4: 2.7 ----- L1-L4: 2.0 Z Score Values are as follows: ----- L1: 1.6 ----- L2: 1.5 ----- L3: 3.1 ----- L4: 3.3 ----- L1-L4: 2.5 Bone mineral density has: increase 4.6% since study of: 06/11/2022 Bone mineral density about the L Wrist (g/cm2): 0.770 T Score values are as follows: -----Dist. R+U: 0.3 -----Prox. R+U: 2.4 -----Radius total: 1.6 Z Score values are as follows: -----Dist. R+U: 2.4 -----Prox. R+U: 4.5 -----Radius total: 3.7 Bone mineral density has: increased 1.5% since study of: 06/11/2022 FRAX%s: N/A IMPRESSION: Normal (Values between +1 and -1 indicate normal bone mass). Consider repeating this study in 5 year s or sooner if there is some new clinical indication. NOTE: T-SCORE=SD OF THE YOUNG ADULT MEAN.
== END | disposition home or self-care (01) ==
LOC: RADMAMWWP 13:00
PROVIDERS: ATTEND Internal Medicine Hematology & Oncology
DX: C50.212 Malignant neoplasm of upper-inner quadrant of left female breast
CPT/HCPCS: 77062; 77066; 77080

== ENCOUNTER 2024-11-08 06:51 | Emergency (ER) | payer MEDICARE ==
--- NOTE | 2024-11-08 07:20 | ED ---
General Adult HPI - General Chief complaint: Back Pain/Injury Stated complaint: hip pain Time Seen by Provider: 11/08/24 07:19 Source: patient, RN notes reviewed Mode of arrival: wheelchair Limitations: no limitations - History of Present Illness Initial comments: 74-year-old female presenting to emergency room with son for complaint of left sciatic nerve irritation. Patient states that on Friday while she was in her bed she went to reach for an object while laying down and felt a pulling sensation in her left buttock. She states that over the past 2 days she has had increasing irritation of the nerve with intermittent radiation down the posterior left leg into the ankle. She denies recent falls or injuries. She denies lumbar or thoracic back pain. She denies loss of bladder bowel continence or saddle seizures. States that she has taken [place] at home with minimal relief. She has had sciatic nerve irritation in the past however irritation of the left sciatic nerve is new his pain is usually on the right- hand side. - Related Data Home Medications Medication Instructions Recorded Confirmed Levothyroxine Sodium [Synthroid] 25 mcg PO QAM 05/26/14 04/17/22 Anastrozole [Arimidex] 1 mg PO HS 12/21/15 04/23/22 Furosemide [Lasix] 40 mg PO QAM 12/05/17 04/17/22 Oxybutynin ER [Ditropan XL] 10 mg PO HS 12/05/17 04/17/22 Apixaban [Eliquis] 5 mg PO BID 04/02/19 04/23/22 Flecainide [Tambocor] 100 mg PO BID 06/28/19 04/17/22 Imatinib Mesylate [Gleevec] 400 mg PO W/SUPPER 11/09/20 04/17/22 Calcium Carbonate/Vitamin D3 1 each PO BID 06/29/21 04/17/22 [Calcium 500 mg-Vit D3 5 mcg (200 Unit)] Potassium Chloride [Potassium 8 meq PO BID 06/29/21 04/17/22 Chloride ER] Cholecalciferol [Vitamin D3 (25 1 cap PO MO 12/27/21 04/17/22 Mcg = 1000 Iu)] Magnesium 200 mg PO DAILY 12/27/21 04/17/22 calcitrioL 1 cap PO MOTH 12/27/21 04/17/22 Previous Rx's Medication Instructions Recorded atenoloL [Tenormin] 50 mg PO QAM #30 tab 04/30/19 HYDROcodone/APAP 7.5-325MG [[place] 1 - 2 tab PO Q6HR PRN #32 tab 04/23/22 7.5-325] Ondansetron Odt [Zofran Odt] 4 mg PO Q8HR PRN #10 tab 04/23/22 Sennosides-Docusate Sodium 2 tab PO HS #60 tablet 04/23/22 [Senokot-S] Ferrous Sulfate [Slow Release Iron] 250 mg PO DAILY #30 tab 04/24/22 Magnesium Hydroxide [Milk of 2,400 mg PO DAILY PRN ml 04/24/22 Magnesia Concentrate] Azelastine HCl [Astepro] 137 mcg NASAL BID 30 Days #1 ml 08/13/22 Cefdinir 300 mg PO Q12HR 10 Days #20 cap 08/13/22 Loratadine [Claritin] 10 mg PO DAILY 30 Days #30 tab 08/13/22 Amoxic-Pot Clav 875-125Mg 1 tab PO Q12HR #20 tab 03/12/23 [Augmentin 875-125] predniSONE 50 mg PO DAILY #4 tab 03/12/23 Tobra-Dexamet 0.3-0.1% Eye Sapna 1 drops LEFT EYE Q8H #15 ml 12/28/23 [Tobradex Ophth Susp] Cyclobenzaprine [Flexeril] 5 mg PO TID PRN #15 tablet 11/08/24 Allergies Allergy/AdvReac Type Severity Reaction Status Date / Time NSAIDS (Non-Steroidal Allergy Dr told Verified 11/08/24 07:12 Anti-Inflamma not to take adhesive AdvReac RED SKIN Verified 11/08/24 07:12 AND TAKES SKIN OFF-paper tape is ok meperidine HCl [From Demerol] AdvReac Rash/Hives, Verified 11/08/24 07:12 rapid heart rate morphine AdvReac Itching Verified 11/08/24 07:12 naproxen [From Aleve] AdvReac told Verified 11/08/24 07:12 not to take Review of Systems ROS Statement: Those systems with pertinent positive or pertinent negative responses have been documented in the HPI. ROS Other: All systems not noted in ROS Statement are negative. 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 gout History of Any Multi-Drug Resistant Organisms: None Reported Past Surgical History: Breast Surgery, Section, Hernia Repair, Hysterectomy, Joint Replacement, Orthopedic Surgery, Pacemaker Additional Past Surgical History / Comment(s): Left breat biopsy, left breast lumpectomy/2 lymph nodes removed, multiple bone marrow biopsies, port inserted/since removed, abdominal hernia repair, total hysterectomy, right heel spur removed, lef knee arthroscopy, EGD, colonoscopies, bilateral cataract removals/lens implants, right total hip replacement. Past Anesthesia/Blood Transfusion Reactions: Previous Problems w/ Anesthesia, Motion Sickness, Postoperative Nausea & Vomiting (PONV) Additional Past Anesthesia/Blood Transfusion Reaction / Comment(s): DIFFICULTY WAKING. Type of Cardiac Device: Permanent Pacemaker Device Placement Date:: 04/29/19 Past Psychological History: No Psychological Hx Reported Smoking Status: Never smoker Past Alcohol Use History: None Reported Past Drug Use History: None Reported - Past Family History Mother Family Medical History: Cancer Additional Family Medical History / Comment(s): PANCREATIC CANCER. Father Family Medical History: Coronary Artery Disease (CAD), Myocardial Infarction (LA) Additional Family Medical History / Comment(s): Father had a LA at the age of 50 yrs. He had CABG and mitral valve surgery. General Exam Limitations: no limitations General appearance: alert, in no apparent distress, obese Neck exam: Present: normal inspection. Absent: tenderness, meningismus, lymphadenopathy Respiratory exam: Present: normal lung sounds bilaterally. Absent: respiratory distress, wheezes, rales, rhonchi, stridor Cardiovascular Exam: Present: regular rate, normal rhythm, normal heart sounds. Absent: systolic murmur, diastolic murmur, rubs, gallop, clicks GI/Abdominal exam: Present: soft, normal bowel sounds. Absent: distended, tenderness, guarding, rebound, rigid Left Hip exam: Present: normal inspection, tenderness. Absent: deformity, crepitus Lower Leg exam: Present: normal inspection, full ROM. Absent: tenderness Neurovascular tendon exam: Present: no vascular compromise Gait: not tested/not observed Back exam: Present: normal inspection Neurological exam: Present: alert, oriented X3, CN II-XII intact Course Vital Signs 11/08/24 07:12 Temperature 97.7 F Pulse Rate 115 H Respiratory 20 Rate Blood Pressure 119/61 O2 Sat by Pulse 100 Oximetry Medical Decision Making - Medical Decision Making Was pt. sent in by a medical professional or institution (, PA, E COMMERCE MANAGER, urgent care, hospital, or longterm...) When possible be specific @ -No Did you speak to anyone other than the patient for history (EMS, parent, family, police, friend...)? What history was obtained from this source @ -No Did you review nursing and triage notes (agree or disagree)? Why? @ -I reviewed and agree with nursing and triage notes Were old charts reviewed (outside hosp., previous admission, EMS record, old EKG, old radiological studies, urgent care reports/EKG's, longterm records)? Report findings @ -No old charts were reviewed Differential Diagnosis (chest pain, altered mental status, abdominal pain women, abdominal pain men, vaginal bleeding, weakness, fever, dyspnea, syncope, headache, dizziness, GI bleed, back pain, seizure, CVA, palpatations, mental health, musculoskeletal)? @ -Differential Back Pain: Strain, zoster, cauda equina syndrome, epidural abscess, vertebral osteomyelitis, discitis, fracture, subluxation, disc herniation, DJD, spinal stenosis, dissection, AAA, pancreatitis, peptic ulcer disease, pyelonephritis, kidney stone, this is not meant to be an all-inclusive list. EKG interpreted by me (3pts min.). @ -none X-rays interpreted by me (1pt min.). @ -None done CT interpreted by me (1pt min.). @ -None done U/S interpreted by me (1pt. min.). @ -None done What testing was considered but not performed or refused? (CT, X-rays, U/S, labs)? Why? @ -None What meds were considered but not given or refused? Why? @ -None Did you discuss the management of the patient with other professionals (professionals i.e. , PA, E COMMERCE MANAGER, lab, RT, psych nurse, social service assistant, solar sales specialist, teacher, money position officer, special education case manager)? Give summary @ -No Was smoking cessation discussed for >3mins.? @ -No Was critical care preformed (if so, how long)? @ -No Were there social determinants of health that impacted care today? How? (Homelessness, low income, unemployed, alcoholism, drug addiction, transportation, low edu. Level, literacy, decrease access to med. care, prison, rehab)? @ -No Was there de-escalation of care discussed even if they declined (Discuss DNR or withdrawal of care, Hospice)? DNR status @ -No What co-morbidities impacted this encounter? (DM, HTN, Smoking, COPD, CAD, Cancer, CVA, ARF, Chemo, Hep., AIDS, mental health diagnosis, sleep apnea, morbid obesity)? @ -None Was patient admitted / discharged? Hospital course, mention meds given and route, prescriptions, significant lab abnormalities, going to OR and other pertinent info. @ -Discharge. 74-year-old female presenting with for complaint of left sciatic nerve irritation. Patient has a positive straight leg test on the left leg. She is not examining symptoms red flag concerning for cauda equina such as loss of bladder or bowel continence or saddle anesthesias or lumbar back pain. She is provided with Solu-Medrol and pain medication. On reevaluation patient is that she is feeling better and is requesting discharge. She is sent a prescription for low-dose Flexeril to take strictly only as needed and recommend that patient does not take this medication alongside [place] prescription. Case discussed with Dr. Pond Undiagnosed new problem with uncertain prognosis? @ -No Drug Therapy requiring intensive monitoring for toxicity (Heparin, Nitro, Insulin, Cardizem)? @ -No Were any procedures done? @ -No Diagnosis/symptom? @ -Sciatic nerve irritation, sciatica Acute, or Chronic, or Acute on Chronic? @ -Acute Uncomplicated (without systemic symptoms) or Complicated (systemic symptoms)? @ -Uncomplicated Side effects of treatment? @ -No Exacerbation, Progression, or Severe Exacerbation? @ -No Poses a threat to life or bodily function? How? (Chest pain, USA, LA, pneumonia, PE, COPD, DKA, ARF, appy, cholecystitis, CVA, Diverticulitis, Homicidal, Suicidal, threat to staff... and all critical care pts) @ -No Disposition Clinical Impression: Irritation of sciatic nerve Disposition: HOME SELF-CARE Condition: Good Instructions (If sedation given, give patient instructions): Sciatica (ED) Additional Instructions: Please return to the Emergency Department if symptoms worsen or any other concerns. Prescriptions: Cyclobenzaprine [Flexeril] 5 mg PO TID PRN #15 tablet PRN Reason: Muscle Spasm Is patient prescribed a controlled substance at d/c from ED?: No Referrals: Juan Jose Bennett MD [Primary Care Provider] - 1-2 days Time of Disposition: 08:19
[2024-11-08] MEDS ORDERED: MORPHINE SULFATE 4 MG/ML SYRINGE IM STA (07:30)
[2024-11-08] MEDS: methylPREDNISolone SOD SUCCI 125 MG/2 ML VIAL IM ONE (07:37)
[2024-11-08] MEDS: HYDROmorphone 0.5 MG/0.5 ML SYRINGE IM STA (07:38)
[2024-11-08 08:44] VITALS: BP 120/67; PULSE 60; RESP 18; TEMP 98.1
== END 2024-11-08 08:43 | disposition home or self-care (01) ==
LOC: EC 06:51
DX: M54.32 Sciatica, left side (principal); Z88.5 Allergy status to narcotic agent; Z88.6 Allergy status to analgesic agent; Z88.8 Allergy status to other drugs, medicaments and biological substances
CPT/HCPCS: 99283; 96372 ×2; J1171; J2919

== ENCOUNTER 2024-11-08 21:02 | Observation (INO) | payer MEDICARE ==
--- NOTE | 2024-11-08 21:57 | ED ---
General Adult HPI - General Chief complaint: Extremity Problem,Nontraumatic Stated complaint: Hip/Buttock Pain-revisit Source: patient Mode of arrival: wheelchair - History of Present Illness Initial comments: Patient is a 74-year-old female past medical history of kidney disease, atrial fibrillation presenting today for sciatic nerve pain. Patient states that Friday morning she twisted to pick something up off the ground and later that day began experiencing shooting pain down her left leg from her left buttock. She attempted an old home Filion from a hip surgery from 2 years ago without relief of pain. She was seen earlier today in the ER, given a shot of Dilaudid and prescribed Flexeril. Patient states Dilaudid was able to improve the pain of her to get home however pain began again this afternoon. She took Tylenol at 330 and Flexeril at 630 without any relief of pain. Typically she ambulates with a walker however is currently unable to ambulate or stand secondary to pain. She denies any recent falls, trauma, midline back pain, IV drug use, fevers, new incontinence or difficulty urinating, incontinence of stool, saddle anesthesia, chest pain, shortness of breath, abdominal pain, numbness. - Related Data Home Medications Medication Instructions Recorded Confirmed Levothyroxine Sodium [Synthroid] 25 mcg PO DAILY 05/26/14 11/09/24 Anastrozole [Arimidex] 1 mg PO HS 12/21/15 11/09/24 Furosemide [Lasix] 40 mg PO DAILY 12/05/17 11/09/24 Oxybutynin ER [Ditropan XL] 10 mg PO HS 12/05/17 11/09/24 Apixaban [Eliquis] 5 mg PO BID 04/02/19 11/09/24 Flecainide [Tambocor] 100 mg PO BID 06/28/19 11/09/24 Calcium Carbonate/Vitamin D3 1 tab PO BID 06/29/21 11/09/24 [Calcium 500 mg-Vit D3 5 mcg (200 Unit)] Potassium Chloride [Potassium 8 meq PO BID 06/29/21 11/09/24 Chloride ER] Denosumab [Prolia] 60 mg SQ Q6M 11/09/24 11/09/24 Ergocalciferol (Vitamin D2) 1,250 mcg PO TH 01/21/25 01/21/25 [Drisdol (50,000 Iu)] Imatinib Mesylate [Gleevec] 400 mg PO HS 11/09/24 11/09/24 Magnesium Oxide [Magox 400] 400 mg PO DAILY 11/09/24 11/09/24 atenoloL [Tenormin] 50 mg PO DAILY 11/09/24 11/09/24 calcitrioL [Rocaltrol] 0.25 mcg PO DAILY 11/09/24 11/09/24 Previous Rx's Medication Instructions Recorded Famotidine [Pepcid] 20 mg PO DAILY #12 tablet 11/10/24 HYDROcodone/APAP 5-325MG [[place] 1 - 2 tab PO Q6HR PRN #56 tab 11/10/24 5-325] predniSONE [Deltasone] 20 mg PO DAILY #24 tab 11/10/24 methocarbamoL [Robaxin-750] 750 mg PO TID #90 tab 11/12/24 polyethylene glycoL 3350 [Miralax] 17 gm PO DAILY packet 11/12/24 Allergies Allergy/AdvReac Type Severity Reaction Status Date / Time NSAIDS (Non-Steroidal Allergy Dr told Verified 11/08/24 21:21 Anti-Inflamma not to take adhesive AdvReac RED SKIN Verified 11/08/24 21:21 AND TAKES SKIN OFF-paper tape is ok meperidine HCl [From Demerol] AdvReac Rash/Hives, Verified 11/08/24 21:21 rapid heart rate morphine AdvReac Itching Verified 11/08/24 21:21 naproxen [From Aleve] AdvReac told Verified 11/08/24 21:21 not to take Review of Systems ROS Statement: Those systems with pertinent positive or pertinent negative responses have been documented in the HPI. ROS Other: All systems not noted in ROS Statement are negative. Past Medical History Past Medical History: Atrial Fibrillation, Blood Disorder, Cancer, Chest Pain / Angina, Deep Vein Thrombosis (DVT), Osteoarthritis (OA), Renal Disease, Skin Disorder, Sleep Apnea/CPAP/BIPAP, Thyroid Disorder, Vascular Disorder Additional Past Medical History / Comment(s): 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 gout History of Any Multi-Drug Resistant Organisms: None Reported Past Surgical History: Breast Surgery, Section, Hernia Repair, Hysterectomy, Joint Replacement, Orthopedic Surgery, Pacemaker Additional Past Surgical History / Comment(s): Left breat biopsy, left breast lumpectomy/2 lymph nodes removed, multiple bone marrow biopsies, port inserted/since removed, abdominal hernia repair, total hysterectomy, right heel spur removed, lef knee arthroscopy, EGD, colonoscopies, bilateral cataract removals/lens implants, right total hip replacement. Past Anesthesia/Blood Transfusion Reactions: Previous Problems w/ Anesthesia, Motion Sickness, Postoperative Nausea & Vomiting (PONV) Additional Past Anesthesia/Blood Transfusion Reaction / Comment(s): DIFFICULTY WAKING. Type of Cardiac Device: Permanent Pacemaker Device Placement Date:: 04/29/19 Past Psychological History: No Psychological Hx Reported Smoking Status: Never smoker Past Alcohol Use History: None Reported Past Drug Use History: None Reported - Past Family History Mother Family Medical History: Cancer Additional Family Medical History / Comment(s): PANCREATIC CANCER. Father Family Medical History: Coronary Artery Disease (CAD), Myocardial Infarction (NC) Additional Family Medical History / Comment(s): Father had a NC at the age of 50 yrs. He had CABG and mitral valve surgery. General Exam - General Exam Comments Initial Comments: PE: Exam is limited as patient is unable to move from seated position and on edge of bed secondary to discomfort CONSTITUTIONAL: [no apparent distress, well appearing] SKIN: [warm, dry, no jaundice, hives or petechiae] EYES:[ pupils are equally round, extraocular movements intact without nystagmus, clear conjunctiva, non-icteric sclera] HENT: [normocephalic, atraumatic, moist mucus membranes, oropharynx clear without exudates] NECK: , [Full range of motion, normal appearance] PULMONARY: [clear to auscultation without wheezes, rhonchi, or rales, normal excursion, no accessory muscle use and no stridor] CARDIOVASCULAR:[ regular rate, rhythm, normal S1 and S2. No appreciated murmurs, rubs or gallops. Strong radial pulses with intact distal perfusion. No lower extremity edema] GASTROINTESTINAL: [soft, active bowel sounds throughout, non-tender, non- distended, no palpable masses, no rebound or guarding. No hepatosplenomegaly] GENITOURINARY: MUSCULOSKELETAL: [Extremities have no gross deformity, no edema, redness, or swelling. No calf swelling, no midline spinal tenderness palpation, tenderness the patient left sciatic notch] NEUROLOGIC: [_a/o x 3, GCS 15, normal mentation and speech. Moves all extremities x 4 without motor or sensory deficit] PSYCHIATRIC:[ _normal mood and affect, thought process is clear and linear] Course Vital Signs 11/08/24 11/08/24 11/09/24 21:16 22:14 02:06 Temperature 98.3 F 98.1 F Pulse Rate 64 64 57 L Respiratory 18 18 16 Rate Blood Pressure 162/69 188/78 128/71 O2 Sat by Pulse 98 98 98 Oximetry 11/09/24 11/09/24 11/09/24 05:53 07:42 12:00 Temperature 97.8 F 98.2 F 98.1 F Pulse Rate 62 61 63 Respiratory 16 18 18 Rate Blood Pressure 137/62 123/60 125/68 O2 Sat by Pulse 99 98 98 Oximetry 11/09/24 11/09/24 13:54 19:00 Temperature 98.2 F 98 F Pulse Rate 63 63 Respiratory 16 18 Rate Blood Pressure 144/77 134/78 O2 Sat by Pulse 97 96 Oximetry Medical Decision Making - Medical Decision Making Was pt. sent in by a medical professional or institution (JADA Zazueta, BRASS POLISHER, urgent care, hospital, or jail...) When possible be specific @ -No Did you speak to anyone other than the patient for history (EMS, parent, family, police, friend...)? What history was obtained from this source @ -No Did you review nursing and triage notes (agree or disagree)? Why? @ -I reviewed nursing and triage notes Were old charts reviewed (outside hosp., previous admission, EMS record, old EKG, old radiological studies, urgent care reports/EKG's, jail records)? Report findings @ -Medical records reviewed-patient here earlier today for similar complaint, she was provided with Solu-Medrol and a dose of pain medication discharged home on Flexeril Differential Diagnosis (chest pain, altered mental status, abdominal pain women, abdominal pain men, vaginal bleeding, weakness, fever, dyspnea, syncope, headache, dizziness, GI bleed, back pain, seizure, CVA, palpatations, mental health, musculoskeletal)? @Differential diagnose areli broad over top considerations include sciatica, peripheral neuropathy, DJD, DM differential Back Pain: Strain, zoster, fracture, subluxation, disc herniation, DJD, spinal stenosis, , kidney stone, this is not meant to be an all-inclusive list. EKG interpreted by me (3pts min.). @ -As above CT interpreted by me (1pt min.). @ -None done U/S interpreted by me (1pt. min.). @ -None done What testing was considered but not performed or refused? (CT, X-rays, U/S, labs)? Why? @CT/ XRof the lumbar spine was considered however pt has no midline TTP and no recent injury or falls, no fevers, no red flag symptoms indicating need for imaging. XR was ordered at time of admission at request of admitting physician. What meds were considered but not given or refused? Why? @ -None Did you discuss the management of the patient with other professionals (professionals i.e. , PA, BRASS POLISHER, lab, RT, psych nurse, social work coordinator, hr leader, teacher, airport operations officer, top case assembler)? Give summary @ -No Was smoking cessation discussed for >3mins.? @ -No Was critical care preformed (if so, how long)? @ -No Were there social determinants of health that impacted care today? How? (Homelessness, low income, unemployed, alcoholism, drug addiction, transportation, low edu. Level, literacy, decrease access to med. care, long-term, rehab)? @ -No Was there de-escalation of care discussed even if they declined (Discuss DNR or withdrawal of care, Hospice)? @ -No What co-morbidities impacted this encounter? (DM, HTN, Smoking, COPD, CAD, Cancer, CVA, ARF, Chemo, Hep., AIDS, mental health diagnosis, sleep apnea, morbid obesity)? @ -Obesity, CKD, Was patient admitted / discharged? Hospital course, mention meds given and ro kenyon, prescriptions, significant lab abnormalities, going to OR and other pertinent info. @ Admission- patient is a 74-year-old female presenting today for left-sided sciatic nerve pain. She has no red flag symptoms, no fevers, no urinary incontinence, no saddle anesthesia, no stool incontinence, no history IVDU, no midline spinal tenderness palpation. Is here for pain control. Patient is concerned that if pain is briefly controlled that she will return home only to find that she cannot function secondary to pain again. Discussed with her giving Dilaudid, muscle relaxant, reassessment. Patient still feels she cannot ambulate secondary to pain will need to be admitted for PT/OT and pain control On reassessment patient endorsed slight intermittent improvement in pain though states she still feels like her leg is spasming. Will give an additional half milligram of Dilaudid as patient is unable to have NSAIDs. At this point due to patient's persistent pain and difficulty with pain control and ambulation 2/ to ths will assess will admit for pain control PT and OT evaluation. Case discussed with Dr. Bennett, kindly accepts for admission. Requests XR L spine be ordered. This was ordered as requested and pt admitted in stable condition. Undiagnosed new problem with uncertain prognosis? @ -No Drug Therapy requiring intensive monitoring for toxicity (Heparin, Nitro, Insulin, Cardizem)? @ -No Were any procedures done? @ -No Diagnosis/symptom? Sciatica Acute, or Chronic, or Acute on Chronic? Acute Uncomplicated (without systemic symptoms) or Complicated (systemic symptoms)? uncomplicated Side effects of treatment? @ -No Exacerbation, Progression, or Severe Exacerbation? @ -No Poses a threat to life or bodily function? How? (Chest pain, [place], [place], pneumonia, PE, COPD, DKA, ARF, appy, cholecystitis, CVA, Diverticulitis, Homicidal, Suicidal, threat to staff... and all critical care pts) @ -No - Lab Data Result diagrams: 11/11/24 03:20 11/11/24 03:20 Disposition Clinical Impression: Sciatica of left side Disposition: ADMITTED IP TO THIS HOSP Condition: Stable
[2024-11-08] MEDS: ORPHENADRINE 30 MG/ML 2 ML VIAL IM STA (22:15)
[2024-11-08] MEDS: HYDROmorphone 1 MG/ML 1 ML SYRINGE IM STA (22:16)
[2024-11-08] MEDS: LIDOCAINE 4% PATCH TOPICAL ONE (22:16)
[2024-11-09] MEDS ORDERED: NALOXONE 0.4 MG/ML 1 ML VIAL IV PRN (00:28)
[2024-11-09] MEDS ORDERED: bisacodyL 5 MG TABLET.DR PO PRN (00:28)
[2024-11-09] MEDS ORDERED: MAG HYDROX/AL HYDROX/SIMETH 30 ML CUP PO PRN (00:28)
[2024-11-09] MEDS ORDERED: DOCUSATE 100 MG CAP PO PRN (00:28)
[2024-11-09] MEDS ORDERED: CALCIUM CARBONATE 500 MG CHEWABLE PO PRN (00:28)
[2024-11-09] MEDS: HYDROmorphone 0.5 MG/0.5 ML SYRINGE IM STA (00:30)
[2024-11-09] MEDS: HYDROcodone/APAP 5-325MG 1 EACH TAB PO PRN (05:57)
[2024-11-09] MEDS: HYDROmorphone 1 MG/ML 1 ML SYRINGE IVP PRN (07:44)
--- NOTE | 2024-11-09 08:42 | XR ---
EXAMINATION TYPE: XR lumbar spine 2 or 3V DATE OF EXAM: 11/09/2024 CLINICAL HISTORY: Left-sided sciatic nerve pain TECHNIQUE: Frontal and lateral images of the lumbar spine are obtained. COMPARISON: Lumbar spine x-ray 2009 FINDINGS: There are 5 lumbar type vertebral bodies redemonstrated. The lumbar spine shows persisten t and slightly more prominent levoconvex scoliosis centered at L2-L3 level.. Vertebral body heights r emain within normal limits. Moderate multilevel disc space narrowing is redemonstrated. Facet arthrop athy in the lower lumbar spine is again seen. Multiple overlying pelvic phleboliths incidentally note d. Surgical change to the bilateral hips is partially imaged. IMPRESSION: As above. [facility], , 11/09/2024 8:39 AM
[2024-11-09] MEDS: FAMOTIDINE 20 MG TAB PO SCH (09:13)
[2024-11-09] MEDS: FLECAINIDE 50 MG TAB PO SCH (11:55)
[2024-11-09 12:39] LABS: Basophils # (A) 0.1 k/uL (0-0.2); Basophils % (A) 0 %; Eosinophils # (A) 0.2 k/uL (0-0.7); Eosinophils % (A) 1 %; HCT 33.1 % (34.0-46.0); HGB 10.5 gm/dL (11.4-16.0); Hypochromasia Slight; Lymphocytes # (A) 1.5 k/uL (1.0-4.8); Lymphocytes % (A) 7 %; MCH 32.3 pg (25.0-35.0); MCHC 31.6 g/dL (31.0-37.0); MCV 102.1 fL (80.0-100.0); Macrocytosis Slight; Mean Platelet Volume 7.5; Monocytes % (A) 5 %; Neutrophils # (A) 19.6 k/uL (1.3-7.7); Neutrophils % (A) 87 %; Platelet Count 262 k/uL (150-450); RBC 3.24 m/uL (3.80-5.40); RDW 13.3 % (11.5-15.5); WBC 22.6 k/uL (3.8-10.6)
--- NOTE | 2024-11-09 13:03 | P.HPIM ---
History of Present Illness H&P Date: 11/09/24 Chief Complaint: Intractable low back pain inability to ambulate HISTORY OF PRESENT ILLNESS: This is a 74-year-old female with a previous medical history significant for hypertension and hypertensive cardiovascular disease, mixed hyperlipidemia, paroxysmal atrial fibrillation, history of chronic myelogenous leukemia, history of chronic kidney disease stage IIIa, secondary hyperparathyroidism, gout, left breast cancer, osteoporosis, patient presented to the emergency department at [facility] today in the morning because of intractable low back pain, apparently she had to emergency room visit because of intractable low back pain not able to ambulate, she did receive multiple doses of narcotics in the form of Dilaudid as well as Norflex, without any relief, today she woke up early hours in the morning and she was in intractable amount of pain, she was not able to sit she was not able to stand, EMS was called and the patient was brought into the ER at [facility] by her car according to her it took them about 30 minutes to get her into her car, and the patient was seen in the ER, had an x-ray that showed evidence of spondylosis as well as levoscoliosis as well, centered at L4-L5, patient did receive Dilaudid she did receive Norflex, no relief, she did receive another dose of Dilaudid without any relief patient was not able to ambulate at that point patient was admitted to the hospital spine surgery consultation was obtained, and CT of the lumbar spine without contrast was obtained as the patient is not able to take an MRI due to her pacemaker. REVIEW OF SYSTEMS: Constitutional: No documented fever, no chills, no night sweats. No weight change. No weakness, fatigue or lethargy. No daytime sleepiness. EENT: No headache. No blurred vision or double vision, no loss of vision. No loss of Hearing, no ringing in the ears, no dizziness. No nasal drainage or congestion. No epistaxis. No sore throat. Lungs: No shortness of breath, no cough, no sputum production. No wheezing. Reports dyspnea with activity. Cardiovascular: No chest pain, no lower extremity edema. No palpitations. No paroxysmal nocturnal dyspnea. No orthopnea. No lightheadedness or dizziness. No syncopal episodes. Abdominal: Reports abdominal pain. No nausea, vomiting. No diarrhea. No constipation. No bloody or tarry stools reports loss of appetite. Genitourinary: No dysuria, increased frequency, urgency. No urinary retention. Musculoskeletal: No myalgias. positive for muscle weakness, positive for gait dysfunction, no frequent falls. severe low back pain. No neck pain. Integumentary: No wounds, no lesions. No rash or pruritus. No unusual bruising. No change in hair or nails. Neurologic: No aphasia. No facial droop. No change in mentation. No head injury. No headache. No paralysis. No paresthesia. Psychiatric: mild depression. No anxiety. No mood swings. Endocrine: No abnormal blood sugars. No weight change. PAST MEDICAL HISTORY: Hypertension and hypertensive cardiovascular disease. Mixed hyperlipidemia. Paroxysmal atrial fibrillation. Chronic kidney disease stage IIIa. Secondary hyperparathyroidism. Osteoporosis. Gout. Chronic myelogenous leukemia. 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 Left breast cancer. Obesity with obstructive sleep apnea and obesity hypoventilation syndrome. PAST SURGICAL HISTORY: Partial hysterectomy 1985. Bilateral salpingectomy and oophorectomy 1998. Left breast lumpectomy with radiation therapy and 2 lymph node dissection they were -2013. 1977 and 1980. Right total hip arthroplasty 2018 Left total hip arthroplasty 2021. Permanent pacemaker placement 04/29/2019 Incisional hernia 2016 Colonoscopy 2016 Bilateral cataract surgery. Bilateral eyelid surgery. SOCIAL HISTORY: Patient is a lifelong non-smoker, she denies any alcohol ingestion, she denies any drug use or abuse. She lives at home FAMILY HISTORY: Father at age 73 from coronary artery disease he underwent coronary artery bypass graft x 5 and mitral valve replacement as well as was diabetic, mother at age 59 from pancreatic cancer, patient has 4 sisters one of them with pa ncreatitis, CAD, carotid artery disease, PAD, renal artery stenosis, 3 of them were diabetics patient has 2 daughters with hypertension. PHYSICAL EXAMINATION: General: 74-year-old female down in bed in moderate distress due to significant amount of low back pain. HEENT: Head is atraumatic, normocephalic, pupils were equal round reactive to light and recommendation, extraocular muscle movement were intact, sclera nonicteric, conjunctivae were pale, mucous membranes of the mouth are somewhat dry. Neck: Supple, no JVP, normal carotid upstroke bilaterally, no lymphadenopathy. Chest: Decreased breath sounds at the bases, few rhonchi, no expiratory wheezes, no chest wall tenderness, no intercostal retractions. Heart: First heart sound is normal, second heart sounds normal there is systolic ejection murmur 2 over systolic in the left sternal border irregular irregular due to atrial fibrillation, there is permanent pacemaker located in left upper precordium. Abdomen: Soft, nontender, nondistended, positive bowel sounds. Extremities: There is no edema no calf tenderness DP +2 bilaterally. Neurologic examination: Patient is awake alert and oriented x3, cranial nerves II-12 appear grossly intact, muscle power were 4 out of 5 in upper extremities and 2 out of 5 in the right lower extremity, and 1 out of 5 in the left lower extremity, patient is barely able to move her leg off the mattress on the left side, Babinski's were flexor bilaterally, there is no foot drop. ASSESSMENT AND PLAN: 1. Intractable low back pain likely due to spondylosis of the lumbar spine rule out disc herniation with significant scoliosis of the lumbar spine. Patient will be started on Robaxin 750 mg orally 3 times every day, Dilaudid 1 mg IV push every 4 hours as needed, continue [place] [id number], spine surgery consultation, CT scan of the lumbar spine for evaluation of the lumbar spine, patient may need to have an epidural injection while she is in the hospital as she is not able to ambulate at all. Further recommendation is to follow spine surgery recommendation. 2. Hypertension and hypertensive cardiovascular disease.Continue patient on atenolol 50 mg orally once every day, monitor the patient blood pressure very closely. 3. Paroxysmal atrial fibrillation. Continue patient on flecainide 100 mg orally twice every day, atenolol 50 mg orally once every day, continue Eliquis 5 mg orally twice every day. 4. Mixed hyperlipidemia. Patient is not take any statin at this point in time, she may need to be on PCSK9 inhibitor. 5. Hypothyroidism. Continue levothyroxine 25 mcg orally once every day. 6. Chronic kidney disease stage IIIa. Avoid nephrotoxins, avoid NSAIDs, monitor the patient CMP. 7. History of breast cancer status post left lumpectomy with radiation therapy continue anastrozole 1 mg orally once every day. 8. Secondary hyperparathyroidism. Stable at this time. Continue calcitriol 0.25 mcg orally once every day. 9. Obesity with obstructive sleep apnea. Continue with CPAP. 10. Constipation. Continue current bowel care Colace 100 mg orally twice every day, Dulcolax suppository as well as MiraLAX once every day. 11. Chronic myelogenous leukemia. Continue Gleevec 400 mg at bedtime. 12. Vitamin D deficiency. Continue vitamin D3 50,000 units once every week. 13. DVT prophylaxis. Continue Eliquis 5 mg orally twice every day. 14. GI prophylaxis. Continue Protonix 40 mg orally once every day. 15. Admit to inpatient. Estimated length of stay 2 midnights. 16. Full code. 17. Physical therapy evaluation for possible subacute rehabilitation. 18. 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 Past Medical History Past Medical History: Atrial Fibrillation, Blood Disorder, Cancer, Chest Pain / Angina, Deep Vein Thrombosis (DVT), Osteoarthritis (OA), Renal Disease, Skin Di sorder, Sleep Apnea/CPAP/BIPAP, Thyroid Disorder, Vascular Disorder Additional Past Medical History / Comment(s): 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 gout History of Any Multi-Drug Resistant Organisms: None Reported Past Surgical History: Breast Surgery, Section, Hernia Repair, Hysterectomy, Joint Replacement, Orthopedic Surgery, Pacemaker Additional Past Surgical History / Comment(s): Left breat biopsy, left breast lumpectomy/2 lymph nodes removed, multiple bone marrow biopsies, port inserted/since removed, abdominal hernia repair, total hysterectomy, right heel spur removed, lef knee arthroscopy, EGD, colonoscopies, bilateral cataract removals/lens implants, right total hip replacement. Past Anesthesia/Blood Transfusion Reactions: Previous Problems w/ Anesthesia, Mo tion Sickness, Postoperative Nausea & Vomiting (PONV) Additional Past Anesthesia/Blood Transfusion Reaction / Comment(s): DIFFICULTY WAKING. Type of Cardiac Device: Permanent Pacemaker Device Placement Date:: 04/29/19 Past Psychological History: No Psychological Hx Reported Smoking Status: Never smoker Past Alcohol Use History: None Reported Past Drug Use History: None Reported - Past Family History Mother Family Medical History: Cancer Additional Family Medical History / Comment(s): PANCREATIC CANCER. Father Family Medical History: Coronary Artery Disease (CAD), Myocardial Infarction (MN) Additional Family Medical History / Comment(s): Father had a MN at the age of 50 yrs. He had CABG and mitral valve surgery. Medications and Allergies Home Medications Medication Instructions Recorded Confirmed Type Levothyroxine Sodium [Synthroid] 25 mcg PO DAILY 05/26/14 11/09/24 History Anastrozole [Arimidex] 1 mg PO HS 12/21/15 11/09/24 History Furosemide [Lasix] 40 mg PO DAILY 12/05/17 11/09/24 History Oxybutynin ER [Ditropan XL] 10 mg PO HS 12/05/17 11/09/24 History Apixaban [Eliquis] 5 mg PO BID 04/02/19 11/09/24 History Flecainide [Tambocor] 100 mg PO BID 06/28/19 11/09/24 History Calcium Carbonate/Vitamin D3 1 tab PO BID 06/29/21 11/09/24 History [Calcium 500 mg-Vit D3 5 mcg (200 Unit)] Potassium Chloride [Potassium 8 meq PO BID 06/29/21 11/09/24 History Chloride ER] Denosumab [Prolia] 60 mg SQ Q6M 11/09/24 11/09/24 History Ergocalciferol (Vitamin D2) 1,250 mcg PO TH 11/09/24 11/09/24 History [Drisdol (50,000 Iu)] Imatinib Mesylate [Gleevec] 400 mg PO HS 11/09/24 11/09/24 History Magnesium Oxide [Magox 400] 400 mg PO DAILY 11/09/24 11/09/24 History atenoloL [Tenormin] 50 mg PO DAILY 11/09/24 11/09/24 History calcitrioL [Rocaltrol] 0.25 mcg PO DAILY 11/09/24 11/09/24 History Allergies Allergy/AdvReac Type Severity Reaction Status Date / Time NSAIDS (Non-Steroidal Allergy told Verified 11/08/24 21:21 Anti-Inflamma not to take adhesive AdvReac RED SKIN Verified 11/08/24 21:21 AND TAKES SKIN OFF-paper tape is ok meperidine HCl [From Demerol] AdvReac Rash/Hives, Verified 11/08/24 21:21 rapid heart rate morphine AdvReac Itching Verified 11/08/24 21:21 naproxen [From Aleve] AdvReac told Verified 11/08/24 21:21 not to take Physical Exam Vitals: Vital Signs Temp Pulse Resp BP Pulse Ox 11/09/24 07:42 98.2 F 61 18 123/60 98 11/09/24 05:53 97.8 F 62 16 137/62 99 11/09/24 02:06 98.1 F 57 L 16 128/71 98 11/08/24 22:14 64 18 188/78 98 11/08/24 21:16 98.3 F 64 18 162/69 98 Intake and Output 11/08/24 11/09/24 11/09/24 22:59 06:59 14:59 Other: Weight 113.398 kg Results CBC & Chem 7: 11/09/24 12:12
[2024-11-09 13:12] LABS: ALT 16 U/L (4-34); AST 23 U/L (14-36); African American GFR (CKD) 65 (>60 ml/min/1.73 sqM); Albumin/Globulin Ratio 1.8; Alkaline Phosphatase 56 U/L (38-126); Anion Gap 10 mmol/L; Blood Urea Nitrogen 27 mg/dL (7-17); Calcium 9.7 mg/dL (8.4-10.2); Carbon Dioxide 27 mmol/L (22-30); Chloride 100 mmol/L (98-107); Globulin 2.2 g/dL; Glucose 119 mg/dL (74-99); Non-African American GFR(CKD) 56 (>60 ml/min/1.73 sqM); Potassium 4.3 mmol/L (3.5-5.1); Sodium 137 mmol/L (137-145); Total Bilirubin 0.6 mg/dL (0.2-1.3); Total Protein 6.2 g/dL (6.3-8.2)
--- NOTE | 2024-11-09 14:09 | CT ---
EXAMINATION TYPE: CT lumbar spine wo con DATE OF EXAM: 11/09/2024 1:23 PM COMPARISON: None. CLINICAL INDICATION: Female, 74 years old with history of Spondylosis of lumbar spine, Spondylosis of lumbar spine, pain TECHNIQUE: CT of the lumbar spine is performed on a spiral scan at 3 mm thick sections. Reconstructed images are performed in the coronal and sagittal planes. Contrast used: mL of , (none if empty) Oral contrast used: (none if empty) CT DLP: 1466.4 mGycm, Automated exposure control for dose reduction was used. FINDINGS: Diffuse loss of disc height is throughout the lumbar spine. Some minimal vacuum phenomenon is present at L3-4. Minimal grade 1 spondylolisthesis of L5 anteriorly on S1 may be present. T12-L1: No focal disc herniation or significant disc bulge is evident. No spinal canal stenosis or neural foraminal stenosis is present. L1-L2: No focal disc herniation or significant disc bulge is evident. No spinal canal stenosis or n eural foraminal stenosis is present L2-L3: Mild disc bulge and anterior thecal sac contact. No AP spinal canal stenosis is present. Mild facet hypertrophy and ligamentum flavum laxity is present. There is a limbus vertebra L3. L3-L4: Broad-based disc bulge is present with mild anterior thecal sac compression. Facet hypertrophy is posterior lateral thecal sac compression. Some mild canal narrowing may be present. Moderate left and [id number] right foraminal narrowing is present. Correlate with radicular symptoms. L4-L5: Disc uncovering is present with moderate anterior thecal sac compression. Facet hypertrophy an d ligamentum flavum laxity is conjoining to lateral canal narrowing. Severe left and right foraminal stenosis is present. Correlate with radicular symptoms L5-S1: No focal disc herniation or significant disc bulge is evident. No spinal canal stenosis. Fac et hypertrophy and degenerative changes are present. There is severe left and moderate right foramina l narrowing. IMPRESSION: 1. Some spinal canal stenosis from disc bulging and facet hypertrophy appears to be present at L3-4. Lateral canal narrowing may be present L4-5. 2. Severe foraminal stenosis noted bilaterally L4-5 and left L5-S1. Moderate to severe foraminal narr owing on the right L3-4 is present. Additional milder areas of foraminal narrowing as discussed above . 3. Multilevel degenerative disc changes greatest at L3-4 [facility], , 11/09/2024 2:07 PM
[2024-11-09] MEDS: methocarbamoL 750 MG TAB PO SCH (17:18)
[2024-11-09] MEDS ORDERED: HYDROmorphone 0.5 MG/0.5 ML SYRINGE IVP PRN (21:55)
[2024-11-09] MEDS: APIXABAN 5 MG TAB PO SCH (22:11)
[2024-11-09] MEDS: CALCIUM CARB-VIT D 500 MG-5 MCG TAB PO SCH (22:14)
[2024-11-09] MEDS: ANASTROZOLE 1 MG TAB PO SCH (22:15)
[2024-11-09] MEDS: NON FORMULARY DRUG (Imatinib Mesylate [Gleevec] 400 MG Tablet) PO SCH (22:16)
[2024-11-09] MEDS: diphenhydrAMINE 25 MG CAP PO PRN (22:18)
[2024-11-10] MEDS: LEVOTHYROXINE 25 MCG TAB PO SCH (06:50)
[2024-11-10 07:21] LABS: Basophils % (A) 0 %; Eosinophils # (A) 0.2 k/uL (0-0.7); Eosinophils % (A) 1 %; HCT 31.8 % (34.0-46.0); HGB 10.5 gm/dL (11.4-16.0); Lymphocytes % (A) 22 %; MCHC 32.9 g/dL (31.0-37.0); MCV 100.3 fL (80.0-100.0); Macrocytosis Slight; Mean Platelet Volume 7.8; Monocytes # (A) 0.6 k/uL (0-1.0); Monocytes % (A) 4 %; Neutrophils # (A) 9.5 k/uL (1.3-7.7); Neutrophils % (A) 71 %; Platelet Count 259 k/uL (150-450); RBC 3.17 m/uL (3.80-5.40); RDW 13.8 % (11.5-15.5); WBC 13.5 k/uL (3.8-10.6)
[2024-11-10 07:37] LABS: ALT 18 U/L (4-34); AST 31 U/L (14-36); African American GFR (CKD) 63 (>60 ml/min/1.73 sqM); Albumin 3.8 g/dL (3.5-5.0); Alkaline Phosphatase 57 U/L (38-126); Anion Gap 10 mmol/L; Blood Urea Nitrogen 27 mg/dL (7-17); Calcium 9.6 mg/dL (8.4-10.2); Carbon Dioxide 27 mmol/L (22-30); Chloride 101 mmol/L (98-107); Glucose 92 mg/dL (74-99); Non-African American GFR(CKD) 55 (>60 ml/min/1.73 sqM); Potassium 4.2 mmol/L (3.5-5.1); Sodium 138 mmol/L (137-145); Total Bilirubin 0.7 mg/dL (0.2-1.3); Total Protein 5.8 g/dL (6.3-8.2)
[2024-11-10] MEDS: MAGNESIUM OXIDE 400 MG TAB PO SCH (08:36)
[2024-11-10] MEDS: polyethylene glycoL 3350 17 GM POWD.PACK PO SCH (08:37)
[2024-11-10] MEDS: atenoloL 50 MG TAB PO SCH (09:28)
[2024-11-10] MEDS: methylPREDNISolone SOD SUCCI 125 MG/2 ML VIAL IV SCH (10:45)
--- NOTE | 2024-11-10 11:43 | P.CNOR ---
History of Present Illness - HPI Consult date: 11/10/24 History of present illness: This is a 74 year old female who is admitted for back pain. Patient states that over the weekend she bent down and developed pain in the back. Patient states that her pain became worse overnight and she was unable to get out of bed without significant pain. Patient presented to the emergency room on 11/08/2024 and was discharged home after improvement in pain. Patient presented to the emergency room again on 11/09/2024 due to worsening symptoms. Patient states that her pain has slightly improved and she was able to ambulate in her room today with physical therapy. Patient reports significant pain with any motion of the left leg and she localizes her pain to the left hip and buttock. Patient denies any radiation of pain or any weakness. Patient states that she has a history of neuropathy, but denies any new numbness or tingling. Patient states that she has had both hips replaced. Patient also states that she has had previous injections for back pain with relief. Patient states that she is on Eliquis and has a pacemaker. Patient's past medical history significant for atrial fibrillation, history of CML, history of DVT, osteoarthritis, renal disease, sleep apnea, thyroid disorder, psoriasis, neuropathy and a vascular disorder. Review of Systems See HPI. 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 gout History of Any Multi-Drug Resistant Organisms: None Reported Past Surgical History: Breast Surgery, Section, Hernia Repair, Hysterectomy, Joint Replacement, Orthopedic Surgery, Pacemaker Additional Past Surgical History / Comment(s): Left breat biopsy, left breast lumpectomy/2 lymph nodes removed, multiple bone marrow biopsies, port inserted/since removed, abdominal hernia repair, total hysterectomy, right heel spur removed, lef knee arthroscopy, EGD, colonoscopies, bilateral cataract removals/lens implants, right total hip replacement. Past Anesthesia/Blood Transfusion Reactions: Previous Problems w/ Anesthesia, Motion Sickness, Postoperative Nausea & Vomiting (PONV) Additional Past Anesthesia/Blood Transfusion Reaction / Comm: DIFFICULTY WAKING. Type of Cardiac Device: Permanent Pacemaker Device Placement Date:: 04/29/19 Past Psychological History: No Psychological Hx Reported Smoking Status: Never smoker Past Alcohol Use History: None Reported Past Drug Use History: None Reported - Past Family History Mother Family Medical History: Cancer Additional Family Medical History / Comment(s): PANCREATIC CANCER. Father Family Medical History: Coronary Artery Disease (CAD), Myocardial Infarction (VA) Additional Family Medical History / Comment(s): Father had a VA at the age of 50 yrs. He had CABG and mitral valve surgery. Medications and Allergies Home Medications Medication Instructions Recorded Confirmed Type Levothyroxine Sodium [Synthroid] 25 mcg PO DAILY 05/26/14 11/09/24 History Anastrozole [Arimidex] 1 mg PO HS 12/21/15 11/09/24 History Furosemide [Lasix] 40 mg PO DAILY 12/05/17 11/09/24 History Oxybutynin ER [Ditropan XL] 10 mg PO HS 12/05/17 11/09/24 History Apixaban [Eliquis] 5 mg PO BID 04/02/19 11/09/24 History Flecainide [Tambocor] 100 mg PO BID 06/28/19 11/09/24 History Calcium Carbonate/Vitamin D3 1 tab PO BID 06/29/21 11/09/24 History [Calcium 500 mg-Vit D3 5 mcg (200 Unit)] Potassium Chloride [Potassium 8 meq PO BID 06/29/21 11/09/24 History Chloride ER] Denosumab [Prolia] 60 mg SQ Q6M 11/09/24 11/09/24 History Ergocalciferol (Vitamin D2) 1,250 mcg PO TH 11/09/24 11/09/24 History [Drisdol (50,000 Iu)] Imatinib Mesylate [Gleevec] 400 mg PO HS 11/09/24 11/09/24 History Magnesium Oxide [Magox 400] 400 mg PO DAILY 11/09/24 11/09/24 History atenoloL [Tenormin] 50 mg PO DAILY 01/21/25 01/21/25 History calcitrioL [Rocaltrol] 0.25 mcg PO DAILY 11/09/24 11/09/24 History Allergies Allergy/AdvReac Type Severity Reaction Status Date / Time NSAIDS (Non-Steroidal Allergy Dr told Verified 11/08/24 21:21 Anti-Inflamma not to take adhesive AdvReac RED SKIN Verified 11/08/24 21:21 AND TAKES SKIN OFF-paper tape is ok meperidine HCl [From Demerol] AdvReac Rash/Hives, Verified 11/08/24 21:21 rapid heart rate morphine AdvReac Itching Verified 11/08/24 21:21 naproxen [From Aleve] AdvReac Dr told Verified 11/08/24 21:21 not to take Physical Examination Osteopathic Statement: *. No significant issues noted on an osteopathic structural exam other than those noted in the History and Physical/Consult. On exam patient is resting comfortably in bed in no acute distress. Patient is alert and oriented 3. Left lower extremity/Lumbar exam: Patient is able to actively flex and extend the left lower extremity at the hip and knee with discomfort in the left hip and lower back. Pain with log roll of the left lower extremity. Pain with straight leg raise of the left lower extremity. 5/5 strength. Patient has tenderness to palpation over the lateral aspect of the left hip and left-side lower back. Sensation intact. Calf is soft and nontender to palpation. Full motion of the left foot and ankle. Neurovascu lar status and circulatory status are intact. Patient has full motion of the right lower extremity without pain or difficulty. Negative straight leg raise with the right lower extremity. Neurovascular status and circulatory status are intact. Results X-ray report of the lumbar spine dated 11/09/2024 show: There are 5 lumbar type vertebral bodies redemonstrated. The lumbar spine shows persistent and slightly more prominent levoconvex scoliosis centered at L2-L3 level. Vertebral body heights remain within normal limits. Moderate multilevel disc space narrowing is redemonstrated. Facet arthropathy in the lower lumbar spine is seen again. Multiple overlying pelvic phleboliths incidentally noted. Surgical changed bilateral hips is partially imaged. A CT report of the lumbar spine dated 11/09/2024 shows: 1. Some spinal canal stenosis from disc bulging and facet hypertrophy appears to be present at L3-4. Lateral canal narrowing may be present at L4-5. 2. Severe foraminal stenosis is noted bilaterally L4-5 and left L5-S1. Moderate to severe foraminal narrowing on the right L3-4 is present. Additional milder areas of foraminal narrowing as discussed above. 3. Multilevel degenerative disc changes greatest at L3-4 - Labs Labs: Abnormal Lab Results - Last 24 Hours (Table) 11/09/24 11/09/24 11/10/24 Range/Units 12:12 12:12 06:08 WBC 22.6 H 13.5 H (3.8-10.6) k/uL RBC 3.24 L 3.17 L (3.80-5.40) m/uL Hgb 10.5 L 10.5 L (11.4-16.0) gm/dL Hct 33.1 L 31.8 L (34.0-46.0) % MCV 102.1 H 100.3 H (80.0-100.0) fL Neutrophils # 19.6 H 9.5 H (1.3-7.7) k/uL BUN 27 H (7-17) mg/dL Glucose 119 H (74-99) mg/dL Total Protein 6.2 L (6.3-8.2) g/dL 11/10/24 Range/Units 06:08 WBC (3.8-10.6) k/uL RBC (3.80-5.40) m/uL Hgb (11.4-16.0) gm/dL Hct (34.0-46.0) % MCV (80.0-100.0) fL Neutrophils # (1.3-7.7) k/uL BUN 27 H (7-17) mg/dL Glucose (74-99) mg/dL Total Protein 5.8 L (6.3-8.2) g/dL H & H 11/09/24 11/10/24 Range/Units 12:12 06:08 Hgb 10.5 L 10.5 L (11.4-16.0) gm/dL Hct 33.1 L 31.8 L (34.0-46.0) % Result Diagrams: 11/10/24 06:08 11/10/24 06:08 Assessment and Plan (1) Degenerative disc disease, lumbar Current Visit: Yes Status: Acute Code(s): M51.369 - [facility] INTVRT DISC DEGEN, LUM RGN W/O LUM BCK OR LW EXTRM PAIN SNOMED Code(s): 13575734 (2) Low back pain Current Visit: Yes Status: Acute Code(s): M54.50 - LOW BACK PAIN, UNSPECIFIED SNOMED Code(s): 258802101 (3) Lumbar stenosis Current Visit: Yes Status: Acute Code(s): M48.061 - SPINAL STENOSIS, LUMBAR REGION WITHOUT NEUROGENIC MEHREEN SNOMED Code(s): 74902367 Plan: 1. Lumbar imaging is reviewed. X-rays of the left hip and pelvis show the total hip arthroplasty is good position and alignment. Solu-medrol is added for pain. 2. Continue physical therapy for mobilization. 3. No surgical intervention planned. If pain does not improve, patient may benefit from a consult to pain management for an injection. We will continue to follow. The patient is seen and examined at bedside. I reviewed the above dictation and discussed it with Chichi ramirez PA and I am in agreement with the above. I reviewed the CT scan and x-rays as well. The patient has significant degenerative changes L3-4 and L4-5 and L5-S1. She has acute exacerbation of her low back issues with some radiculopathy particular to the left side. She is not having acute weakness in her lower extremities or changes in her bowel bladder function. She is not having a specific neurologic deficit. She is unable to ambulate due to her pain and is having severe debility due to the issues at her lumbar spine. She is having appropriate treatment thus far with medication muscle relaxant and anti-inflammatories particular with the steroids. I think that she is a candidate for epidural steroid injections and interventional pain management. We will consult pain management for the possibility of epidural steroid injections while she is here. If she is doing better in the next day she may be able to increase her mobility and potentially discharge with oral steroid and consider interventional pain management on an outpatient basis. However if she is not having steady improvement I think that interventional pain management while she is here would be worthwhile. I do not have plans for surgical intervention acutely during this admission. She will also continue her physical therapy for her mobility. Case management is working her for appropriate discharge planning as well.
--- NOTE | 2024-11-10 11:44 | XR ---
EXAMINATION TYPE: XR Hip LT and AP Pelvis DATE OF EXAM: 11/10/2024 COMPARISON: Pelvic x-ray February 28, 2024 CLINICAL INDICATION: Female, 74 years old with history of pain; TECHNIQUE: A single AP view of the pelvis is obtained. Two views of the left hip are obtained. FINDINGS: There is no acute fracture/dislocation evident in the pelvis or left hip. Metallic hardwar e from bilateral hip arthroplasty is redemonstrated. Position is satisfactory and stable. Left-sided heterotopic ossification laterally is again seen. Pubic symphysis is intact. Scattered small bilatera l pelvic phleboliths are again seen.. IMPRESSION: As above. [facility], , 11/10/2024 11:42 AM
--- NOTE | 2024-11-10 18:31 | P.PN ---
Subjective Progress Note Date: 11/10/24 HISTORY OF PRESENT ILLNESS: This is a 74-year-old female with a previous medical history signif icant for hypertension and hypertensive cardiovascular disease, mixed hyperlipidemia, paroxysmal atrial fibrillation, history of chronic myelogenous leukemia, history of chronic kidney disease stage IIIa, secondary hyperparathyroidism, gout, left breast cancer, osteoporosis, patient presented to the emergency department at [facility] today in the morning because of intractable low back pain, apparently she had to emergency room visit because of intractable low back pain not able to ambulate, she did receive multiple doses of narcotics in the form of Dilaudid as well as Norflex, without any relief, today she woke up early hours in the morning and she was in intractable amount of pain, she was not able to sit she was not able to stand, EMS was called and the patient was brought into the ER at [facility] by her car according to her it took them about 30 minutes to get her into her car, and the patient was seen in the ER, had an x-ray that showed evidence of spondylosis as well as levoscoliosis as well, centered at L4-L5, patient did receive Dilaudid she did receive Norflex, no relief, she did receive another dose of Dilaudid without any relief patient was not able to ambulate at that point patient was admitted to the hospital spine surgery consultation was obtained, and CT of the lumbar spine without contrast was obtained as the patient is not able to take an MRI due to her pacemaker. 11/10: Patient is laying down in bed in less distress because of her back pain, she has been getting Dilaudid 0.5 mg every 4 hours, she has been getting Robaxin-750 milligram orally 3 times every day as well as [place] for pain control, patient was seen in consultation by spine surgery who recommended for the patient to have an epidural injection at this time, we will hold her Eliquis at this time, and preparation for epidural injection as the patient is not able to move or ambulate at this point in time, patient denies any chest pain, shortness of breath, she has no abdominal pain, nausea vomiting or diarrhea. REVIEW OF SYSTEMS: Constitutional: No documented fever, no chills, no night sweats. No weight change. No weakness, fatigue or lethargy. No daytime sleepiness. EENT: No headache. No blurred vision or double vision, no loss of vision. No loss of Hearing, no ringing in the ears, no dizziness. No nasal drainage or congestion. No epistaxis. No sore throat. Lungs: No shortness of breath, no cough, no sputum production. No wheezing. Reports dyspnea with activity. Cardiovascular: No chest pain, no lower extremity edema. No palpitations. No paroxysmal nocturnal dyspnea. No orthopnea. No lightheadedness or dizziness. No syncopal episodes. Abdominal: Reports abdominal pain. No nausea, vomiting. No diarrhea. No constipation. No bloody or tarry stools reports loss of appetite. Genitourinary: No dysuria, increased frequency, urgency. No urinary retention. Musculoskeletal: No myalgias. positive for muscle weakness, positive for gait dysfunction, no frequent falls. severe low back pain. No neck pain. Integumentary: No wounds, no lesions. No rash or pruritus. No unusual bruising. No change in hair or nails. Neurologic: No aphasia. No facial droop. No change in mentation. No head injury. No headache. No paralysis. No paresthesia. Psychiatric: mild depression. No anxiety. No mood swings. Endocrine: No abnormal blood sugars. No weight change. PHYSICAL EXAMINATION: General: 74-year-old female down in bed in moderate distress due to significant amount of low back pain. HEENT: Head is atraumatic, normocephalic, pupils were equal round reactive to light and recommendation, extraocular muscle movement were intact, sclera nonicteric, conjunctivae were pale, mucous membranes of the mouth are somewhat dry. Neck: Supple, no JVP, normal carotid upstroke bilaterally, no lymphadenopathy. Chest: Decreased breath sounds at the bases, few rhonchi, no expiratory wheezes, no chest wall tenderness, no intercostal retractions. Heart: First heart sound is normal, second heart sounds normal there is systolic ejection murmur 2 over systolic in the left sternal border irregular irregular due to atrial fibrillation, there is permanent pacemaker located in left upper precordium. Abdomen: Soft, nontender, nondistended, positive bowel sounds. Extremities: There is no edema no calf tenderness DP +2 bilaterally. Neurologic examination: Patient is awake alert and oriented x3, cranial nerves II-12 appear grossly intact, muscle power were 4 out of 5 in upper extremities and 2 out of 5 in the right lower extremity, and 1 out of 5 in the left lower extremity, patient is barely able to move her leg off the mattress on the left side, Babinski's were flexor bilaterally, there is no foot drop. ASSESSMENT AND PLAN: 1. Intractable low back pain likely due to spondylosis of the lumbar spine as well as degenerative disc disease of L3-L4 and L4-L5 and L5 and S1 with significant facet hypertrophy as well as significant spinal stenosis bilaterally worse on the left than the right, patient was seen in consultation by spine surgery recommended current treatment plan, continue physical therapy, consult pain management for epidural injection while the patient is in the hospital, we will hold Eliquis starting from tonight, until the patient is able to get her epidural injection. 2. Hypertension and hypertensive cardiovascular disease.Continue patient on atenolol 50 mg orally once every day, monitor the patient blood pressure very closely. 3. Paroxysmal atrial fibrillation. Continue patient on flecainide 100 mg o rally twice every day, atenolol 50 mg orally once every day, continue Eliquis 5 mg orally twice every day that would be placed on hold in anticipation of epidural injection. 4. Mixed hyperlipidemia. Patient is not take any statin at this point in time, she may need to be on PCSK9 inhibitor. 5. Hypothyroidism. Continue levothyroxine 25 mcg orally once every day. 6. Chronic kidney disease stage IIIa. Avoid nephrotoxins, avoid NSAIDs, monitor the patient CMP. 7. History of breast cancer status post left lumpectomy with radiation therapy continue anastrozole 1 mg orally once every day. 8. Secondary hyperparathyroidism. Stable at this time. Continue calcitriol 0.25 mcg orally once every day. 9. Obesity with obstructive sleep apnea. Continue with CPAP. 10. Constipation. Continue current bowel care Colace 100 mg orally twice every day, Dulcolax suppository as well as MiraLAX once every day. 11. Chronic myelogenous leukemia. Continue Gleevec 400 mg at bedtime. 12. Vitamin D deficiency. Continue vitamin D3 50,000 units once every week. 13. DVT prophylaxis. Continue Eliquis 5 mg orally twice every day. 14. GI prophylaxis. Continue Protonix 40 mg orally once every day. 15. Physical therapy evaluation to improve mobility. 16. Social work consultation for discharge planning Objective - Vital Signs Vital signs: Vital Signs Temp 97.9 F 11/10/24 15:00 Pulse 59 L 11/10/24 15:00 Resp 17 11/10/24 15:00 BP 131/71 11/10/24 15:00 Pulse Ox 99 11/10/24 15:00 FiO2 Intake & Output 11/09/24 11/10/24 11/10/24 18:59 06:59 18:59 Intake Total 750 718 Balance 750 718 Intake: Oral 750 718 Other: Voiding Method Bedside Commode # Voids 2 2 # Bowel Movements 0 - Labs CBC & Chem 7: 11/10/24 06:08 11/10/24 06:08 Labs: Abnormal Lab Results - Last 24 Hours (Table) 11/10/24 11/10/24 Range/Units 06:08 06:08 WBC 13.5 H (3.8-10.6) k/uL RBC 3.17 L (3.80-5.40) m/uL Hgb 10.5 L (11.4-16.0) gm/dL Hct 31.8 L (34.0-46.0) % MCV 100.3 H (80.0-100.0) fL Neutrophils # 9.5 H (1.3-7.7) k/uL BUN 27 H (7-17) mg/dL Total Protein 5.8 L (6.3-8.2) g/dL
[2024-11-11 03:37] LABS: Basophils % (A) 0 %; Eosinophils # (A) 0.1 k/uL (0-0.7); Eosinophils % (A) 1 %; HCT 27.8 % (34.0-46.0); HGB 9.2 gm/dL (11.4-16.0); Lymphocytes # (A) 0.5 k/uL (1.0-4.8); Lymphocytes % (A) 6 %; MCH 32.5 pg (25.0-35.0); MCV 98.4 fL (80.0-100.0); Mean Platelet Volume 7.7; Monocytes # (A) 0.1 k/uL (0-1.0); Monocytes % (A) 1 %; Neutrophils # (A) 8.2 k/uL (1.3-7.7); Neutrophils % (A) 92 %; Platelet Count 229 k/uL (150-450); RBC 2.83 m/uL (3.80-5.40); RDW 13.8 % (11.5-15.5); WBC 8.9 k/uL (3.8-10.6)
[2024-11-11 04:04] LABS: ALT 18 U/L (4-34); AST 22 U/L (14-36); African American GFR (CKD) 71 (>60 ml/min/1.73 sqM); Albumin 3.4 g/dL (3.5-5.0); Alkaline Phosphatase 50 U/L (38-126); Anion Gap 8 mmol/L; Blood Urea Nitrogen 26 mg/dL (7-17); Calcium 9.6 mg/dL (8.4-10.2); Carbon Dioxide 28 mmol/L (22-30); Chloride 103 mmol/L (98-107); Glucose 153 mg/dL (74-99); Non-African American GFR(CKD) 62 (>60 ml/min/1.73 sqM); Potassium 4.5 mmol/L (3.5-5.1); Sodium 139 mmol/L (137-145); Total Bilirubin 0.6 mg/dL (0.2-1.3); Total Protein 5.5 g/dL (6.3-8.2)
[2024-11-11] MEDS: ERGOCALCIFEROL 1,250 MCG (50,000 IU) CAPSULE PO SCH (09:05)
--- NOTE | 2024-11-11 09:10 | P.PN ---
Progress Note - Text Progress Note Date: 11/11/24 Orthopedic spine: History of present illness: Patient very pleasant 74-year-old female who is seen examined the bedside for evaluation of her lumbar spine. Her low back pain is adequately controlled. She continues to have pain that radiates into her left buttock and down the posterior thigh stopping before the knee. She does have multilevel degenerative change of her lumbar spine. She is on Eliquis which has been held. She has been seen by pain management. She is hoping for an injection with pain management today with plans for discharge home. We are not planning for surgical intervention during her admission. She denies any lower extremity weakness bilaterally. She denies any right lower extremity radiculopathy. 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 She has had difficulty with mobilization due to her pain. She continues to be seen by medicine. Physical exam: Patient is awake, alert, and oriented 3 Vital signs stable Good chest excursion with deep inspiration and expiration Abdomen soft nontender Examination of lumbar spine reveals skin is intact with no abrasions, lacerations, or bruises; no erythema, purulence or signs of infection Dorsiflexion, plantarflexion, and extensor hallucis longus positive sustained bilaterally Lower extremity strength 5/5 bilaterally Straight leg test negative bilateral lower extremities Negative Lasegue's test bilaterally No signs or symptoms of DVT; no calf pain No pain with internal and external rotation of the hips bilaterally Assessment: Left buttock pain Left lower extremity radiculopathy Lumbar spinal stenosis L3-4 central canal stenosis L4-5 and L5-S1 severe foraminal stenosis bilaterally Lumbar degenerative disc disease Difficulty with mobilization due to pain History of CLL in remission Chemotherapy induced neuropathy Atrial fibrillation currently on anticoagulation Renal disease Thyroid disorder Vascular disease History of DVT Plan: 1. Patient will currently plan to continue with conservative treatment during her admission to the hospital. She has been seen by pain management. Her Eliquis has been put on hold. They are anticipating possible injection with pain management today. We are not currently planning for any surgical intervention during her admission. She is cleared for discharge from an orthopedic spine standpoint. We will plan to have her follow-up in the outpatient setting in approximately 3 weeks for further evaluation. Patient may follow-up with Ivan Dockery PA-C or Dr. Nj Cochran at [facility] in 2-3 weeks following discharge. 2. She will continue be seen and examined by medicine and pain management
--- NOTE | 2024-11-11 13:09 | P.PN ---
Subjective Progress Note Date: 11/11/24 HISTORY OF PRESENT ILLNESS: This is a 74-year-old female with a previous medical history signif icant for hypertension and hypertensive cardiovascular disease, mixed hyperlipidemia, paroxysmal atrial fibrillation, history of chronic myelogenous leukemia, history of chronic kidney disease stage IIIa, secondary hyperparathyroidism, gout, left breast cancer, osteoporosis, patient presented to the emergency department at [facility] today in the morning because of intractable low back pain, apparently she had to emergency room visit because of intractable low back pain not able to ambulate, she did receive multiple doses of narcotics in the form of Dilaudid as well as Norflex, without any relief, today she woke up early hours in the morning and she was in intractable amount of pain, she was not able to sit she was not able to stand, EMS was called and the patient was brought into the ER at [facility] by her car according to her it took them about 30 minutes to get her into her car, and the patient was seen in the ER, had an x-ray that showed evidence of spondylosis as well as levoscoliosis as well, centered at L4-L5, patient did receive Dilaudid she did receive Norflex, no relief, she did receive another dose of Dilaudid without any relief patient was not able to ambulate at that point patient was admitted to the hospital spine surgery consultation was obtained, and CT of the lumbar spine without contrast was obtained as the patient is not able to take an MRI due to her pacemaker. 11/10: Patient is laying down in bed in less distress because of her back pain, she has been getting Dilaudid 0.5 mg every 4 hours, she has been getting Robaxin-750 milligram orally 3 times every day as well as [place] for pain control, patient was seen in consultation by spine surgery who recommended for the patient to have an epidural injection at this time, we will hold her Eliquis at this time, and preparation for epidural injection as the patient is not able to move or ambulate at this point in time, patient denies any chest pain, shortness of breath, she has no abdominal pain, nausea vomiting or diarrhea. 11/11: Patient is laying down in bed is feeling a bit better today, she was able to use her walker ambulating to the bathroom, she denies any chest pain, shortness of breath, she has been off Eliquis until she is further evaluated by pain management service to see if she can get epidural injection on Friday patient if is not going to have the shot while she in the hospital she can be discharged home and follow-up as an outpatient. We will try to get the shot in before she gets out of the hospital on Friday REVIEW OF SYSTEMS: Constitutional: No documented fever, no chills, no night sweats. No weight change. No weakness, fatigue or lethargy. No daytime sleepiness. EENT: No headache. No blurred vision or double vision, no loss of vision. No loss of Hearing, no ringing in the ears, no dizziness. No nasal drainage or congestion. No epistaxis. No sore throat. Lungs: No shortness of breath, no cough, no sputum production. No wheezing. Reports dyspnea with activity. Cardiovascular: No chest pain, no lower extremity edema. No palpitations. No paroxysmal nocturnal dyspnea. No orthopnea. No lightheadedness or dizziness. No syncopal episodes. Abdominal: Reports abdominal pain. No nausea, vomiting. No diarrhea. No constipation. No bloody or tarry stools reports loss of appetite. Genitourinary: No dysuria, increased frequency, urgency. No urinary retention. Musculoskeletal: No myalgias. positive for muscle weakness, positive for gait dysfunction, no frequent falls. severe low back pain. No neck pain. Integumentary: No wounds, no lesions. No rash or pruritus. No unusual bruising. No change in hair or nails. Neurologic: No aphasia. No facial droop. No change in mentation. No head injury. No headache. No paralysis. No paresthesia. Psychiatric: mild depression. No anxiety. No mood swings. Endocrine: No abnormal blood sugars. No weight change. PHYSICAL EXAMINATION: General: 74-year-old female down in bed in moderate distress due to significant amount of low back pain. HEENT: Head is atraumatic, normocephalic, pupils were equal round reactive to light and recommendation, extraocular muscle movement were intact, sclera nonicteric, conjunctivae were pale, mucous membranes of the mouth are somewhat dry. Neck: Supple, no JVP, normal carotid upstroke bilaterally, no lymphadenopathy. Chest: Decreased breath sounds at the bases, few rhonchi, no expiratory wheezes, no chest wall tenderness, no intercostal retractions. Heart: First heart sound is normal, second heart sounds normal there is systolic ejection murmur 2 over systolic in the left sternal border irregular irregular due to atrial fibrillation, there is permanent pacemaker located in left upper precordium. Abdomen: Soft, nontender, nondistended, positive bowel sounds. Extremities: There is no edema no calf tenderness DP +2 bilaterally. Neurologic examination: Patient is awake alert and oriented x3, cranial nerves II-12 appear grossly intact, muscle power were 4 out of 5 in upper extremities and 2 out of 5 in the right lower extremity, and 1 out of 5 in the left lower extremity, patient is barely able to move her leg off the mattress on the left side, Babinski's were flexor bilaterally, there is no foot drop. ASSESSMENT AND PLAN: 1. Intractable low back pain likely due to spondylosis of the lumbar spine as well as degenerative disc disease of L3-L4 and L4-L5 and L5 and S1 with significant facet hypertrophy as well as significant spinal stenosis bilaterally worse on the left than the right, patient was seen in consultation by spine surgery recommended current treatment plan, continue physical therapy, consult pain management for epidural injection while the patient is in the hospital, we will hold Eliquis starting from [facility], until the patient is able to get her epidural injection hopefully Friday morning. 2. Hypertension and hypertensive cardiovascular disease.Continue patient on atenolol 50 mg orally once every day, monitor the patient blood pressure very closely. 3. Paroxysmal atrial fibrillation. Continue patient on flecainide 100 mg orally twice every day, atenolol 50 mg orally once every day, continue Eliquis 5 mg orally twice every day that would be placed on hold in anticipation of epidural injection. 4. Mixed hyperlipidemia. Patient is not take any statin at this point in time, she may need to be on PCSK9 inhibitor. 5. Hypothyroidism. Continue levothyroxine 25 mcg orally once every day. 6. Chronic kidney disease stage IIIa. Avoid nephrotoxins, avoid NSAIDs, monitor the patient CMP. 7. History of breast cancer status post left lumpectomy with radiation therapy continue anastrozole 1 mg orally once every day. 8. Secondary hyperparathyroidism. Stable at this time. Continue calcitriol 0.25 mcg orally once every day. 9. Obesity with obstructive sleep apnea. Continue with CPAP. 10. Constipation. Continue current bowel care Colace 100 mg orally twice every day, Dulcolax suppository as well as MiraLAX once every day. 11. Chronic myelogenous leukemia. Continue Gleevec 400 mg at bedtime. 12. Vitamin D deficiency. Continue vitamin D3 50,000 units once every week. 13. DVT prophylaxis. Continue Eliquis 5 mg orally twice every day. 14. GI prophylaxis. Continue Protonix 40 mg orally once every day. 15. Physical therapy evaluation to improve mobility. 16. Social work consultation for discharge planning Objective - Vital Signs Vital signs: Vital Signs Temp 97.9 F 11/11/24 08:00 Pulse 61 11/11/24 08:00 Resp 18 11/11/24 08:00 BP 126/69 11/11/24 08:00 Pulse Ox 100 11/11/24 08:00 FiO2 Intake & Output 11/10/24 11/11/24 11/11/24 18:59 06:59 18:59 Intake Total 718 Output Total 1 Balance 718 -1 Weight 113.398 kg Intake: Oral 718 Output: Urine 1 Other: Voiding Method Bedside Commode Toilet # Voids 2 3 # Bowel Movements 0 1 - Labs CBC & Chem 7: 11/11/24 03:20 11/11/24 03:20 Labs: Abnormal Lab Results - Last 24 Hours (Table) 11/11/24 11/11/24 Range/Units 03:20 03:20 RBC 2.83 L (3.80-5.40) m/uL Hgb 9.2 L (11.4-16.0) gm/dL Hct 27.8 L (34.0-46.0) % Neutrophils # 8.2 H (1.3-7.7) k/uL Lymphocytes # 0.5 L (1.0-4.8) k/uL BUN 26 H (7-17) mg/dL Glucose 153 H (74-99) mg/dL Total Protein 5.5 L (6.3-8.2) g/dL Albumin 3.4 L (3.5-5.0) g/dL
--- NOTE | 2024-11-11 14:31 | P.PAINCN ---
History of Present Illness - Reason for Consult Consult date: 11/11/24 - History of Present Illness This is 74 years old female who was admitted to [facility] secondary to severe intractable back pain and inability to ambulate, patient had chronic pain symptoms and she is being treated at [facility], , she reports currently she is not able to ambulate secondary to intensity of the pain, patient had CT scan of the lumbar spine which showed that she had degener ative disc disease and lumbar spinal stenosis, and lumbar arthropathy,(had a pacemaker they could not do MRI of the lumbar spine) currently on Eliquis secondary to DVT and A-fib, patient currently on Robaxin-750 milligram 3 times daily and [place] 5/325 every 6 hours Dilaudid 0.5 every 4 hours as needed, patient received Eliquis on November 10 at 8 AM Past Medical History Past Medical History: Atrial Fibrillation, Blood Disorder, Cancer, Chest Pain / Angina, Deep Vein Thrombosis (DVT), Osteoarthritis (OA), Renal Disease, Skin Disorder, Sleep Apnea/CPAP/BIPAP, Thyroid Disorder, Vascular Disorder Additional Past Medical History / Comment(s): 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 gout History of Any Multi-Drug Resistant Organisms: None Reported Past Surgical History: Breast Surgery, Section, Hernia Repair, Hysterectomy, Joint Replacement, Orthopedic Surgery, Pacemaker Additional Past Surgical History / Comment(s): Left breat biopsy, left breast lumpectomy/2 lymph nodes removed, multiple bone marrow biopsies, port inserted/since removed, abdominal hernia repair, total hysterectomy, right heel spur removed, lef knee arthroscopy, EGD, colonoscopies, bilateral cataract removals/lens implants, right total hip replacement. Past Anesthesia/Blood Transfusion Reactions: Previous Problems w/ Anesthesia, Motion Sickness, Postoperative Nausea & Vomiting (PONV) Additional Past Anesthesia/Blood Transfusion Reaction / Comm: DIFFICULTY WAKING. Type of Cardiac Device: Permanent Pacemaker Device Placement Date:: 04/29/19 Smoking Status: Never smoker - Past Family History Mother Family Medical History: Cancer Additional Family Medical History / Comment(s): PANCREATIC CANCER. Father Family Medical History: Coronary Artery Disease (CAD), Myocardial Infarction ([place]) Additional Family Medical History / Comment(s): Father had a [place] at the age of 50 yrs. He had CABG and mitral valve surgery. Medications and Allergies Home Medications Medication Instructions Recorded Confirmed Type Levothyroxine Sodium [Synthroid] 25 mcg PO DAILY 05/26/14 11/09/24 History Anastrozole [Arimidex] 1 mg PO HS 12/21/15 11/09/24 History Furosemide [Lasix] 40 mg PO DAILY 12/05/17 11/09/24 History Oxybutynin ER [Ditropan XL] 10 mg PO HS 12/05/17 11/09/24 History Apixaban [Eliquis] 5 mg PO BID 04/02/19 11/09/24 History Flecainide [Tambocor] 100 mg PO BID 06/28/19 11/09/24 History Calcium Carbonate/Vitamin D3 1 tab PO BID 06/29/21 11/09/24 History [Calcium 500 mg-Vit D3 5 mcg (200 Unit)] Potassium Chloride [Potassium 8 meq PO BID 06/29/21 11/09/24 History Chloride ER] Denosumab [Prolia] 60 mg SQ Q6M 11/09/24 11/09/24 History Ergocalciferol (Vitamin D2) 1,250 mcg PO TH 11/09/24 11/09/24 History [Drisdol (50,000 Iu)] Imatinib Mesylate [Gleevec] 400 mg PO HS 11/09/24 11/09/24 History Magnesium Oxide [Magox 400] 400 mg PO DAILY 11/09/24 11/09/24 History atenoloL [Tenormin] 50 mg PO DAILY 11/09/24 11/09/24 History calcitrioL [Rocaltrol] 0.25 mcg PO DAILY 11/09/24 11/09/24 History Famotidine [Pepcid] 20 mg PO DAILY #12 tablet 11/10/24 Rx HYDROcodone/APAP 5-325MG [[place] 1 - 2 tab PO Q6HR PRN #56 tab 11/10/24 Rx 5-325] predniSONE [Deltasone] 20 mg PO DAILY #24 tab 11/10/24 Rx Allergies Allergy/AdvReac Type Severity Reaction Status Date / Time NSAIDS (Non-Steroidal Allergy Dr told Verified 11/08/24 21:21 Anti-Inflamma not to take adhesive AdvReac RED SKIN Verified 11/08/24 21:21 AND TAKES SKIN OFF-paper tape is ok meperidine HCl [From Demerol] AdvReac Rash/Hives, Verified 11/08/24 21:21 rapid heart rate morphine AdvReac Itching Verified 11/08/24 21:21 naproxen [From Aleve] AdvReac Dr told Verified 11/08/24 21:21 not to take Physical Exam Vitals: Vital Signs Temp Pulse Resp BP Pulse Ox 11/11/24 08:00 97.9 F 61 18 126/69 100 11/11/24 01:50 98 F 98 18 135/75 97 11/10/24 19:35 98.7 F 66 19 116/70 97 11/10/24 15:00 97.9 F 59 L 17 131/71 99 Intake and Output 11/10/24 11/11/24 11/11/24 22:59 06:59 14:59 Output Total 1 Balance -1 Output: Urine 1 Other: Voiding Method Bedside Commode Toilet # Voids 3 # Bowel Movements 1 Weight 113.398 kg No Physical Examinations : -Constitutiona : Cooperative , not in acute distress . -HEENT : nech : supple , no Lymphadenopathy , normal thyroid size . : eyes : no ptosis , no icterus, no photophobia . - neurologic : Cranial nerve II to XII intact , no focal neurological deffecit . -psychatric : alert , oriented X 3 , appropriate affect , intact judgment and insight . -Lymphatic : no Lymphadenopathy . - musculoskeltal : Lumber spine moter stegnth lower extremities ,thigh and legs 4/5 Right side , 3/5 Left side deep tendon reflexes : normal Knee Jerk , normal ankle Jerk lumber facet Loading Test =positive Right , positive Left Range of motion of the lumbar spine Flexion 30 degrees, extension 10 degrees strait leg raising test = positive at 30 degree on the left side, positive at 45 degrees at the right side Fabere test= positive Right , and positive LT . tenderness over the Sacroiliac joint on the Right , and Left sides Results CBC & Chem 7: 11/11/24 03:20 11/11/24 03:20 Labs: Abnormal Lab Results - Last 24 Hours (Table) 11/11/24 11/11/24 Range/Units 03:20 03:20 RBC 2.83 L (3.80-5.40) m/uL Hgb 9.2 L (11.4-16.0) gm/dL Hct 27.8 L (34.0-46.0) % Neutrophils # 8.2 H (1.3-7.7) k/uL Lymphocytes # 0.5 L (1.0-4.8) k/uL BUN 26 H (7-17) mg/dL Glucose 153 H (74-99) mg/dL Total Protein 5.5 L (6.3-8.2) g/dL Albumin 3.4 L (3.5-5.0) g/dL Comments: X-ray report of the lumbar spine dated 11/09/2024 show: There are 5 lumbar type vertebral bodies redemonstrated. The lumbar spine shows persistent and slightly more prominent levoconvex scoliosis centered at L2-L3 level. Vertebral body heights remain within normal limits. Moderate multilevel disc space narrowing is redemonstrated. Facet arthropathy in the lower lumbar spine is seen again. Multiple overlying pelvic phleboliths incidentally noted. Surgical changed bilateral hips is partially imaged. A CT report of the lumbar spine dated 11/09/2024 shows: 1. Some spinal canal stenosis from disc bulging and facet hypertrophy appears to be present at L3-4. Lateral canal narrowing may be present at L4-5. 2. Severe foraminal stenosis is noted bilaterally L4-5 and left L5-S1. Moderate to severe foraminal narrowing on the right L3-4 is present. Additional milder areas of foraminal narrowing as discussed above. 3. Multilevel degenerative disc changes greatest at L3-4 Assessment and Plan Plan: Assessment and plan=1-lumbar spinal stenosis. 2-lumbar degenerative disc disease. 3-lumbar spondylosis with lumbar facet arthr opathy without myelopathy. Patient will be good candidate to have lumbar epidural steroid injection under fluoroscopy guidance at L4-5, OR L5-S1, but the patient received Eliquis yesterday morning have to wait for 72 hours before we can do the epidural steroid injection. This can be done as an outpatient, meanwhile we should continue conservative treatment with the current medication, also patient could be good candidate to have diagnostic medial branch block and possible RFA of the medial branch lumbar area at L4-5 L5-S1 Time with Patient: Less than 30 PQRS Measure Charge Sheet - Pain Location Back Non-Pharmacological Interventions: Darkened Room, Distraction Pharmacological Interventions: Discuss Pain Med Options PQRS Narrative: Smoking Status Never smoker Blood Pressure [Right Arm] 126/69 Blood Pressure 134/78 Pain Intensity [Back] 0 Pain Intensity 3 Pain Scale Used Numeric (1 - 10) Scale Used Numeric (1 - 10) Home Medications: Ambulatory Orders Levothyroxine Sodium [Synthroid] 25 mcg PO DAILY 05/26/14 Anastrozole [Arimidex] 1 mg PO HS 12/21/15 Furosemide [Lasix] 40 mg PO DAILY 12/05/17 Oxybutynin ER [Ditropan XL] 10 mg PO HS 12/05/17 Apixaban [Eliquis] 5 mg PO BID 04/02/19 Flecainide [Tambocor] 100 mg PO BID 06/28/19 Calcium Carbonate/Vitamin D3 [Calcium 500 mg-Vit D3 5 mcg (200 Unit)] 1 tab PO BID 06/29/21 Potassium Chloride [Potassium Chloride ER] 8 meq PO BID 06/29/21 Denosumab [Prolia] 60 mg SQ Q6M 11/09/24 Ergocalciferol (Vitamin D2) [Drisdol (50,000 Iu)] 1,250 mcg PO TH 11/09/24 Imatinib Mesylate [Gleevec] 400 mg PO HS 11/09/24 Magnesium Oxide [Magox 400] 400 mg PO DAILY 11/09/24 atenoloL [Tenormin] 50 mg PO DAILY 11/09/24 calcitrioL [Rocaltrol] 0.25 mcg PO DAILY 11/09/24 Famotidine [Pepcid] 20 mg PO DAILY #12 tablet 11/10/24 HYDROcodone/APAP 5-325MG [[place] 5-325] 1 - 2 tab PO Q6HR PRN #56 tab 11/10/24 predniSONE [Deltasone] 20 mg PO DAILY #24 tab 11/10/24
[2024-11-11 19:32] VITALS: RESP 16
[2024-11-12] MEDS ORDERED: ZINC OXIDE PASTE (Z-GUARD) 1 APPLIC TOPICAL PRN (01:01)
[2024-11-12] MEDS: ACETAMINOPHEN TAB 325 MG TAB PO PRN (01:05)
[2024-11-12 01:09] VITALS: TEMP 98.1
[2024-11-12 08:19] VITALS: BP 156/79; PULSE 63
[2024-11-12] MEDS: APIXABAN 5 MG TAB PO SCH (08:34)
[2024-11-12] MEDS: FUROSEMIDE 40 MG TAB PO SCH (08:35)
[2024-11-12] MEDS: POTASSIUM CHLORIDE ER 10 MEQ TAB.ER.PRT PO SCH (08:35)
--- NOTE | 2024-11-12 11:49 | P.DS ---
Providers Date of admission: 11/09/24 00:31 Expected date of discharge: 11/12/24 Attending physician: Juan Jose Bennett Consults: 11/09/24 07:31 Consult Physician Routine Consulting Provider: Kimberley Cochran Consult Reason/Comments: back pain Do you want consulting provider notified?: Yes 11/10/24 16:15 Consult Physician Routine Consulting Provider: Gavino Holguin Consult Reason/Comments: Epidurals and Facet blocks Do you want consulting provider notified?: Yes Primary care physician: Juan Jose Bennett Hospital Course: HISTORY OF PRESENT ILLNESS: This is a 74-year-old female with a previous medical history significant for hypertension and hypertensive cardiovascular disease, mixed hyperlipidemia, paroxysmal atrial fibrillation, history of chronic myelogenous leukemia, history of chronic kidney disease stage IIIa, secondary hyperparathyroidism, gout, left breast cancer, osteoporosis, patient presented to the emergency department at [facility] today in the morning because of intractable low back pain, apparently she had to emergency room visit because of intractable low back pain not able to ambulate, she did receive multiple doses of narcotics in the form of Dilaudid as well as Norflex, without any relief, today she woke up early hours in the morning and she was in intractable amount of pain, she was not able to sit she was not able to stand, EMS was called and the patient was brought into the ER at [facility] by her car according to her it took them about 30 minutes to get her into her car, and the patient was seen in the ER, had an x-ray that showed evidence of spondylosis as well as levoscoliosis as well, centered at L4-L5, patient did receive Dilaudid she did receive Norflex, no relief, she did receive another dose of Dilaudid without any relief patient was not able to ambulate at that point patient was admitted to the hospital spine surgery consultation was obtained, and CT of the lumbar spine without contrast was obtained as the patient is not able to take an MRI due to her pacemaker. 11/10: Patient is laying down in bed in less distress because of her back pain, she has been getting Dilaudid 0.5 mg every 4 hours, she has been getting Robaxin-750 milligram orally 3 times every day as well as Hobart for pain control, patient was seen in consultation by spine surgery who recommended for the patient to have an epidural injection at this time, we will hold her Eliquis at this time, and preparation for epidural injection as the patient is not able to move or ambulate at this point in time, patient denies any chest pain, shortness of breath, she has no abdominal pain, nausea vomiting or diarrhea. 11/11: Patient is laying down in bed is feeling a bit better today, she was able to use her walker ambulating to the bathroom, she denies any chest pain, shortness of breath, she has been off Eliquis until she is further evaluated by pain management service to see if she can get epidural injection on Friday patient if is not going to have the shot while she in the hospital she can be discharged home and follow-up as an outpatient. We will try to get the shot in before she gets out of the hospital on Sunday 11/12: Patient was seen in consultation by pain management yesterday it was elected to do epidural injection as an outpatient, as the patient will need to be off Eliquis 72 hours, therefore I will resume her Eliquis 5 mg orally twice a day will make arrangement for patient to have epidural injection and possible left medial branch block and possible radiofrequency ablation down the line. Patient is to be maintained on the current treatment plan, she will be discharged home today. Discharge diagnoses: 1. Intractable low back pain likely due to spondylosis of the lumbar spine as well as degenerative disc disease of L3-L4 and L4-L5 and L5 and S1 with significant facet hypertrophy as well as significant spinal stenosis bilaterally worse on the left than the right, 2. Hypertension and hypertensive cardiovascular disease. 3. Paroxysmal atrial fibrillation. 4. Mixed hyperlipidemia. 5. Hypothyroidism. 6. Chronic kidney disease stage IIIa. 7. History of breast cancer status post left lumpectomy with radiation therapy 8. Secondary hyperparathyroidism. 9. Obesity with obstructive sleep apnea. 10. Constipation. 11. Chronic myelogenous leukemia. 12. Vitamin D deficiency. Patient Condition at Discharge: Stable Plan - Discharge Summary Discharge Rx Participant: Yes New Discharge Prescriptions: New predniSONE [Deltasone] 20 mg PO DAILY #24 tab HYDROcodone/APAP 5-325MG [Hobart 5-325] 1 - 2 tab PO Q6HR PRN #56 tab PRN Reason: Pain Famotidine [Pepcid] 20 mg PO DAILY #12 tablet No Action Levothyroxine Sodium [Synthroid] 25 mcg PO DAILY Anastrozole [Arimidex] 1 mg PO HS Oxybutynin ER [Ditropan XL] 10 mg PO HS Furosemide [Lasix] 40 mg PO DAILY Apixaban [Eliquis] 5 mg PO BID Flecainide [Tambocor] 100 mg PO BID Potassium Chloride [Potassium Chloride ER] 8 meq PO BID Imatinib Mesylate [Gleevec] 400 mg PO HS Denosumab [Prolia] 60 mg SQ Q6M Calcium Carbonate/Vitamin D3 [Calcium 500 mg-Vit D3 5 mcg (200 Unit)] 1 tab PO BID Ergocalciferol (Vitamin D2) [Drisdol (50,000 Iu)] 1,250 mcg PO TH calcitrioL [Rocaltrol] 0.25 mcg PO DAILY atenoloL [Tenormin] 50 mg PO DAILY Magnesium Oxide [Magox 400] 400 mg PO DAILY Discharge Medication List Levothyroxine Sodium [Synthroid] 25 mcg PO DAILY 05/26/14 [History] Anastrozole [Arimidex] 1 mg PO HS 12/21/15 [History] Furosemide [Lasix] 40 mg PO DAILY 12/05/17 [History] Oxybutynin ER [Ditropan XL] 10 mg PO HS 12/05/17 [History] Apixaban [Eliquis] 5 mg PO BID 04/02/19 [History] Flecainide [Tambocor] 100 mg PO BID 06/28/19 [History] Calcium Carbonate/Vitamin D3 [Calcium 500 mg-Vit D3 5 mcg (200 Unit)] 1 tab PO BID 06/29/21 [History] Potassium Chloride [Potassium Chloride ER] 8 meq PO BID 06/29/21 [History] Denosumab [Prolia] 60 mg SQ Q6M 11/09/24 [History] Ergocalciferol (Vitamin D2) [Drisdol (50,000 Iu)] 1,250 mcg PO TH 11/09/24 [History] Imatinib Mesylate [Gleevec] 400 mg PO HS 11/09/24 [History] Magnesium Oxide [Magox 400] 400 mg PO DAILY 11/09/24 [History] atenoloL [Tenormin] 50 mg PO DAILY 11/09/24 [History] calcitrioL [Rocaltrol] 0.25 mcg PO DAILY 11/09/24 [History] Famotidine [Pepcid] 20 mg PO DAILY #12 tablet 11/10/24 [Rx] HYDROcodone/APAP 5-325MG [Hobart 5-325] 1 - 2 tab PO Q6HR PRN #56 tab 11/10/24 [Rx] predniSONE [Deltasone] 20 mg PO DAILY #24 tab 11/10/24 [Rx] Follow up Appointment(s)/Referral(s): [facility], [NON-STAFF] - As Needed ([facility] will call you to schedule your in home physical therapy visits. ) Juan Jose Bennett MD [Primary Care Provider] - 1-2 days Kimberley Cochran DO [Doctor of Osteopathic Medicine] - 3 Weeks (Patient may follow-up with Ivan Dockery PA-C or Dr. Nj Cochran at [facility] in 3 weeks following discharge. ) [facility] [NON-STAFF] - 1 Week
== END 2024-11-12 13:10 | disposition home or self-care (01) ==
LOC: EC 21:02 → 6NMEDSUR 11-09 00:31 → 1SOBS 11-09 19:25 → 5NMEDONC 11-11 12:43
PROVIDERS: ADMIT Internal Medicine; ATTEND Internal Medicine
DX: M54.50 Low back pain, unspecified (principal); M47.26 Other spondylosis with radiculopathy, lumbar region; M48.061 Spinal stenosis, lumbar region without neurogenic claudication; M51.16 Intervertebral disc disorders with radiculopathy, lumbar region; M81.0 Age-related osteoporosis without current pathological fracture; M41.9 Scoliosis, unspecified; G62.0 Drug-induced polyneuropathy; T45.1X5A Adverse effect of antineoplastic and immunosuppressive drugs, initial encounter; I13.10 Hypertensive heart and chronic kidney disease without heart failure, with stage 1 through stage 4 chronic kidney disease, or unspecified chronic kidney disease; N18.31 Chronic kidney disease, stage 3a; C91.11 Chronic lymphocytic leukemia of B-cell type in remission; N25.81 Secondary hyperparathyroidism of renal origin; E03.9 Hypothyroidism, unspecified; E55.9 Vitamin D deficiency, unspecified; E66.9 Obesity, unspecified; E78.2 Mixed hyperlipidemia; E66.2 Morbid (severe) obesity with alveolar hypoventilation; I48.0 Paroxysmal atrial fibrillation; M10.9 Gout, unspecified; K59.00 Constipation, unspecified; Z79.01 Long term (current) use of anticoagulants; Z79.890 Hormone replacement therapy; Z79.899 Other long term (current) drug therapy; Z85.3 Personal history of malignant neoplasm of breast; Z86.718 Personal history of other venous thrombosis and embolism; Z95.0 Presence of cardiac pacemaker; Z96.643 Presence of artificial hip joint, bilateral; Z92.3 Personal history of irradiation; Z88.6 Allergy status to analgesic agent; Z88.5 Allergy status to narcotic agent; Z88.8 Allergy status to other drugs, medicaments and biological substances
CPT/HCPCS: 96376 ×4; 96375; 96372 ×2; 96374; 99284; 97116; 97530 ×2; 97140; 97162; 97535 ×2; 97165; 80053 ×3; 85025 ×3; 72100; 73502; 72131; G0378 ×4; J2360; S0170 ×3; J1171 ×3; J2919 ×3

== ENCOUNTER → 2024-11-22 | Outpatient (CLI) | payer MEDICARE ==
[2024-11-22 08:44] VITALS: BP 120/67; PULSE 61; RESP 16; TEMP 97.3
--- NOTE | 2024-11-22 16:13 | P.PAINPG ---
PQRS Measure Charge Sheet Comment: A 74 yr old female w pacemaker w at side with a history of severe and chronic LBP secondary to radiculopathy, spondylosis with facet arthropathy without myelopathy, L Sacroiliitis presents today for evaluation. Pain level is provoked at 7 /10 in intensity, constant, predominantly axial, localized in the lumbar spine, achy in character w occasional shooting towards the L buttock. Pain is provoked by lifting. Pain is alleviated with massage therapy semi monthly since 2021 which she is currently in, physician guided stretches from Dr Bennett daily since Jul 2024, heat, ice, medications, use of a cane/ walker for ambulatory assistance, repositioning and rest. Oswestry axial pain score at 30. Interventional pain procedures completed include R RFA L3-L5 (2014) Patient is currently on Altair, Tyl Patient denies any side effects of the medication(s), denies excessive drowsiness or sleepiness, denies suicidal ideation and reports that the current pain medication is helping to control the pain and improve activities of daily living. Patient denies any motor or sensory deficits. Patient denies any fever or night sweats, denies any change in the bowel movements or urination. Physical Examination: -Constitutional: Cooperative. Not in acute distress . - Neurologic: Cranial nerve II to XII intact. No focal neurological deficits. - Psychatric: Alert & oriented x 3. Matching mood & appropriate affect. Judgment and insight intact. - Musculoskeletal: Cervical spine: Muscle bulk/ tone/ strength in the bilateral upper extremities normal Vertebral body tenderness to palpation over Spurling test positive Distraction test positive Facet loading test positive TTP Thoracic spine Muscle bulk / tone/ strength in the bilateral paraspinal muscles normal Vertebral body tender to palpation over Facet loading test positive TTP Lumbar spine: Motor bulk/ tone/ strength lower extremities , thigh and legs : 5/5 Deep tendon reflexes : Normal Knee Jerk. Normal Ankle Jerk . Vertebral body tenderness to palpation over L5 Naranjo Test positive BL L5-S1 Lumbar Facet Loading Test positive Straight Leg Raise: positive at 30 degrees right side/ left side Gaenslen's Test positive Sacral spine : Severe tenderness over the Sacroiliac joint: right side / left side Range of motion: Flexion of the lumbar spine <60 degrees Range of motion: Extension of the lumbar spine <20 degrees Gaenslen's Test positive right side / left side Santiago test: positive right side / left side Thigh Thrust Test positive right side / left side Sacral Thrust Test positive right side / left side Imaging: CT non contrast lumbar spine from 11/09/24 reviewed Assessment and plan: Chronic LBP secondary to lumbar radiculopathy, spondylosis with facet arthropathy without myelopathy, L Sacroiliitis Recommendation of L SI #1. Would also benefit from VIVIAN L4-L5, L5-S1 and BL RFA L3-L5. Risks, benefits of procedure discussed and pt verbalized understanding. Admits to anticoagulant use or medical history of diabetes. Protocol for discontinuation/ continuation of medications jeana procedure discussed. All questions answered. I have spent less than 30 minutes on patient care today. Dr Candelaria was available by phone for the evaluation of this patient. The time was used to review the medical records including relevant urine studies and Prescription history (MAPs), review of the available imaging, evaluation and examination of the patient, coordination of care with the medical staff and if applicable referring physicians, as well as creation of the medical record PQRS Narrative: Smoking Status Never smoker Home Medications: Ambulatory Orders Levothyroxine Sodium [Synthroid] 25 mcg PO DAILY 05/26/14 Anastrozole [Arimidex] 1 mg PO HS 12/21/15 Furosemide [Lasix] 40 mg PO DAILY 12/05/17 Oxybutynin ER [Ditropan XL] 10 mg PO HS 12/05/17 Apixaban [Eliquis] 5 mg PO BID 04/02/19 Flecainide [Tambocor] 100 mg PO BID 06/28/19 Calcium Carbonate/Vitamin D3 [Calcium 500 mg-Vit D3 5 mcg (200 Unit)] 1 tab PO BID 06/29/21 Potassium Chloride [Potassium Chloride ER] 8 meq PO BID 06/29/21 Denosumab [Prolia] 60 mg SQ Q6M 11/09/24 Ergocalciferol (Vitamin D2) [Drisdol (50,000 Iu)] 1,250 mcg PO TH 11/09/24 Imatinib Mesylate [Gleevec] 400 mg PO HS 11/09/24 Magnesium Oxide [Magox 400] 400 mg PO DAILY 11/09/24 atenoloL [Tenormin] 50 mg PO DAILY 11/09/24 calcitrioL [Rocaltrol] 0.25 mcg PO DAILY 11/09/24 Famotidine [Pepcid] 20 mg PO DAILY #12 tablet 11/10/24 HYDROcodone/APAP 5-325MG [Altair 5-325] 1 - 2 tab PO Q6HR PRN #56 tab 11/10/24 predniSONE [Deltasone] 20 mg PO DAILY #24 tab 11/10/24 methocarbamoL [Robaxin-750] 750 mg PO TID #90 tab 11/12/24 polyethylene glycoL 3350 [Miralax] 17 gm PO DAILY packet 11/12/24 Controlled Substance Measures - Controlled Substance Measures Is patient prescribed a controlled substance at discharge?: No
== END ==
LOC: PNWHC3 08:06
PROVIDERS: ATTEND Specialist
DX: M47.26 Other spondylosis with radiculopathy, lumbar region (principal); M46.1 Sacroiliitis, not elsewhere classified; Z88.6 Allergy status to analgesic agent; Z91.09 Other allergy status, other than to drugs and biological substances; Z88.5 Allergy status to narcotic agent; Z88.8 Allergy status to other drugs, medicaments and biological substances
CPT/HCPCS: 99211

== ENCOUNTER 2024-12-23 08:05 | Day surgery (SDC) | payer MEDICARE ==
[2024-12-17 16:21] VITALS: BMI 40.3
[~2024-12-23 08:05] MED LIST changes: -ACETAMINOPHEN TAB 500 MG TAB PO PRN; -DEXAMETHASONE SOD PHOSPHATE 4 MG/ML 1 ML VIAL IV ONE; -GABAPENTIN 300 MG CAP PO PRN; +LACTATED RINGERS 1,000 ML IV SCH; -LIDOCAINE 1% (10MG/ML) FOR IV START INTRADERMA PRN; -MELOXICAM 7.5 MG TAB PO PRN; -MIDAZOLAM 2 MG/2 ML VIAL IV PRN; -ONDANSETRON 4 MG/2 ML VIAL IVP ONE; -TRANEXAMIC ACID IN NACL,ISO-OS 1,000 MG in SALINE 1 100ML.BAG IVPB PRN; -ceFAZolin 3 GM in SODIUM CHLORIDE 0.9% 100 ML IVPB PRN
[2024-12-23 08:44] VITALS: TEMP 97.6
[2024-12-23 08:51] LABS: Glucose,Whole Blood 92 mg/dL (70-110)
[2024-12-23] MEDS ORDERED: ROPIVACAINE 5MG/ML 20ML VIAL ONE (09:05)
[2024-12-23] MEDS ORDERED: methylPREDNISolone ACETATE 40 MG/ML 1 ML VIAL ONE (09:05)
[2024-12-23] MEDS ORDERED: IOPAMIDOL M200 10 ML VIAL ONE (09:05)
--- NOTE | 2024-12-23 09:18 | P.PCN ---
Date of Procedure: 12/23/24 Procedure(s) Performed: Procedure= Left sacroiliac joints steroid injection under fluoroscopy guidance (fluoroscopy image stored on file in the radiology Department ) Preoperative diagnosis= 1-left sacroiliitis 2-lumbar degenerative disc disease 3-lumbar spondylosis with facet arthropathy. 4-lumbar spinal stenosis Postoperative diagnosis=Same as preop Diagnosis . Complication = none Condition= stable Anesthesia= local anesthesia with ropivacaine 0.5% 4 ml only Indication for the procedure= patient complaining of low back pain , examination was positive for severe tenderness over the sacroiliac joints bilaterally and patient diagnosed with sacroiliitis, for this reason he/ she was good candidate for sacroiliac joint steroid injection. Description of the procedure= procedure risk and benefits discussed with the patient, including but not limited, risk of infection and bleeding, and ALLERGIC reaction to the medication and not complete pain relief and patient agreed with the preceding patient taken to the operating room, placed in prone position or standard monitors applied to the patient then after induction of anesthesia back prepped with chlorhexidine 3 times. Then the left sacroiliac joint steroid injection done under strict sterile technique local infiltration of the skin and subcu interstitial at the location of the left sacroiliac joint then a 23-gauge Quincke Needle advanced slowly under fluoroscopy time placed in the left sacroiliac joint, needle placement confirmed with AP and oblique and lateral view then after appropriate needle placement confirmed, with the AP and oblique and lateral then after negative aspiration Isovue 200 1 mL injected showed arthropathy of the left sacroiliac joint, and after negative aspiration 0.5% Ropivacaine 2 mL and 40 mg of Depo- Medrol injected in the left sacroiliac joint after negative aspiration patient tolerated the procedure well that any complications and she will follow up in clinic 3 weeks
--- NOTE | 2024-12-23 09:25 | FL ---
EXAMINATION TYPE: FL guided pain mgmt statistic Intraoperative/procedural fluoroscopic services were provided. CLINICAL INDICATION:Female, 74 years old with history of SI JOINT INJ; , PH FINDINGS: Single fluoroscopic image demonstrating SI joint injection. No radiographic evidence for complication . Total fluoroscopy time is 11.4 seconds. DAP: A [id number] [id number] Please see the operative/procedural note for further details. [facility], , 12/23/2024 9:22 AM
[2024-12-23 09:55] VITALS: RESP 18
[2024-12-23 09:58] VITALS: BP 120/72; PULSE 78
== END 2024-12-23 10:02 | disposition home or self-care (01) ==
LOC: ORPAIN 08:05
PROVIDERS: ATTEND Specialist
DX: M46.1 Sacroiliitis, not elsewhere classified (principal); M51.369 Other intervertebral disc degeneration, lumbar region without mention of lumbar back pain or lower extremity pain; M47.816 Spondylosis without myelopathy or radiculopathy, lumbar region; M48.061 Spinal stenosis, lumbar region without neurogenic claudication; Z88.8 Allergy status to other drugs, medicaments and biological substances
CPT/HCPCS: 27096; Q9966; J2795; J1010

== ENCOUNTER 2025-01-03 03:19 | Emergency (ER) | payer MEDICARE ==
--- NOTE | 2025-01-03 03:48 | ED ---
General Adult HPI - General Chief complaint: Extremity Problem,Nontraumatic Stated complaint: left arm pain Time Seen by Provider: 01/03/25 03:29 Source: patient, RN notes reviewed, old records reviewed Mode of arrival: ambulatory Limitations: no limitations - History of Present Illness Initial comments: 74-year-old female presenting with left arm pain. Pain began several hours prior to arrival. No injury. Patient was concerned this could be related to her heart. She denies chest pain. Denies difficulty breathing. Denies nausea vomiting or diaphoresis. Pain is not worse with movement. - Related Data Home Medications Medication Instructions Recorded Confirmed Levothyroxine Sodium [Synthroid] 25 mcg PO DAILY 05/26/14 12/17/24 Anastrozole [Arimidex] 1 mg PO HS 12/21/15 12/17/24 Furosemide [Lasix] 20 mg PO BID 12/05/17 12/17/24 Oxybutynin ER [Ditropan XL] 10 mg PO HS 12/05/17 12/17/24 Apixaban [Eliquis] 5 mg PO BID 04/02/19 12/17/24 Flecainide [Tambocor] 100 mg PO BID 06/28/19 12/17/24 Potassium Chloride [Potassium 8 meq PO BID 06/29/21 12/17/24 Chloride ER] Denosumab [Prolia] 60 mg SQ Q6M 11/09/24 12/17/24 Ergocalciferol (Vitamin D2) 1,250 mcg PO TH 11/09/24 12/17/24 [Drisdol (50,000 Iu)] Imatinib Mesylate [Gleevec] 400 mg PO HS 11/09/24 12/17/24 Magnesium Oxide [Magox 400] 400 mg PO DAILY 11/09/24 12/17/24 atenoloL [Tenormin] 50 mg PO DAILY 11/09/24 12/17/24 calcitrioL [Rocaltrol] 0.25 mcg PO DAILY 11/09/24 12/17/24 Calcium 400mg/Vitamin D3 1 dose PO BID 12/17/24 12/17/24 Famotidine [Pepcid] 20 mg PO DAILY PRN 12/17/24 12/17/24 allopurinoL [Allopurinol] 100 mg PO DAILY 12/17/24 12/17/24 polyethylene glycoL 3350 [Miralax] 17 gm PO DIRECTED PRN 12/17/24 12/17/24 Allergies Allergy/AdvReac Type Severity Reaction Status Date / Time meperidine HCl [From Demerol] Allergy Rash/Hives, Verified 01/03/25 03:21 rapid heart rate adhesive AdvReac RED SKIN Verified 01/03/25 03:21 AND TAKES SKIN OFF-paper tape is ok morphine AdvReac Itching Verified 01/03/25 03:21 naproxen [From Aleve] AdvReac told Verified 01/03/25 03:21 not to take due to hx of CKD NSAIDS (Non-Steroidal AdvReac Dr told Verified 01/03/25 03:21 Anti-Inflamma not to take due to CKD Review of Systems ROS Statement: Those systems with pertinent positive or pertinent negative responses have been documented in the HPI. ROS Other: All systems not noted in ROS Statement are negative. 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, 2013 left breast cancer with surgery/chemo/radiation, hx left arm DVT, bilateral leg varicosities, right hip bursitis, DDD, hypothyroid, psoriasis, hx cellulitis back of right leg, sinus problems, hemorrhoids, urinary stress incontinence, no CPAP use recently, neuropathy, gout, COVID+ 11/30/24, back pain History of Any Multi-Drug Resistant Organisms: None Reported Past Surgical History: Breast Surgery, Section, Hernia Repair, Hysterectomy, Joint Replacement, Orthopedic Surgery, Pacemaker Additional Past Surgical History / Comment(s): Left breat biopsy, left breast lumpectomy/2 lymph nodes removed, multiple bone marrow biopsies, port inserted/since removed, abdominal hernia repair, total hysterectomy, right heel spur removed, lef knee arthroscopy, EGD, colonoscopies, bilateral cataract removals/lens implants, right total hip replacement 2018, L total hip replacement 2021. Past Anesthesia/Blood Transfusion Reactions: Previous Problems w/ Anesthesia, Motion Sickness, Postoperative Nausea & Vomiting (PONV) Additional Past Anesthesia/Blood Transfusion Reaction / Comment(s): DIFFICULTY WAKING. No hx of blood transfusion. Type of Cardiac Device: Permanent Pacemaker Device Placement Date:: 04/29/19 Past Psychological History: No Psychological Hx Reported Smoking Status: Never smoker Past Alcohol Use History: Rare Past Drug Use History: None Reported - Past Family History Sister(s) Family Medical History: CVA/TIA, Vascular Disorder Additional Family Medical History / Comment(s): ischemic stroke X2; other sister w/ PAD and lower abd artery stent placement. General Exam Limitations: no limitations General appearance: alert, in no apparent distress Head exam: Present: atraumatic, normocephalic Eye exam: Present: normal appearance, PERRL Respiratory exam: Present: normal lung sounds bilaterally. Absent: respiratory distress, wheezes Cardiovascular Exam: Present: regular rate, normal rhythm GI/Abdominal exam: Present: soft. Absent: distended, tenderness Extremities exam: Present: normal inspection, normal capillary refill Neurological exam: Present: alert, oriented X3, CN II-XII intact. Absent: motor sensory deficit Psychiatric exam: Present: normal affect, normal mood Skin exam: Present: warm Course Vital Signs 01/03/25 01/03/25 01/03/25 03:22 05:15 06:30 Temperature 98.0 F Pulse Rate 71 60 60 Respiratory 16 16 Rate Blood Pressure 111/70 127/63 O2 Sat by Pulse 100 97 Oximetry Medical Decision Making - Medical Decision Making Was pt. sent in by a medical professional or institution (, PA, HORSE BREAKER, urgent care, hospital, or residential...) When possible be specific @ -No Did you speak to anyone other than the patient for history (EMS, parent, family, police, friend...)? What history was obtained from this source @ -No Did you review nursing and triage notes (agree or disagree)? Why? @ -I reviewed and agree with nursing and triage notes Were old charts reviewed (outside hosp., previous admission, EMS record, old EKG, old radiological studies, urgent care reports/EKG's, residential records)? Report findings @ -No old charts were reviewed Differential Diagnosis anginal equivalent, ACS, musculoskeletal arm pain EKG interpreted by me (3pts min.). @ -[Atrial paced rhythm rate of 68, [place] interval 284, QRS duration [address] segment elevation. X-rays interpreted by me (1pt min.). @ -None done CT interpreted by me (1pt min.). @ -None done U/S interpreted by me (1pt. min.). @ -None done What testing was considered but not performed or refused? (CT, X-rays, U/S, labs)? Why? @ -None What meds were considered but not given or refused? Why? @ -None Did you discuss the management of the patient with other professionals (professionals i.e. Dr., PA, HORSE BREAKER, lab, RT, psych nurse, social sciences department chair, personal security specialist, teacher, safety officer, correctional counselor/case manager)? Give summary @ -No Was smoking cessation discussed for >3mins.? @ -No Was critical care preformed (if so, how long)? @ -No Were there social determinants of health that impacted care today? How? (Homelessness, low income, unemployed, alcoholism, drug addiction, transportation, low edu. Level, literacy, decrease access to med. care, group home, r ehab)? @ -No Was there de-escalation of care discussed even if they declined (Discuss DNR or withdrawal of care, Hospice)? DNR status @ -No What co-morbidities impacted this encounter? (DM, HTN, Smoking, COPD, CAD, Cancer, CVA, ARF, Chemo, Hep., AIDS, mental health diagnosis, sleep apnea, morbid obesity)? @ -A-fib Was patient admitted / discharged? Hospital course, mention meds given and route, prescriptions, significant lab abnormalities, going to OR and other pertinent info. @ -74-year-old female presenting with left arm pain, concerning this could be related to the heart. EKG is paced rhythm without definitive signs of ischemia. I did perform laboratory testing including CBC, CMP and 2 sets of troponins which are both negative. Patient reassured. She will monitor symptoms closely and follow-up with her primary care. She should return with central chest pain. Undiagnosed new problem with uncertain prognosis? @ -No Drug Therapy requiring intensive monitoring for toxicity (Heparin, Nitro, Insulin, Cardizem)? @ -No Were any procedures done? @ -No Diagnosis/symptom? @Left arm pain Acute, or Chronic, or Acute on Chronic? @ -Acute Uncomplicated (without systemic symptoms) or Complicated (systemic symptoms)? @ -Default Side effects of treatment? @ -No Exacerbation, Progression, or Severe Exacerbation? @ -No Poses a threat to life or bodily function? How? (Chest pain, [place], [place], pneumonia, PE, COPD, DKA, ARF, appy, cholecystitis, CVA, Diverticulitis, Homicidal, Suicid al, threat to staff... and all critical care pts) @ -Low risk at this time - Lab Data Result diagrams: 01/03/25 04:02 01/03/25 04:02 Lab Results 01/03/25 01/03/25 01/03/25 Range/Units 04:02 04:02 04:02 WBC 7.8 (3.8-10.6) k/uL RBC 3.43 L (3.80-5.40) m/uL Hgb 11.1 L (11.4-16.0) gm/dL Hct 35.4 (34.0-46.0) % MCV 103.2 H (80.0-100.0) fL MCH 32.4 (25.0-35.0) pg MCHC 31.4 (31.0-37.0) g/dL RDW 14.4 (11.5-15.5) % Plt Count 261 (150-450) k/uL MPV 8.2 Neutrophils % 68 % Lymphocytes % 25 % Monocytes % 4 % Eosinophils % 2 % Basophils % 0 % Neutrophils # 5.3 (1.3-7.7) k/uL Lymphocytes # 2.0 (1.0-4.8) k/uL Monocytes # 0.3 (0-1.0) k/uL Eosinophils # 0.2 (0-0.7) k/uL Basophils # 0.0 (0-0.2) k/uL Macrocytosis Slight PT 10.9 (10.0-12.5) sec INR 1.0 (<1.2) APTT 23.7 (22.0-30.0) sec Sodium 140 (137-145) mmol/L Potassium 3.3 L (3.5-5.1) mmol/L Chloride 100 (98-107) mmol/L Carbon Dioxide 32 H (22-30) mmol/L Anion Gap 8 mmol/L BUN 15 (7-17) mg/dL Creatinine 1.27 H (0.52-1.04) mg/dL Est GFR (CKD-EPI)AfAm 49 (>60 ml/min/1.73 sqM) Est GFR (CKD-EPI)NonAf 42 (>60 ml/min/1.73 sqM) Glucose 105 H (74-99) mg/dL Calcium 9.9 (8.4-10.2) mg/dL Magnesium 1.7 (1.6-2.3) mg/dL Total Bilirubin 0.5 (0.2-1.3) mg/dL AST 23 (14-36) U/L ALT 18 (4-34) U/L Alkaline Phosphatase 68 (38-126) U/L Troponin I (0.000-0.034) ng/mL Total Protein 6.2 L (6.3-8.2) g/dL Albumin 3.9 (3.5-5.0) g/dL 01/03/25 01/03/25 Range/Units 04:02 06:00 WBC (3.8-10.6) k/uL RBC (3.80-5.40) m/uL Hgb (11.4-16.0) gm/dL Hct (34.0-46.0) % MCV (80.0-100.0) fL MCH (25.0-35.0) pg MCHC (31.0-37.0) g/dL RDW (11.5-15.5) % Plt Count (150-450) k/uL MPV Neutrophils % % Lymphocytes % % Monocytes % % Eosinophils % % Basophils % % Neutrophils # (1.3-7.7) k/uL Lymphocytes # (1.0-4.8) k/uL Monocytes # (0-1.0) k/uL Eosinophils # (0-0.7) k/uL Basophils # (0-0.2) k/uL Macrocytosis PT (10.0-12.5) sec INR (<1.2) APTT (22.0-30.0) sec Sodium (137-145) mmol/L Potassium (3.5-5.1) mmol/L Chloride (98-107) mmol/L Carbon Dioxide (22-30) mmol/L Anion Gap mmol/L BUN (7-17) mg/dL Creatinine (0.52-1.04) mg/dL Est GFR (CKD-EPI)AfAm (>60 ml/min/1.73 sqM) Est GFR (CKD-EPI)NonAf (>60 ml/min/1.73 sqM) Glucose (74-99) mg/dL Calcium (8.4-10.2) mg/dL Magnesium (1.6-2.3) mg/dL Total Bilirubin (0.2-1.3) mg/dL AST (14-36) U/L ALT (4-34) U/L Alkaline Phosphatase (38-126) U/L Troponin I 0.015 0.014 (0.000-0.034) ng/mL Total Protein (6.3-8.2) g/dL Albumin (3.5-5.0) g/dL Disposition Clinical Impression: Arm pain Disposition: HOME SELF-CARE Condition: Fair Instructions (If sedation given, give patient instructions): Arm Pain (ED) Is patient prescribed a controlled substance at d/c from ED?: No Referrals: Juan Jose Bennett MD [Primary Care Provider] - 1-2 days Time of Disposition: 06:56
[2025-01-03 04:26] LABS: Basophils % (A) 0 %; Eosinophils # (A) 0.2 k/uL (0-0.7); Eosinophils % (A) 2 %; HCT 35.4 % (34.0-46.0); HGB 11.1 gm/dL (11.4-16.0); Lymphocytes % (A) 25 %; MCH 32.4 pg (25.0-35.0); MCHC 31.4 g/dL (31.0-37.0); MCV 103.2 fL (80.0-100.0); Macrocytosis Slight; Mean Platelet Volume 8.2; Monocytes # (A) 0.3 k/uL (0-1.0); Monocytes % (A) 4 %; Neutrophils # (A) 5.3 k/uL (1.3-7.7); Neutrophils % (A) 68 %; Platelet Count 261 k/uL (150-450); RBC 3.43 m/uL (3.80-5.40); RDW 14.4 % (11.5-15.5); WBC 7.8 k/uL (3.8-10.6)
[2025-01-03 04:36] LABS: Partial Thromboplastin Time 23.7 sec (22.0-30.0); Prothrombin Time 10.9 sec (10.0-12.5)
[2025-01-03 04:39] LABS: ALT 18 U/L (4-34); AST 23 U/L (14-36); African American GFR (CKD) 49 (>60 ml/min/1.73 sqM); Albumin 3.9 g/dL (3.5-5.0); Alkaline Phosphatase 68 U/L (38-126); Anion Gap 8 mmol/L; Blood Urea Nitrogen 15 mg/dL (7-17); Calcium 9.9 mg/dL (8.4-10.2); Carbon Dioxide 32 mmol/L (22-30); Chloride 100 mmol/L (98-107); Glucose 105 mg/dL (74-99); Magnesium 1.7 mg/dL (1.6-2.3); Non-African American GFR(CKD) 42 (>60 ml/min/1.73 sqM); Potassium 3.3 mmol/L (3.5-5.1); Sodium 140 mmol/L (137-145); Total Bilirubin 0.5 mg/dL (0.2-1.3); Total Protein 6.2 g/dL (6.3-8.2)
[2025-01-03 07:18] VITALS: BP 109/58; PULSE 75; RESP 18; TEMP 98.6
== END 2025-01-03 07:18 | disposition home or self-care (01) ==
LOC: EC 03:19
DX: M79.602 Pain in left arm (principal); I48.91 Unspecified atrial fibrillation; Z91.048 Other nonmedicinal substance allergy status; Z88.6 Allergy status to analgesic agent; Z88.5 Allergy status to narcotic agent
CPT/HCPCS: 36415; 80053; 83735; 84484; 85025; 85610; 85730; 93005; 99284

== ENCOUNTER → 2025-01-10 | Outpatient (CLI) | payer MEDICARE ==
[2025-01-10 08:49] VITALS: BP 116/75; PULSE 69; RESP 16; TEMP 96.9
--- NOTE | 2025-01-10 14:44 | P.PAINPG ---
PQRS Measure Charge Sheet Comment: A 74 yr old female w pacemaker w at side with a history of severe and chronic LBP secondary to radiculopathy, spondylosis with facet arthropathy without myelopathy, L Sacroiliitis presents today for evaluation s/p L SI #1. Pt states she experienced 95 % pain relief s/p procedure. Pain level is provoked at 1 /10 in intensity, constant, predominantly axial, localized in the lumbar spine, achy in character w occasional shooting towards the BLEs. Pain is provoked by lifting. Pain is alleviated with massage therapy semi monthly since 2021 which she is currently in, physician guided stretches from Dr Bennett daily since Jul 2024, heat, ice, medications, use of a walker for ambulatory assistance, repositioning and rest. Interventional pain procedures completed include R RFA L3-L5 (2014), L SI x1 (01/11) Patient is currently on [place], Tyl Patient denies any side effects of the medication(s), denies excessive drowsiness or sleepiness, denies suicidal ideation and reports that the current pain medication is helping to control the pain and improve activities of daily living. Patient denies any motor or sensory deficits. Patient denies any fever or night sweats, denies any change in the bowel movements or urination. Physical Examination: -Constitutional: Cooperative. Not in acute distress . - Neurologic: Cranial nerve II to XII intact. No focal neurological deficits. - Psychatric: Alert & oriented x 3. Matching mood & appropriate affect. Judgment and insight intact. - Musculoskeletal: Cervical spine: Muscle bulk/ tone/ strength in the bilateral upper extremities normal Vertebral body tenderness to palpation over Spurling test positive Distraction test positive Facet loading test positive TTP Thoracic spine Muscle bulk / tone/ strength in the bilateral paraspinal muscles normal Vertebral body tender to palpation over Facet loading test positive TTP Lumbar spine: Motor bulk/ tone/ strength lower extremities , thigh and legs : 5/5 Deep tendon reflexes : Normal Knee Jerk. Normal Ankle Jerk . Vertebral body tenderness to palpation over L5 Naranjo Test positive BL L5-S1 Lumbar Facet Loading Test positive Straight Leg Raise: positive at 30 degrees right side/ left side Gaenslen's Test positive Sacral spine : Severe tenderness over the Sacroiliac joint: right side / left side Range of motion: Flexion of the lumbar spine <60 degrees Range of motion: Extension of the lumbar spine <20 degrees Gaenslen's Test positive right side / left side Santiago test: positive right side / left side Thigh Thrust Test positive right side / left side Sacral Thrust Test positive right side / left side Imaging: CT non contrast lumbar spine from 11/09/24 reviewed Assessment and plan: Chronic LBP secondary to lumbar radiculopathy, spondylosis with facet arthropathy without myelopathy, L Sacroiliitis Will manage residual pain and may RTC on an as needed basis. All quest ions answered. I have spent less than 30 minutes on patient care today. Dr Candelaria was available by phone for the evaluation of this patient. The time was used to review the medical records including relevant urine studies and Prescription history (MAPs), review of the available imaging, evaluation and examination of the patient, coordination of care with the medical staff and if applicable refe rring physicians, as well as creation of the medical record PQRS Narrative: Smoking Status Never smoker Hx Alcohol Use (MH) No Home Medications: Ambulatory Orders Levothyroxine Sodium [Synthroid] 25 mcg PO DAILY 05/26/14 Anastrozole [Arimidex] 1 mg PO HS 12/21/15 Furosemide [Lasix] 20 mg PO BID 12/05/17 Oxybutynin ER [Ditropan XL] 10 mg PO HS 12/05/17 Apixaban [Eliquis] 5 mg PO BID 04/02/19 Flecainide [Tambocor] 100 mg PO BID 06/28/19 Potassium Chloride [Potassium Chloride ER] 8 meq PO BID 06/29/21 Denosumab [Prolia] 60 mg SQ Q6M 11/09/24 Ergocalciferol (Vitamin D2) [Drisdol (50,000 Iu)] 1,250 mcg PO TH 11/09/24 Imatinib Mesylate [Gleevec] 400 mg PO HS 11/09/24 Magnesium Oxide [Magox 400] 400 mg PO DAILY 11/09/24 atenoloL [Tenormin] 50 mg PO DAILY 11/09/24 calcitrioL [Rocaltrol] 0.25 mcg PO DAILY 11/09/24 Calcium 400mg/Vitamin D3 1 dose PO BID 12/17/24 Famotidine [Pepcid] 20 mg PO DAILY PRN 12/17/24 allopurinoL [Allopurinol] 100 mg PO DAILY 12/17/24 polyethylene glycoL 3350 [Miralax] 17 gm PO DIRECTED PRN 12/17/24 Controlled Substance Measures - Controlled Substance Measures Is patient prescribed a controlled substance at discharge?: No
== END ==
LOC: PNWHC3 08:12
PROVIDERS: ATTEND Specialist
DX: M46.1 Sacroiliitis, not elsewhere classified (principal); M47.26 Other spondylosis with radiculopathy, lumbar region; G89.29 Other chronic pain; Z88.5 Allergy status to narcotic agent; Z91.048 Other nonmedicinal substance allergy status; Z88.6 Allergy status to analgesic agent
CPT/HCPCS: 99211

== ENCOUNTER → 2025-04-07 | Outpatient (CLI) | payer MEDICARE ==
[2025-04-07 09:15] VITALS: BP 124/75; PULSE 68; RESP 16; TEMP 96.3
--- NOTE | 2025-04-07 14:39 | P.PAINPG ---
Objective - Vital Signs Vital signs: Intake & Output 04/06/25 04/07/25 04/07/25 18:59 06:59 18:59 Weight 111.584 kg PQRS Measure Charge Sheet Comment: A 74 yr old female w pacemaker w at side with a history of severe and chronic LBP secondary to radiculopathy, spondylosis with facet arthropathy without myelopathy, L Sacroiliitis presents today for evaluation. Pt underwent a L SI injection on 12/23/24 where she experienced 90% pain relief x 3 mo s/p pro cedure. Pain level is provoked at 10 /10 in intensity, constant, predominantly axial, localized in the lumbar spine, achy in character w occasional shooting towards the R hip. Pain is provoked by lifting. Pain is alleviated with massage therapy semi monthly since 2021 which she is currently in, physician guided stretches from Dr Bennett daily since Jul 2024, heat, ice, medications, use of a walker for ambulatory assistance, repositioning and rest. Interventional pain procedures completed include R RFA L3-L5 (2014), L SI x1 (01/11) Patient is currently on [place], Tyl Patient denies any side effects of the medication(s), denies excessive drowsiness or sleepiness, denies suicidal ideation and reports that the current pain medication is helping to control the pain and improve activities of daily living. Patient denies any motor or sensory deficits. Patient denies any fever or night sweats, denies any change in the bowel movements or urination. Physical Examination: -Constitutional: Cooperative. Not in acute distress . - Neurologic: Cranial nerve II to XII intact. No focal neurological deficits. - Psychatric: Alert & oriented x 3. Matching mood & appropriate affect. Judgment and insight intact. - Musculoskeletal: Cervical spine: Muscle bulk/ tone/ strength in the bilateral upper extremities normal Vertebral body tenderness to palpation over Spurling test positive Distraction test positive Facet loading test positive TTP Thoracic spine Muscle bulk / tone/ strength in the bilateral paraspinal muscles normal Vertebral body tender to palpation over Facet loading test positive TTP Lumbar spine: Motor bulk/ tone/ strength lower extremities , thigh and legs : 5/5 Deep tendon reflexes : Normal Knee Jerk. Normal Ankle Jerk . Vertebral body tenderness to palpation over L5 Naranjo Test positive BL L5-S1 Lumbar Facet Loading Test positive Straight Leg Raise: positive at 30 degrees right side/ left side Gaenslen's Test positive Sacral spine : Severe tenderness over the Sacroiliac joint: right side / left side Range of motion: Flexion of the lumbar spine <60 degrees Range of motion: Extension of the lumbar spine <20 degrees Gaenslen's Test positive right side / left side Santiago test: positive right side / left side Thigh Thrust Test positive right side / left side Sacral Thrust Test positive right side / left side Imaging: CT non contrast lumbar spine from 11/09/24 reviewed Assessment and plan: Chronic LBP secondary to lumbar radiculopathy, spondylosis with facet arthropathy without myelopathy, BL Sacroiliitis Recommendation of R SI #1. Risks, benefits of procedure discussed and pt verbalized understanding. All questions answered. I have spent less than 30 minutes on patient care today. Dr Candelaria was available by phone for the evaluation of this patient. The time was used to review the medical records including relevant urine studies and Prescription history (MAPs), review of the available imaging, evaluation and examination of the patient, coordination of care with the medical staff and if applicable referring physicians, as well as creation of the medical record - Pain Location Right Lower Back Non-Pharmacological Interventions: Heat Pharmacological Interventions: PRN Medication, Topical Medication PQRS Narrative: Smoking Status Never smoker Hx Alcohol Use (MH) No Home Medications: Ambulatory Orders Levothyroxine Sodium [Synthroid] 25 mcg PO DAILY 05/26/14 Anastrozole [Arimidex] 1 mg PO HS 12/21/15 Furosemide [Lasix] 20 mg PO BID 12/05/17 Oxybutynin ER [Ditropan XL] 10 mg PO HS 12/05/17 Apixaban [Eliquis] 5 mg PO BID 04/02/19 Flecainide [Tambocor] 100 mg PO BID 06/28/19 Potassium Chloride [Potassium Chloride ER] 8 meq PO BID 06/29/21 Denosumab [Prolia] 60 mg SQ Q6M 11/09/24 Ergocalciferol (Vitamin D2) [Drisdol (50,000 Iu)] 1,250 mcg PO TH 11/09/24 Imatinib Mesylate [Gleevec] 400 mg PO HS 11/09/24 atenoloL [Tenormin] 50 mg PO DAILY 11/09/24 calcitrioL [Rocaltrol] 0.25 mcg PO DAILY 11/09/24 Calcium 400mg/Vitamin D3 1 dose PO BID 12/17/24 Famotidine [Pepcid] 20 mg PO DAILY PRN 12/17/24 allopurinoL [Allopurinol] 100 mg PO DAILY 12/17/24 polyethylene glycoL 3350 [Miralax] 17 gm PO DIRECTED PRN 12/17/24 Rosuvastatin [Crestor] 10 mg PO 04/07/25 Controlled Substance Measures - Controlled Substance Measures Is patient prescribed a controlled substance at discharge?: No
== END ==
LOC: PNWHC3 08:37
PROVIDERS: ATTEND Specialist
DX: M47.26 Other spondylosis with radiculopathy, lumbar region (principal); M46.1 Sacroiliitis, not elsewhere classified; Z88.5 Allergy status to narcotic agent; Z88.6 Allergy status to analgesic agent; Z91.048 Other nonmedicinal substance allergy status
CPT/HCPCS: 99211

== ENCOUNTER → 2025-04-11 | Outpatient (CLI) | payer MEDICARE ==
--- NOTE | 2025-04-11 08:33 | USB ---
Reason for Exam: Clinical finding. Patient History: Menarche at age 17. First Full-Term at age 27. Left ovary removed at age 49. Right ovary removed at age 37. Hysterectomy at age 37. Postmenopausal. Other cancer, age 55. Breast cancer, left, age 63. 2013, Lumpectomy on the Left side. 07/07/2019, Benign Core Biopsy on the left side. 08/28/2018, Benign Core Biopsy on the left side. 01/02/2016, Cyst Aspiration on the Left side. 12/13/2015, Benign Cyst Aspiration on the left side. 12/13/2015, Benign Core Biopsy on the left side. 10/03/2014, Malignant Core Biopsy on the left side. 05/04/2014, Malignant Core Biopsy on the left side. Chemotherapy. Radiation Therapy, left. 2013, Chemotherapy. 2013, Radiation Therapy on the left side. Paternal cousin had breast cancer. Paternal cousin had breast cancer. Technique: Method: Targeted. Prior Study Comparison: 06/27/2022 Bilateral Diagnostic Mammogram, [facility]. 06/30/2023 Bilateral MG 3D diag mammo w/cad [facility], [facility]. 07/01/2024 Bilateral MG 3D diag mammo w/cad [facility], [facility]. Findings: The upper section of the breast of the left breast, the axilla of the left breast and the retroareolar of the left breast were scanned. Technique utilized:US breast limited LT Image; Ultrasound imaging of: Upper half, retroareolar region and axilla. Postsurgical changes at patient's area of lumpectomy site noted with heterogenous tissue. No organizing fluid collection. No suspicious masses.. Overall Assessment: Benign, BI-RAD 2 Management: Screening Mammogram of both breasts in 1 year. A clinical breast exam by your physician is recommended on an annual basis and results should be correlated with mammographic findings. This exam should not preclude additional follow-up of suspicious palpable abnormalities. Results were given to the patient verbally at the time of exam. [facility], , 04/11/2025 8:10 AM. Electronically signed and approved by: Malik Silveira DO
== END | disposition home or self-care (01) ==
LOC: RADUSWWP 07:31
PROVIDERS: ATTEND Internal Medicine Hematology & Oncology
DX: C50.212 Malignant neoplasm of upper-inner quadrant of left female breast (principal); C92.11 Chronic myeloid leukemia, BCR/ABL-positive, in remission; E03.9 Hypothyroidism, unspecified; Z17.0 Estrogen receptor positive status [ER+]; Z80.3 Family history of malignant neoplasm of breast; Z78.0 Asymptomatic menopausal state; Z85.3 Personal history of malignant neoplasm of breast

== ENCOUNTER → 2025-04-26 | Day surgery (SDC) | payer MEDICARE ==
[~2025-04-26] MED LIST changes: +IOPAMIDOL M200 10 ML VIAL ONE; +TRIAMCINOLONE ACETONIDE 40 MG/ML 1 ML VIAL ONE
[2025-04-26 08:15] VITALS: TEMP 97
--- NOTE | 2025-04-26 08:41 | P.PCN ---
Date of Procedure: 04/26/25 Surgeon: Mayr Cadet Description of Procedure: Pre- and Post-operative Diagnosis: Right sacroiliitis, right sacroiliac joint dysfunction Procedure: Right sacroiliac Joint steroid injection under biplanar fluoroscopy Surgeon: Mary Cadet MD Anesthesia: Local only with: 1% Lidocaine . Complications: none Estimated blood loss: None Specimen removed: None Fluoroscopic image: Saved to patient electronic medical records. Procedure and Findings: The patient was seen and examined in the holding area. The written informed consent was obtained after explaining the risks, benefits and alternatives of the procedure to the patient. The patient was brought to the procedure room and was placed in the prone position on the operating room table. A pillow was placed under the lower abdomen. The anesthesia was started as mentioned above and monitoring was done with noninvasive blood pressure cuff, EKG and pulse oximetry. The skin preparation was done with ChloraPrep, and draping was done in usual sterile fashion. Sterile technique was observed throughout the procedure. The right sacroiliac joint was identified under fluoroscopy then the anterior and posterior joint lines were aligned by tilting the C-arm to the contralateral side and inferior one third of this joint line was the target of this injection. I used 25-gauge 3-1/2 inch Quincke spinal needle to go through the skin after localizing it with lidocaine 1% and into the sacroiliac joint under fluoroscopic guidance. I then injected Kenalog 40 mg +1.5 mL of Marcaine 0.5% to a total volume of 2.5 mL. Patient tolerated the procedure well. Patient care was transferred to PACU in stable condition . Pressure was held on the sacroiliac joint for a few minutes after taking the needle out due to the patient's treatment with Eliquis.
[2025-04-26 08:51] VITALS: RESP 16
[2025-04-26 08:59] VITALS: BP 135/71; PULSE 60
--- NOTE | 2025-04-26 09:14 | FL ---
EXAMINATION TYPE: FL guided pain mgmt statistic DATE OF EXAM: 04/26/2025 9:03 AM COMPARISON: Pre Operative Images if available both CT/MRI or plain film CLINICAL INDICATION: Female, 74 years old with history of SI JOINT INJECTION; TECHNIQUE: FL guided pain mgmt statistic, multiple fluoroscopic images provided for procedure. DAP: 0.42238 mGym2 Gycm2 uGym2 cGycm2 or equivalent. FINDINGS: Fluoroscopic images during injection for pain management demonstrate degeneration of the sacroiliac j oint. No evidence for fracture. No acute process identified. IMPRESSION: 1. No evidence for intraoperative complication. 2. Please see the operative/procedural note for further details. [facility], , 04/26/2025 9:11 AM
== END ==
LOC: ORPAIN 07:29
PROVIDERS: ATTEND Anesthesiology
DX: M46.1 Sacroiliitis, not elsewhere classified (principal); M53.3 Sacrococcygeal disorders, not elsewhere classified; I48.91 Unspecified atrial fibrillation; Z88.5 Allergy status to narcotic agent; Z88.8 Allergy status to other drugs, medicaments and biological substances; Z79.01 Long term (current) use of anticoagulants
CPT/HCPCS: 27096; J3301; Q9966; G0260

== ENCOUNTER → 2025-05-18 | Outpatient (CLI) | payer MEDICARE ==
[2025-05-18 08:30] VITALS: BP 123/78; PULSE 63; RESP 17
--- NOTE | 2025-05-18 14:15 | P.PAINPG ---
PQRS Measure Charge Sheet Comment: A 74 yr old female w pacemaker w at side with a history of severe and chronic LBP secondary to radiculopathy, spondylosis with facet arthropathy without myelopathy, L Sacroiliitis presents today for evaluation s/p R SI #1. Pt states she experienced 80 % pain relief x 3 wks s/p procedure. Pain level is provoked at 6 /10 in intensity, intermittent, predominantly axial, localized in the lumbar spine, achy in character w occasional shooting towards the R lateral knee. Pain is provoked by lifting. Pain is alleviated with massage therapy semi monthly since 2021 which she is currently in, physician guided stretches from Dr Bennett daily since Jul 2024, heat, ice, medications, use of a walker for ambu latory assistance, repositioning and rest. Oswestry axial pain score of 30. Interventional pain procedures completed include R RFA L3-L5 (2014), L SI x1 (01/11), R SI x1 (05/13) Patient is currently on [place], Tyl Patient denies any side effects of the medication(s), denies excessive drowsiness or sleepiness, denies suicidal ideation and reports that the current pain medication is helping to control the pain and improve activities of daily living. Patient denies any motor or sensory deficits. Patient denies any fever or night sweats, denies any change in the bowel movements or urination. Physical Examination: -Constitutional: Cooperative. Not in acute distress . - Neurologic: Cranial nerve II to XII intact. No focal neurological deficits. - Psychatric: Alert & oriented x 3. Matching mood & appropriate affect. Judgment and insight intact. - Musculoskeletal: Cervical spine: Muscle bulk/ tone/ strength in the bilateral upper extremities normal Vertebral body tenderness to palpation over Spurling test positive Distraction test positive Facet loading test positive TTP Thoracic spine Muscle bulk / tone/ strength in the bilateral paraspinal muscles normal Vertebral body tender to palpation over Facet loading test positive TTP Lumbar spine: Motor bulk/ tone/ strength lower extremities , thigh and legs : 5/5 Deep tendon reflexes : Normal Knee Jerk. Normal Ankle Jerk . Vertebral body tenderness to palpation over L4 Naranjo Test positive BL L5-S1 Lumbar Facet Loading Test positive Straight Leg Raise: positive at 30 degrees right side/ left side Gaenslen's Test positive Sacral spine : Severe tenderness over the Sacroiliac joint: right side / left side Range of motion: Flexion of the lumbar spine <60 degrees Range of motion: Extension of the lumbar spine <20 degrees Gaenslen's Test positive right side / left side Santiago test: positive right side / left side Thigh Thrust Test positive right side / left side Sacral Thrust Test positive right side / left side Imaging: CT non contrast lumbar spine from 11/09/24 reviewed Assessment and plan: Chronic LBP secondary to lumbar radiculopathy, spondylosis with facet arthropathy without myelopathy, BL Sacroiliitis Recommendation of R paramedian VIVIAN L4-L5 #1. Risks, benefits of procedure discussed and pt verbalized understanding. Protocol for discontinuation/ continuation of medications jeana procedure discussed. All questions answered. I have spent less than 30 minutes on patient care today. Dr Candelaria was available by phone for the evaluation of this patient. The time was used to review the medical records including relevant urine studies and Prescription history (MAPs), review of the available imaging, evaluation and examination of the patient, coordination of care with the medical staff and if applicable referring physicians, as well as creation of the medical record - Pain Location Lower Medial Back Non-Pharmacological Interventions: Heat, Stretching Pharmacological Interventions: Medication PQRS Narrative: Smoking Status Never smoker Hx Alcohol Use (MH) No Home Medications: Ambulatory Orders Levothyroxine Sodium [Synthroid] 25 mcg PO DAILY 05/26/14 Anastrozole [Arimidex] 1 mg PO HS 12/21/15 Furosemide [Lasix] 20 mg PO BID 12/05/17 Oxybutynin ER [Ditropan XL] 10 mg PO HS 12/05/17 Apixaban [Eliquis] 5 mg PO BID 04/02/19 Flecainide [Tambocor] 100 mg PO BID 06/28/19 Potassium Chloride [Potassium Chloride ER] 8 meq PO BID 06/29/21 Denosumab [Prolia] 60 mg SQ Q6M 11/09/24 Ergocalciferol (Vitamin D2) [Drisdol (50,000 Iu)] 1,250 mcg PO TH 11/09/24 Imatinib Mesylate [Gleevec] 400 mg PO HS 11/09/24 atenoloL [Tenormin] 50 mg PO DAILY 11/09/24 calcitrioL [Rocaltrol] 0.25 mcg PO DAILY 11/09/24 Calcium 400mg/Vitamin D3 1 dose PO BID 12/17/24 Famotidine [Pepcid] 20 mg PO DAILY PRN 12/17/24 allopurinoL [Allopurinol] 100 mg PO HS 12/17/24 polyethylene glycoL 3350 [Miralax] 17 gm PO DIRECTED PRN 12/17/24 Rosuvastatin [Crestor] 10 mg PO DAILY 04/07/25 Controlled Substance Measures - Controlled Substance Measures Is patient prescribed a controlled substance at discharge?: Yes When asked, does pt state using other controlled substances?: No If prescribed controlled substance>3 days was MAPS reviewed?: Prescribed <3 Days
== END | disposition home or self-care (01) ==
LOC: PNWHC3 08:06
PROVIDERS: ATTEND Specialist
DX: M47.26 Other spondylosis with radiculopathy, lumbar region (principal); M46.1 Sacroiliitis, not elsewhere classified
CPT/HCPCS: 99212